=== PATIENT | female | born 1950 | race Caucasian/White ===

== ENCOUNTER → 2017-09-23 09:22 | Outpatient (CLI) | payer MEDICARE, BC, SELFPAY ==
--- NOTE | 2017-09-23 09:25 | US_ITS ---
STUDY: THYROID ULTRASOUND REASON FOR EXAM: Female, 67 years old. Nodule, partial thyroidectomy TECHNIQUE: Ultrasound evaluation of the thyroid was performed with real-time and static pittman-scale imaging. COMPARISON: No comparison studies are available. FINDINGS: RIGHT LOBE: The right lobe of the thyroid gland has been resected. LEFT LOBE: The left lobe of the thyroid gland measures 5 x 1.6 x 1.4 cm. There is a homogeneous echotexture. There is a well-defined nodule within the superior pole of the left lobe of the thyroid gland measuring 7 x 6 x 8 mm. There is a hypoechoic halo, and perinodular flow. ISTHMUS: The isthmus measures 3 mm. The regional lymph nodes are normal. US/Thyroid IMPRESSION: Solitary left lobe thyroid nodule. Status post resection of the right thyroid lobe. Electronically Signed: Bebeto Melchor DO at 8:30 EDT Tel , Service support ,
--- NOTE | 2017-09-23 09:26 | BI_ITS ---
MAMMOGRAPHY - BILATERAL SCREENING REASON FOR EXAM: Female, 67 years old. Routine annual screening examination. PERTINENT HISTORY: Non-contributory. TECHNIQUE: Digital bilateral breast melinda (3D mammographic acquisition) in the CC and MLO projections. 2-D mediolateral oblique (MLO) and craniocaudad (CC) views of both breasts were obtained. CAD: Full Field Digital Mammography with Computer Added Detection was performed. COMPARISON: Comparison is made with prior study dated July 03, 2010. FINDINGS: Breast Composition: There are scattered areas of fibroglandular density. There are no dominant masses or suspicious calcifications. Stable appearance of the benign appearing bilateral axillary lymph nodes. No other significant abnormalities are identified. There has been no significant change since the prior study. BI/SCREENING MAMM (CAD), BILAT IMPRESSION: Stable bilateral screening mammogram. Yearly follow-up mammogram recommended. (A) ASSESSMENT CATEGORY: BIRADS Category 2: Benign. A letter regarding these results will be sent to the patient by the facility within 30 days. Approximately 10% of breast cancers are not detected by mammography. A normal mammogram should not delay biopsy of a clinically suspicious abnormality. [id number] Electronically Signed: Burt Saucedo MD at 12:30 EDT Tel [phone], Service support ,
--- NOTE | 2017-09-23 09:27 | BD_ITS ---
STUDY: DUAL ENERGY X-RAY ABSORPTIOMETRY / DXA REASON FOR EXAM: Female, 67 years old. The patient is postmenopausal. Loss of height. TECHNIQUE: Bone Mineral Density (BMD) measurements of lumbar spine and bilateral hips were obtained. COMPARISON: Comparison is made with prior study dated July 03, 2010. FINDINGS: Lumbar Spine (L1-L4): g/cm2 (1.108) / T-score (-0.8) / Z-score (0.9) Findings are suggestive of normal bone density with a low fracture risk. Left Femur Total: g/cm2 (0.774) / T-score (-1.9) / Z-score (-0.5) Left Femoral Neck: g/cm2 (0.699) / T-score (-2.4) / Z-score (-0.8) Right Femur Total: g/cm2 (0.752) / T-score (-2.0) / Z-score (-0.7) Right Femoral Neck: g/cm2 (0.682) / T-score (-2.6) / Z-score (-1.0) The T-Scores on the most recent prior examination were: Lumbar Spine (L1-L4): There has been improvement of bone density since the previous examination. Left Femur Total: which represents a worsening of 2.9%. Right Femur Total: which represents a worsening of 0.5%. BD/Dexa Bone Density Study IMPRESSION: The patient is considered osteoporotic as outlined below according to World Jose J Organization (WHO) criteria with a high fracture risk. There has been worsening of bone density since the previous examination. Reference Information: The T-score is the number of standard deviations above or below the standard which is normal for young adults at their peak bone mineral density. The World Health Organization (WHO) interprets the T-scores as follows: Above -1 Normal bone density Between -1 and -2.5 Osteopenia Equal to / or below -2.5 Osteoporosis As a practical clinical guideline, osteopenia may be graded as follows: Mild -1 through -1.5 Moderate -1.6 through -2.0 Severe -2.1 through -2.4 The Z-score is the number of standard deviations above or below age-matched controls. A Z-score of less than -1.5 would be considered abnormal. References: 1. NIH Osteoporosis and Related Bone Diseases http://www.osteo.org 2. International Society for Clinical Densitometry http://www.iscd.org 3. National Osteoporosis Foundation http://www.nof.org Electronically Signed: Burt Saucedo MD at 15:29 EDT Tel [phone], Service support ,
== END ==
PROVIDERS: Family Provider Internal Medicine; PCP Internal Medicine; Visit Provider Internal Medicine
DX: Z12.31 Encounter for screening mammogram for malignant neoplasm of breast (principal); Z78.0 Asymptomatic menopausal state; M81.0 Age-related osteoporosis without current pathological fracture; E04.1 Nontoxic single thyroid nodule
CPT/HCPCS: 76536; 77063; 77067; 77080

== ENCOUNTER → 2018-01-07 14:27 | Outpatient (CLI) | payer MEDICARE, BC, SELFPAY ==
--- NOTE | 2018-01-07 14:30 | RAD_ITS ---
STUDY: X-RAY - LEFT FEMUR REASON FOR STUDY: Female, 67 years old. Posterior left upper leg pain to the back of the knee TECHNIQUE: Radiological exam, femur, minimum 2 views COMPARISON: None. FINDINGS: Normal visualized femur. Normal visualized soft tissue structure. Mild narrowing of the patellofemoral joint but the knee is otherwise unremarkable in its visualized extent. The left hip is grossly unremarkable. 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 RAD/Femur Min 2 Views IMPRESSION: 1. Normal x-ray examination of the femur. 2. Mild patellofemoral joint arthrosis. Electronically Signed: Nino Wright MD at 8:16 EDT , Service support ,
== END ==
PROVIDERS: Family Provider Internal Medicine; PCP Internal Medicine; Referring Provider Internal Medicine; Visit Provider Internal Medicine
DX: M79.605 Pain in left leg (principal)
CPT/HCPCS: 73552

== ENCOUNTER 2018-01-28 11:00 | Outpatient (RCR) | payer MEDICARE, BC, SELFPAY ==
--- NOTE | 2018-01-14 12:14 | HP.PTEVAL ---
Patient's Visit Information ZARA GASTON is a 67 year old F referred to Physical Therapy by Connie Stevens DO with a diagnosis of LEFT LEG PAIN ,HAMSTRING STRETCH. Date of Evaluation: 01/14/18 Physical Therapist: Kris Starr PT, - Visit Plan Frequency: 1-2x /Week Duration: 3 Weeks Plan: FLEXABLITY HAMSTRINGS,STRENGTHENIN,MODALITIES NEEDED - Subjective Subjective: This 67 y/o female presenst to physical therapy with left leg pain,hamstring injury. This patient stated fell on sidewalk was uneven tripped foward ,immediate pain hamstrings .DOI about 2weeks ago.Patient followed up with DR Stevens. Patient had xrays-.Recommended PT .Patient had difficuly siiting on commode or chair that hits knee or buttuck. Patient has difiiculty with stairs,bending,squatting,kneeling. Denies parathesia/tingling.Patient symptoms affects QOL and function/housework tasks.No bruising. VOCATION: retired. SOCAIL: - Pain Left Lower Extremity Pain Intensity (Out of 10): 5 Pain Intensity Range: 8 - Objective POSTURE:WFL. PALAPTION: tender origin/distal hamstring. NEURO: intact. GAIT: normal debbi. FLEXABLITY: hams min tight with pain left at end range no NW. MMT: quad/hams/hip/ankle 4/5. LUMBAR ROM: flexion min loss,extension min loss,side glides min loss no pain .,stretching pain hams - Special Tests L/S Slump test left side: Negative L/S Slump test right side: Negative L/S Left Straight Leg Raise: Negative L/S Right Straight Leg Raise: Negative - Goals Goal 1:: Patient to be Independant with HEP Goal Time Frame: 4-6 Weeks Goal 2:: Patient to improve hamstring flexablity WFL with pain Goal Time Frame: 4-6 Weeks Goal 3:: Patient improve strength left leg 5/5 to improve function with ADLS' Goal Time Frame: 4-6 Weeks Goal 4:: Patient be able to sqaut kneelinh ,lift with symptoms. Goal Time Frame: 4-6 Weeks - Rehabilitation Potential Physical Therapy Diagnosis: This 67 y/o female injuried hamstring tripped on uneven cement pulled hamstring caused pain with impairments with tight hamstring,with difficulty with ADL'S walking ,stairs and sqautting . Rehabilitation Potential: Excellent - Anticipated Interventions Patient/Client Instruction: Educate patient on: Condition, Plan of Care For the Purpose of:: To decrease pain, To increase ROM, To improve muscle performance and motor function, To increase tolerance to activity/condition/position, To improve health of tissue, To decrease soft tissue restriction, To increase flexibility/ROM Therapeutic Exercise to Include: Strength training, Flexibilty training, Passive ROM, Active ROM For the Purpose of:: To decrease pain, To increase ROM, To improve health of tissue, To decrease soft tissue restriction, To increase flexibility/ROM, To improve ability to perform tasks related to life management Manual Therapy Techniques to Include: Soft tissue mobilization For the Purpose of:: To decrease pain, To increase ROM TENS: Yes IF ES: Yes Cryotherapy (ice pack, ice massage): Yes Thermo therapy (hot pack): Yes Ultrasound (thermal/non thermal): Yes For the Purpose of:: To decrease pain, To increase ROM, To improve health of tissue, To decrease soft tissue restriction Thank you for the opportunity to evaluate your patient. For Medicare and Medicare HMO plans, please review the plan of care and approve it. It will need to be FAXED BACK to us at [phone] for Medicare purposes. Please let me know if there are questions or concerns regarding this plan of care. Physician Signature: Date:
--- NOTE | 2018-01-28 11:43 | HP.PTDCSUM ---
HP - PT D/C Summary It has been my pleasure to treat ZARA GASTON under orders from Connie Stevens DO, for the diagnosis of LEFT LEG PAIN ,HAMSTRING STRETCH for a total of 3 visit(s). Discharge Date: 01/28/18 Please see the following information for a summary of their discharge status. - Subjective Subjective: Doing well..Back to [place] activity. Seen DR - Pain Left Lower Extremity Pain Intensity (Out of 10): 0 - Overall Improvement % Improvement: 75 - Objective Objective/Function: POSTURE: WNL. GAIT: NORMAL ALFRED. PALPATION: UNREMARKABLE. MMT: 4/5 quads/hams. FLLEXABLIYY: HAMS MIN - Goals Goal 1:: Patient to be Independant with HEP Goal Progress: Goal Met Goal 2:: Patient to improve hamstring flexablity WFL with pain Goal Progress: Goal Met Goal 3:: Patient improve strength left leg 5/5 to improve function with ADLS' Goal Progress: Goal Met Goal 4:: Patient be able to sqaut kneelinh ,lift with symptoms. - Plan Plan: D/C TO [facility] - D/C Information Discharge Comments: [facility] If there are questions or concerns regarding this patient's physical therapy, please feel free to call me at [phone]. Thank you for the referral of this patient. Sincerely, Kris Starr, PT,
== END 2018-01-28 19:00 | disposition home or self-care (01) ==
LOC: PT 11:00
PROVIDERS: Family Provider Internal Medicine; PCP Internal Medicine; Referring Provider Internal Medicine; Visit Provider Internal Medicine
DX: S76.312D Strain of muscle, fascia and tendon of the posterior muscle group at thigh level, left thigh, subsequent encounter (principal); M79.605 Pain in left leg
CPT/HCPCS: 97014; 97110; 97162; G0283

== ENCOUNTER → 2018-09-24 10:34 | Outpatient (CLI) | payer MEDICARE, BC, SELFPAY ==
--- NOTE | 2018-09-24 10:41 | BI_ITS ---
MAMMOGRAPHY - BILATERAL SCREENING 3-D TOMOSYNTHESIS REASON FOR EXAM: Female, 68 years old. Bilateral Screening 3-D tomosynthesis PERTINENT HISTORY: No significant family history. TECHNIQUE: 2-D mammograms and 3-D Tomosynthesis of the breast (s) were performed. CAD was performed. COMPARISON: September 23, 2017 FINDINGS: The breast composition is almost entirely fat. Scattered benign calcifications are seen. No dense spiculated masses or suspicious microcalcifications are identified. No architectural distortion is identified. There is no skin thickening or retraction. Stable benign-appearing lymph nodes are present. There has been no significant change since the prior study. BI/SCREEN MAMM (CAD) W/CHUY BILAT IMPRESSION: No mammographic signs of malignancy. Routine yearly mammograms recommended. ASSESSMENT CATEGORY: BIRADS Category 2: Benign. A letter regarding these results will be sent to the patient by the facility within 30 days. FOLLOW UP RECOMMENDATION: Yearly follow up mammogram recommended. (A) Approximately 10% of breast cancers are not detected by mammography. A normal mammogram should not delay biopsy of a clinically suspicious abnormality. Electronically Signed: José Prabhakar MD at 16:07 EDT , Service support ,
--- NOTE | 2018-09-24 10:41 | US_ITS ---
STUDY: THYROID ULTRASOUND REASON FOR EXAM: Female, 68 years old. TECHNIQUE: Ultrasound evaluation of the thyroid was performed with real-time and static pittman-scale imaging. COMPARISON: None. FINDINGS: The right lobe of the thyroid is absent. The left lobe measures 5.1 x 1.5 x 1.8 cm it is homogeneous in texture. A small nodule measures 0.7 x 0 0.8, 0.7 seen within the left lobe. It has regular margin with perinodular vascularity. The heart of the isthmus measures 3 mm. US/Thyroid IMPRESSION: Right thyroidectomy, Small solid nodule left lobe of the thyroid with the measurements above. Electronically Signed: Mickie Stallworth, at 15:46 EDT Tel , Service support ,
== END ==
PROVIDERS: Family Provider Internal Medicine; PCP Internal Medicine; Referring Provider Internal Medicine; Visit Provider Internal Medicine
DX: Z12.31 Encounter for screening mammogram for malignant neoplasm of breast (principal); E04.1 Nontoxic single thyroid nodule
CPT/HCPCS: 76536; 77063; 77067

== ENCOUNTER → 2019-11-10 11:30 | Outpatient (CLI) | payer MEDICARE, OTHER, SELFPAY ==
--- NOTE | 2019-11-10 11:35 | BI_ITS ---
MAMMOGRAPHY - BILATERAL SCREENING REASON FOR EXAM: Female, 69 years old. Routine annual screening examination. PERTINENT HISTORY: Non-contributory. TECHNIQUE: Digital bilateral breast chuy (3D mammographic acquisition) in the CC and MLO projections. 2-D mediolateral oblique (MLO) and craniocaudad (CC) views of both breasts were obtained. CAD: Full Field Digital Mammography with Computer Added Detection was performed. COMPARISON: Comparison is made with prior study dated 09/24/2018 and 09/23/2017. FINDINGS: Breast Composition: There are scattered areas of fibroglandular density. There are no dominant masses or suspicious calcifications. Stable benign-appearing bilateral axillary lymph nodes. No other significant abnormalities are identified. There has been no significant change since the prior study. BI/SCREEN MAMM (CAD) W/CHUY BILAT IMPRESSION: Stable bilateral screening mammogram. Yearly follow-up mammogram recommended. (A) ASSESSMENT CATEGORY: BIRADS Category 2: Benign. A letter regarding these results will be sent to the patient by the facility within 30 days. Approximately 10% of breast cancers are not detected by mammography. A normal mammogram should not delay biopsy of a clinically suspicious abnormality. [id number] Electronically Signed: Burt Saucedo, at 13:27 EDT , Service support ,
--- NOTE | 2019-11-10 11:35 | US_ITS ---
STUDY: THYROID ULTRASOUND REASON FOR EXAM: Female, 69 years old. Nodule TECHNIQUE: Ultrasound evaluation of the thyroid was performed with real-time and static pittman-scale imaging. COMPARISON: Comparison is made with prior study dated 09/24/2018. FINDINGS: RIGHT LOBE: The right lobe is surgically absent. LEFT LOBE: The left lobe of the thyroid gland measures 4.7 cm x 1.6 cm x 1.4 cm. There is a homogeneous echotexture. There are 3 hypoechoic solid nodules in the left lobe. The largest measures 9 mm x 10 mm x 7 mm. This is in the mid pole of the left lobe. There is evidence of intranodular vascularity. ISTHMUS: The isthmus measures 2.0 mm. The regional lymph nodes are normal. US/Thyroid IMPRESSION: Status post resection of the right lobe of the thyroid. 3. Hypoechoic solid nodules in the left lobe the larger measures 9 mm x 10 mm x 7 mm. This is located in the midpole. Electronically Signed: Burt Saucedo, at 15:16 EDT , Service support ,
--- NOTE | 2019-11-10 11:37 | BD_ITS ---
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 COMPARISON: Comparison is made with prior study dated 09/23/2017. FINDINGS: Lumbar Spine (L1-L4): g/cm2 (1.015) / T-score (-1.3) / Z-score (0.4) Findings are suggestive of osteopenia with a low fracture risk. Left Femur Total: g/cm2 (0.760) / T-score (-2.0) / Z-score (-0.5) Left Femoral Neck: g/cm2 (0.706) / T-score (-2.4) / Z-score (-0.7) Right Femur Total: g/cm2 (0.735) / T-score (-2.2) / Z-score (-0.7) Right Femoral Neck: g/cm2 (0.696) / T-score (-2.5) / Z-score (-0.8) The T-Scores on the most recent prior examination were: Lumbar Spine (L1-L4): There has been worsening of bone density since the previous examination. Left Femur Total: which represents a worsening of 1.8%. Right Femur Total: which represents a worsening of 2.3%. BD/Dexa Bone Density Study IMPRESSION: The patient is considered osteoporotic as outlined below according to World Jose J Organization (WHO) criteria with a high fracture risk. There has been worsening of bone density since the previous examination. Reference Information: The T-score is the number of standard deviations above or below the standard which is normal for young adults at their peak bone mineral density. The World Health Organization (WHO) interprets the T-scores as follows: Above -1 Normal bone density Between -1 and -2.5 Osteopenia Equal to / or below -2.5 Osteoporosis As a practical clinical guideline, osteopenia may be graded as follows: Mild -1 through -1.5 Moderate -1.6 through -2.0 Severe -2.1 through -2.4 The Z-score is the number of standard deviations above or below age-matched controls. A Z-score of less than -1.5 would be considered abnormal. References: 1. NIH Osteoporosis and Related Bone Diseases http://www.osteo.org 2. International Society for Clinical Densitometry http://www.iscd.org 3. National Osteoporosis Foundation http://www.nof.org Electronically Signed: Burt Saucedo, at 15:14 EDT , Service support ,
== END ==
PROVIDERS: PCP Internal Medicine; Referring Provider Internal Medicine; Visit Provider Internal Medicine
DX: Z12.31 Encounter for screening mammogram for malignant neoplasm of breast (principal); Z78.0 Asymptomatic menopausal state; E04.1 Nontoxic single thyroid nodule
CPT/HCPCS: 76536; 77063; 77067; 77080

== ENCOUNTER → 2019-11-25 | Outpatient (CLI) | payer MEDICARE, OTHER, SELFPAY ==
[2019-11-25 14:14] VITALS: BMI 28.6
== END | disposition home or self-care (01) ==
LOC: LABSPEC 11-26 12:38
PROVIDERS: PCP Internal Medicine; Visit Provider Surgery
DX: E04.2 Nontoxic multinodular goiter (principal)

== ENCOUNTER → 2019-11-26 | Outpatient (CLI) | payer MEDICARE, OTHER, SELFPAY ==
[2019-11-25 14:14] VITALS: BMI 28.6
== END | disposition home or self-care (01) ==
LOC: LABSPEC 13:46
PROVIDERS: PCP Internal Medicine; Referring Provider Surgery; Visit Provider Surgery
DX: E04.2 Nontoxic multinodular goiter (principal)

== ENCOUNTER → 2020-01-26 14:29 | Outpatient (CLI) | payer MEDICARE, OTHER, SELFPAY ==
[2019-12-02 14:36] VITALS: BMI 28.6
[2020-01-26 14:52] VITALS: BP 117/74; PULSE 67; BMI 28.1
[2020-01-26] MEDS: DENOSUMAB 60 MG/ML SQ (14:56)
== END ==
PROVIDERS: PCP Internal Medicine; Referring Provider Internal Medicine; Visit Provider Internal Medicine
DX: M81.0 Age-related osteoporosis without current pathological fracture (principal)
CPT/HCPCS: 96372; J0897

== ENCOUNTER → 2020-12-14 13:37 | Outpatient (CLI) | payer MEDICARE, OTHER, SELFPAY ==
--- NOTE | 2020-12-14 13:44 | BI_ITS ---
MAMMOGRAPHY - BILATERAL SCREENING REASON FOR EXAM: Female, 70 years old. Routine annual screening examination. PERTINENT HISTORY: Non-contributory. TECHNIQUE: Digital bilateral breast chuy (3D mammographic acquisition) in the CC and MLO projections. 2-D mediolateral oblique (MLO) and craniocaudad (CC) views of both breasts were obtained. CAD: Full Field Digital Mammography with Computer Added Detection was performed. COMPARISON: Comparison is made with prior study 11/10/2019 and 09/24/2018. FINDINGS: Breast Composition: There are scattered areas of fibroglandular density. There are no dominant masses or suspicious calcifications. Stable benign-appearing bilateral axillary lymph nodes. No other significant abnormalities are identified. There has been no significant change since the prior study. BI/SCRN MAMM (CAD)W/CHUY BILAT IMPRESSION: Stable bilateral screening mammogram. Yearly follow-up mammogram recommended. (A) ASSESSMENT CATEGORY: BIRADS Category 2: Benign. A letter regarding these results will be sent to the patient by the facility within 30 days. Approximately 10% of breast cancers are not detected by mammography. A normal mammogram should not delay biopsy of a clinically suspicious abnormality. [id number] Electronically Signed: Burt Saucedo MD at 14:44 EDT , Service support ,
--- NOTE | 2020-12-14 13:44 | US_ITS ---
STUDY: THYROID ULTRASOUND REASON FOR EXAM: Female, 70 years old. NODULE TECHNIQUE: Ultrasound evaluation of the thyroid was performed with real-time and static pittman-scale imaging. COMPARISON: 11/10/2019 FINDINGS: RIGHT LOBE: Status post right lobectomy. LEFT LOBE: The left lobe of the thyroid gland measures 1.7 x 1.5 x 4.0 cm. There is a heterogeneous echotexture. Nodule 1: Shrinking 6 x 5 x 4 mm (from 9 x 7 x 10 mm) cystic hypoechoic wider than tall smoothly marginated nodule with no echogenic foci (TR 1) in the medial left lobe consistent with a colloid cyst. ISTHMUS: The isthmus measures 2 mm thick. . The regional lymph nodes are normal. US/Thyroid IMPRESSION: Thyroiditis with a shrinking colloid cyst in the medial remaining left lobe. Electronically Signed: Omar Good MD at 9:22 EDT Tel , Service support ,
== END ==
PROVIDERS: PCP Internal Medicine; Referring Provider Internal Medicine; Visit Provider Internal Medicine
DX: Z12.31 Encounter for screening mammogram for malignant neoplasm of breast (principal); E04.1 Nontoxic single thyroid nodule
CPT/HCPCS: 76536; 77063; 77067

== ENCOUNTER → 2022-10-17 | Outpatient (CLI) | payer MEDICARE, OTHER, SELFPAY ==
--- NOTE | 2022-10-17 15:04 | BI_ITS ---
MAMMOGRAPHY - BILATERAL SCREENING 3-D TOMOSYNTHESIS REASON FOR EXAM: Female, 72 years old. Routine screening PERTINENT HISTORY: No significant family history. TECHNIQUE: 2-D mammograms and 3-D Tomosynthesis of the breast (s) were performed. CAD was performed. COMPARISON: 11/10/2019 FINDINGS: The breast composition is composed of scattered fibroglandular density. Scattered benign calcifications are seen. No dense spiculated masses or suspicious microcalcifications are identified. No architectural distortion is identified. There is no skin thickening or retraction. There has been no significant change since the prior study. BI/SCRN MAMM (CAD)W/CHUY BILAT IMPRESSION: No mammographic signs of malignancy. Routine yearly mammograms recommended. ASSESSMENT CATEGORY: BIRADS Category 2: Benign. A letter regarding these results will be sent to the patient by the facility within 30 days. FOLLOW UP RECOMMENDATION: Yearly follow up mammogram recommended. (A) Approximately 10% of breast cancers are not detected by mammography. A normal mammogram should not delay biopsy of a clinically suspicious abnormality. Electronically Signed: Caleb Wakefield MD at 20:33 EDT ,
--- NOTE | 2022-10-17 15:04 | US_ITS ---
INDICATION: Thyroid nodule EXAMINATION: Ultrasound US Thyroid (eg thyroid, parathyroid, parotid) TECHNIQUE: Smith scale and color doppler imaging was performed of the thyroid gland. COMPARISON: December 14, 2020 FINDINGS: RIGHT THYROID LOBE: Status post surgical resection. [ LEFT THYROID LOBE: 4.7 x 1.4 x 1.8 cm. Heterogeneous echotexture with normal vascularity. [There is a complex hypoechoic upper pole 7 x 6 mm nodule. Additional smaller nodules as on the previous study but not as well-defined. ISTHMUS: 3.4 mm. No thyroid nodules are present. US/Thyroid IMPRESSION: Stable left thyroid nodules similar to previous study. Electronically Signed: Willis Waddell DO at 23:46 EDT Reading Location ID and State: [facility] / [place] Tel [phone], Service support ,
--- NOTE | 2022-10-17 15:13 | BD_ITS ---
STUDY: DUAL ENERGY X-RAY ABSORPTIOMETRY / DXA REASON FOR EXAM: Female, 72 years old. [id number] TECHNIQUE: Bone Mineral Density (BMD) measurements of lumbar spine and bilateral hips were obtained. COMPARISON: Comparison is made with prior study dated November 10, 2019. FINDINGS: Lumbar Spine (L1-L4): g/cm2 (0.879) / T-score (-1.6) / Z-score (0.8) Findings are suggestive of osteopenia with a moderate fracture risk. Left Femur Total: g/cm2 (0.725) / T-score (-1.8) / Z-score (-0.1) Left Femoral Neck: g/cm2 (0.557) / T-score (-2.6) / Z-score (-0.6) Right Femur Total: g/cm2 (0.673) / T-score (-2.2) / Z-score (-0.5) Right Femoral Neck: g/cm2 (0.628) / T-score (-2.0) / Z-score (0.0) The T-Scores on the most recent prior examination were: Lumbar Spine (L1-L4): There has been worsening of bone density since the previous examination. Left Femur Total: which represents an improvement of 3.4%. Right Femur Total: which represents a worsening of 0.7%. BD/Dexa Bone Density Study IMPRESSION: The patient is considered osteoporotic as outlined below according to World Jose J Organization (WHO) criteria with a high fracture risk. There has been worsening of bone density since the previous examination. Reference Information: The T-score is the number of standard deviations above or below the standard which is normal for young adults at their peak bone mineral density. The World Health Organization (WHO) interprets the T-scores as follows: Above -1 Normal bone density Between -1 and -2.5 Osteopenia Equal to / or below -2.5 Osteoporosis As a practical clinical guideline, osteopenia may be graded as follows: Mild -1 through -1.5 Moderate -1.6 through -2.0 Severe -2.1 through -2.4 The Z-score is the number of standard deviations above or below age-matched controls. A Z-score of less than -1.5 would be considered abnormal. References: 1. NIH Osteoporosis and Related Bone Diseases www osteo.org 2. International Society for Clinical Densitometry www iscd.org 3. National Osteoporosis Foundation www nof.org Electronically Signed: Burt Saucedo MD at 13:16 EDT ,
== END | disposition home or self-care (01) ==
LOC: OPBD 15:02
PROVIDERS: PCP Internal Medicine; Referring Provider Internal Medicine; Visit Provider Internal Medicine
DX: Z78.0 Asymptomatic menopausal state (principal); Z12.31 Encounter for screening mammogram for malignant neoplasm of breast
CPT/HCPCS: 76536; 77063; 77067; 77080

== ENCOUNTER → 2023-11-18 | Outpatient (CLI) | payer MEDICARE, OTHER, SELFPAY ==
--- NOTE | 2023-11-18 13:58 | BI_ITS ---
MAMMOGRAPHY - BILATERAL SCREENING REASON FOR EXAM: Female, 73 years old. Routine annual screening examination. PERTINENT HISTORY: Non-contributory. TECHNIQUE: Digital bilateral breast chuy (3D mammographic acquisition) in the CC and MLO projections. 2-D mediolateral oblique (MLO) and craniocaudad (CC) views of both breasts were obtained. CAD: Full Field Digital Mammography with Computer Added Detection was performed. COMPARISON: Comparison is made with prior study dated October 17, 2022 and December 14, 2020. FINDINGS: Breast Composition: There are scattered areas of fibroglandular density. There are no dominant masses or suspicious calcifications. Stable benign appearing fat-containing axillary lymph nodes. No other significant abnormalities are identified. There has been no significant change since the prior study. BI/SCRN MAMM (CAD)W/CHUY BILAT IMPRESSION: Stable bilateral screening mammogram. Yearly follow-up mammogram recommended. (A) ASSESSMENT CATEGORY: BIRADS Category 2: Benign. A letter regarding these results will be sent to the patient by the facility within 30 days. Approximately 10% of breast cancers are not detected by mammography. A normal mammogram should not delay biopsy of a clinically suspicious abnormality. [id number] Electronically Signed: Burt Saucedo MD at 15:12 EDT ,
== END | disposition home or self-care (01) ==
LOC: OPBI 13:58
PROVIDERS: PCP Internal Medicine; Referring Provider Internal Medicine; Visit Provider Internal Medicine
DX: Z12.31 Encounter for screening mammogram for malignant neoplasm of breast (principal)
CPT/HCPCS: 77063; 77067

== ENCOUNTER → 2023-12-25 | Outpatient (CLI) | payer MEDICARE, OTHER, SELFPAY ==
--- NOTE | 2023-12-25 12:41 | US_ITS ---
INDICATION: thyroid nodule EXAMINATION: Ultrasound US Thyroid (eg thyroid, parathyroid, parotid) TECHNIQUE: Smith scale and color doppler imaging was performed of the thyroid gland. COMPARISON: FINDINGS: RIGHT THYROID LOBE: Status post right thyroidectomy. [ LEFT THYROID LOBE: 3.9 x 1.5 x 1.5 cm. Homogeneous echotexture with normal vascularity. [There is a mid thyroid 7 x 8 x 5 mm hypoechoic nodule with mild echogenicity centrally, similar to previous study. There is a new superior 5 x 3 x 3 mm hypoechoic nodule possibly cystic in nature. An echogenic new mid thyroid nodule is noted measuring 5 x 5 x 3 mm. ISTHMUS: 1.7 mm. No thyroid nodules are present. US/Thyroid IMPRESSION: Relatively stable mid left thyroid nodule since the previous study. Additional nodules as noted since the previous study. Electronically Signed: Willis Waddell DO at 21:27 EDT ,
--- NOTE | 2023-12-25 12:41 | CT_ITS ---
INDICATION: enlarged thoracic aorta EXAMINATION: CT CHEST WITH CONTRAST - CT Chest W/ Contrast Injection TECHNIQUE: Helically acquired images were obtained of the chest following IV contrast. The protocol utilizes one or more of the following dose reduction techniques: automated exposure control, adjustment of mA and/or kV according to patient size,and/or use of iterative reconstruction technique. IV Contrast dosage and agent: RADIATION DOSAGE (If Supplied By Facility): CTDIvol = ( 16.17 ) mGy, DLP = ( 255.87 ) mGycm COMPARISON: FINDINGS: LUNGS, PLEURA AND LARGE AIRWAYS: Left lower lobe calcified granuloma. No pleural effusion or thickening. No pneumothorax. THYROID: No thyroid lesions. HEART AND PERICARDIUM: Heart size is normal. No pericardial effusion. VESSELS: The ascending aorta is 3.8 cm in diameter. No aortic dissection. No obvious central pulmonary embolism although this study was not performed with the pulmonary embolism protocol. MEDIASTINUM AND JAMES: No mediastinal or hilar adenopathy. Esophagus is unremarkable. No hiatal hernia. UPPER ABDOMEN: There are hepatic cysts. BONES: No suspicious lytic or blastic abnormality. CT/Chest WITH Contrast IMPRESSION: Borderline prominence of the ascending aorta. Electronically Signed: Willis Waddell DO at 17:33 EDT Reading Location ID and State: [facility] / [place] Tel [phone], Service support ,
--- NOTE | 2023-12-25 14:23 | ECHOD_ITS ---
Reason For Study: ABNORMAL EKG Procedure This was a 2D Doppler, Color Flow transthoracic echocardiogram. Exam performed in department. Left Ventricle Normal LV size. The estimated ejection fraction is 65 %. No evidence for diastolic dysfunction. No regional wall motion abnormalities noted. Right Ventricle Normal RV size. Normal systolic function. Atria The left and right atria are normal. No doppler evidence for ASD. Mitral Valve There is no mitral valve stenosis. No mitral valve insufficiency. Tricuspid Valve There is no tricuspid stenosis. Unable to estimate RV systolic pressure due to inadequate jet, pulmonary artery pressure probably normal. Aortic Valve Trisinus/trileaflet aortic valve. Aortic sclerosis, no stenosis. There is no aortic stenosis. Trivial aortic valve insufficiency. Pulmonic Valve There is no pulmonic valvular stenosis. No pulmonic valve insufficiency. Great Vessels Normal aortic root. Pericardium/Pleural No pericardial effusion. MMode/2D Measurements & Calculations LVIDd: 4.2 cm IVSd: 1.3 cm LVOT diam: 2.0 cm LVIDs: 2.3 cm LVPWd: 0.72 cm LVOT area: 3.1 cm2 RVDd: 3.3 cm FS: 44.0 % asc Aorta Diam: 3.8 cm LAV(MOD-bp): 32.3 ml LVAd ap4: 17.5 cm2 LAV(MOD-bp) Indexed: 17.5 ml/m2 LVLd ap4: 6.8 cm LAV(MOD-sp2): 40.7 ml EDV(MOD-sp4): 36.8 ml LAV(MOD-sp4): 25.2 ml EDV(sp4-el): 38.1 ml LVAs ap4: 9.0 cm2 LVLs ap4: 5.5 cm ESV(MOD-sp4): 12.6 ml ESV(sp4-el): 12.5 ml EF(MOD-sp4): 65.7 % EF(sp4-el): 67.3 % LVAd ap2: 15.6 cm2 SV(MOD-sp4): 24.2 ml SV(MOD-sp2): 21.0 ml LVLd ap2: 6.5 cm EDV(MOD-sp2): 31.1 ml EDV(sp2-el): 31.7 ml LVAs ap2: 8.1 cm2 LVLs ap2: 5.4 cm ESV(MOD-sp2): 10.1 ml ESV(sp2-el): 10.2 ml EF(MOD-sp2): 67.5 % SV(sp4-el): 25.6 ml Ao sinus diam: 3.[address] Junction: 3.1 cm LA dimension(2D): 3.2 cm LA A4 area: 13.0 cm2 RA A4 area: 9.5 cm2 TAPSE: 1.7 cm Time Measurements MV dec time: 0.32 sec Doppler Measurements & Calculations MV E max marlon: 40.9 cm/sec Lat Peak E' Marlon: 7.8 cm/sec Med Peak E' Marlon: 7.4 cm/sec MV A max marlon: 86.5 cm/sec E/E' lat: 5.2 E/E' med: 5.5 MV E/A: 0.47 MV dec slope: 128.8 cm/sec2 Ao V2 max: 105.6 cm/sec LV V1 max: 95.1 cm/sec Ao max P.5 mmHg LV V1 max P.6 mmHg Ao V2 mean: 83.8 cm/sec LV V1 mean P.9 mmHg Ao mean P.0 mmHg LV V1 mean: 65.2 cm/sec Ao V2 VTI: 23.7 cm LV V1 VTI: 20.3 cm AV (velocity ratio): 0.86 ALBA(I,D): 2.7 cm2 ALBA(V,D): 2.8 cm2 SV(LVOT): 63.5 ml PA V2 max: 74.1 cm/sec PA max PG (full): 0.59 mmHg ECHO/Echo Complete Interpretation Summary The estimated ejection fraction is 65 %. No evidence for diastolic dysfunction. Trivial aortic valve insufficiency. Ordering Physician: Connie Stevens Referring Physician: Connie Stevens Performed By: Juliana Sánchez RDCS
[2023-12-29 08:03] LABS: CREATININE FINGERSTICK < 1.0 mg/dL (0.55-1.02); EGFR FINGERSTICK > 60.0000 mL/min (>60)
== END | disposition home or self-care (01) ==
LOC: US 12:40
PROVIDERS: PCP Internal Medicine; Referring Provider Internal Medicine; Visit Provider Internal Medicine
DX: E04.1 Nontoxic single thyroid nodule (principal); I77.810 Thoracic aortic ectasia; R94.31 Abnormal electrocardiogram [ECG] [EKG]
CPT/HCPCS: 71260; 76536; 93306; Q9967

== ENCOUNTER → 2025-01-14 | Outpatient (CLI) | payer MEDICARE, OTHER, SELFPAY ==
--- NOTE | 2025-01-14 15:11 | US_ITS ---
PROCEDURE: THYROID 01/14/2025 REASON FOR EXAM: THYROID NODULE TECHNIQUE: Procedure Code: USTHY Modality: US Procedure: THYROID COMPARISON: None FINDINGS: Right thyroid lobe size: Surgically removed. Left thyroid lobe size: 5.0 x 1.6 x 4.1 cm Isthmus: 0.3 cm Background parenchymal echotexture is homogeneous. Nodules: 1. Lobe: Left, Location: Upper, Size: 0.4 x 0.4 x 0.3 cm, Stability: N/A Composition: Mixed cystic and solid (+1) Echogenicity: Hypoechoic (+2) Margin: Smooth (+0) Shape: Wider than tall (+0) Echogenic Foci: None (+0) TI-RADS: 3 2. Lobe: Left, Location: Mid, Size: 0.9 x 0.7 x 0.6 cm, Stability: N/A Composition: Mixed cystic and solid (+1) Echogenicity: Hypoechoic (+2) Margin: Smooth (+0) Shape: Wider than tall (+0) Echogenic Foci: None (+0) TI-RADS: 3 3. Lobe: Left, Location: Mid, Size: 0.7 x 0.4 x 0.5 cm, Stability: N/A Composition: Mixed cystic and solid (+1) Echogenicity: Hypoechoic (+2) Margin: Smooth (+0) Shape: Wider than tall (+0) Echogenic Foci: None (+0) TI-RADS: 3 US/Thyroid IMPRESSION: Multiple thyroid nodules as above. RECOMMENDATION: Repeat thyroid ultrasound in 12 months is recommended. Reading Location: [id number]
--- OUTSIDE RECORDS SUMMARY | 2025-01-14 15:17 | XMS RPT_ITS | CCD ---
Author Organization [facility] Care Team Providers Care Mail Agent Name Role Phone Fast, Trina A Unavailable Shailesh Palma Unavailable [facility] Unavailable Manchak, Carmita Unavailable Unavailable Flinmunira Nisha Unavailable Unavailable Unavailable Unavailable Fast, Trina A Unavailable Shailesh Palma Unavailable [facility] Unavailable Manchak, Carmita Unavailable Unavailable Destini Lopezfer Unavailable Unavailable Unavailable Unavailable Unavailable Unavailable Kat Moreno Unavailable Unavailable Unavailable Unavailable Manchak, Carmita Unavailable Unavailable Messenger, Barbara Unavailable Unavailable Messenger, Barbara Unavailable Unavailable Kat Moreno L Unavailable Unavailable Claudy Steele III Unavailable Fast DO, Trina A Unavailable Dr. Shailesh Palma Unavailable Ivette ROSALES MD , Claudy Cabral Unavailable [facility], [facility] Unavailable Manchak KEVIN, Carmita Unavailable Unavailable Kat Moreno RN Unavailable Unavailable Jessica Nisha Unavailable Unavailable Unavailable Unavailable DR TRINA AGUILA DO Primary Care Physician Unavailable Unavailable Ivette ROSALES MD , Claudy Cabral Unavailable [phone] Cori RN, Barbara Unavailable Unavailable Fast DO, Trina A Unavailable FAST DO, DR MENA Primary Care Physician Unknown, Referring Provider Unavailable Unav ailable Unavailable Unavailable Unknown, Pcp Unavailable Unavailable Ho Jack Unavailable Arabella Marcial Unavailable Unavailable Aniket, Arabella Leyva Attending Unavailable Aniket, Arabella Autumn Referring Unavailable UNKNOWN, PCP Primary Care Unavailable Rumpler, Arabella Leyva Attending Unavailable UNKNOWN, PCP Primary Care Unavailable UNKNOWN, PCP Referring Unavailable Iván Ruano Referring Unavailable Irma, Dr. Ho Diaz Attending Unavaila ble UNKNOWN, PCP Primary Care Unavailable Irma, Dr. Ho Diaz Admitting Unavaila ble Irma, Dr. Ho Diaz Attending Unavaila ble UNKNOWN, UNKNOWN Referring Unavailable UNKNOWN, PCP Primary Care Unavailable Irma, Dr. Ho Diaz Attending Unavaila ble UNKNOWN, PCP Primary Care Unavailable Fast DO, Trina López Attending Unavailable Fast DO, Trina López Referring Unavailable Fast DO, Trina López Consulting Unavailable Sangeeta Thomas Unavailable UNKNOWN, PCP Primary Care Unavailable Irma, Dr. Ho Diaz Attending Unavaila ble Irma, Dr. Ho Diaz Referring Unavaila ble Fast, Dr. Trina López Primary Care Unavailable Fast, Dr. Trina López Attending Unavailable Fast, Trina Referring Unavailable Fast, Trina Attending Unavailable Fast, Trina Primary Care Unavailable Allergies Allergy Classification Reported Allergen(s) Allergy Type Date of Onset Reaction(s) Facility (20 sources) Allergy to No Known Drug Allergies (Renamed from No Known Drug Allergies); Translations: [Allergy to No Known Drug Allergies (Renamed from No Known Drug Allergies)] allergy to substance [facility] Work Phone: NEGATED: Highlighted row has been ruled out! (1 source) drug allergy [facility] Work Phone: NEGATED: Highlighted row has been ruled out! (1 source) drug allergy [facility] Work Phone: NEGATED: Highlighted row has been ruled out! (1 source) drug allergy [facility] Work Phone: Medications Current Medications Medication Drug Class(es) Dates Sig (Normalized) Sig (Original) aspirin 81 mg delayed release oral tablet (20 sources) Nonsteroidal Anti-inflammatory Drug Start: 02-12-2018 aspirin 81 mg oral delayed release tablet Dose : 81 mg = 1 tab(s), Oral, qDay, 0 Refill(s) Start Date: 02/12/18 Status: Ordered Start: 08-27-2017 take 1 tablet by max th once daily Aspirin EC Low Dose 81 MG Oral Tablet Delayed Release 1 (one) Tablet Tablet qd for 0 days Quantity: 30 {Tablet} Refills: 0 Ordered: 17-Sep-2017 Carmita Andrews CMA Start : 27-Aug-2017 Active Start: 06-06-2008 End: 03-21-2017 take 1 tablet by mouth once daily ASPIRIN BUF([id number]), 81MG (Oral Tablet Delayed Release) 1 (one) Tablet DR qd for 0 days Refills: 0 Ordered: 06-Jun-2008 Nisha Lopez Start : 06-Jun-2008 End : 21-Mar-2017 Discontinued Comments: This order discontinued per [facility]. take 1 tablet by max th once daily aspirin 81 mg oral tablet ; 1 tab(s) oral once a day Quantity: 0 Refills: 0 Ordered: 29-Nov-2021 Kathryn Quezada Generic Substitution Allowed Aspirin EC Low D ose 81 MG Oral Tablet Delayed Release Quantity: 0 Refills: 0 Ordered: 20-Nov-2021 DO Active Comment on above: This order discontin ued per [facility]. clonazepam 0.5 mg oral disint tablet (NF) (1 source) Start: 02-12-2018 clonazepam 0.5 mg oral disint tablet (NF) Dose : 0.5 mg = 1 tab(s), Oral, TID, 0 Refill(s) Start Date: 02/12/18 Status: Ordered 0.4 ml enoxaparin sodium 100 mg/ml prefilled syringe (2 sources) Low Molecular Weight Heparin Start: 12-20-2021 End: 01-14-2022 Lovenox 40 mg/0.4 mL injectable solution ; 40 milligram(s) subcutaneously once a day -.Meds to Beds Quantity: 26 Refills: 0 Ordered: 20-Dec-2021 Estrella Jackson Start: 20-Dec-2021 End: 14-Jan-2022 Generic Substitution Allowed Comments: It is very important that you take or use this exactly as directed. Do not skip doses or discontinue unless directed by your doctor. Chris Javed ntity: 0 Refills: 0 Ordered: 08-Jan-2022 DO Active Comment on above: It is very important that you take or use this exactly as directed. Do not skip doses or discontinue unless directed by your doctor. ergocalciferol 0.05 mg oral capsule (1 source) Provitamin D2 Compound Start: 02-17-20 Vitamin D2 2000 intl units oral capsule Dose : 2,000 International_Unit = 1 cap(s), Oral, qDay, with food, # 60 cap(s), 0 Refill(s) Start Date: 02/16/18 Status: Ordered Multi Vitamin+ (2 sources) Start: 02-17-20 Multi Vitamin+ 0 Refill(s) Start Date: 02/16/18 Status: Ordered multivitamin with minerals Antioxidant Multiple Vitamins and Minerals oral tablet (1 source) take 1 tablet by mouth once daily multivitamin with minerals Antioxidant Multiple Vitamins and Minerals oral tablet ; 1 tab(s) oral once a day Quantity: 0 Refills: 0 Ordered: 29-Nov-2021 Kathryn Quezada Status: Other Generic Substitution Allowed oxyCODONE hydrochloride 5 mg oral tablet (2 sources) Opioid Agonist Start: 12-21-19 End: 12-27-19 take 1 tablet by mouth every six hours as needed oxyCODONE 5 mg oral tablet ; 1 tab(s) orally every 6 hours x 7 days, As Needed -Pain - Mod (4-6) - .Meds to Beds IDC 10 G89.18 Quantity: 28 Refills: 0 Ordered: 20-Dec-2021 Estrella Jackson Start: 20-Dec-2021 End: 26-Dec-2021 Generic Substitution Allowed Start: 12-20-2021 oxyCODONE HCl - 5 MG Oral Tablet Quantity: 28 Refills: 0 Ordered: 20-Dec-2021 DO Start : 20-Dec-2021 Active Vitamin D2 2000 intl units oral capsule (1 source) Start: 02-16-2018 Vitamin D2 200 0 intl units oral capsule Dose : 2,000 International_Unit = 1 cap(s), Oral, qDay, with food, # 60 cap(s), 0 Refill(s) Start Date: 02/16/18 Status: Ordered Completed/Discontinued Medications Medication Drug Class(es) Dates Sig (Normalized) Sig (Original) acetaminophen 500 mg oral tablet (3 sources) Start: 11-20-2021 Tylenol Extra Strength 500 MG Oral Tablet TAKE 1 TABLET Every 6 hours For two days prior to surgery. Take 2 tablets (1000mg) the morning of surgery. Quantity: 1 Refills: 0 Ordered: 20-Nov-2021 Ho Jack MD Start : 20-Nov-2021 Active Ascorbic Acid / Beta Carotene / cuprous oxide / Lutein / sodium selenate / Vitamin E / Zinc Oxide (20 sources) Vitamin C Start: 08-18-2018 take 1 capsule by mouth once daily Ocuvite Adult 50+ Oral Capsule 1 (one) Capsule qd for 30 days Quantity: 30 {Capsule} Refills: 3 Ordered: 22-Jan-2019 Barbara Persaud RN Start : 18-Aug-2018 Active Comments: for eyes Start: 08-18-2018 take 1 capsule by mo uth once daily Ocuvite Adult 50+ Oral Capsule 1 (one) Capsule qd for 30 days Quantity: 30 {Capsule} Refills: 3 Ordered: 22-Jan-2019 Barbara Persaud LPN Start : 18-Aug-2018 Active Comments: for eyes Start: 08-18-2018 take 1 capsule by mo uth once daily Ocuvite Adult 50+ Oral Capsule 1 (one) Capsule qd for 30 days Quantity: 30 {Capsule} Refills: 3 Ordered: 18-Aug-2018 Fast DO, Trina A Fast DO, Trina A Start : 18-Aug-2018 Active Comments: for eyes Start: 02-16-2018 Ocuvite Oral, qDay Start Date: 02/16/18 Status: Ordered Ocuvite Adult 50 + CAPS Quantity: 0 Refills: 0 Ordered: 20-Nov-2021 DO Active Comment on above: for eyes bisacodyl 5 mg delayed release oral tablet (3 sources) Stimulant Laxative Start: 11-21-19 Dulcolax 5 MG Oral Tablet Delayed Release Take 2 tablets at 3pm and 2 tablets at 9pm the day prior to your procedure Quantity: 4 Refills: 0 Ordered: 20-Nov-2021 Ho Jack MD Start : 20-Nov-2021 Active busPIRone hydrochloride 7.5 mg oral tablet (20 sources) Start: 03-28-20 17 End: 03-28-20 17 take 1 tablet by mouth three times daily BusPIRone HCl 7.5 MG Oral Tablet 1 (one) Tablet tid for 0 days Quantity: 90 {Tablet} Refills: 4 Ordered: 28-Mar-2017 Fast DO, Trina A Fast DO, Trina A Start : 28-Mar-2017 End : 28-Mar-2017 Discontinued calcium citrate 1190 mg / cholecalciferol 0.005 mg oral tablet (20 sources) Vitamin D End: 03-21-20 17 take 2 tablets by mouth once daily CITRACAL/VITAMIN D, [id number] (Oral Tablet) 2 tab qd (250-200 MG-UNIT) End : 21-Mar-2017 Discontinued calcium citrate 1190 mg / vitamin d 200 unt oral tablet (20 sources) End: 03-21-20 17 take 2 tablets by mouth once daily CITRACAL/VITAMIN D, [id number] (Oral Tablet) 2 tab qd (250-200 MG-UNIT) End : 21-Mar-2017 Discontinued chlorhexidine gluconate 1.2 mg/ml mouthwash (1 source) Start: 11-30-19 22 take 15 mL by mouth in the morning Chlorhexidine Gluconate 0.12 % Mouth/Throat Solution RINSE MOUTH WITH 15ML FOR 30 SECONDS AM AND PM AFTER TOOTHBRUSHING. EXPECTORATE AFTER RINSING, DO NOT SWALLOW Quantity: 1 Refills: 0 Ordered: 29-Nov-2021 Liz Murillo Start : 29-Nov-2021 Active cholecalciferol 0.05 mg oral capsule (20 sources) Vitamin D Start: 09-18-19 18 take 2 capsules by mouth once daily Vitamin D3 2000 UNIT Oral Capsule 2 (two) Capsule qd for 0 days Quantity: 30 {Capsule} Refills: 3 Ordered: 17-Sep-2017 DO, Trina A Fast DO, Trina A Start : 17-Sep-2017 Active take 2 capsules by mouth once da anu cholecalciferol 50 mcg oral capsule ; 2 cap(s) oral once a day Quantity: 0 Refills: 0 Ordered: 29-Nov-2021 Kathryn Quezada Generic Substitution Allowed citalopram 20 mg oral tablet (20 sources) Serotonin Reuptake Inhibitor Start: 03-29-2017 End: 03-29-2017 take 1 tablet by mouth once daily CeleXA 20 MG Oral Tablet 1 (one) Tablet qd for 30 days Quantity: 30 {Tablet} Refills: 4 Ordered: 29-Mar-2017 Fast DO, Trina A Fast DO, Trina A Start : 29-Mar-2017 End : 29-Mar-2017 Discontinued clonazePAM 0.5 mg oral tablet (20 sources) Benzodiazepine Start: 12-09-2022 take 1 tablet by mouth twice daily as needed clonazePAM 0.5 mg oral tablet 1 (one) Tablet bid prn for 0 days Quantity: 60 {Tablet} Refills: 1 Ordered: 09-Dec-2022 Fast DO, Trina A Fast DO, Trina A Start : 09-Dec-2022 Active Comments: sixtyDX: F41.9 verbally called to [facility], 12/09/22 [facility] Start: 08-21-2022 take 1 tablet by max th twice daily as needed clonazePAM 0.5 mg oral tablet 1 (one) Tablet bid prn for 0 days Quantity: 60 {Tablet} Refills: 1 Ordered: 21-Aug-2022 Fast DO, Trina A Fast DO, Trina A Start : 21-Aug-2022 Active Comments: sixtyDX: F41.9 [facility] Start: 04-05-2022 take 1 tablet by max th twice daily as needed clonazePAM 0.5 mg oral tablet 1 (one) Tablet bid prn for 0 days Quantity: 60 {Tablet} Refills: 1 Ordered: 05-Apr-2022 Fast DO, Trina A Fast DO, Trina A Start : 05-Apr-2022 Active Comments: sixtyDX: F41.9 verbally called to in [place], 04/05/22, [employer] Start: 10-12-2021 take 1 tablet by max th twice daily as needed clonazePAM 0.5 MG Oral Tablet 1 (one) Tablet bid prn for 0 days Quantity: 60 {Tablet} Refills: 1 Ordered: 12-Oct-2021 Fast DO, Trina A Fast DO, Trina A Start : 12-Oct-2021 Active Comments: sixtyDX: F41.9 07/20/21 called to [facility] reviewed Start: 07-20-2021 take 1 tablet by max th twice daily as needed clonazePAM 0.5 MG Oral Tablet 1 (one) Tablet bid prn for 0 days Quantity: 60 {Tablet} Refills: 1 Ordered: 20-Jul-2021 Fast DO, Trina A Fast DO, Trina A Start : 20-Jul-2021 Active Comments: sixtyDX: F41.9 07/20/21 called [address] [facility] reviewed Start: 06-11-2021 take 1 tablet by max th twice daily as needed clonazePAM 0.5 MG Oral Tablet 1 (one) Tablet bid prn for 0 days Quantity: 60 {Tablet} Refills: 1 Ordered: 11-Jun-2021 Fast DO, Trina A Fast DO, Trina A Start : 11-Jun-2021 Active Comments: sixtyDX: F41.9 06/11/21 called to [facility] reviewed Start: 02-12-2018 clonazepam 0.5 mg oral disint tablet (NF) Dose : 0.5 mg = 1 tab(s), Oral, TID, 0 Refill(s) Start Date: 02/12/18 Status: Ordered Start: 12-30-2017 take 1 tablet by max th twice daily as needed clonazePAM 0.5 MG Oral Tablet 1 (one) Tablet bid prn for 0 days Quantity: 60 {Tablet} Refills: 1 Ordered: 07-Mar-2021 Fast DO, Trina A Fast DO, Trina A Start : 07-Mar-2021 Active Comments: sixtyDX: F41.9 12-24-[address] called [address] [facility] reviewed Start: 10-07-2017 End: 01-21-2018 take 1 tablet by mouth once daily as needed KlonoPIN 0.5 MG Oral Tablet 1 (one) Tablet Tablet 1-2 tab qd prn for 0 days Quantity: 60 {Tablet} Refills: 0 Ordered: 21-Jan-2018 Fast DO, Trina A Fast DO, Trina A Start : 07-Oct-2017 End : 21-Jan-2018 Inactive clonazePAM 0.5 M G Oral Tablet Quantity: 0 Refills: 0 Ordered: 20-Nov-2021 DO Active Comment on above: sixty sixtyDX: F41.9 Stahl d to 03-27-18 in [place] sixtyDX: F41.9 verba lly called to [facility] sixtyDX: F41.9 verba lly called to [facility] [phone] - cman[facility] 02/22/19 sixtyDX: F41.9 called to [facility] [place] [facility] reviewed sixtyDX: F41.9 called to [facility] [place] [facility] reviewed sixtyDX: F41.9 called to [facility] [place] [facility] reviewed sixtyDX: F41.9 verba lly called to [facility] in [place], 04/05/22, cmanchak sixtyDX: F41.9 verba lly called to [facility] [place], 08/21/22 cmanchak sixtyDX: F41.9 verba lly called to [facility], 12/09/22 cmanchak 1 ml denosumab 60 mg/ml prefilled syringe (20 sources) RANK Ligand Inhibitor Start: 01-22-2021 End: 01-22-2021 Prolia 60 MG/ML Subcutaneous Solution Prefilled Syringe 1 (one) Milliliter 1 inj SQ q 6 months for 0 days Quantity: 1 {Milliliter} Refills: 1 Ordered: 22-Jan-2021 Fast DO, Trina A Fast DO, Trina A Start : 22-Jan-2021 End : 22-Jan-2021 Discontinued Start: 01-14-2020 Prolia 60 MG/M L Subcutaneous Solution Prefilled Syringe 1 (one) Milliliter 1 inj SQ q 6 months for 0 days Quantity: 1 {Box} Refills: 1 Ordered: 14-Jan-2020 Fast DO, Trina A Fast DO, Trina A Start : 14-Jan-2020 Active escitalopram 20 mg oral tablet (20 sources) Serotonin Reuptake Inhibitor Start: 08-16-2022 take 1 tablet by mouth once daily at bedtime Lexapro 20 mg oral tablet 1 (one) Tablet qhs for 30 days Quantity: 30 {Tablet} Refills: 3 Ordered: 16-Aug-2022 Fast DO, Trina A Fast DO, Trina A Start : 16-Aug-2022 Active Start: 03-15-2022 take 1 tablet by max th once daily at bedtime Lexapro 20 mg oral tablet 1 (one) Tablet qhs for 30 days Quantity: 30 {Tablet} Refills: 3 Ordered: 15-Mar-2022 Fast DO, Trina A Fast DO, Trina A Start : 15-Mar-2022 Active Start: 12-19-2017 take 1 tablet by max th once daily at bedtime Lexapro 20 MG Oral Tablet 1 (one) Tablet qhs for 30 days Quantity: 30 {Tablet} Refills: 3 Ordered: 01-Nov-2021 Fast DO, Trina A Fast DO, Trina A Start : 01-Nov-2021 Active Escitalopram Oxa late 20 MG Oral Tablet Quantity: 0 Refills: 0 Ordered: 20-Nov-2021 DO Active gabapentin 100 mg oral capsule (3 sources) Anti-epileptic Agent Start: 11-20-2021 take 1 tablet by mouth at bedtime Gabapentin 100 MG Oral Capsule Take one tablet at bedtime starting 3 days prior to surgery Quantity: 3 Refills: 0 Ordered: 20-Nov-2021 Ho Jack MD Start : 20-Nov-2021 Active ibandronic acid 150 mg oral tablet (20 sources) Bisphosphonate Start: 01-10-2020 End: 01-10-2020 take 1 tablet by mouth every month Ibandronate Sodium 150 MG Oral Tablet 1 (one) Tablet q month for 0 days Quantity: 3 {Tablet} Refills: 3 Ordered: 10-Jan-2020 Fast DO, Trina A Fast DO, Trina A Start : 10-Jan-2020 End : 10-Jan-2020 Discontinued Start: 12-01-2019 take 1 tablet by max th every month Ibandronate Sodium 150 MG Oral Tablet 1 (one) Tablet q month for 0 days Quantity: 3 {Tablet} Refills: 3 Ordered: 01-Dec-2019 Fast DO, Trina A Fast DO, Trina A Start : 01-Dec-2019 Active Start: 11-26-2018 take 1 tablet by max th every month Ibandronate Sodium 150 MG Oral Tablet 1 (one) Tablet q month for 0 days Quantity: 3 {Tablet} Refills: 3 Ordered: 26-Nov-2018 Fast DO, Trina A Fast DO, Trina A Start : 26-Nov-2018 Active Start: 01-21-2018 take 1 tablet by max th every month Ibandronate Sodium 150 MG Oral Tablet 1 (one) Tablet q month for 0 days Quantity: 1 {Tablet} Refills: 9 Ordered: 21-Jan-2018 Kat Moreno LPN L Start : 21-Jan-2018 Active lisinopril 10 mg oral tablet (20 sources) Angiotensin Converting Enzyme Inhibitor Start: 09-05-2022 take 1 tablet by mouth twice daily lisinopriL 10 mg oral tablet 1 (one) Tablet bid for 0 days Quantity: 180 {Tablet} Refills: 3 Ordered: 05-Sep-2022 Fast DO, Trina A Fast DO, Trina A Start : 05-Sep-2022 Active Start: 09-03-2022 take 1 tablet by max th twice daily lisinopriL 10 mg oral tablet 1 (one) Tablet bid for 0 days Quantity: 180 {Tablet} Refills: 3 Ordered: 03-Sep-2022 Fast DO, Trina A Fast DO, Trina A Start : 03-Sep-2022 Active Start: 06-24-2017 take 1 tablet by max th twice daily Lisinopril 10 MG Oral Tablet 1 (one) Tablet bid for 0 days Quantity: 180 {Tablet} Refills: 3 Ordered: 29-Aug-2021 Fast DO, Trina A Fast DO, Trina A Start : 29-Aug-2021 Active Lisinopril 10 MG Oral Tablet Quantity: 0 Refills: 0 Ordered: 20-Nov-2021 DO Active take 1 tablet by max th once daily lisinopril 10 mg oral tablet ; 1 tab(s) oral once a day Quantity: 0 Refills: 0 Ordered: 29-Nov-2021 Kathryn Quezada Generic Substitution Allowed LORazepam 0.5 mg oral tablet (20 sources) Benzodiazepine Start: 04-23-2017 End: 2017 take 1 tablet by mouth twice daily as needed LORazepam 0.5 MG Oral Tablet 1 (one) Tablet bid prn for 0 days Quantity: 60 {Tablet} Refills: 0 Ordered: 23-May-2017 Carmita Andrews CMA Start : 23-Apr-2017 End : 23-May-2017 Inactive Comments: sixty Comment on above: sixty metroNIDAZOLE 250 mg oral tablet (3 sources) Nitroimidazole Antimicrobial Start: 11-20-2021 take 1 tablet by mouth once daily metroNIDAZOLE 250 MG Oral Tablet Take 1 tablet at 6pm, 7pm and 11pm the day prior to surgery. Quantity: 3 Refills: 0 Ordered: 20-Nov-2021 Ho Jack MD Start : 20-Nov-2021 Active multivitamin (20 sources) take 1 tablet by mouth once daily multivitamin Multiple Vitamins oral tablet ; 1 tab(s) oral once a day Quantity: 0 Refills: 0 Ordered: 29-Nov-2021 Kathryn Quezada Generic Substitution Allowed MULTIVITAMIN (PO Tab) for 0 days Refills: 0 Ordered: 06-Mar-2009 Nisha Lopez Active neomycin sulfate 500 mg oral tablet (2 sources) Aminoglycoside Antibacterial Start: 11-20-2021 take 2 tablets by mouth once daily Neomycin Sulfate 500 MG Oral Tablet take 2 tablets at 6pm, 7pm and 11pm the day before surgery Quantity: 6 Refills: 0 Ordered: 20-Nov-2021 Ho Jack MD Start : 20-Nov-2021 Active nystatin 100 unt/mg topical powder (20 sources) Polyene Antifungal Start: 09-17-2017 End: 01-21-2018 Nystatin [id number] UNIT/GM External Powder 1 (one) Powder Powder qd for 0 days Quantity: 1 {Bottle} Refills: 0 Ordered: 21-Jan-2018 Carmita Andrews CMA Start : 17-Sep-2017 End : 21-Jan-2018 Inactive Start: 09-17-2017 End: 01-21-2018 Nystatin 900472 UNIT/GM Exte rnal Powder 1 (one) Powder Powder qd for 0 days Quantity: 1 {Bottle} Refills: 0 Ordered: 21-Jan-2018 Carmita Andrews CMA Start : 17-Sep-2017 End : 21-Jan-2018 Inactive Start: 09-17-2017 End: 01-21-2018 Nystatin [id number] UNIT/GM Exte rnal Powder 1 (one) Powder Powder qd for 0 days Quantity: 1 {Bottle} Refills: 0 Ordered: 21-Jan-2018 Carmita Andrews Start : 17-Sep-2017 End : 21-Jan-2018 Inactive polyethylene glycol 3350 97264 mg powder for oral solution (3 sources) Osmotic Laxative Start: 11-20-2021 Polyethylene Glycol 3350 17 GM/SCOOP Oral Powder MIX 238 GM Once As Directed Mix with 64 ounces of clear liquids Quantity: 1 Refills: 0 Ordered: 20-Nov-2021 Ho Jack MD Start : 20-Nov-2021 Active take 64 [oz_av] by mouth once po lyethylene glycol 3350 oral powder for reconstitution ; Mix 238 gm once as directed with 64 oz of clear liquids Quantity: 0 Refills: 0 Ordered: 17-Dec-2021 Raphael Nolen Status: Discontinued Generic Substitution Allowed 24 hr venlafaxine 75 mg extended release oral capsule (20 sources) Serotonin and Norepinephrine Reuptake Inhibitor Start: 04-12-2022 take 1 capsule by mouth once daily Effexor XR 75 mg oral Capsule, Extended Release 24 hr 1 (one) Capsule qd for 0 days Quantity: 90 {Capsule} Refills: 6 Ordered: 12-Apr-2022 Fast DO, Trina A Fast DO, Trina A Start : 12-Apr-2022 Active Start: 02-12-2018 venlafaxine 75 mg oral capsule, extended release Dose : 75 mg = 1 cap(s), Oral, qDay, 0 Refill(s) Start Date: 02/12/18 Status: Ordered Start: 10-20-2017 take 1 capsule by mo uth once daily Effexor XR 75 MG Oral Capsule Extended Release 24 Hour 1 (one) Capsule qd for 0 days Quantity: 90 {Capsule} Refills: 1 Ordered: 12-Oct-2021 Fast DO, Trina A Fast DO, Trina A Start : 12-Oct-2021 Active Venlafaxine HCl - 75 MG Oral Tablet Quantity: 0 Refills: 0 Ordered: 20-Nov-2021 DO Active take 1 tablet by max once daily venlafaxine 75 mg oral tablet ; 1 tab(s) oral once a day Quantity: 0 Refills: 0 Ordered: 29-Nov-2021 Kathryn Quezada Status: Other Generic Substitution Allowed Problems Active Problems Problem Classification Problem Date Documented Date Episodic/Chronic Anal and rectal conditions (1 source) Rectal polyp; Translations: [Rectal polyp] Onset: 12-21-2021 Episodic Anxiety disorders (20 sources) Anxiety; Translations: [Anxiety] Onset: 12-21-2021 01-21-2018 Chronic Comment on above: good control doing btter chronic stable-celestino nue present regimen well controlled Complications of surgical procedures or medical care (1 source) Postprocedural hypothyroidism; Translations: [Postprocedural hypothyroidism] Onset: 12-04-2021 Chronic Coronary atherosclerosis and other heart disease (5 sources) Atherosclerotic heart disease of [place] coronary artery without angina pectoris; Translations: [Coronary arteriosclerosis] Onset: 12-04-2021 01-14-2023 Chronic Comment on above: risk factor modifica tion Diabetes mellitus without complication (20 sources) Abnormal glucose tolerance test; Translations: [Hyperglycemia] Resolved: 09-27-2008 01-21-2018 Episodic Comment on above: looks good keep work ing on weight loss good control discuss ed diet and ex diet and ex chronic stable-celestino nue present regimen [place] discussed the importance of diet changes and lots of walking Disorders of lipid metabolism (20 sources) Hyperlipidemia; Translations: [Hyperlipidemia] Onset: 10-29-2022 01-21-2018 Chronic Comment on above: ldl still mildly constantine vated we discussed diet and ex in detail keep watching animal products needs more exercise!~ diet and ex discusse d in detail discuss diet and ex in detail some imporvment - sh e not want to take meds-she wants to try harder in [place] but goal under 69 so needs statin Diverticulosis and diverticulitis (1 source) Diverticulosis of large intestine without perforation or abscess without bleeding; Translations: [Dvrtclos of lg int w/o perforation or abscess w/o bleeding] Onset: 12-04-2021 Chronic Essential hypertension (4 sources) Hypertensive disorder; Translations: [Essential (primary) hypertension] Onset: 12-04-2021 02-12-2018 Chronic Headache, including migraine (20 sources) Headache; Translations: [Headache] 01-21-2018 Episodic Hypertension with complications and secondary hypertension (20 sources) Hypertensive heart disease; Translations: [Hypertensive heart disease without heart failure] 01-21-2018 Chronic Comment on above: chronic stable-celestino nue present regimen Immunizations and screening for infectious disease (20 sources) Need for prophylactic vaccination and inoculation against influenza; Translations: [Pneumococcal vaccination given] 10-20-2018 Episodic Malignant neoplasm without specification of site (14 sources) Squamous cell carcinoma Chronic Malignant neoplasm without specification of site (20 sources) Squamous cell carcinoma; Translations: [Squamous cell carcinoma] 01-21-2018 Episodic Comment on above: left face- Dr Magdalene elias 2017 Mood disorders (20 sources) Depressive disorder; Translations: [Dysthymia] 01-21-2018 Chronic Comment on above: better Mood disorders (20 sources) Mood disorders; Translations: [Depression, unspecified] Onset: 12-21-2021 Mycoses (20 sources) Candidiasis; Translations: [Candidiasis] 01-21-2018 Episodic Osteoporosis (20 sources) Osteoporosis; Translations: [Osteoporosis] Onset: 11-29-2021 01-21-2018 Chronic Comment on above: keep walking routine ly weight beearing exer cise- she not want additional meds will try to initiate prolia- check with insurance she not wanting to t bobby meds doingweight lifting weight bearing exercie calsium vit d k2 get bone density again she not want m eds- weight bearing exerxcise vit d Other aftercare (1 source) 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; Translations: [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] Onset: 11-29-2021 Episodic Other aftercare (1 source) Other correction (current) drug therapy; Translations: [Other correction (current) drug therapy] Onset: 11-29-2021 Episodic Other and unspecified benign neoplasm (8 sources) Polyp of colon; Translations: [Benign neoplasm of colon] Episodic Other and unspecified benign neoplasm (2 sources) Adenomatous polyp of colon ; Translations: [Benign neoplasm of colon] Episodic Other and unspecified benign neoplasm (3 sources) Benign neoplasm of sigmoid colon; Translations: [Benign neoplasm of sigmoid colon] Onset: 12-17-2021 Episodic Other and unspecified benign neoplasm (16 sources) Benign adenomatous neoplasm; Translations: [Tubulovillous adenoma] 10-02-2022 Episodic Comment on above: Dr Jack removed par tial sigmoidectomy and partial rectal removal dec 21- she will make appt for followup with Dr Verdugo she called niya lockwood they are going to scope her in the spring when she gets back from [place] Other bone disease and musculoskeletal deformities (20 sources) Osteopenia; Translations: [Osteopenia] 01-21-2018 Episodic Other circulatory disease (4 sources) Disorder of thoracic aorta; 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 thoracic aorta] 01-14-2023 Chronic Comment on above: will need followup 6 -12 months bp is controlled Other circulatory disease (1 source) Other specified disorders of arteries and arterioles; Translations: [Other specified disorders of arteries and arterioles] Onset: 01-11-2025 Chronic Other circulatory disease (20 sources) Elevated blood-pressure reading without diagnosis of hypertension; Translations: [Elevated blood pressure (not hypertension)] Resolved: 08-09-2008 02-14-2015 Episodic Other connective tissue disease (20 sources) Pain in left lower limb; Translations: [Leg pain, posterior, left] 01-21-2018 Episodic Comment on above: improving with pt Other lower respiratory disease (4 sources) Nodule of lung; Translations: [Lung nodule] 01-14-2023 Episodic Comment on above: rect at 6 month foll owup Other nervous system disorders (2 sources) Acute postoperative pain; Translations: [Other acute postoperative pain] 12-18-2021 Episodic Other non-epithelial cancer of skin (20 sources) Carcinoma in situ of skin; Translations: [History of malignant neoplasm of skin] Onset: 11-29-2021 01-21-2018 Episodic Comment on above: left face- [facility]dalene [facility] 2018 ON FACE Other nutritional; endocrine; and metabolic disorders (20 sources) Body mass index 30+ - obesity; Translations: [BMI 32.0-32.9,adult] Resolved: 10-02-2022 01-21-2018 Chronic Other nutritional; endocrine; and metabolic disorders (20 sources) Body mass index 25-29 - overweight; Translations: [BMI 29.0-29.9,adult] Resolved: 01-10-2020 01-22-2019 Chronic Other nutritional; endocrine; and metabolic disorders (1 source) Obesity, unspecified; Translations: [Obesity, unspecified] Onset: 11-29-2021 Chronic Other nutritional; endocrine; and metabolic disorders (1 source) Body mass index (BMI) 30.0-30.9, adult; Translations: [Body mass index [BMI] 30.0-30.9, adult] Onset: 11-29-2021 Chronic Other nutritional; endocrine; and metabolic disorders (20 sources) Body mass index 25-29 - overweight; Translations: [BMI 28.0-28.9,adult] Resolved: 01-22-2021 01-10-2020 Episodic Other nutritional; endocrine; and metabolic disorders (20 sources) Overweight in adulthood with body mass index of 25 or more but less than 30; Translations: [BMI 28.0-28.9,adult] Resolved: 01-22-2021 01-22-2021 Episodic Other upper respiratory infections (20 sources) Chronic sinusitis; Translations: [Sinusitis, chronic] 01-21-2018 Chronic Residual codes; unclassified (20 sources) Needs influenza immunization; Translations: [Need for prophylactic vaccination and inoculation against influenza (Renamed from Need for immunization against influenza)] 01-21-2018 Episodic Residual codes; unclassified (20 sources) H/O: surgery; Translations: [Tonsillectomy] 01-21-2018 Episodic Comment on above: 3 yrs. old Residual codes; unclassified (20 sources) Postmenopausal state; Translations: [Postmenopausal (Renamed from Postmenopausal status)] 01-21-2018 Episodic Residual codes; unclassified (20 sources) Other specified health status; Translations: [No known drug allergy] 03-21-2017 Episodic Residual codes; unclassified (20 sources) Increased body mass index; Translations: [BMI 29.0-29.9,adult] 01-21-2018 Episodic Residual codes; unclassified (20 sources) Non-smoker; Translations: [Non-smoker] 01-10-2020 Episodic Respiratory failure; insufficiency; arrest (adult) (20 sources) Respiratory failure; insufficiency; arrest (adult) Thyroid disorders (20 sources) Thyroid nodule; Translations: [Thyroid nodule] Onset: 01-11-2025 01-21-2018 Chronic Comment on above: biopsy 11/17 neg monitoring up to haresh e Unclassified (20 sources) Viral screening status; Translations: [Breast neoplasm screening status] Onset: 01-11-2025 01-21-2018 Episodic Comment on above: almost normal and fe els well and losing weight willmonitor get followup lab repeat normal Unclassified (20 sources) History of subtotal thyroidectomy; Translations: [Increased body mass index] 01-21-2018 Episodic Comment on above: 1975 3 yrs. old Unclassified (20 sources) Benign hypertensive cardiomyopathy, without heart failure Unclassified (20 sources) Leg pain, posterior, left Unclassified (20 sources) Dysthymic Unclassified (20 sources) Unclassified (20 sources) postmenopausal without estrogen 01-21-2018 Unclassified (20 sources) Non-smoker; Translations: [Non-smoker] 01-21-2018 Unclassified (20 sources) BMI 32.0-32.9,adult Unclassified (20 sources) screening 01-21-2018 Unclassified (20 sources) Abnormal TSH Unclassified (20 sources) BMI 29.0-29.9,adult Unclassified (20 sources) Encounter for screening mammogram for breast cancer (Renamed from Encounter for screening mammogram for malignant neoplasm of breast) Unclassified (20 sources) Postmenopausal (Renamed from Postmenopausal status) Unclassified (20 sources) Personal history of skin cancer Unclassified (20 sources) Encounter for hepatitis C virus screening test for high risk patient Unclassified (20 sources) [facility] EXAM 10-20-2018 Comment on above: screening up to date Unclassified (20 sources) Depression/Anxiety (300.4) Unclassified (2 sources) RECURRENT POLYP WITH TUBULOVILLOUS ADENOMA 11-20-2021 Comment on above: RECURRENT POLYP WITH TUBULOVILLOUS ADENOMA Unclassified (1 source) TUBULOVILOUS ADENOMA 12-20-2021 Comment on above: TUBULOVILOUS ADENOMA Past or Other Problems Problem Classification Problem Date Documented Date Episodic/Chronic Biliary tract disease (1 source) Other specified diseases of gallbladder; Translations: [Other specified diseases of gallbladder] Onset: 12-04-2021 Episodic Coronary atherosclerosis and other heart disease (20 sources) Coronary atherosclerosis and other heart disease Other and unspecified benign neoplasm (6 sources) Polyp of colon; Translations: [Polyp of colon] Onset: 11-29-2021 Episodic Other diseases of kidney and ureters (1 source) Cyst of kidney, acquired; Translations: [Cyst of kidney, acquired] Onset: 12-04-2021 Episodic Other lower respiratory disease (1 source) Other nonspecific abnormal finding of lung field; Translations: [Other nonspecific abnormal finding of lung field] Onset: 12-04-2021 Episodic Ovarian cyst (1 source) Unspecified ovarian cyst, left side; Translations: [Unspecified ovarian cyst, left side] Onset: 12-04-2021 Episodic Pulmonary heart disease (1 source) Other diseases of pulmonary vessels; Translations: [Other diseases of pulmonary vessels] Onset: 12-04-2021 Episodic Residual codes; unclassified (1 source) Acquired absence of other organs; Translations: [Acquired absence of other organs] Onset: 12-04-2021 Episodic Unclassified (7 sources) Screening status; Translations: [Encounter for screening for cervical cancer (Renamed from Encounter for screening for malignant neoplasm of cervix)] 01-21-2018 Unclassified (20 sources) Deliveries (Parity); Translations: [Deliveries (Parity)] 01-21-2018 Comment on above: 2 Unclassified (20 sources) [facility] 01-21-2018 Unclassified (20 sources) Pregnancies (); Translations: [Pregnancies ()] 01-21-2018 Comment on above: 2 Unclassified (20 sources) Abnormal Cardiac Test (794.30) Unclassified (20 sources) Elevated Blood Pressure(796.2) Unclassified (20 sources) Non-smoker; Translations: [Non-smoker] 01-21-2018 Unclassified (20 sources) Encounter for screening for cervical cancer (Renamed from Encounter for screening for malignant neoplasm of cervix); Translations: [Patient encounter status] 01-21-2018 Unclassified (20 sources) Patient encounter status; Translations: [Encounter for screening mammogram for breast cancer (Renamed from Encounter for screening mammogram for malignant neoplasm of breast)] 01-21-2018 Unclassified (20 sources) Breast cancer screening Unclassified (20 sources) BMI 28.0-28.9,adult Unclassified (20 sources) Deliveries (Parity); Translations: [Deliveries (Parity)] 01-10-2020 Comment on above: 2 Unclassified (20 sources) Pregnancies (); Translations: [Pregnancies ()] 01-10-2020 Comment on above: 2 Unclassified (10 sources) BMI 30.0-30.9,adult Results Test Name Value Interpretation Reference Range Facility CBC, PLATELETS & MANUAL DIFF ([id number])Ordered By: 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 on 01-07-2023 Basophils (Bld) [#/Vol] 0.0 10*3/uL Normal 0.0-0.2 [facility]; [facility] Work Phone: Comment on above: PATIENT WAS FASTINGP ERFORMED BY: [email or web address] [id number] Basophils/100 WBC (Bld) 1 % Normal [facility]; [facility] Work Phone: Comment on above: PATIENT WAS FASTINGP ERFORMED BY: [facility] [id number] Eosinophils (Bld) [#/Vol] 0.1 10*3/uL Normal 0.0-0.4 [facility]; [facility] Work Phone: Comment on above: PATIENT WAS FASTINGP ERFORMED BY: [facility] PlusDublin [place] [id number] Eosinophils/100 WBC (Bld) 2 % Normal [facility]; [facility] Work Phone: Comment on above: PATIENT WAS FASTINGP ERFORMED BY: KENYON Fair[address] [facility] [id number] Erythrocyte distribution width (RBC) [Ratio] 12.9 % Normal 11.7-15.4 [facility]; [facility] Work Phone: Comment on above: PATIENT WAS FASTINGP ERFORMED BY: [facility] [id number] [facility] [id number] Hematocrit (Bld) [Volume fraction] 43.2 % Normal 34.0-46.6 [facility]; [facility] Work Phone: Comment on above: PATIENT WAS FASTINGP ERFORMED BY: [facility] Aiflic[address] [facility] [id number] Hemoglobin (Bld) [Mass/Vol] 14.2 g/dL Normal 11.1-15.9 [facility]; [facility] Work Phone: Comment on above: PATIENT WAS FASTINGP ERFORMED BY: Vangie Bnzies[address] [facility] [id number] Immature granulocytes (Bld) [#/Vol] 0.0 10*3/uL Normal 0.0-0.1 [facility]; [facility] Work Phone: Comment on above: PATIENT WAS FASTINGP ERFORMED BY: [facility] Kmyxoc[address] [facility] [id number] Immature granulocytes/100 WBC (Bld) 0 % Normal [facility]; [facility] Work Phone: Comment on above: PATIENT WAS FASTINGP ERFORMED BY: [facility] Qdwoia[address] [facility] [id number] Lymphocytes (Bld) [#/Vol] 1.7 10*3/uL Normal 0.7-3.1 [facility]; [facility] Work Phone: Comment on above: PATIENT WAS FASTINGP ERFORMED BY: KENYON [facility] Kgomiu[address] [place] [id number] Lymphocytes/100 WBC (Bld) 26 % Normal [facility]; [facility] Work Phone: Comment on above: PATIENT WAS FASTINGP ERFORMED BY: KENYON [facility] Gjscfw3445 [address]blin [place] [id number] MCH (RBC) [Entitic mass] 30.0 pg Normal 26.6-33.0 [facility]; [facility] Work Phone: Comment on above: PATIENT WAS FASTINGP ERFORMED BY: [facility]coH[facility] CenterIbafep20[address] [facility] [place] [id number] MCHC (RBC) [Mass/Vol] 32.9 g/dL Normal 31.5-35.7 [facility] prehensive Internal [facility]; [facility] Work Phone: Comment on above: PATIENT WAS FASTINGP ERFORMED BY: KENYON [facility] [id number] [facility] [id number] MCV (RBC) [Entitic vol] 91 fL Normal 79-97 [facility]; [facility] Work Phone: Comment on above: PATIENT WAS FASTINGP ERFORMED BY: [facility] Mdrgan[address] [facility] [place] [id number] Monocytes (Bld) [#/Vol] 0.4 10*3/uL Normal 0.1-0.9 [facility]; [facility] Work Phone: Comment on above: PATIENT WAS FASTINGP ERFORMED BY: [facility] Abvmyb[address] [facility] [place] [id number] Monocytes/100 WBC (Bld) 5 % Normal [facility]; [facility] Work Phone: Comment on above: PATIENT WAS FASTINGP ERFORMED BY: [facility] Weveqc[address] [facility] [place] [id number] Neutrophils (Bld) [#/Vol] 4.5 10*3/uL Normal 1.4-7.0 [facility]; [facility] Work Phone: Comment on above: PATIENT WAS FASTINGP ERFORMED BY: KENYON [facility] Uakeil1688 [address] RoadDublin [place] [id number] Neutrophils/100 WBC (Bld) 66 % Normal [facility]; [facility] Work Phone: Comment on above: PATIENT WAS FASTINGP ERFORMED BY: CB [facility] Aclqwg7140 [address] RoadDublin [place] [id number] Platelets (Bld) [#/Vol] 238 10*3/uL Normal 150-450 [facility]; [facility] Work Phone: Comment on above: PATIENT WAS FASTINGP ERFORMED BY: CB [facility] Llufad2313 [address] RoadDublin [place] [id number] RBC (Bld) [#/Vol] 4.74 10*6/uL Normal 3.77-5.28 [facility]; [facility] Work Phone: Comment on above: PATIENT WAS FASTINGP ERFORMED BY: CB [facility] Xbtoio3812 [address] RoadDublin [place] [id number] WBC (Bld) [#/Vol] 6.7 10*3/uL Normal 3.4-10.8 [facility]; [facility] Work Phone: Comment on above: PATIENT WAS FASTINGP ERFORMED BY: KENYON [facility] Scieju9894 [address] RoadDublin [place] [id number] HGB A1C ([id number])Ordered By: S ystem Construction Analyst on 01-07-2023 HbA1c (Bld) [Mass fraction] 5.8 % Abnormal 4.8-5.6 [facility]; [facility] Work Phone: Comment on above: . Prediabetes: 5.7 - 6.4 Diabetes: >6.4 Glycemic control for adults with diabetes: <7.0 PATIENT WAS FASTINGP ERFORMED BY: CB [facility] Jlisft7726 [address] RoadDublin [place] [id number] LIPID PANEL ([id number])Ordered B y: 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 on 01-07-2023 Cholesterol [Mass/Vol] 199 mg/dL Normal 100-199 [facility]; [facility] Work Phone: Comment on above: PATIENT WAS FASTINGP ERFORMED BY: KENYON Labcobarrington Stluvq[address] [facility] [place] [id number] Cholesterol in HDL [Mass/Vol] 58 mg/dL Normal [facility]; [facility] Work Phone: Comment on above: PATIENT WAS FASTINGP ERFORMED BY: KENYON Labcobarrington Irpcyv[address] [facility] [place] [id number] Triglyceride [Mass/Vol] 128 mg/dL Normal 0-149 [facility]; [facility] Work Phone: Comment on above: PATIENT WAS FASTINGP ERFORMED BY: KENYON Labcobarrington Hoqjod9926 [address] RoadDuin [place] [id number] LIPID PANEL ([id number]) 23 mg/dL Normal 5-40 Compr ensive [facility]; [facility] Work Phone: Comment on above: PATIENT WAS FASTINGP ERFORMED BY: KENYON [facility] Wpdsjd[address] [facility] HospitalDuin [place] [id number] LIPID PANEL (12525) 118 mg/dL Abnormal 0-99 Compr ensive [facility]; [facility] Work Phone: Comment on above: PATIENT WAS FASTINGP ERFORMED BY: EKNYON Labcobarrington Wqizli[address] [facility] [id number] LIPID PANEL (66823) 2.0 {ratio} Normal 0.0-3.2 [facility]; [facility] Work Phone: Comment on above: LDL/HDL Ratio Men Wo men 1/2 Avg.Risk 1.0 1.5 Avg.Risk 3.6 3.2 2X Avg.Risk 6.2 5.0 3X Avg.Risk 8.0 6.1 PATIENT WAS FASTINGP ERFORMED BY: KENYON [facility] Zrdmqz[address] [facility] [place] [id number] MICROALBUMINOrdered By: Syst em Construction Analyst on 01-07-2023 Albumin DL <= 20 mg/L (U) [Mass/Vol] 3.5 ug/mL Normal [facility]; [facility] Work Phone: Comment on above: PATIENT WAS FASTINGP ERFORMED BY: KENYON Labcobarrington Dqgdeh8163 [address] RoadDublin [place] [id number] Albumin/Creatinine (U) [Mass ratio] 4 {mg/g_creat} Normal 0-29 [facility]; [facility] Work Phone: Comment on above: Normal: 0 - 29 Moder ately increased: 30 - 300 Severely increased: >300 PATIENT WAS FASTINGP ERFORMED BY: KENYON [facility] Xcceap5880 [address] RoadDublin [place] [id number] Creatinine (U) [Mass/Vol] 86.2 mg/dL Normal [facility]; [facility] Work Phone: Comment on above: PATIENT WAS FASTINGP ERFORMED BY: KENYON Labgermaine ElUfhhgy2193 [address] RoadDublin [place] [id number] Urinalysis, Complete W/ Micr oscopic Examination with reflex to urine culture, routine ([id number])Ordered By: 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 on 01-07-2023 Appearance (U) Clear Normal Comprehens nicole [facility]; [facility] Work Phone: Comment on above: PATIENT WAS FASTINGP ERFORMED BY: KENYON Lablyssabarrington ElPnoyse4700 [address] RoadDublin [place] [id number] Bilirubin Ql (U) Negative Normal Comprehe nsive Internal Medicine; [facility] Work Phone: Comment on above: PATIENT WAS FASTINGP ERFORMED BY: KENYON Labcobarrington Feylxn2865 [address] RoadDublin [place] [id number] Color (U) Yellow Normal [facility]; [facility] Work Phone: Comment on above: PATIENT WAS FASTINGP ERFORMED BY: KENYON [facility] Dnlexr0557 [address] RoadDublin [place] [id number] Glucose Ql (U) Negative Normal Comprehens nicole [facility]; [facility] Work Phone: Comment on above: PATIENT WAS FASTINGP ERFORMED BY: KENYON [facility] Bfqgeq9088 [address] RoadDublin [place] [id number] Ketones Ql (U) 1+ Abnormal Comprehens nicole [facility]; [facility] Work Phone: Comment on above: PATIENT WAS FASTINGP ERFORMED BY: KENYON [facility] Esaltq4282 [address] RoadDublin [place] [id number] pH (U) 7.5 [pH] Normal 5.0-7.5 [facility]; [facility] Work Phone: Comment on above: PATIENT WAS FASTINGP ERFORMED BY: CB [facility] Ytrcun7500 [address] RoadDublin [place] [id number] Protein Ql (U) Negative Normal Comprehens nicole [facility]; [facility] Work Phone: Comment on above: PATIENT WAS FASTINGP ERFORMED BY: KENYON [facility] Nhgpxq[address] [facility]in [place] [id number] Specific gravity (U) [Rel density] 1.014 1 Normal 1.005-1.03 0 [facility]; [facility] Work Phone: Comment on above: PATIENT WAS FASTINGP ERFORMED BY: KENYON [facility] Xqmgap[address]106 [address] [facility]in [place] [id number] Urinalysis, Complete W/ Microscopic Examination with reflex to urine culture, routine ([id number]) Negative Normal [facility]; [facility] Work Phone: Comment on above: PATIENT WAS FASTINGP ERFORMED BY: KENYON [facility] Mzuuka[address] [facility]bl[facility] [place] [id number] Urinalysis, Complete W/ Microscopic Examination with reflex to urine culture, routine ([id number]) 0.2 mg/dL Normal 0.2-1.0 [facility]; [facility] Work Phone: Comment on above: PATIENT WAS FASTINGP ERFORMED BY: KENYON [facility] Ekyxcg3020 [address] RoadDublin [place] [id number] Urinalysis, Complete W/ Microscopic Examination with reflex to urine culture, routine (20183) MICRON Normal [facility]; [facility] Work Phone: Comment on above: Microscopic follows if indicated. PATIENT WAS FASTINGP ERFORMED BY: CB [facility] Jacrsm4872 [address]Dublin [place] [id number] Urinalysis, Complete W/ Microscopic Examination with reflex to urine culture, routine (21231) See below: Normal [facility]; [facility] Work Phone: Comment on above: Microscopic was kevan cated and was performed. PATIENT WAS FASTINGP ERFORMED BY: Clipabout6370 [facility] [id number] Urinalysis, Complete W/ Microscopic Examination with reflex to urine culture, routine ([id number]) NOFLEX Normal [facility]; [facility] Work Phone: Comment on above: This specimen will n ot reflex to a Urine Culture. PATIENT WAS FASTINGP ERFORMED BY: Clipabout6370 [facility] [id number] CT CARDIAC SCORINGon 023 CT CARDIAC SCORING Patient Name: SUE GASTON STUDY: CT CARDIAC SCORING; 10/29/2022 4:12 pm INDICATION: Hyperlipidemia. COMPARISON: 12/04/[address] ACCESSION NUMBER(S): [id number] ORDERING CLINICIAN: TRINA AGUILA TECHNIQUE: Using prospective ECG gating, CT scan of the coronary arteries was performed without intravenous contrast. Coronary calcium scoring was performed according to the method of Agatston. FINDINGS: The score and distribution of calcium in the coronary arteries is as follows: LM 0, LAD 68.88, LCx 26.87, RCA 179.16, Total 274.91 The visualized mid/lower ascending thoracic aorta measures a borderline 4.0 cm in diameter. Aortic calcification is noted. The heart is normal in size. No pericardial effusion is present. No gross mediastinal or hilar lymphadenopathy or mass is identified. The visualized segments of the lungs are well inflated. A densely calcified up to 8 mm anterolateral left lower lobe granuloma, a 4 x 2.5 mm noncalcified nodule along the anterior aspect of the inferolateral left major fissure and an incompletely visualized at least 9 x 3.5 mm nodule deep in the left posterolateral costophrenic recess on images 47, 35 and 44 of series 3 respectively are stable since 12/20. Image 31 series 3 shows a 2 mm noncalcified anterolateral basal left lower lobe nodule that is difficult to appreciate on the prior CT, but the great majority of even newly developing micronodules of this size are benign. It might be followed in 6-12 months, especially if the patient has a smoking history or is otherwise at risk for a malignancy. A 4.1 cm segment 2 left hepatic lobe cyst was 5.0 cm in November 2021. Mild thoracic dextroscoliosis and L2-3 degenerative disc disease are noted. IMPRESSION: 1. Coronary artery calcium score of 274.91*. 2. 2 mm left lower lobe nodule not apparent on the November [address] *Coronary artery calcium scoring may be helpful in predicting the risk for future coronary heart disease events. According to the [employer] Clinical Expert Consensus Task Force, such testing provides important prognostic information in patients with more than one coronary heart disease risk factor. The coronary artery calcium score correlates with the annual risk of a non-fatal myocardial infarction or coronary heart disease . Coronary artery score Annual Risk 0-99 0.4% 100-399 1.3% >400 2.4% These three "breakpoints" correspond to lower, intermediate and high risk states for future coronary events. Such information should be used, along with appropriate clinical judgment, to make decisions regarding the intensity of risk factor management strategies to treat blood lipids and to modify other non-lipid coronary risk factors. Reference: Lynnwood P et al. Circulation. 2007; 115:402-426 MACRO: None Electronically signed by: KELSY CROCKER MD [facility] Anti TPO Antibody ([id number])Ord ered By: 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 on 10-10-2022 TPO Ab Qn [IU]/mL Normal 0-34 [facility]; [facility] Work Phone: Comment on above: PATIENT NOT FASTINGP ERFORMED BY: MRI Interventions70 [facility]ablesAt[facility] Health [id number] C-REACTIVE PROTEIN ([id number])Or dered By: 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 on 10-10-2022 CRP [Mass/Vol] 3 mg/L Normal 0-10 [facility]; [facility] Work Phone: Comment on above: PATIENT NOT FASTINGP ERFORMED BY: Clipabout6370 SeatKarmaFormerly [facility] [id number] ESR-F (SED RATE ERYTHROCYTE - FEMALE) ([id number])Ordered By: 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 on 10-10-2022 ESR (Bld) [Velocity] 9 mm/h Normal 0-40 [facility] Internal Medicine; [facility] Work Phone: Comment on above: PATIENT NOT FASTINGP ERFORMED BY: KENYON Fair[address] [facility] [place] [id number] FREE TRIIDOTHYRONINE (T3) ([id number])Ordered By: 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 on 10-10-2022 Free T3 [Mass/Vol] 2.6 pg/mL Normal 2.0-4.4 [facility] Medicine; [facility] Work Phone: Comment on above: PATIENT NOT FASTINGP ERFORMED BY: KENYON Labgermaine Fair[address] [facility] [id number] THYROXINE FREE ([id number])Ordere d By: 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 on 10-10-2022 Free T4 [Mass/Vol] 1.03 ng/dL Normal 0.82-1.77 [facility]; [facility] Work Phone: Comment on above: PATIENT NOT FASTINGP ERFORMED BY: KENYON Labco Humqsi[address] [id number] TSH ([id number])Ordered By: Radha m Construction Analyst on 10-10-2022 TSH Qn 4.470 {uIU/mL} Normal 0.450-4.50 0 [facility]; [facility] Work Phone: Comment on above: PATIENT NOT FASTINGP ERFORMED BY: KENYON Labco Rsuopv[address] [id number] CBC, PLATELETS & MANUAL DIFF ([id number])Ordered By: 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 on 09-25-2022 Basophils (Bld) [#/Vol] 0.0 10*3/uL Normal 0.0-0.2 [facility]; [facility] Work Phone: Comment on above: PATIENT WAS FASTINGP ERFORMED BY: KENYON Labcobarrington ElRytcnl[address] [facility] [id number] Basophils/100 WBC (Bld) 1 % Normal [facility]; [facility] Work Phone: Comment on above: PATIENT WAS FASTINGP ERFORMED BY: CB [facility] Pybvie6357 [address] RoadDublin [place] [id number] Eosinophils (Bld) [#/Vol] 0.1 10*3/uL Normal 0.0-0.4 [facility]; [facility] Work Phone: Comment on above: PATIENT WAS FASTINGP ERFORMED BY: [facility] Eautds5862 [address] RoadDublin [place] [id number] Eosinophils/100 WBC (Bld) 2 % Normal [facility]; [facility] Work Phone: Comment on above: PATIENT WAS FASTINGP ERFORMED BY: [facility] Vcipdx0500 [address] Roadblin [place] [id number] Erythrocyte distribution width (RBC) [Ratio] 12.8 % Normal 11.7-15.4 [facility]; [facility] Work Phone: Comment on above: PATIENT WAS FASTINGP ERFORMED BY: [facility] Kfrjpw0273 [address] RoadDublin [place] [id number] Hematocrit (Bld) [Volume fraction] 45.3 % Normal 34.0-46.6 [facility]; [facility] Work Phone: Comment on above: PATIENT WAS FASTINGP ERFORMED BY: [facility] Wlirch0261 [address] RoadDublin [place] [id number] Hemoglobin (Bld) [Mass/Vol] 14.9 g/dL Normal 11.1-15.9 [facility]; [facility] Work Phone: Comment on above: PATIENT WAS FASTINGP ERFORMED BY: CB [facility] Ffeqxy9161 [address] RoadDublin [place] [id number] Immature granulocytes (Bld) [#/Vol] 0.0 10*3/uL Normal 0.0-0.1 [facility]; [facility] Work Phone: Comment on above: PATIENT WAS FASTINGP ERFORMED BY: CB [facility] Uxbrbh8778 [address] RoadDublin [place] [id number] Immature granulocytes/100 WBC (Bld) 0 % Normal [facility]; [facility] Work Phone: Comment on above: PATIENT WAS FASTINGP ERFORMED BY: [facility] Otdnrv1834 [address] RoadDublin [place] [id number] Lymphocytes (Bld) [#/Vol] 1.9 10*3/uL Normal 0.7-3.1 [facility]; [facility] Work Phone: Comment on above: PATIENT WAS FASTINGP ERFORMED BY: CB [facility] Yvibol0495 [address] RoadDublin [place] [id number] Lymphocytes/100 WBC (Bld) 26 % Normal [facility]; [facility] Work Phone: Comment on above: PATIENT WAS FASTINGP ERFORMED BY: [facility] Ymkfls8816 [address] RoadDublin [place] [id number] MCH (RBC) [Entitic mass] 29.6 pg Normal 26.6-33.0 [facility]; [facility] Work Phone: Comment on above: PATIENT WAS FASTINGP ERFORMED BY: [facility] Xuhctk7794 [address] Roadblin [place] [id number] MCHC (RBC) [Mass/Vol] 32.9 g/dL Normal 31.5-35.7 [facility] Internal Medicine; [facility] Work Phone: Comment on above: PATIENT WAS FASTINGP ERFORMED BY: KENYON [facility] Fbkxdi[address] [facility] HospitalD[facility] [place] [id number] MCV (RBC) [Entitic vol] 90 fL Normal 79-97 [facility]; [facility] Work Phone: Comment on above: PATIENT WAS FASTINGP ERFORMED BY: [facility] Zmyzli8983 [address] RoadDublin [place] [id number] Monocytes (Bld) [#/Vol] 0.5 10*3/uL Normal 0.1-0.9 [facility]; [facility] Work Phone: Comment on above: PATIENT WAS FASTINGP ERFORMED BY: [facility] Bwtkqw5954 [address] RoadDublin [place] [id number] Monocytes/100 WBC (Bld) 6 % Normal [facility]; [facility] Work Phone: Comment on above: PATIENT WAS FASTINGP ERFORMED BY: KENYON [facility] Rznnnm9731 [address] RoadDublin [place] [id number] Neutrophils (Bld) [#/Vol] 4.9 10*3/uL Normal 1.4-7.0 [facility]; [facility] Work Phone: Comment on above: PATIENT WAS FASTINGP ERFORMED BY: CB [facility] Pvpkvk3957 [address] RoadDublin [place] [id number] Neutrophils/100 WBC (Bld) 65 % Normal [facility]; [facility] Work Phone: Comment on above: PATIENT WAS FASTINGP ERFORMED BY: KENYON [facility] Jbydds7303 [address] RoadDublin [place] [id number] Platelets (Bld) [#/Vol] 235 10*3/uL Normal 150-450 [facility]; [facility] Work Phone: Comment on above: PATIENT WAS FASTINGP ERFORMED BY: KENYON [facility] Ngoxoq6213 [address] RoadDublin [place] [id number] RBC (Bld) [#/Vol] 5.03 10*6/uL Normal 3.77-5.28 [facility]; [facility] Work Phone: Comment on above: PATIENT WAS FASTINGP ERFORMED BY: KENYON [facility] Dvtstp2888 [address] RoadDublin [place] [id number] WBC (Bld) [#/Vol] 7.4 10*3/uL Normal 3.4-10.8 [facility] Internal [facility]; [facility] Work Phone: Comment on above: PATIENT WAS FASTINGP ERFORMED BY: CB [facility] Qvavzy5451 [address] RoadDublin [place] [id number] METABOLIC PANEL, COMPREHENSI VE ([id number])Ordered By: 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 on 09-25-2022 Albumin [Mass/Vol] 4.3 g/dL Normal 3.7-4.7 [facility]; [facility] Work Phone: Comment on above: Effective October 07, 2022 Albumin reference interval will be changing to: Age Male Female 0 - 7 days 3.6 - 4.9 3.6 - 4.9 8 - 30 days 3.5 - 4.6 3.5 - 4.6 1 - 6 months 3.7 - 4.8 3.7 - 4.8 7 months - 2 years 4.0 - 5.0 4.0 - 5.0 3 - 5 years 4.1 - 5.0 4.1 - 5.0 6 - 12 years 4.2 - 5.0 4.2 - 5.0 13 - 30 years 4.3 - 5.2 4.0 - 5.0 31 - 50 years 4.1 - 5.1 3.9 - 4.9 51 - 60 years 3.8 - 4.9 3.8 - 4.9 61 - 70 years 3.9 - 4.9 3.9 - 4.9 71 - 80 years 3.8 - 4.8 3.8 - 4.8 81 - 89 years 3.7 - 4.7 3.7 - 4.7 90 - 199 years 3.6 - 4.6 3.6 - 4.6 PATIENT WAS FASTINGP ERFORMED BY: [employer] Penwav[address] [id number] Albumin/Globulin [Mass ratio] 2.2 {ratio} Normal 1.2-2.2 [facility]; [facility] Work Phone: Comment on above: PATIENT WAS FASTINGP ERFORMED BY: [employer] Financial SolutionsHunterdon Medical CenterRvrgwb[address] [id number] ALP [Catalytic activity/Vol] 85 U/L Normal 44-121 [facility]; [facility] Work Phone: Comment on above: PATIENT WAS FASTINGP ERFORMED BY: [employer] Celmmn[address] [id number] ALT [Catalytic activity/Vol] 8 U/L Normal 0-32 [facility]; [facility] Work Phone: Comment on above: PATIENT WAS FASTINGP ERFORMED BY: [employer] Financial SolutionsHunterdon Medical CenterHklcgg[address] [id number] AST [Catalytic activity/Vol] 13 U/L Normal 0-40 [facility]; [facility] Work Phone: Comment on above: PATIENT WAS FASTINGP ERFORMED BY: [facility] Xjkilc7661 [address] RoadDublin [place] [id number] Bilirubin [Mass/Vol] 0.3 mg/dL Normal 0.0-1.2 [facility] rehensive Internal Medicine; [facility] Work Phone: Comment on above: PATIENT WAS FASTINGP ERFORMED BY: [facility] Smgpuj2469 [address] RoadDublin [place] [id number] Calcium [Mass/Vol] 9.8 mg/dL Normal 8.7-10.3 [facility] Internal Medicine; [facility] Work Phone: Comment on above: PATIENT WAS FASTINGP ERFORMED BY: [facility] Byydnx3480 [address] RoadDuin [place] [id number] Chloride [Moles/Vol] 104 mmol/L Normal 96-106 [facility] rehensive Internal Medicine; [facility] Work Phone: Comment on above: PATIENT WAS FASTINGP ERFORMED BY: [facility] Cahegv1372 [address] RoadDublin [place] [id number] CO2 [Moles/Vol] 21 mmol/L Normal 20-29 [facility]; [facility] Work Phone: Comment on above: PATIENT WAS FASTINGP ERFORMED BY: [facility] Mofdjn4640 [address] RoadDuin [place] [id number] Creatinine [Mass/Vol] 0.82 mg/dL Normal 0.57-1.00 [facility]; [facility] Work Phone: Comment on above: PATIENT WAS FASTINGP ERFORMED BY: [facility] Sfatxf7298 [address]bl[address] [place] [id number] GFR/1.73 sq M.predicted among non-blacks MDRD (S/P/Bld) [Vol rate/Area] 75 mL/min/{1.73_m2} Normal Comprehensiv e Internal Medicine; [facility] Work Phone: Comment on above: PATIENT WAS FASTINGP ERFORMED BY: [facility] Ghgfql1031 [address] RoadDublin [place] [id number] Globulin (S) [Mass/Vol] 2.0 g/dL Normal 1.5-4.5 [facility]; [facility] Work Phone: Comment on above: PATIENT WAS FASTINGP ERFORMED BY: [facility] Javulb8113 [address]Dublin [place] [id number] Glucose [Mass/Vol] 92 mg/dL Normal 70-99 [facility]; [facility] Work Phone: Comment on above: PATIENT WAS FASTINGP ERFORMED BY: [facility] Vpzeld9465 [address] RoadDublin [place] [id number] Potassium [Moles/Vol] 4.4 mmol/L Normal 3.5-5.2 [facility]; [facility] Work Phone: Comment on above: PATIENT WAS FASTINGP ERFORMED BY: [facility] Xrtbyc5588 [address]Dublin [place] [id number] Protein [Mass/Vol] 6.3 g/dL Normal 6.0-8.5 [facility] Internal [facility]; [facility] Work Phone: Comment on above: PATIENT WAS FASTINGP ERFORMED BY: [facility] Xeqbci7973 [address] RoadDublin [place] [id number] Sodium [Moles/Vol] 138 mmol/L Normal 134-144 [facility] Internal [facility]; [facility] Work Phone: Comment on above: PATIENT WAS FASTINGP ERFORMED BY: [facility] Vpzlqf5267 [address] RoadDublin [place] [id number] Urea nitrogen [Mass/Vol] 13 mg/dL Normal 8-27 [facility]; [facility] Work Phone: Comment on above: PATIENT WAS FASTINGP ERFORMED BY: [facility] Orgjie4382 [address] RoadDublin [place] [id number] Urea nitrogen/Creatinine [Mass ratio] 16 mg/mg Normal 12-28 [facility]; [facility] Work Phone: Comment on above: PATIENT WAS FASTINGP ERFORMED BY: KENYON Labcobarrington Hofypn5381 [address] RoadDublin [place] [id number] MICROALBUMINOrdered By: Syst em Construction Analyst on 09-25-2022 Albumin DL <= 20 mg/L (U) [Mass/Vol] 4.1 ug/mL Normal [facility]; [facility] Work Phone: Comment on above: PATIENT WAS FASTINGP ERFORMED BY: KENYON Labcobarrington Jychnz7370 [address] RoadDublin [place] [id number] Albumin/Creatinine (U) [Mass ratio] 3 {mg/g_creat} Normal 0-29 [facility]; [facility] Work Phone: Comment on above: Normal: 0 - 29 Moder ately increased: 30 - 300 Severely increased: >300 PATIENT WAS FASTINGP ERFORMED BY: KENYON Labgermaine Ogdema4077 [address] RoadDublin [place] [id number] Creatinine (U) [Mass/Vol] 147.8 mg/dL Normal [facility]; [facility] Work Phone: Comment on above: PATIENT WAS FASTINGP ERFORMED BY: KENYON Labgermaine ElYiaazc6429 [address] RoadDublin [place] [id number] Urinalysis, Complete W/ Micr oscopic Examination with reflex to urine culture, routine ([id number])Ordered By: 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 on 09-25-2022 Appearance (U) Clear Normal Comprehens nicole Internal Medicine; [facility] Work Phone: Comment on above: PATIENT WAS FASTINGP ERFORMED BY: KENYON Labcobarrington Pgvcao9567 [address] RoadDublin [place] [id number] Bilirubin Ql (U) Negative Normal Comprehe nsive Internal Medicine; [facility] Work Phone: Comment on above: PATIENT WAS FASTINGP ERFORMED BY: KENYON Labcobarrington Lxrlzd8392 [address] RoadDublin [place] [id number] Color (U) Yellow Normal [facility]; [facility] Work Phone: Comment on above: PATIENT WAS FASTINGP ERFORMED BY: KENYON [facility] Jwwmpv4923 [address] RoadDublin [place] [id number] Glucose Ql (U) Negative Normal Comprehens nicole Internal Medicine; [facility] Work Phone: Comment on above: PATIENT WAS FASTINGP ERFORMED BY: KENYON Xavier Fair[address] [facility]in [place] [id number] Ketones Ql (U) Negative Normal Comprehens nicole Internal Medicine; [facility] Work Phone: Comment on above: PATIENT WAS FASTINGP ERFORMED BY: KENYON Vangie Bdcesx[address] [facility] [id number] pH (U) 8.5 [pH] Abnormal 5.0-7.5 [facility]; [facility] Work Phone: Comment on above: PATIENT WAS FASTINGP ERFORMED BY: KENYON Vangiebarrington Bzukgb[address] [facility] [id number] Protein Ql (U) Negative Normal Comprehens nicole Internal Medicine; [facility] Work Phone: Comment on above: PATIENT WAS FASTINGP ERFORMED BY: KENYON Vangie Njgiyj[address] [id number] Specific gravity (U) [Rel density] 1.019 1 Normal 1.005-1.03 0 [facility]; [facility] Work Phone: Comment on above: PATIENT WAS FASTINGP ERFORMED BY: KENYON Vangie Kpmljh[address] [id number] Urinalysis, Complete W/ Microscopic Examination with reflex to urine culture, routine ([id number]) Negative Normal [facility]; [facility] Work Phone: Comment on above: PATIENT WAS FASTINGP ERFORMED BY: [facility] Sqqhfc[address] [facility] [id number] Urinalysis, Complete W/ Microscopic Examination with reflex to urine culture, routine ([id number]) 0.2 mg/dL Normal 0.2-1.0 [facility]; [facility] Work Phone: Comment on above: PATIENT WAS FASTINGP ERFORMED BY: [facility] Ixgfmx[address] [facility] [id number] Urinalysis, Complete W/ Microscopic Examination with reflex to urine culture, routine (24914) MICRON Normal [facility]; [facility] Work Phone: Comment on above: Microscopic follows if indicated. PATIENT WAS FASTINGP ERFORMED BY: [employer]6370 Inventablesbl[address] [place] [id number] Urinalysis, Complete W/ Microscopic Examination with reflex to urine culture, routine (53710) See below: Normal [facility]; [facility] Work Phone: Comment on above: Microscopic was kevan cated and was performed. PATIENT WAS FASTINGP ERFORMED BY: Clipabout6370 [facility]Al[facility] [id number] Urinalysis, Complete W/ Microscopic Examination with reflex to urine culture, routine (97587) NOFLEX Normal [facility]; [facility] Work Phone: Comment on above: This specimen will n ot reflex to a Urine Culture. PATIENT WAS FASTINGP ERFORMED BY: [employer] Mtxlsd7008 InventablesAtrium Health [id number] Post Op (Colon and Rectal Avalos rgery)on 01-29-2022 Post Op (Colon and Rectal Surgery) Diagnoses/Problems Assessed Serrated adenoma of colon (211.3) (D12.6) Provider Impressions S/p LAR with SOFTWARE QUALITY AUTOMATION ENGINEER 12/17/21 for unresectable serrated adenoma Doing well post op Some LAR syndrome symptoms Plan: -Increase water to 64 oz daily. Add Metamucil or Citrucel daily. -Diet: OK to slowly advance diet. -Activity: Normal activities can be resumed -F/u with Dr. Ruano in 1 year for colonoscopy -Follow-up with Dr. Jack or ak PRN -Ok to travel to [place] -All questions and concerns were answered. Encouraged to call with any question or concerns. Chief Complaint A telephone visit (audio only) between the patient (at the originating site) and the provider (at the distant site) was utilized to provide this telehealth service. Verbal consent was requested and obtained from SUE GASTON on this date, 01/29/2022 09:00 AM , for a telehealth visit. POV History of Present Illness Sue Gaston is a 71 F with a recurrent upper rectal polyp that is not amenable to endoscopic resection. 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 Pathology: Traditional serrated adenoma of the colon, 2.3 cm in greatest dimension no evidence of invasive carcinoma. 0 LNs. Doing well. Eating and drinking well. Denies N/V, F/C. She is still having staggered BM's, multiple a day. Stools were pebble like. She added a stool softener which helped with the stool consistency. Review of Systems Constitutional: no fever, no chills and no recent weight loss. Cardiovascular: no chest pain, no palpitations and no lower extremity edema. Respiratory: no shortness of breath and no cough. Gastrointestinal: as noted in HPI. Genitourinary: no dysuria. Musculoskeletal: no arthralgias and no myalgias. Neurological: no headache and no dizziness. Endocrine: no heat or cold intolerance and no increased thirst. Hematologic/Lymphatic: no swollen glands, no tendency for easy bleeding and no tendency for easy bruising. Psychiatric: no anxiety and no depression. Active Problems Problems Colon polyp (211.3) (K63.5) Colon polyp (211.3) (K63.5) Serrated adenoma of colon (211.3) (D12.6) Surgical History Problems History of Excision melanoma History of Hemithyroidectomy History of Tonsillectomy with adenoidectomy Family History Mother Family history of malignant neoplasm of skin (V16.8) (Z80.8) Father Family history of Heart problem Brother Family history of malignant neoplasm of skin (V16.8) (Z80.8) Social History Problems Never a smoker No alcohol use Allergies Medication No Known Drug Allergies Recorded By: Marycarmen Harris; 11/20/2021 9:06:53 AM Current Meds Medication NameInstruction clonazePAM 0.5 MG Oral Tablet Escitalopram Oxalate 20 MG Oral Tablet Lisinopril 10 MG Oral Tablet Ocuvite Adult 50+ CAPS Venlafaxine HCl - 75 MG Oral Tablet Vitamin D3 50 MCG (1999 UT) Oral Capsule Vitals Telephone visit Physical Exam Telephone Signatures Electronically signed by : HILL Love; Jan 29 2022 9:26AM EST (Author) Normal Touchworks Post Op (Colon and Rectal Avalos rgery)on 01-08-2022 Post Op (Colon and Rectal Surgery) Diagnoses/Problems Assessed Serrated adenoma of colon (211.3) (D12.6) Provider Impressions S/p LAR with SOFTWARE QUALITY AUTOMATION ENGINEER 12/17/21 for unresectable serrated adenoma Doing well post op Plan: ?Continue soft diet for now. ? Activity as tolerated with the exception of lifting greater than 10 to 15 pounds. ? Follow-up with me in 2 to 3 weeks via phone or sooner if any problems Chief Complaint POV History of Present Illness Sue Gaston is a 71 F with a recurrent upper rectal polyp that is not amenable to endoscopic resection. 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 Pathology: Traditional serrated adenoma of the colon, 2.3 cm in greatest dimension no evidence of invasive carcinoma. 0 LNs. Doing well. Doing PT. She is moving her bowels small amounts several times daily. Denies any F/C, N/V, CP/Sob, Dysuria. Review of Systems Constitutional: no fever, no chills and no recent weight loss. Cardiovascular: no chest pain, no palpitations and no lower extremity edema. Respiratory: no shortness of breath and no cough. Gastrointestinal: as noted in HPI. Genitourinary: no dysuria. Musculoskeletal: no arthralgias and no myalgias. Neurological: no headache and no dizziness. Endocrine: no heat or cold intolerance and no increased thirst. Hematologic/Lymphatic: no swollen glands, no tendency for easy bleeding and no tendency for easy bruising. Psychiatric: no anxiety and no depression. Active Problems Problems Colon polyp (211.3) (K63.5) Colon polyp (211.3) (K63.5) Surgical History Problems History of Excision melanoma History of Hemithyroidectomy History of Tonsillectomy with adenoidectomy Family History Mother Family history of malignant neoplasm of skin (V16.8) (Z80.8) Father Family history of Heart problem Brother Family history of malignant neoplasm of skin (V16.8) (Z80.8) Social History Problems Never a smoker No alcohol use Allergies Medication No Known Drug Allergies Recorded By: Marycarmen Harris; 11/20/2021 9:06:53 AM Current Meds Medication NameInstruction clonazePAM 0.5 MG Oral Tablet Escitalopram Oxalate 20 MG Oral Tablet Lisinopril 10 MG Oral Tablet Lovenox SOLN Ocuvite Adult 50+ CAPS oxyCODONE HCl - 5 MG Oral Tablet Venlafaxine HCl - 75 MG Oral Tablet Vitamin D3 50 MCG (1999) Oral Capsule Vitals Vital Signs Recorded: 08Jan2022 11:17AM Nvgtkhaqmym51.1 F Heart Klfn634 Dxfgqgri964 Shqenwgnl73 Height5 ft 4 in Unlllc500 lb BMI Kkugebynek41.87 kg/m2 BSA Calculated1.84 Pain Scale0/10 Physical Exam Constitutional - General appearance: In no acute distress, well appearing and well nourished. Pulmonary - Respiratory effort: Normal respiration. Abdomen and Pelvis - Abdomen: Non-tender, no abdominal masses, Assessment of incision: Clean, dry, and intact kirti removed in the usual fashion. Results/Data Surgical Pathology Final No Documents Attached Name SUE GASTON Pathologist: ALFRED SILVERMAN MD Date of Procedure: 12/17/2021 Date Received: 12/17/2021 Date Reported 12/21/2021 Submitting Physician: HO JACK MD Location: [facility] Other External # FINAL DIAGNOSIS A. 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 -- NO EVIDENCE OF INVASIVE CARCINOMA. -- THIRTY ONE LYMPH NODES, NEGATIVE FOR TUMOR (0/31). -- MARGINS OF RESECTION ARE NEGATIVE FOR DYSPLASIA. COMMENT (A): The entire polyp was submitted for microscopic examination. B. ADDITIONAL MESOCOLON: -- FOUR BENIGN REACTIVE LYMPH NODES (0/4). Electronically Signed Out By ALFRED SILVERMAN MD/FABIOLA By the signature on this report, the individual or group listed as making the Final Interpretation/Diagnosis certifies that they have reviewed this case. Diagnostic interpretation performed at [facility] [address] [address] [facility] [id number] Clinical History: Physician Contact Number: [phone] Fixative (A): Fresh Fixative (B): Formalin Clinical Diagnosis History: RECTAL POLYPS Specimens Submitted As: A: LEFT COLON B: ADDITIONAL MESOCOLON Gross Description: A: Received in formalin, labeled with the patient's name and hospital number and "left colon", is a segment of colon, 30.4 cm in length. There is attached mesentery and fibrofatty tissue. The serosal surface is pink-wei, smooth, and glistening. The mesenteric margin is identified. The mesenteric margin is inked orange. The bowel wall measures up to 0.4 cm in greatest thickness. The mucosa surface reveals a sessile polypoid lesion measuring 2.3 x 1.5 x 0.2 cm involving part of the circumference of the bowel. The mass is soft. The lesion is located 26.1 cm from the proximal margin and 2.5 cm from the distal margin. Sections through the lesion does not reveal extension into the submucosa. The lesion appears confined to the mucosa. Addition (more content not included)... [facility] Clinical Event Note-Walking pulse oxon 12-20-2021 Clinical Event Note-Walking pulse ox Clinical Event: Clinical Event Note: TopicWalking pulse ox Details At rest on Room Air: 92% With exertion on Room Air: 91% With exertion on normal oxygen liter flow: 95% Electronic Signatures: Ari Rios (RN) (Signed 20-Dec-2021 15:13) Authored: Clinical Event Note Last Updated: 20-Dec-2021 15:13 by Ari Rios (RN) [facility] Order Reconciliationon 12-20 Order Reconciliation Page 1 Discharge Reconciliation Document Reconciliation Type: Discharge requested on behalf of Estrella Jackson (Advanced Practice Nurse) done by Estrella Jackson (PRESCRIPTION CLERK-SAP ARI[employer] CONSULTANT) Discharge - Partial Reconciliation: 20-Dec-2021 15:11 by: Estrella Jackson (PRESCRIPTION CLERK-SAP ARI[employer] CONSULTANT) Discharge - Reconciliation: 20-Dec-2021 17:15 by: Estrella Jackson (PRESCRIPTION CLERK-SAP ARI[employer] CONSULTANT) Home Medications EnteredHOME MEDICATIONS AT DISCHARGE DateReconciliation Comment/ Additional Information acetaminophen 500 mg oral tablet 1 tablet every 6 hours for two days prior to surgery. Take 2 tabs the morning of surgery 17-Dec-2021 14:49 acetaminophen 500 mg oral tablet 1 tablet every 6 hours for two days prior to surgery. Take 2 tabs the morning of surgery 17-Dec-2021 14:49 acetaminophen 500 mg oral tablet is continued as acetaminophen 500 mg oral tablet aspirin 81 mg oral tablet 1 tab(s) oral once a day 01-Sep-2022 15:20 aspirin 81 mg oral tablet 1 tab(s) oral once a day 29-Nov-2021 15:20 aspirin 81 mg oral tablet is continued as aspirin 81 mg oral tablet bisacodyl 5 mg oral delayed release tablet Take 2 tabs at 3 pm and 2 tabs at 9 pm the day prior to your procedure 17-Dec-2021 14:46 Discontinued; Discontinue from ORM bisacodyl 5 mg oral delayed release tablet is not required cholecalciferol 50 mcg oral capsule 2 cap(s) oral once a day 29-Nov-2021 15:20 cholecalciferol 50 mcg oral capsule 2 cap(s) oral once a day 29-Nov-2021 15:20 cholecalciferol 50 mcg oral capsule is continued as cholecalciferol 50 mcg oral capsule clonazePAM 0.5 mg oral tablet 1 tab(s) orally 2 times a day, As Needed 17-Dec-2021 14:40 clonazePAM 0.5 mg oral tablet 1 tab(s) orally 2 times a day, As Needed 17-Dec-2021 14:40 clonazePAM 0.5 mg oral tablet is continued as clonazePAM 0.5 mg oral tablet escitalopram 20 mg oral tablet 1 tab(s) orally once a day 17-Dec-2021 14:43 escitalopram 20 mg oral tablet 1 tab(s) orally once a day 17-Dec-2021 14:43 escitalopram 20 mg oral tablet is continued as escitalopram 20 mg oral tablet gabapentin 100 mg oral capsule Take one capsule at bedtime starting 3 days prior to surgery 17-Dec-2021 14:46 Discontinued; Discontinue from ORM gabapentin 100 mg oral capsule is not required lisinopril 10 mg oral tablet 1 tab(s) oral once a day 29-Nov-2021 15:20 lisinopril 10 mg oral tablet 1 tab(s) oral once a day 29-Nov-2021 15:20 lisinopril 10 mg oral tablet is continued as lisinopril 10 mg oral tablet metroNIDAZOLE 250 mg oral tablet Take 1 tablet at 6 pm, 7 pm, and 11 pm prior to surgery 17-Dec-2021 14:47 Discontinued; Discontinue from ORM metroNIDAZOLE 250 mg oral tablet is not required multivitamin Multiple Vitamins oral tablet 1 tab(s) oral once a day 29-Nov-2021 15:21 multivitamin Multiple Vitamins oral tablet 1 tab(s) oral once a day 29-Nov-2021 15:21 multivitamin Multiple Vitamins oral tablet is continued as multivitamin Multiple Vitamins oral tablet polyethylene glycol 3350 oral powder for reconstitution Mix 238 gm once as directed with 64 oz of clear liquids 17-Dec-2021 14:48 Discontinued; Discontinue from ORM polyethylene glycol 3350 oral powder for reconstitution is not required venlafaxine 75 mg oral capsule, extended release 1 cap(s) orally once a day 17-Dec-2021 14:49 venlafaxine 75 mg oral capsule, extended release 1 cap(s) orally once a day 17-Dec-2021 14:49 venlafaxine 75 mg oral capsule, extended release is continued as venlafaxine 75 mg oral capsule, extended release Current OrdersDateHOME MEDICATIONS AT DISCHARGE DateReconciliation Comment/ Additional Information Acetaminophen Tablet (TYLENOL)DOSE = 650 mg Oral Every 6 Hours 17-Dec-2021 14:34 Acetaminophen is not required Aspirin Chewable Tablet, ChewableDOSE = 81 mg Oral Daily 17-Dec-2021 14:38 Aspirin Chewable is not required clonazePAM (KLONOPIN) TabletDOSE = 0.5 mg Oral Every 24 HoursNotes from Pharmacy: Reproductive Risk- Single Nitrile Glove 17-Dec-2021 14:38 clonazePAM (KLONOPIN) is not required Enoxaparin SubCutaneous (LOVENOX)DOSE = 40 mg SubCutaneous Every 24 Hours 17-Dec-2021 14:34 Enoxaparin SubCutaneous is not required Escitalopram Tablet (LEXAPRO)DOSE = 20 mg Oral Daily 17-Dec-2021 14:38 Escitalopram is not required Gabapentin Capsule (NEURONTIN)DOSE = 300 mg Oral 3 Times a Day 17-Dec-2021 14:34 Gabapentin is not required HYDROmorphone Injectable (DILAUDID)DOSE = 0.2 mg IntraVenous Push Every 4 Hours, PRN Breakthrough pain 17-Dec-2021 14:34 HYDROmorphone Injectable is not required Ondansetron Injectable (ZOFRAN)DOSE = 4 mg IntraVenous Push Every 6 Hours, PRN Nausea 17-Dec-2021 14:34 Ondansetron Injectable is not required oxyCODONE Immediate Release Tablet (OXYIR, ROXICODONE)DOSE = 10 mg Oral Every 4 Hours, PRN Pain - Severe (7-10) 17-Dec-2021 14:34 oxyCODONE Immediate Release is not required oxyCODONE Immediate Release Tablet (OXYIR, ROXICODONE)DOSE = 5 mg Oral Every 4 Hours, PRN Pain - Mod (4-6) 17-Dec-2021 14:34 oxyCODONE Immedia (more content not included)... [facility] Rehab Note-attemptedon 12-20 Rehab Note-attempted Rehab: Info: Disciplinephysical physical therapy assistant Mode of Treatmentattempted Time IN15:55 Reason Treatment Not PerformedAttempted follow up however pt. reports she just walked with staff for a pulse 02 study. RN confirms. Electronic Signatures: Sheila Wiggins (MINE LABORER) (Signed 20-Dec-2021 15:57) Authored: Info, Short Term Goals Adry Ruiz (PT) (Signed 21-Dec-2021 08:09) Co-Signer: Info, Short Term Goals Last Updated: 21-Dec-2021 08:09 by Adry Ruiz (PT) [facility] Daily Progress Note-Anesthes ia - Painon 12-19-2021 Daily Progress Note-Anesthesia - Pain Consult Type: subsequent visit/care Service: Anesthesia - Pain Subjective Data: SUE GASTON is a 71 year old Female who is Hospital Day # 3 and POD #2 for Open low anterior resection. Anticipated Postop Pain Issues - Palliative: relieved with IV analgesics and regional local anesthetics Provocative: with movement Quality: burning and aching Radiation: none Severity: 310 Timing: constant 24 Hour analgesic consumption: scheduled acetaminophen 650 Q6, scheduled Gabapentin 300 mg TID, 1 dose of 5 oxycodone. Objective Data: Objective Information: T PRBPMAPSpO2 [id number]/6991% Date/Time12/19 1: 1:039 1: 1: 1:03 Range(36.3C - 36.8C ) (65 - 80 ) (18 - 18 ) (101 - 114 )/ (64 - 71 ) (91% - 92% ) As of 18-Dec-2021 19:51:00, patient is on 1 L/min of oxygen via nasal cannula. Pain reported at 12/18 19:51: 4 = Moderate ---- Intake and Output ----- Mn/Dy/Year TimeIntakeOutputNet Dec 17, 2021 10:00 [id number] Physical Exam by System: Constitutional: laying in bed, NAD Eyes: non icteric Head/Neck: atraumatic Respiratory/Thorax: breathing comfortably on RA Cardiovascular: warm and well perfused Gastrointestinal: non tender Extremities: no edema Neurological: AOx3 Psychological: Appropriate mood and behavior Skin: warm and dry Recent Lab Results: Results: CBC: 12/18/2021 12:09 \\ Hgb / \\ 11.4 L / WBC Plt 13.5 H 212 / Hct \\ / 37.1 \\ RBC: 3.73 L MCV: 99 Neutrophil %: 80.6 RFP: 12/18/2021 12:09 NA+ Cl- BUN / 137 103 12 / ------- Glucose -- 138 H K+ HCO3- Creat \\ 3.7 25 0.77 \\ Calcium : 9.1Anion Gap : 13 Albumin : 4.0 Phos : 2.0 L Assessment and Plan: Daily Risk Screen: Does patient have an indwelling urinary cathetern/a consulting service Does patient have a central linen/a consulting service Code Status: Code StatusFull Code Assessment: SUE GASTON is a 71 year old Female who presents for anterior prcotosigmoidectomy with Dr. Jack on 12/17/21. Acute Pain consulted for block for postoperative pain control. Pain overall well controlled while lying down, worse with ambulation. Given 5cc bolus of ropivicaine 0.5% each side. Plan/Recs: - Bilateral QL blocks with catheters placed pre-operatively on 12/17 - Ambit with Ropivacaine 0.2%/NaCl 0.9% 500mL, Rate 7 cc/hr bilaterally. pain is 3/10 today. catheters removed with no complications. - can use lidocaine patches as catheters are out. - Acute pain service will sign off. - Rest of pain management per primary [place] [phone] ph [phone] Attestation: Note Completion: I am a: Resident/Fellow Attending AttestationI saw and evaluated the patient. I personally obtained the reddy and critical portions of the history and physical exam or was physically present for reddy and critical portions performed by the resident/fellow. I reviewed the resident/fellows documentation and discussed the patient with the resident/fellow. I agree with the resident/fellows medical decision making as documented in the note. I personally evaluated the patient [id number] Electronic Signatures: Lama EDUARDO Dahl (Resident)) (Signed 19-Dec-2021 11:03) Authored: Service, Subjective Data, Objective Data, Assessment and Plan, Note Completion Jerrica Juarez) (Signed 20-Dec-2021 06:14) Authored: Note Completion Co-Signer: Service, Subjective Data, Objective Data, Assessment and Plan, Note Completion Last Updated: 20-Dec-2021 06:14 by Jerrica Juarez) [facility] Daily Progress Note-Colorect al Surgeryon 12-19-2021 Daily Progress Note-Colorectal Surgery Service: Colorectal Surgery Subjective Data: SUE GASTON is a 71 year old Female who is Hospital Day # 3 and POD #2 for Open low anterior resection. No overnight events. Patient without complaints and pain is controlled with tylenol. Tolerating clear liquid diet without nausea, vomiting, burping, distention. Patient ate some Jell-O and sipping water and tea and broth without complication. Patient would like to advance diet today. Patient was able to sleep well. Out of bed to chair yesterday. Endorses gas overnight but no bowel movement postoperatively. Objective Data: Objective Information: T PRBPMAPSpO2 [id number]/7293% Date/Time12/19 5: 5: 5: 5: 5:43 Range(36.2C - 36.8C ) (65 - 80 ) (18 - 18 ) (101 - 114 )/ (64 - 72 ) (91% - 93% ) As of 19-Dec-2021 07:37:00, patient is on 1 L/min of oxygen via nasal cannula. Pain reported at 9/21 7:37: 3 = Mild ---- Intake and Output ----- Mn/Dy/[facility]Int[facility]OutAt[facility] Dec 19, 2021 6:00 [id number] Dec 18, 2021 10:00 [id number] Dec 18, 2021 2:00 [id number] The Intake and Output Totals for the last 24 hours are: IntakeOutputNet [id number] Intake Output Enteral - Oral 640 mL Urine 2450 mL IV Fluids 214 mL Drain 65 mL Physical Exam Narrative: Physical Exam: General: NAD Pulmonary: Symmetric chest rise, nonlabored breathing on room air Cardio: RRR, vitals reviewed GI: Soft, nondistended, appropriately tender, incisions c/d/i, drain with serous output Medication: Medications: Continuous Medications ------- 1. Ropivacaine 0.2%/ Ambit Pump 500 mL: 1000 mg Peripheral Nerve Scheduled Medications ------- 1. Acetaminophen: 650 mg Oral Every 6 Hours 2. Aspirin Chewable: 81 mg Oral Daily 3. clonazePAM (KLONOPIN): 0.5 mg Oral Every 24 Hours 4. Enoxaparin SubCutaneous: 40 mg SubCutaneous Every 24 Hours 5. Escitalopram: 20 mg Oral Daily 6. Gabapentin: 300 mg Oral 3 Times a Day 7. Venlafaxine Extended Release: 75 mg Oral Daily PRN Medications ------- 1. HYDROmorphone Injectable: 0.2 mg IntraVenous Push Every 4 Hours 2. Ondansetron Injectable: 4 mg IntraVenous Push Every 6 Hours 3. oxyCODONE Immediate Release: 5 mg Oral Every 4 Hours 4. oxyCODONE Immediate Release: 10 mg Oral Every 4 Hours Recent Lab Results: Results: CBC: 12/18/2021 12:09 \\ Hgb / \\ 11.4 L / WBC Plt 13.5 H 212 / Hct \\ / 37.1 \\ RBC: 3.73 L MCV: 99 Neutrophil %: 80.6 RFP: 12/18/2021 12:09 NA+ Cl- BUN / 137 103 12 / ------- Glucose -- 138 H K+ HCO3- Creat \\ 3.7 25 0.77 \\ Calcium : 9.1Anion Gap : 13 Albumin : 4.0 Phos : 2.0 L Assessment and Plan: Daily Risk Screen: Does patient have an indwelling urinary cathetern/a consulting service Does patient have a central linen/a consulting service Code Status: Code StatusFull Code Assessment: Sue Gaston is a 71F who presents with recurrent sigmoid polyp status post open LAR on 12/18/[address] Jack. Flexible sigmoidoscopy on 10/08/[address] Ruano revealed sessile polyp at 12 cm with pathology showing fragments of TVA. Noncomplicated postoperative course. Plan: NEURO: tylenol, oxycodone, klonopin, escitalopram, gabapenin, venlafaxine RESP: encourage IS, pulmonary hygiene, wean O2 to RA CARD: monitor vitals, ASA 81 GI/FEN: - advance to soft diet - HLIV - f/u labs and replete lytes prn RENAL: voiding appropriately, HEME: no indication for transfusion at this time ID: - no indication for antibiotics at this time ENDO: no glycemic issues Ppx: SCDs, lovenox Dispo: RNF, PT eval encourage ambulation D/w attending Dr. Irma Uriostegui, PGY1 [facility] Colorectal Surgery Service Brandon Service, pager [phone] Attestation: Note Completion: I am a: Resident/Fellow Attending AttestationI saw and evaluated the patient. I personally obtained the reddy and critical portions of the history and physical exam or was physically present for reddy and critical portions performed by the resident/fellow. I reviewed the resident/fellows documentation and discussed the patient with the resident/fellow. I agree with the resident/fellows medical decision making as documented in the note. I personally evaluated the patient [id number] Electronic Signatures: Colby Uriostegui (Resident)) (Signed 19-Dec-2021 09:25) Authored: Service, Subjective Data, Objective Data, Assessment and Plan, Note Completion Ho Jack) (Signed 20-Dec-2021 12:45) Authored: Note Completion Co-Signer: Service, Subjective Data, Objective Data, Assessment and Plan, Note Completion Last Updated: 20-Dec-2021 12:45 by Ho Jack) [facility] Discharge [id number] Discharge Profile2 Discharge Orders: Anticipated Discharge Date: Anticipated Discharge [id number] Problem List: Admitting Dx: Rectal polyp: Catalog Name: Rectal polyp Additional Dx: Acute postoperative pain: Catalog Name: Other acute postprocedural pain Significant Events: Surgical Procedure: Clinical Events This Visit, 17-Dec-2021, Open low anterior resection Hospital Providers: Provider RoleProvider Name Ho Wilkerson DNAR: Code Status at Discharge: Full Code Activity: activity as tolerated. May shower. May not drive while taking narcotics. No pushing, pulling, or lifting objects greater than 10 pounds for 4 week(s). Weight-bearing Instructions: full weight bearing. Diet: Diet Consistency/Texturesoft, soft diet x 4 weeks, Avoid raw fruits and vegetables for couple weeks and slowly advance into diet as tolerated. Appetitie will return slowly, eat smaller more frequent meals at first, push away from table once full. Encourage FluidsDrink plenty of a variety of fluids to prevent dehydration. Signs of dehydration are: dry mouth, dark yellow urine in small amounts, and dizziness with change in position or increased feeling of weakness/tiredness. Additive/Supplement 1: Supplement. ensure surgery 1 serving by mouth three times a day until gone. Wound Care 1: Wound Siteabdomen Wound Typesurgical incision Change Dressing2 times a day as needed Cleanse Withsoap and water Instructionsno lotions, creams, or tub soaks Other InstructionsYou have kirti remaining in your incision. These will come out approximately 2 weeks from your surgery date. This incision may get wet, pat dry and cover as needed to protect your clothing, otherwise you may leave this incision open to air. Additional Orders: Additional Instructions Bowel function will be irregular at first. You may experience some loose stool alternating with constipation. This is normal. As your diet advances and you begin to eat more regularly, your stool pattern will also become more regular. Drink plenty of a variety of fluids to prevent dehydration. Signs of dehydration are: dry mouth, dark yellow urine in small amounts, and dizziness with change in position or increased feeling of weakness/tiredness. For diarrhea stools incorporate foods from the BRAT diet. This is a bland diet that consists of foods low in fiber: bananas, rice, applesauce and toast are kirti of the diet. You can also add tea, tapioca and yogurt if you would like. Be sure to drink plenty of fluids if you are having diarrhea, as you can become dehydrated quickly. Colace is a stool softener that you can take twice per day to prevent hard stool or constipation. You will be instructed to use a stool softener while on narcotics, as they may cause constipation. You should not take the Colace for loose watery stool. This is an over the counter medication. Enoxaparin (Lovenox) is a blood thinner used to prevent or treat blood clots. Enoxaparin (Lovenox) is administered only by injection under the skin using a small needle and syringe. Injections can be given once or twice a day. You are taking enoxaparin (Lovenox) for __prevention of blood clots___. You will continue to take enoxaparin (Lovenox) for __28 days post-op__. It is important that you give the injections at the same time each day. It is important that you continue your enoxaparin until told to stop. If you forget an injection, contact your doctor for advice as to when you should give your next injection. Let everyone involved in your care, such as a dentist or other provider, know that you are taking enoxaparin (Lovenox). Side Effects: - Skin bruises, itching, and bleeding around the injection site, can occur. - If bleeding does occur, it may take a little longer than usual to stop. Let your doctor know if you develop a rash of dark red spots under the skin. Signs of bleeding that you should call your doctor: - Gums that bleed after brushing your teeth lasting more than 15 minutes. - A nose bleed that lasts for more than 15 minutes. - Bleeding from a cut that does not stop in 15 minutes. - Urine that looks red, or urine that is dark like coffee. - Stool (BMs) that are covered with blood, or are black. - Vomit that is bright red or vomit that looks like coffee. How to administer the injection: 1. Wash your hands with soap and water. Dry your hands. 2. Sit down or lie flat in a comfortable position. 3. Select an area on the right or left side of your stomach (at least 2 inches away from your belly button), the back of your upper arm or side of your upper thigh. 4. Clean the area with an alcohol swabs. Allow the area to dry. 5. Carefully pull off the needle cap from the syringe and discard cap. Leave the air bubble in the syringe. 6. Hold the syringe like a pencil in the hand you write with. 7. With your other hand, gently pinch (more content not included)... [facility] Rehab Note-individual therap yon 12-19-2021 Rehab Note-individual therapy Rehab: Info: Disciplinephysical physical therapy assistant Mode of Treatmentphysical therapy; individual therapy Time IN10:02 Time OUT10:36 Total Treatment [id number] Patient in ... at end of sessionchair; alarm off; care provider present Communicated with ... at end of sessionbedside nurse Patient Effortgood Treatment Considerations/CommentsPt . was supine in bed upon arrival. Pt. is on 1L of and due to low saturation -pt. continued to need 1L via n.,c, Patient Response to TreatmentPt. reports wanting to take a nap but was willing to participate. Pt. able to participate in all activities. Pt. tolerated treatment well- no complaints. Pt. was willing to sit up in chair end of session. Instructed pt. that she will need to call for the RN/CTA to assist back to bed. Pre Treatment Patient Positionsupine Pre Treatment SpO2 (%)89 % Pre Treatment Oxygen Deliverysupplemental O2; 1L Pre Treatment Sfkbxsox37-40% During Treatment Patient Positionsitting During Treatment Oxygen Deliverysupplemental O2; 1L During Treatment Zpmxadcq41-83% Post Treatment Patient Positionsitting Post Treatment SpO2 (%)95 % Post Treatment Oxygen Deliverysupplemental O2 Post Treatment Commentsafter ambulation Mobility/Tone: Bed Mobility Assessment/Interventionsr olling left; sidelying to sit Roll Left [place] (Bed Mobility)verbal cues; nonverbal cues (demo/gesture); contact guard; 1 person assist [id number]-Dlw [place] (Bed Mobility)verbal cues; nonverbal cues (demo/gesture); minimum assist (75% patient effort); 1 person assist Assistive Device (Bed Mobility)bed rails Transfer Assessment/Interventionss it to stand transfer; stand to sit transfer Sit-Stand [place] (Transfers)verbal cues; nonverbal cues (demo/gesture); contact guard; 1 person assist; Pt. required cga to steady Stand-Sit [place] (Transfers)verbal cues; nonverbal cues (demo/gesture); contact guard; 1 person assist Gait/Stairs LocomotionPt. amb. 50' using a wh. walker on 1L of and cga. Cues for walker position- reminders to work on breathing as pt.'s sp02 low to begin. Impairments Impacting Function (Mobility)balance; endurance/activity tolerance; pain TherEx: Therapeutic ExerciseSupine bilat le ex AP'S, QS, SAQ'S, HS, AND ABD X 15 REPS. Outcomes Tools: Turning from your back to your side while in a flat bed without using bedrails a little Moving from lying on your back to sitting on the side of a flat bed without using bedrailsa little Moving to and from bed to chair (including a wheelchair)a little Standing up from a chair using your arms (e.g. wheelchair or bedside chair)a little To walk in hospital rooma little Climbing 3-5 steps with railinga lot AM-PAC (PT) Total Score17 Education: Learnerpatient Barriers to Learningno barrier Methoddemonstration; verbal Outcome Evaluation1=partially meets; needs review Topicrehab plan of care; fall prevention; proper use of adaptive equipment to increase safety and decrease fall risk Electronic Signatures: Sheila Wiggins (MINE LABORER) (Signed 19-Dec-2021 10:56) Authored: Info, Mobility/Tone, TherEx, Outcomes Tools, Education Adry Ruiz (PT) (Signed 19-Dec-2021 15:34) Co-Signer: Info, Mobility/Tone, TherEx, Outcomes Tools, Education Last Updated: 19-Dec-2021 15:34 by Adry Ruiz (PT) [facility] CBC AND DIFFERENTIALon 12-18 % AUTOMATED IMMATURE GRAN 0.2 % Normal 0.0 - 0.9 [facility] Comment on above: Result Comment: Laina ture Granulocyte Count (IG) includes promyelocytes, myelocytes and metamyelocytes but does not include bands. Percent differential counts (%) should be interpreted in the context of the absolute cell counts (cells/L). Performed By: #### C BCDF #### [facility] [address] [place] [address] Basophils (Bld) [#/Vol] 0.02 10*3/uL Normal 0.00 - 0.10 [facility] Comment on above: Performed By: #### C BCDF #### [facility] [address] [place] [address] Basophils/100 WBC (Bld) 0.1 % Normal 0.0 - 2.0 [facility] Comment on above: Performed By: #### C BCDF #### [facility] [address] [place] [address] Eosinophils (Bld) [#/Vol] 0.00 10*3/uL Normal 0.00 - 0.40 [facility] Comment on above: Performed By: #### C BCDF #### [facility] [address] [place] [address] Eosinophils/100 WBC (Bld) 0.0 % Normal 0.0 - 6.0 [facility] Comment on above: Performed By: #### C BCDF #### [facility] [address] [place] [address] Erythrocyte distribution width (RBC) [Ratio] 13.8 % Normal 11.5 - 14.5 [facility] Comment on above: Performed By: #### C BCDF #### [facility] [address] [place] [address] Hematocrit (Bld) [Volume fraction] 37.1 % Normal 36.0 - 46.0 [facility] Comment on above: Performed By: #### C BCDF #### [facility] [address] [place] [address] Hemoglobin (Bld) [Mass/Vol] 11.4 g/dL Low 12.0 - 16.0 [facility] Comment on above: Performed By: #### C BCDF #### [facility] [address] [place] [address] Lymphocytes (Bld) [#/Vol] 1.83 10*3/uL Normal 0.80 - 3.00 [facility] Comment on above: Performed By: #### C BCDF #### [facility] [address] [place] [address] Lymphocytes/100 WBC (Bld) 13.5 % Normal 13.0 - 44.0 [facility] Comment on above: Performed By: #### C BCDF #### [facility] [address] [place] [address] MCHC (RBC) [Mass/Vol] 30.7 g/dL Low 32.0 - 36.0 [facility] Comment on above: Performed By: #### C BCDF #### [facility] [address] [place] [address] MCV (RBC) [Entitic vol] 99 fL Normal 80 - 100 [facility] Comment on above: Performed By: #### C BCDF #### [facility] [address] [place] [address] Monocytes (Bld) [#/Vol] 0.75 10*3/uL Normal 0.05 - 0.80 [facility] Comment on above: Performed By: #### C BCDF #### [facility] [address] [place] [address] Monocytes/100 WBC (Bld) 5.6 % Normal 2.0 - 10.0 [facility] Comment on above: Performed By: #### C BCDF #### [facility] [address] [place] [address] Neutrophils (Bld) [#/Vol] 10.88 10*3/uL High 1.60 - 5.50 [facility] Comment on above: Performed By: #### C BCDF #### [facility] [address] [place] [address] Neutrophils/100 WBC (Bld) 80.6 % Normal 40.0 - 80.0 [facility] Comment on above: Performed By: #### C BCDF #### [facility] [address] [place] [address] NUCLEATED RBC 0.0 /100 WBC Normal 0.0-0.0 [facility] Comment on above: Performed By: #### C BCDF #### [facility] [address] [place] [address] Platelets (Bld) [#/Vol] 212 10*3/uL Normal 150 - 450 [facility] Comment on above: Performed By: #### C BCDF #### [facility] [address] [place] [address] RBC 3.73 x10E12/L Low 4.00 - 5.20 [facility] Comment on above: Performed By: #### C BCDF #### [facility] [address] [place] [address] WBC (Bld) [#/Vol] 13.5 10*3/uL High 4.4 - 11.3 [facility] Comment on above: Performed By: #### C BCDF #### [facility] [address] [place] [address] Complete Blood Count + Diffe rentialon 12-18-2021 Basophils/100 WBC (Bld) 0.1 % 0.0 - 2.0 EA-Rqvctfi-Pco well 2099 Work Phone: Erythrocyte distribution width (RBC) [Ratio] 13.8 % See Below ZK-Wcsqdzk-Gft well 2099 Work Phone: Comment on above: Reference Range: 11. 5 - 14.5 Hematocrit (Bld) [Volume fraction] 37.1 % See Below GL-Ycafsne-Wok well 2099 Work Phone: Comment on above: Reference Range: 36. 0 - 46.0 Hemoglobin (Bld) [Mass/Vol] 11.4 g/dL below low threshold See Below RK-Gaqajxm-Vqg well 2099 Work Phone: Comment on above: Reference Range: 12. 0 - 16.0 Lymphocytes/100 WBC (Bld) 13.5 % See Below GA-Npdkqop-Uur well 2099 Work Phone: Comment on above: Reference Range: 13. 0 - 44.0 MCHC (RBC) [Mass/Vol] 30.7 g/dL below low threshold See Below TW-Hvrtyqc-Zps well 2099 Work Phone: Comment on above: Reference Range: 32. 0 - 36.0 MCV (RBC) [Entitic vol] 99 fL 80 - 100 ME-Npcqakd-Bos well 2099 Work Phone: Monocytes/100 WBC (Bld) 5.6 % 2.0 - 10.0 PG-Egdqaap-Yqt [facility] 2099 Work Phone: Neutrophils/100 WBC (Bld) 80.6 % See Below NQ-Vocxwsj-Gxl [facility] 2099 Work Phone: Comment on above: Reference Range: 40. 0 - 80.0 Platelets (Bld) [#/Vol] 212 10*3/uL 150 - 450 KO-Bwjzgog-Iiw [facility] 2099 Work Phone: RBC (Bld) [#/Vol] 3.73 {x10E12/L} below low threshold See Below UL-Fyzexya-Zrg [facility] 2099 Work Phone: Comment on above: Reference Range: 4.0 0 - 5.20 WBC (Bld) [#/Vol] 13.5 10*3/uL above high threshold 4.4 - 11.3 HA-Ehrvdik-Phx well 2099 Work Phone: Complete Blood Count + Differential 0.02 {x10E9/L} See Below EL-Nfhvcfq-Jqt well 2099 Work Phone: Comment on above: Reference Range: 0.0 0 - 0.10 Complete Blood Count + Differential 0.00 {x10E9/L} See Below YS-Bpzdqgy-Ify well 2099 Work Phone: Comment on above: Reference Range: 0.0 0 - 0.40 Complete Blood Count + Differential 0.75 {x10E9/L} See Below MJ-Fxpsqkn-Obs well 2099 Work Phone: Comment on above: Reference Range: 0.0 5 - 0.80 Complete Blood Count + Differential 1.83 {x10E9/L} See Below QN-Ttbqtem-Xyh well 2099 Work Phone: Comment on above: Reference Range: 0.8 0 - 3.00 Complete Blood Count + Differential 10.88 {x10E9/L} above high threshold See Below VC-Qgyumzb-Fhh well 2099 Work Phone: Comment on above: Reference Range: 1.6 0 - 5.50 Complete Blood Count + Differential 0.0 % 0.0 - 6.0 VX-Ozsiwrs-Ofs well 2099 Work Phone: Complete Blood Count + Differential 0.2 % 0.0 - 0.9 CY-Ebrqytl-Vhw well 2099 Work Phone: Comment on above: Immature Granulocyte Count (IG) includes promyelocytes, myelocytes and metamyelocytes but does not include bands. Percent differential counts (%) should be interpreted in the context of the absolute cell counts (cells/L). Complete Blood Count + Differential 0.0 {/100_WBC} 0.0-0.0 NT-Uotcall-Glg well 2099 Work Phone: Daily Progress Note-Anesthes ia - Painon 12-18-2021 Daily Progress Note-Anesthesia - Pain Consult Type: subsequent visit/care Service: Anesthesia - Pain Subjective Data: SUE GASTON is a 71 year old Female who is Hospital Day # 2 and POD #1 for Open low anterior resection. Postop Pain HPI - Palliative: relieved with IV/PO analgesics and regional local anesthetics Provocative: movement Quality: burning and aching Radiation: none Severity: 7/10 walking, 2-3/10 lying Timing: constant Pain Control Medications: Tylenol, Dilaudid, oxycodone, ropivicaine MOLD LAMINATOR 24hr Opioid Requirement: 10mg oxycodone ~24hrs, 1mg dilaudid. Objective Data: Objective Information: T PRBPMAPSpO2 [id number]/6492% Date/Time12/18 6: 6: 6: 6: 6:00 Range(35.8C - 36.6C ) (65 - 80 ) (18 - 18 ) (101 - 113 )/ (64 - 72 ) (90% - 92% ) Pain reported at 12/17 23:09: sleeping ---- Intake and Output ----- Mn/Dy/Year TimeIntakeOutputNet Dec 18, 2021 6:00 [id number] Dec 17, 2021 10:00 [id number] The Intake and Output Totals for the last 24 hours are: IntakeOutputNet [id number] Physical Exam by System: Constitutional: laying in bed, NAD Eyes: non icteric Head/Neck: atraumatic Respiratory/Thorax: breathing comfortably on RA Cardiovascular: warm and well perfused Gastrointestinal: non tender Extremities: no edema Neurological: AOx3 Psychological: Appropriate mood and behavior Skin: warm and dry Medication: Medications: Continuous Medications ------- 1. Lactated Ringers Infusion: 1000 mL IntraVenous 2. Ropivacaine 0.2%/ Ambit Pump 500 mL: 1000 mg Peripheral Nerve Scheduled Medications ------- 1. Acetaminophen: 650 mg Oral Every 6 Hours 2. Aspirin Chewable: 81 mg Oral Daily 3. clonazePAM (KLONOPIN): 0.5 mg Oral Every 24 Hours 4. Enoxaparin SubCutaneous: 40 mg SubCutaneous Every 24 Hours 5. Escitalopram: 20 mg Oral Daily 6. Gabapentin: 300 mg Oral 3 Times a Day 7. Venlafaxine - PEDS: 75 mg Oral Daily PRN Medications ------- 1. HYDROmorphone Injectable: 0.2 mg IntraVenous Push Every 4 Hours 2. Ondansetron Injectable: 4 mg IntraVenous Push Every 6 Hours 3. oxyCODONE Immediate Release: 5 mg Oral Every 4 Hours 4. oxyCODONE Immediate Release: 10 mg Oral Every 4 Hours Recent Lab Results: Results: I have reviewed these laboratory results: Complete Blood Count + Differential 17-Dec-2021 14:43:00 ResultValue White Blood Cell Count 14.2 H Nucleated Erythrocyte Count 0.0 Red Blood Cell Count 4.60 HGB 13.4 HCT 42.3 MCV 92 MCHC 31.7 L PLT 245 RDW-CV 13.9 Neutrophil % 89.8 Immature Granulocytes % 0.4 Lymphocyte % 6.0 Monocyte % 3.4 Eosinophil % 0.1 Basophil % 0.3 Neutrophil Count 12.73 H Lymphocyte Count 0.85 Monocyte Count 0.48 Eosinophil Count 0.01 Basophil Count 0.04 Renal Function Panel 17-Dec-2021 14:43:00 ResultValue Glucose, Serum 132 H NA 138 K 4.1 CL 105 Bicarbonate, Serum 22 Anion Gap, Serum 15 BUN 16 CREAT 0.66 GFR Female >90 Calcium, Serum 9.1 Phosphorus, Serum 3.1 ALB 4.3 Magnesium, Serum 17-Dec-2021 14:43:00 ResultValue Magnesium, Serum 2.05 Assessment and Plan: Daily Risk Screen: Does patient have an indwelling urinary cathetern/a consulting service Does patient have a central linen/a consulting service Code Status: Code StatusFull Code Advance Care Planning: Advance Care Planning: Patient didn't wish to or was unable to provide advance care plan Assessment: SUE GASTON is a 71 year old Female who presents for anterior prcotosigmoidectomy with Dr. Jack on 12/17/21. Acute Pain consulted for block for postoperative pain control. Pain overall well controlled while lying down, worse with ambulation. Given 5cc bolus of ropivicaine 0.5% each side. Plan/Recs: - Bilateral QL blocks with catheters placed pre-operatively - Ambit ball with Ropivacaine 0.2%/NaCl 0.9% 500mL, Rate 7 cc/hr bilaterally - Ambit medication will not interfere with pain medication prescribed by primary team. - Please be aware of local anesthetic toxic dose and absorption variability before considering lidocaine patches - Acute pain service will follow while catheters in place - Rest of pain management per primary [place] [phone] ph [phone] Attestation: Note Completion: I am a: Resident/Fellow Attending AttestationI saw and evaluated the patient. I personally obtained the reddy and critical portions of the history and physical exam or was physically present for reddy and critical portions performed by the resident/fellow. I reviewed the resident/fellows documentation and discussed the patient with the resident/fellow. I agree with the resident/fellows medical decision making as documented in the note. I personally evaluated the patient [id number] Electronic Signatures: Paulie Govea (DO (Resident)) (Sig (more content not included)... [facility] Daily Progress Note-Colorect al Surgeryon 12-18-2021 Daily Progress Note-Colorectal Surgery Service: Colorectal Surgery Subjective Data: SUE GASTON is a 71 year old Female who is Hospital Day # 2 and POD #1 for Open low anterior resection. No overnight events. Patient without complaints and pain is controlled. Tolerating clear liquid diet without nausea, vomiting, burping, distention. Patient was able to sleep some. Objective Data: Objective Information: T PRBPMAPSpO2 Value36.14900079/6492% Date/Time12/18 6: 6: 6: 6: 6:00 Range(35.8C - 36.6C ) (65 - 80 ) (18 - 18 ) (101 - 113 )/ (64 - 72 ) (90% - 92% ) Pain reported at 12/17 23:09: sleeping ---- Intake and Output ----- Mn/Dy/Year TimeIntakeOutputNet Dec 18, 2021 6:00 [id number] Dec 17, 2021 10:00 [id number] The Intake and Output Totals for the last 24 hours are: IntakeOutputNet [id number] Intake Output IV Fluids 1700 mL Urine 1110 mL Blood 70 mL Drain 85 mL Physical Exam Narrative: Physical Exam: General: NAD Pulmonary: Symmetric chest rise, nonlabored breathing on room air Cardio: RRR, vitals reviewed GI: Soft, nondistended, appropriately tender, incisions with moderate strikethrough to island dressing, drain with serosanguineous output and some serosanguineous fluid output from around the drain collecting on gauze pads. Medication: Medications: Continuous Medications ------- 1. Lactated Ringers Infusion: 1000 mL IntraVenous 2. Ropivacaine 0.2%/ Ambit Pump 500 mL: 1000 mg Peripheral Nerve Scheduled Medications ------- 1. Acetaminophen: 650 mg Oral Every 6 Hours 2. Aspirin Chewable: 81 mg Oral Daily 3. clonazePAM (KLONOPIN): 0.5 mg Oral Every 24 Hours 4. Enoxaparin SubCutaneous: 40 mg SubCutaneous Every 24 Hours 5. Escitalopram: 20 mg Oral Daily 6. Gabapentin: 300 mg Oral 3 Times a Day 7. Venlafaxine - PEDS: 75 mg Oral Daily PRN Medications ------- 1. HYDROmorphone Injectable: 0.2 mg IntraVenous Push Every 4 Hours 2. Ondansetron Injectable: 4 mg IntraVenous Push Every 6 Hours 3. oxyCODONE Immediate Release: 5 mg Oral Every 4 Hours 4. oxyCODONE Immediate Release: 10 mg Oral Every 4 Hours Recent Lab Results: Results: CBC: 12/17/2021 14:43 \\ Hgb / \\ 13.4 / WBC Plt 14.2 H 245 / Hct \\ / 42.3 \\ RBC: 4.60 MCV: 92 Neutrophil %: 89.8 RFP: 12/17/2021 14:43 NA+ Cl- BUN / 138 105 16 / ------- Glucose -- 132 H K+ HCO3- Creat \\ 4.1 22 0.66 \\ Calcium : 9.1Anion Gap : 15 Albumin : 4.3 Phos : 3.1 Assessment and Plan: Daily Risk Screen: Does patient have an indwelling urinary catheteryes Plan for indwelling urinary catheter removal todayyes Does patient have a central linen/a consulting service Code Status: Code StatusFull Code Advance Care Planning: Advance Care Planning: I evaluated the patient and determined the patient's capacity to understand the risks, benefits and alternatives to treatment. I elicited the patient's goals for treatment and reviewed advance directives and medical orders for life sustaining treatment. The patient was given an opportunity to review a blank advance directive as appropriate. Assessment: Sue Gaston is a 71F who presents with recurrent sigmoid polyp status post open LAR on 12/18/[address] Jack. Flexible sigmoidoscopy on 10/08/[address] Ruano revealed sessile polyp at 12 cm with pathology showing fragments of TVA. Noncomplicated postoperative course. Plan: NEURO: tylenol, oxycodone, klonopin, escitalopram, gabapenin, venlafaxine RESP: encourage IS, pulmonary hygiene, wean O2 to RA CARD: monitor vitals, ASA 81 GI/FEN: - CLD, advance to soft in PM if tolerating - IVF, will d/c in PM if tolerating drinking PO - f/u labs and replete lytes prn RENAL: denson out today, monitor urine output, HEME: no indication for transfusion at this time ID: - no indication for antibiotics at this time ENDO: no glycemic issues Ppx: SCDs, lovenox Dispo: RNF D/w attending Dr. Irma Uriostegui, PGY1 [facility] Colorectal Surgery Service [place] Service, pager [phone] Attestation: Note Completion: I am a: Resident/Fellow Attending AttestationI reviewed the resident/fellows documentation and discussed the patient with the resident/fellow. I agree with the resident/fellows medical decision making as documented in the note. Electronic Signatures: Colby Uriostegui (Resident)) (Signed 18-Dec-2021 08:57) Authored: Service, Subjective Data, Objective Data, Assessment and Plan, Note Completion Ho Jack) (Signed 18-Dec-2021 15:07) Authored: Assessment and Plan, Note Completion Co-Signer: Service, Subjective Data, Objective Data, Assessment and Plan, Note Completion Last Updated: 18-Dec-2021 15:07 by Ho Jack) [facility] Discharge Planning [id number] 12-18-2021 Discharge Planning Note2 Discharge Planning: Anticipated Discharge [id number] Discharge Planning 12/18/21 1358 SW note Admission assessment completed at the bedside with the patient and . See assessment tab for details. Patient's will transport pt home when medically ready. FALLON Blancas doc halo 12/19/21 1501 Production Support Specialist: PT recommending home PT. Spoke to patient at bedside regarding HC. Pt prefers [facility]. Referral sent, awaiting acceptance. Marcelina Escamilla RNTCC ([facility]) 12/20/21 2865 Transitional Care Coordination Progress Note: Patient discussed during interdisciplinary rounds. Team members present: SAP ARIBA CONSULTANT and TCC Plan per Medical/Surgical team: Walking pulse ox today for poss need for home O2, continuing to wean O2 to RA. Status: IP Payor source: Medicare A/B Discharge disposition: Home with [facility] for PT. TCC to follow up if home O2 needed. Potential Barriers: None ADOD: 12/21 CAPRI HankinsC ([facility]) 12/21/21 1148 Production Support Specialist: Discharge today to home with [facility] for PT. FHCO sent to [facility] via Careport. SOC confirmed for 24-72 hours. Name and number for [facility] on discharge instructions. Walking pulse ox completed and patient doesn't need home O2. Marcelina FAROOQC ([facility]) Nursing Note Discharge 12/21/21 Reviewed with patient and spouse DC instructions, diet, activity, s/s to report to MD, FU appt with MD, prescriptions/new medications, PI Sheets verbalized understanding. Skills Taught: Demonstrated ability to self administrate lovenox injections and care for incision site Supplies Given: lovenox kit Meds to bed medications Pt will call MD with any questions or concerns. See EMR for complete DC instructions. (E) DC home with home care via private transportation. (P) DC Planning complete. Loretta Sosa LPN Assessment: Discharge Planning Assessment [id number] Primary Contact Name and Numberbalbirsadela beck [phone] Prior Level of FunctioningIndependent, still drives Lives Withspouse(1) Living Arrangementshouse; split level(1) Stated Reason for Admissionbowel resection (2) [place] ([place] PCPDr. [facility]ina [facility] [place] [facility] [place]/ Injury/ Need Assist with AmbulationNone DME Supplier Name/NumberNone Home Care Agency/Support ServicesNone Diabetic/Supplies NeededNone Hemodialysis ScheduleNone Other NeedsNone Resource/Environmental Concernsnone(2) Anticipated Transition [place]) Services Anticipated at Transitionnon(2) Readmission Within the Last 30 Daysno previous admission in last 30 days InsuranceMedicare A/B Special Considerationsvaccinated for covid Transportation Home Who/Howhusband/car Medication Adherence/Afford/Obtainye s O2 LPMNone Home O2 SupplierNone Discharge Transportation [facility] from [facility] Discharge Documentation: Discharge/Transfer Date/Fbuw08-Aob-6346 14:43 Discharged Accompanied Byspouse Discharge Modewheelchair Transportation Methodprivate car Code StatusCode Status order at time of discharge: Full Code [place] DNR Form Sent with Patient and/or Familyn/a Final [facility] Electronic Signatures: Marcelina Escamilla (CLIN COOR) (Signed 21-Dec-2021 11:51) Authored: Discharge Planning, Discharge Documentation Aislinn Bassett () (Signed 18-Dec-2021 14:00) Authored: Discharge Planning, Assessment Loretta Sosa (RN LABOR DELIVERY) (Signed 21-Dec-2021 14:50) Authored: Discharge Planning, Discharge Documentation Last Updated: 21-Dec-2021 14:50 by Loretta Sosa (RN LABOR DELIVERY) References: 1. Data Referenced From PT Evaluation v2-individual therapy" 18-Dec-2021 12:36 2. Data Referenced From Patient Profile - Adult v2" 18-Dec-2021 06:39 [facility] MAGNESIUMon 12-18-2021 Magnesium [Mass/Vol] 1.94 mg/dL Normal 1.60 - 2.40 [facility] Comment on above: Performed By: #### M G ####[id number] [place] [address] Magnesium, Serumon 2 Magnesium [Mass/Vol] 1.94 mg/dL See Below MG-S carrie-Devonte elle 2100 Work Phone: Comment on above: Reference Range: 1.6 0 - 2.40 PT Evaluation v2-individual therapyon 12-18-2021 PT Evaluation v2-individual therapy Rehab: Info: Mode of Treatmentphysical therapy; individual therapy Time IN12:16 Time OUT12:32 Total Treatment [id number] Patient in ... at end of sessionchair; alarm off; not on at start of visit Communicated with ... at end of sessionbedside nurse Patient Effortgood Symptoms Noted During/After Treatmentincreased pain Patient Profile Reviewedyes Onset of Illness/Injury or Date of [id number] Reason for ReferralPt presents s/p Open low anterior resection Patient/Family/Caregiver Comments/ObservationsPt was pleasant, cooperative, and willing to participate in therapy. abdominal precautions MALISSA, IV, qball General Observations of PatientSupine in bed. Pt mobilized to EOB with min A. Pt performed STS transfer with CGA. Pt ambulated to chair with CGA. Pt tolerates session fairly reporting increased pain. Pt was returned to bed with all needs in reach. Pertinent History of Current Functional Problemrecurrent sigmoid polyp status post open LAR on 12/18/2019 Hearing Precautions/LimitationsWF L Precautions/Limitationsfa ll precautions Ambulation Skills - Previous Level of Functionindependent community ambulator Transfer Skills - Previous Level of Functionindependent ADL Skills - Previous Level of Functionindependent Work/Leisure Activity - Previous Level of Functionindependent; (+) driving, retired Living Arrangementshouse; split level Lives Withspouse Home Accessibilitystairs to enter home; first floor set up available Number of Stairs to Enter Home5 Line and TubesIV; qball, MALISSA O2 Deliverynasal cannula Vision/Cognition: Affect/Mental Status (Cognitive)WFL Orientation Status (Cognition)oriented x 3 Able to Follow Commands (Receptive)follows one step commands; over 90% accuracy; verbal cues/prompting required; repetition of directions required; physical/tactile prompts required ROM: Upper Extremity: Range of Motionleft upper extremity ROM WFL; right upper extremity ROM WFL Lower Extremity: Range of Motionleft lower extremity ROM WFL; right lower extremity ROM WFL MMT: Lower Extremity: Manual Muscle Testing (MMT)B/L LE >or=3+/5 observed via function Mobility/Tone: Bed Mobility Assessment/Interventionss upine to sit Hjbkeg-jf-Bao [place] (Bed Mobility)verbal cues; nonverbal cues (demo/gesture); minimum assist (75% patient effort); 1 person assist; Required verbal cues for safety and sequencing throughout. Pt requires increased time to perform. Pt requires assistance with upper body. Assistive Device (Bed Mobility)HOB elevated; bed rails Transfer Assessment/Interventionss it to stand transfer; stand to sit transfer Sit-Stand [place] (Transfers)verbal cues; nonverbal cues (demo/gesture); contact guard; 1 person assist; Required verbal cues for safety and sequencing throughout. Pt requires increased time to perform. Pt required verbal cues for upright posture and to engage glut and quads to assist in full stand. Stand-Sit [place] (Transfers)verbal cues; nonverbal cues (demo/gesture); contact guard; 1 person assist; Required verbal cues for safety and sequencing throughout. Pt demonstrates decreased control with descent from stand. Gait/Stairs Locomotiongait/ambulation independence; distance ambulated; gait deviations; gait pattern utilized Gait Locomotion (Gait)verbal cues; nonverbal cues (demo/gesture); contact guard Distance in Feet (Gait Training)10 steps to chair Gait Pattern Utilized (Gait)step to pattern Gait Deviations Identified (Gait)decrease trunk rotation; increased time in double stance; decreased debbi; decreased step length; decreased stride length; decreased oya-zn-pxbtq clearance; Pt demonstrates mild trunk sway with mildly decreased control of COM over [place]. Impairments Impacting Function (Mobility)balance; endurance/activity tolerance; strength; postural/trunk control; pain Motor: Sitting, Static (Balance)SBA Sitting, Dynamic (Balance)SBA Ttx-sj-Gelll (Balance)CGA Standing, Static (Balance)CGA Standing, Dynamic (Balance)CGA Systems Impairment Contributing to Balance Disturbance (Balance) musculoskeletal Identified Impairments Contributing to Balance Disturbance (Balance)strength decreased; pain Sensory: Pre-Treatment Pain Rating6/10 Post-Treatment Pain Rating6/10 Comment, Pre/Post Treatment Painabdomen Sensory General Assessmentno sensation deficits identified Health: Observed Emotional Statecalm; cooperative; pleasant Verbalized Emotional Stateacceptance Plan of Care Reviewed Withpatient Impression: Criteria for Skilled Therapeutic Interventions Met (PT Eval)yes; treatment indicated PT DiagnosisImpaired mobility Physical Therapy PrognosisGood Patient/Family Goals Statement (PT Eval)To return to PLOF System Pathology/Pathophysiology Noted (PT Eval)musculoskeletal Impairments Found (PT Eval)aerobic capacity/endurance; gait, locomotion, and balance; ergonomics and body me (more content not included)... Normal [facility] RENAL FUNCTION PANELon 12-18 Albumin [Mass/Vol] 4.0 g/dL Normal 3.4 - 5.0 [facility] Comment on above: Performed By: #### R ENAL #### [facility] [address] [place] [address] Anion gap [Moles/Vol] 13 mmol/L Normal 10 - 20 [facility] Comment on above: Performed By: #### R ENAL #### [facility] [address] [place] [address] Calcium [Mass/Vol] 9.1 mg/dL Normal 8.6 - 10.6 [facility] Comment on above: Performed By: #### R ENAL #### [facility] [address] [place] [address] Chloride [Moles/Vol] 103 mmol/L Normal 98 - 107 [facility] Comment on above: Performed By: #### R ENAL #### [facility] [address] [place] [address] Creatinine [Mass/Vol] 0.77 mg/dL Normal 0.50 - 1.05 [facility] Comment on above: Performed By: #### R ENAL #### [facility] [address] [place] [address] GFR/1.73 sq M.predicted among non-blacks MDRD (S/P/Bld) [Vol rate/Area] 82 mL/min/{1.73_m2} Normal >90 [facility] Comment on above: Result Comment: CALC ULATIONS OF ESTIMATED GFR ARE PERFORMED USING THE 2020 CKD-EPI STUDY REFIT EQUATION WITHOUT THE RACE VARIABLE FOR THE IDMS-TRACEABLE CREATININE METHODS. https://jasn.asnjournals.org/content/early/ASN.818344 0315 Performed By: #### R ENAL #### [facility] [address] [place] [address] Glucose [Mass/Vol] 138 mg/dL High 74 - 99 [facility] Comment on above: Performed By: #### R ENAL #### [place] [address] [place] [address] HCO3 (Bld) [Moles/Vol] 25 mmol/L Normal 21 - 32 [facility] Comment on above: Performed By: #### R ENAL #### [facility] [address] [place] [address] Phosphate [Mass/Vol] 2.0 mg/dL Low 2.5 - 4.9 [facility] Comment on above: Result Comment: The performance characteristics of phosphorus testing in heparinized plasma have been validated by the individual laboratory site where testing is performed. Testing on heparinized plasma is not approved by the FDA; however, such approval is not necessary. Performed By: #### R ENAL #### [facility] [address] [place] [address] Potassium [Moles/Vol] 3.7 mmol/L Normal 3.5 - 5.3 [facility] Comment on above: Performed By: #### R ENAL #### [facility] [address] [place] [address] Sodium [Moles/Vol] 137 mmol/L Normal 136 - 145 [facility] Comment on above: Performed By: #### R ENAL #### [facility] [address] [place] [address] Urea nitrogen [Mass/Vol] 12 mg/dL Normal 6 - 23 [facility] Comment on above: Performed By: #### R ENAL #### [facility] [address] [place] [address] Renal Function Panelon 12-18 Albumin BCP dye [Mass/Vol] 4.0 g/dL 3.4 - 5.0 MY-Hjqzfwr-Ubr well 2099 Work Phone: Anion gap [Moles/Vol] 13 mmol/L 10 - 20 MG- Surgery-[place] well 2099 Work Phone: Calcium [Mass/Vol] 9.1 mg/dL 8.6 - 10.6 MG-Cristal yana-[facility] well 2099 Work Phone: Chloride [Moles/Vol] 103 mmol/L 98 - 107 MG-S urgery-[facility] well 2099 Work Phone: CO2 [Moles/Vol] 25 mmol/L 21 - 32 MG-Surger y-[facility] well 2099 Work Phone: Creatinine [Mass/Vol] 0.77 mg/dL See Below MG- Surgery-[place] 2099 Work Phone: Comment on above: Reference Range: 0.5 0 - 1.05 Glucose [Mass/Vol] 138 mg/dL above high threshold 74 - 99 TN-Aylzhzq-Oza [facility] 2099 Work Phone: Phosphate [Mass/Vol] 2.0 mg/dL below low threshold 2.5 - 4.9 ZI-Zkbedhq-Rcf well 2099 Work Phone: Comment on above: The performance gaby acteristics of phosphorus testing in heparinized plasma have been validated by the individual laboratory site where testing is performed. Testing on heparinized plasma is not approved by the FDA; however, such approval is not necessary. Potassium [Moles/Vol] 3.7 mmol/L 3.5 - 5.3 MG- Surgery-[facility] 2099 Work Phone: Sodium [Moles/Vol] 137 mmol/L 136 - 145 MG-Cristal yana-[facility] 2099 Work Phone: Urea nitrogen [Mass/Vol] 12 mg/dL 6 - 23 ZA-Phggxpi-Vcd well 2099 Work Phone: Renal Function Panel 82 {mL/min/1.73m2} >90 AU-Qvivrul-Hna well 2099 Work Phone: Comment on above: CALCULATIONS OF RAINA MATED GFR ARE PERFORMED USING THE 2020 CKD-EPI STUDY REFIT EQUATION WITHOUT THE RACE VARIABLE FOR THE IDMS-TRACEABLE CREATININE METHODS.https://jasn.asnjournals.org/content/early/ N.5087724557 ABO/RH GROUP TESTon 12-18-19 ABO TYPE A Normal [facility] Comment on above: Performed By: #### V ERAB #### [facility] [address] [place] [address] RH TYPE Positive Normal [facility] Comment on above: Performed By: #### V ERAB #### [facility] [address] [place] [address] CBC AND DIFFERENTIALon 09-19 -2022 % AUTOMATED IMMATURE GRAN 0.4 % Normal 0.0 - 0.9 [facility] Comment on above: Result Comment: Laina ture Granulocyte Count (IG) includes promyelocytes, myelocytes and metamyelocytes but does not include bands. Percent differential counts (%) should be interpreted in the context of the absolute cell counts (cells/L). Performed By: #### C BCDF #### [facility] [address] [place] [address] Basophils (Bld) [#/Vol] 0.04 10*3/uL Normal 0.00 - 0.10 [facility] Comment on above: Performed By: #### C BCDF #### [facility] [address] [place] [address] Basophils/100 WBC (Bld) 0.3 % Normal 0.0 - 2.0 [facility] Comment on above: Performed By: #### C BCDF #### [facility] [address] [place] [address] Eosinophils (Bld) [#/Vol] 0.01 10*3/uL Normal 0.00 - 0.40 [facility] Comment on above: Performed By: #### C BCDF #### [facility] [address] [place] [address] Eosinophils/100 WBC (Bld) 0.1 % Normal 0.0 - 6.0 [facility] Comment on above: Performed By: #### C BCDF #### [facility] [address] [place] [address] Erythrocyte distribution width (RBC) [Ratio] 13.9 % Normal 11.5 - 14.5 [facility] Comment on above: Performed By: #### C BCDF #### [facility] [address] [place] [address] Hematocrit (Bld) [Volume fraction] 42.3 % Normal 36.0 - 46.0 [facility] Comment on above: Performed By: #### C BCDF #### [facility] [address] [place] [address] Hemoglobin (Bld) [Mass/Vol] 13.4 g/dL Normal 12.0 - 16.0 [facility] Comment on above: Performed By: #### C BCDF #### [facility] [address] [place] [address] Lymphocytes (Bld) [#/Vol] 0.85 10*3/uL Normal 0.80 - 3.00 [facility] Comment on above: Performed By: #### C BCDF #### [facility] [address] [place] [address] Lymphocytes/100 WBC (Bld) 6.0 % Normal 13.0 - 44.0 [facility] Comment on above: Performed By: #### C BCDF #### [facility] [address] [place] [address] MCHC (RBC) [Mass/Vol] 31.7 g/dL Low 32.0 - 36.0 [facility] Comment on above: Performed By: #### C BCDF #### [facility] [address] [place] [address] MCV (RBC) [Entitic vol] 92 fL Normal 80 - 100 [facility] Comment on above: Performed By: #### C BCDF #### [facility] [address] [place] [address] Monocytes (Bld) [#/Vol] 0.48 10*3/uL Normal 0.05 - 0.80 [facility] Comment on above: Performed By: #### C BCDF #### [facility] [address] [place] [address] Monocytes/100 WBC (Bld) 3.4 % Normal 2.0 - 10.0 [facility] Comment on above: Performed By: #### C BCDF #### [facility] [address] [place] [address] Neutrophils (Bld) [#/Vol] 12.73 10*3/uL High 1.60 - 5.50 [facility] Comment on above: Performed By: #### C BCDF #### [facility] [address] [place] [address] Neutrophils/100 WBC (Bld) 89.8 % Normal 40.0 - 80.0 [facility] Comment on above: Performed By: #### C BCDF #### [facility] [address] [place] [address] NUCLEATED RBC 0.0 /100 WBC Normal 0.0-0.0 [facility] Comment on above: Performed By: #### C BCDF #### [facility] [address] [place] [address] Platelets (Bld) [#/Vol] 245 10*3/uL Normal 150 - 450 [facility] Comment on above: Performed By: #### C BCDF #### [facility] [address] [place] [address] RBC 4.60 x10E12/L Normal 4.00 - 5.20 [facility] Comment on above: Performed By: #### C BCDF #### [facility] [address] [place] [address] WBC (Bld) [#/Vol] 14.2 10*3/uL High 4.4 - 11.3 [facility] Comment on above: Performed By: #### C BCDF #### [facility] [address] [place] [address] Clinical Event Note-PACU Ane noemy 12-17-2021 Clinical Event Note-PACU Anesthesia Clinical Event: Clinical Event Note: TopicPACU Anesthesia Details Called by [employer] OPER[employer] to connect Bilateral QL CPNB. Patient is s/p Lower anterior resection POD#0. QL catheters identified and negative aspiration heme x2. 0.2% Ropivacaine 500mL bag with Ambit Pump connected. Pump turned on at 10mL/hr per APS order. APS to follow-up on POD#1. Dee Malcolm DO Electronic Signatures: Kelsy Malcolm () (Signed 17-Dec-2021 19:11) Authored: Clinical Event Note Last Updated: 17-Dec-2021 19:11 by Kelsy Malcolm () Normal [facility] Clinical Event Note-post op checkon 12-17-2021 Clinical Event Note-post op check Clinical Event: Clinical Event Note: Topicpost op check Details 71 y/o F POD# 0 s/p open low anterior resection recovering well post-operatively. O: Vitals signs within normal limits Gen: NAD, pain control appropriate Cardiac: Regular rate Pulm: breathing comfortably on 2L nc Abdomen: soft, dressing in place with some strikethrough. LLQ MALISSA holding suction with serosanguinous output and some oozing around incision. Extremities: warm and well perfused A/P: 71 y/o F POD # 0 s/p low anterior resection on the floor doing ok. Plan: Cont current pain regimen Wean O2 as tolerated Clear liquid diet LR @40mL/hr Maintain Denson until tomorrow Monitor drain oozing (drain sponge placed at bedside). Dionisio Singleton MD PGY1 General Surgery Electronic Signatures: Dionisio Singleton ( (Resident)) (Signed 17-Dec-2021 22:02) Authored: Clinical Event Note Last Updated: 17-Dec-2021 22:02 by Dionisio Singleton ( (Resident)) Normal [facility] Complete Blood Count + Diffe rentialon 12-17-2021 Basophils/100 WBC (Bld) 0.3 % 0.0 - 2.0 WV-Xkexvkx-Por [facility] 2099 Work Phone: Erythrocyte distribution width (RBC) [Ratio] 13.9 % See Below IC-Piapiqq-Rib [facility] 2099 Work Phone: Comment on above: Reference Range: 11. 5 - 14.5 Hematocrit (Bld) [Volume fraction] 42.3 % See Below WB-Ukqmnze-Zbz [facility] 2099 Work Phone: Comment on above: Reference Range: 36. 0 - 46.0 Hemoglobin (Bld) [Mass/Vol] 13.4 g/dL See Below LN-Ilibsiy-Rcx well 2099 Work Phone: Comment on above: Reference Range: 12. 0 - 16.0 Lymphocytes/100 WBC (Bld) 6.0 % See Below SV-Hnrlcdp-Fmk well 2099 Work Phone: Comment on above: Reference Range: 13. 0 - 44.0 MCHC (RBC) [Mass/Vol] 31.7 g/dL below low threshold See Below KZ-Xtwctfz-Rrc [facility] 2099 Work Phone: Comment on above: Reference Range: 32. 0 - 36.0 MCV (RBC) [Entitic vol] 92 fL 80 - 100 DT-Hinvhxp-Ptf [facility] 2099 Work Phone: Monocytes/100 WBC (Bld) 3.4 % 2.0 - 10.0 LY-Qrypasq-Nyx [facility] 2099 Work Phone: Neutrophils/100 WBC (Bld) 89.8 % See Below ZJ-Alalreh-Evm [facility] 2099 Work Phone: Comment on above: Reference Range: 40. 0 - 80.0 Platelets (Bld) [#/Vol] 245 10*3/uL 150 - 450 PM-Jmcqohl-Mmq [facility] 2099 Work Phone: RBC (Bld) [#/Vol] 4.60 {x10E12/L} See Below MG -Surgery-Devonte [facility] 2099 Work Phone: Comment on above: Reference Range: 4.0 0 - 5.20 WBC (Bld) [#/Vol] 14.2 10*3/uL above high threshold 4.4 - 11.3 DP-Hwqihhi-Eyy [facility] 2099 Work Phone: Complete Blood Count + Differential 0.04 {x10E9/L} See Below DG-Taohvia-Aji well 2099 Work Phone: Comment on above: Reference Range: 0.0 0 - 0.10 Complete Blood Count + Differential 0.01 {x10E9/L} See Below WQ-Plwjkyl-Kfq well 2099 Work Phone: Comment on above: Reference Range: 0.0 0 - 0.40 Complete Blood Count + Differential 0.48 {x10E9/L} See Below RL-Wmlgjjh-Rxl [facility] 2099 Work Phone: Comment on above: Reference Range: 0.0 5 - 0.80 Complete Blood Count + Differential 0.85 {x10E9/L} See Below UA-Qniwjgk-Lch [facility] 2099 Work Phone: Comment on above: Reference Range: 0.8 0 - 3.00 Complete Blood Count + Differential 12.73 {x10E9/L} above high threshold See Below YY-Ipdckjq-Mgj well 2099 Work Phone: Comment on above: Reference Range: 1.6 0 - 5.50 Complete Blood Count + Differential 0.1 % 0.0 - 6.0 LG-Fsnfcja-Syi well 2099 Work Phone: Complete Blood Count + Differential 0.4 % 0.0 - 0.9 OV-Ywgzwbd-Osj well 2099 Work Phone: Comment on above: Immature Granulocyte Count (IG) includes promyelocytes, myelocytes and metamyelocytes but does not include bands. Percent differential counts (%) should be interpreted in the context of the absolute cell counts (cells/L). Complete Blood Count + Differential 0.0 {/100_WBC} 0.0-0.0 JI-Nqgftvx-Ngc well 2099 Work Phone: Consult-Anesthesia - Pain, G ynecology/Obstetricson 12-17-2021 Consult-Anesthesia - Pain, Gynecology/Obstetrics Service: Service: Anesthesia - Pain Gynecology/Obstetrics Consult: Consult requested by (Attending Name): irma Reason: post op pain History of Present Illness: HPI: SUE GASTON is a 71 year old Female who presents for anterior prcotosigmoidectomy with Dr. Jack on 12/17/21. Acute Pain consulted for block for postoperative pain control. Anticipated Postop Pain Issues - Palliative: typically relieved with IV analgesics and regional local anesthetics Provocative: typically with movement Quality: typically burning and aching Radiation: typically none Severity: typically severe 8-10/10 Timing: typically constant PMH: HTN, anxiety, depression, osteoporosis, skin cancer PSH: mohs surgery, tonsillectomy, adenoidectomy FHx: no anesthesia complications SHx: never smoker, no etoh, no drugs Allergies: NKDA ROS: Constitutional: Reports no fevers, chills, or malaise Eyes: Positive Findings Wears corrective lenses Ears: Reports no use of hearing aids, hearing loss, vertigo, or tinnitus Nose: Reports no discharge, congestion, or epistaxis Mouth: Reports no piercings, gingival bleeding, teeth or jaw pain Throat: Reports no hoarseness, voice changes, dysphagia, or sore throat Neck: Reports no swelling, stiffness, or masses Cardiovascular: Reports no chest pain, palpitations, peripheral edema, paroxysmalnocturnal dyspnea, or cyanosis Pulmonary: Reports no coughing, wheezing, hemoptysis, or dyspnea with exertion Gastrointestinal: Reports no nausea, vomiting, diarrhea, or constipation Genitourinary: Reports no polyuria, dysuria, or oliguria Musculoskeletal: Reports no arthritis, arthralgias, or myalgias Skin: Reports no skin changes or rashes Neurologic: Reports no numbness, weakness, seizures, or paresthesias Allergies: No Known Allergies: Objective: Physical Exam by System: Constitutional: laying in bed, NAD Eyes: non icteric Head/Neck: atraumatic Respiratory/Thorax: breathing comfortably on RA Cardiovascular: warm and well perfused Gastrointestinal: non tender Extremities: no edema Neurological: AOx3 Psychological: Appropriate mood and behavior Skin: warm and dry Assessment: SUE GASTON is a 71 year old Female who presents for anterior prcotosigmoidectomy with Dr. Jack on 12/17/21. Acute Pain consulted for block for postoperative pain control. Plan/Recs: - Bilateral QL blocks with catheters placed pre-operatively - Ambit ball with Ropivacaine 0.2%/NaCl 0.9% 500mL, Rate 7 cc/hr bilaterally - Ambit medication will not interfere with pain medication prescribed by primary team. - Please be aware of local anesthetic toxic dose and absorption variability before considering lidocaine patches - Acute pain service will follow while catheters in place - Rest of pain management per primary [place] [phone] ph [phone] Attestation: Note Completion: I am a: Resident/Fellow Attending AttestationI saw and evaluated the patient. I personally obtained the reddy and critical portions of the history and physical exam or was physically present for reddy and critical portions performed by the resident/fellow. I reviewed the resident/fellows documentation and discussed the patient with the resident/fellow. I agree with the resident/fellows medical decision making as documented in the note. I personally evaluated the patient [id number] Electronic Signatures: Jerrica Juarez) (Signed 18-Dec-2021 06:18) Authored: Service, Note Completion Co-Signer: Service, History of Present Illness, Allergies, Objective, Assessment/Recommendation s, Note Completion Singh Gutierrez (Resident)) (Signed 17-Dec-2021 09:59) Authored: Service, History of Present Illness, Allergies, Objective, Assessment/Recommendation s, Note Completion Last Updated: 18-Dec-2021 06:18 by Jerrica Juarez) Normal [facility] MAGNESIUMon 12-17-2021 Magnesium [Mass/Vol] 2.05 mg/dL Normal 1.60 - 2.40 [facility] Comment on above: Performed By: #### M G ####[id number] [place] [address] Magnesium, Serumon 2 Magnesium [Mass/Vol] 2.05 mg/dL See Below MG-S carrie-[place] well 2100 Work Phone: Comment on above: Reference Range: 1.6 0 - 2.40 [facility] PREOPERATIVE DIAGNOSIS: Endoscopically unresectable upper rectal polyp. POSTOPERATIVE DIAGNOSIS: Endoscopically unresectable upper rectal polyp. OPERATION/PROCEDURE: Low anterior resection with colorectal anastomosis. SURGEON: Ho Jack MD. INDUSTRIAL GAS FITTER HELPER(S): 1. Dr. Allegra Butts. 2. Judy Marcial, nurse practitioner. ANESTHESIA: General endotracheal. INDICATIONS: The patient is a 71-year-old female with a recurrent upper rectal polyp that is not amenable to endoscopic resection. 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 The patient was brought to the operating room for anterior resection. TECHNIQUE: The patient was brought to the operating room and was placed on the operating table in a supine position. After the induction of general endotracheal anesthesia, the legs were elevated into the modified lithotomy position using Yellofins stirrups. The skin of the abdomen was prepped and draped in usual sterile fashion. Surgical time-out was performed. The peritoneal cavity was then entered through a midline incision. The abdomen was explored. There was no evidence of metastatic disease in the liver or elsewhere within the abdomen. There was a tattoo present just above the anterior peritoneal reflection. Lateral attachments of the sigmoid and descending colon were mobilized using electrocautery. Care was taken to identify and preserve the left ureter. The splenic flexure was completely taken down with cautery as well and then the omentum was from the transverse colon as mesocolon by dissecting in the avascular plane. With the left colon fully mobilized to the midline, the inferior mesenteric artery was identified at its origin from the aorta. It was divided at this point between Barbara clamps and was suture ligated with #1 chromic suture ligature. The inferior mesenteric vein was divided and ligated at this level as well. Dissection was then carried up to the mesentery of the distal descending colon. The marginal artery was encountered and it was divided between Barbara clamps and was ligated with #1 chromic tie after demonstrating good pulsatile arterial bleeding from its proximal cut end. The distal descending colon was then divided between clamps. The descending colon mesentery was then elevated off the retroperitoneum. The inferior mesenteric vein was identified, divided and ligated the second time just lateral to the fourth portion of the duodenum. This allowed easy reach of the left colon into the pelvis for the eventual creation of a tension-free colorectal anastomosis. Attention was then turned to the pelvic dissection. A plane posterior to the inferior mesenteric artery was dissected down over the sacral promontory and into the pelvis. A plane of dissection was between the fascia of the mesorectum and the presacral fascia. Lateral attachments of the rectum were taken down in the mesorectal plane, and then anteriorly, the peritoneal reflection was incised and dissection was carried downwards a short distance in the plane between the anterior wall of the rectum and the posterior wall of the vagina. Once we were below the level of the tattoo, bimanual examination confirmed that we were below the level of the polyp, and therefore, the rectum was divided at that point with the firing of the TA30 stapler. Specimen was then removed from the operative field. It was opened on the back table which confirmed the presence of a 2 to 3 cm sessile polyp in the rectum with an adequate distal resection margin. Intestinal continuity was then restored by creating an end-to-end colorectal anastomosis. This was done using a double staple technique with the 29 mm EEA stapler. At the conclusion of the anastomosis, both the donuts were inspected and were found to be intact. The anastomosis was air tested and there was no leak. A 10 mm Nelson-Hunt drain was placed in the presacral space and was brought through a stab incision in the left lower quadrant. The abdomen was then irrigated with saline solution and was aspirated dry. Inspection was made for hemostasis and this was found to be adequate. All sponge and instrument counts were confirmed as correct. The fascia of the midline incision was then closed with a running #1 looped PDS suture. The wound was irrigated and the skin was closed with kirti. Sterile dressings were applied. The patient tolerated the above procedure and was taken to the recovery room in stable condition. ESTIMATED BLOOD LOSS: 70 cc. SPECIMEN: Sigmoid colon and upper rectum. DRAIN: 10 mm Nelson-Hunt drain in the pelvis. COMPLICATIONS: None. Dr. Jack was the operating surgeon, who performed the entire procedure described above. Dr. Butts and Judy Marcial, nurse practitioner, were the surgical assistants. Ho aJck MD (more content not included)... [facility] Order Reconciliationon 12-17 Order Reconciliation Page 1 Admission Reconciliation Document Reconciliation Type: Admission requested on behalf of Allegra Butts (Resident) done by Allegra Butts ( (Resident)) Admission - Reconciliation: 17-Dec-2021 14:38 by: Allegra Butts ( (Resident)) Home MedicationsEnteredLast Dose TakenReconciled with current Order Reconciliation Comment/ Additional Information aspirin 81 mg oral tablet 1 tab(s) oral once a [id number] Aspirin Chewable Tablet, ChewableDOSE = 81 mg Oral Dailyaspirin 81 mg oral tablet continued as the inpatient order Aspirin Chewable cholecalciferol 50 mcg oral capsule 2 cap(s) oral once a [id number] Reviewed and Held clonazePAM 0.5 mg oral tablet 1 tab(s) oral once a [id number] clonazePAM (KLONOPIN) TabletDOSE = 0.5 mg Oral Every 24 HoursclonazePAM 0.5 mg oral tablet continued as the inpatient order clonazePAM (KLONOPIN) Lexapro 20 mg oral tablet 1 tab(s) oral once a [id number] Escitalopram Tablet (LEXAPRO)DOSE = 20 mg Oral DailyLexapro 20 mg oral tablet continued as the inpatient order Escitalopram lisinopril 10 mg oral tablet 1 tab(s) oral once a [id number] Reviewed and Held multivitamin Multiple Vitamins oral tablet 1 tab(s) oral once a [id number] Reviewed and Held multivitamin with minerals Antioxidant Multiple Vitamins and Minerals oral tablet 1 tab(s) oral once a [id number] Reviewed and Held venlafaxine 75 mg oral tablet 1 tab(s) oral once a [id number] Venlafaxine - PEDS Tablet (EFFEXOR)DOSE = 75 mg Oral DailyCa mg/DOSE x 1 = 75 mg/Dose (Daily Total is 75 mg)venlafaxine 75 mg oral tablet continued as the inpatient order Venlafaxine - PEDS Additional Current Orders Acetaminophen Tablet (TYLENOL)DOSE = 650 mg Oral Every 6 Hours Enoxaparin SubCutaneous (LOVENOX)DOSE = 40 mg SubCutaneous Every 24 Hours Gabapentin Capsule (NEURONTIN)DOSE = 300 mg Oral 3 Times a Day hydrALAZINE (APRESOLINE) Injectable DOSE = 5 mg IntraVenous Push Every 30 Minutes, PRN for SPB>180 and HR<60.Clinician Notes: Silvana-operative order ONLY HYDROmorphone Injectable (DILAUDID)DOSE = 0.2 mg IntraVenous Push Every 4 Hours, PRN Breakthrough pain HYDROmorphone Injectable (DILAUDID)DOSE = 0.2 mg IntraVenous Push Every 5 Minutes, PRN Pain - Mod (4-6) (PACU) if unable to take oralClinician Notes: Silvana-operative order ONLYMax total of 4 mg regardless of dose. HYDROmorphone Injectable (DILAUDID)DOSE = 0.4 mg IntraVenous Push Every 5 Minutes, PRN Pain - Severe (7-10) (PACU)Clinician Notes: Silvana-operative order ONLYMax total of 4 mg regardless of dose. Labetalol Injectable (TRANDATE)DOSE = 5 mg IntraVenous Push Once, PRN For SBP>180, DBP>100, HR>60Clinician Notes: Silvana-operative order ONLY Lactated Ringers Infusion IV Bag Volume = 1,000 mL Run at: 100 mL/hr IntraVenous Clinician Notes: Silvana-operative order ONLY Lactated Ringers Infusion IV Bag Volume = 1,000 mL Run at: 40 mL/hr IntraVenous Methocarbamol Injectable (ROBAXIN)DOSE = 500 mg IntraVenous Push OnceClinician Notes: Silvana-operative order ONLY Metoclopramide Injectable (REGLAN)DOSE = 10 mg IntraVenous Push Once, PRN persistent PONV if first line ineffectiveClinician Notes: Silvana-operative order ONLY Naloxone Injectable (NARCAN)DOSE = 0.2 mg IntraVenous Push Once, PRN If patient RR below 10, obtunded or unarousableClinician Notes: DO NOT ADMINISTER UNTIL PHYSiCIAN HAS BEEN NOTIFIED AND ASSESSED PATIENT Ondansetron Injectable (ZOFRAN)DOSE = 4 mg IntraVenous Push Every 6 Hours, PRN Nausea Ondansetron Injectable (ZOFRAN)DOSE = 4 mg IntraVenous Push Once, PRN PONV, first lineClinician Notes: Silvana-operative order ONLY oxyCODONE Immediate Release Tablet (OXYIR, ROXICODONE)DOSE = 10 mg Oral Every 4 Hours, PRN Pain - Severe (7-10) oxyCODONE Immediate Release Tablet (OXYIR, ROXICODONE)DOSE = 5 mg Oral Every 4 Hours, PRN Pain - Mod (4-6) RN to Release Orders Release Criteria: On arrival to floor, ,Aspirin ChewableclonazePAM (KLONOPIN)EscitalopramVen lafaxine - PEDS Ropivacaine 0.2%/ Ambit Pump 500 mL SolutionPeripheral Nerve FLOW RATE = 10 mL/hrClinician Notes: Dispense premix bag for use with Ambit pump only. [facility] Patient Profile - Preop v3on 12-17-2021 Patient Profile - Preop v3 Patient Profile - Preop: Initial Info: Patient DemographicsName: SUE GASTON Date: 1950 Address: [facility] [place] [address] Primary Phone [phone] How to be Addressedjane Spoken Language PreferredEnglish Stated Reason for Admission"removing section of intestine" Primary Contact Name and Numberhusband megha Medications Brought to Hospitalno General Health: Weight in kg80 kilogram(s) Weight in cux546.3 pound(s) Weight Methodactual (measured) Scale Typestanding Height in feet5 feet Height in inches3.98 inch(es) Height in cm162.5 centimeter(s) Height Methodstated BMI (kg/m2)30.295 square meter Patient or Family Member Reaction to Anesthesiapatient reaction Patient Reaction to Anesthesianausea and vomiting Blood Avoidance/Restrictionsnon e Previous Transfusion Reactionnot applicable Health Mgmt: Symptoms/Conditions Managed at Homebehavioral health; cancer; cardiovascular; gastrointestinal Barriers to Managing Healthnone Relationship/Environ: Lives Withspouse Living Arrangementshouse Resource/Environmental Concernsnone Anticipated Transition Toinpatient acute unit Services Anticipated at Transitionoutpatient care Tobacco Use: Tobacco Useno Pre-op Checklist: NPOymelanie ID Band On Patientpatient ID (name) Consent Signedpending H&P Completeyes Anesthesia Assessment Completedyes EKG Performednot ordered Chest X-Ray Performednot ordered Preop Antibioticsnot ordered COVID 19 Results in Last 7 daysnegative HCG Urine TestN/A Chlorhexadine Bath Givencompleted at home Nasal Antiseptic Appliednot applicable Soap and Water Bath the Night Before Surgeryyes Hair Washed with Shampooyes Bowel Prepyes TypeSUPREP Bowel Prep Completed as Instructedyes Stools Clearyes Surgical Site Infection Preventionyes Pain Scales and Managementyes Additional Information: Information Review: Allergies, Home Meds and Significant Events have been Reviewed and Verified with Patient/Familyyes Allergy, Intolerance, Adverse Event: Allergies: No Known Allergies: Active Electronic Signatures: Lissette Ball (RN) (Signed 17-Dec-2021 09:48) Authored: Initial Info, General Health, Health Mgmt, Relationship/Environ, Tobacco Use, Pre-op Checklist, Additional Information Last Updated: 17-Dec-2021 09:48 by Lissette Ball (RN) [facility] RENAL FUNCTION PANELon 12-17 Albumin [Mass/Vol] 4.3 g/dL Normal 3.4 - 5.0 [facility] Comment on above: Performed By: #### R ENAL #### [facility] [address] [place] [address] Anion gap [Moles/Vol] 15 mmol/L Normal 10 - 20 [facility] Comment on above: Performed By: #### R ENAL #### [facility] [address] [place] [address] Calcium [Mass/Vol] 9.1 mg/dL Normal 8.6 - 10.6 [facility] Comment on above: Performed By: #### R ENAL #### [facility] [address] [place] [address] Chloride [Moles/Vol] 105 mmol/L Normal 98 - 107 [facility] Comment on above: Performed By: #### R ENAL #### [facility] [address] [place] [address] Creatinine [Mass/Vol] 0.66 mg/dL Normal 0.50 - 1.05 [facility] Comment on above: Performed By: #### R ENAL #### [facility] [address] [place] [address] eGFR FEMALE >90 Normal >90 [facility] Comment on above: Result Comment: CALC ULATIONS OF ESTIMATED GFR ARE PERFORMED USING THE 2020 CKD-EPI STUDY REFIT EQUATION WITHOUT THE RACE VARIABLE FOR THE IDMS-TRACEABLE CREATININE METHODS. https://jasn.asnjournals.org/content/early//ASN.629446 5835 Performed By: #### R ENAL #### [facility] [address] [place] [address] Glucose [Mass/Vol] 132 mg/dL High 74 - 99 [facility] Comment on above: Performed By: #### R ENAL #### [facility] [address] [place] [address] HCO3 (Bld) [Moles/Vol] 22 mmol/L Normal 21 - 32 [facility] Comment on above: Performed By: #### R ENAL #### [facility] [address] [place] [address] Phosphate [Mass/Vol] 3.1 mg/dL Normal 2.5 - 4.9 [facility] Comment on above: Result Comment: The performance characteristics of phosphorus testing in heparinized plasma have been validated by the individual laboratory site where testing is performed. Testing on heparinized plasma is not approved by the FDA; however, such approval is not necessary. Performed By: #### R ENAL #### [facility] [address] [place] [address] Potassium [Moles/Vol] 4.1 mmol/L Normal 3.5 - 5.3 [facility] Comment on above: Performed By: #### R ENAL #### [facility] [address] [place] [address] Sodium [Moles/Vol] 138 mmol/L Normal 136 - 145 [facility] Comment on above: Performed By: #### R ENAL #### [facility] [address] [place] [address] Urea nitrogen [Mass/Vol] 16 mg/dL Normal 6 - 23 [facility] Comment on above: Performed By: #### R ENAL #### [facility] [address] [place] [address] Renal Function Panelon 12-17 Albumin BCP dye [Mass/Vol] 4.3 g/dL 3.4 - 5.0 [facility] 2099 Work Phone: Anion gap [Moles/Vol] 15 mmol/L 10 - 20 [facility]- [facility] 2099 Work Phone: Calcium [Mass/Vol] 9.1 mg/dL 8.6 - 10.6 [facility] 2099 Work Phone: Chloride [Moles/Vol] 105 mmol/L 98 - 107 [facility] 2099 Work Phone: CO2 [Moles/Vol] 22 mmol/L 21 - 32 [facility]-Surger y[facility] [facility] 2099 Work Phone: Creatinine [Mass/Vol] 0.66 mg/dL See Below MG- [facility] 2099 Work Phone: Comment on above: Reference Range: 0.5 0 - 1.05 Glucose [Mass/Vol] 132 mg/dL above high threshold 74 - 99 [facility] 2099 Work Phone: Phosphate [Mass/Vol] 3.1 mg/dL 2.5 - 4.9 [facility] 2099 Work Phone: Comment on above: The performance gaby acteristics of phosphorus testing in heparinized plasma have been validated by the individual laboratory site where testing is performed. Testing on heparinized plasma is not approved by the FDA; however, such approval is not necessary. Potassium [Moles/Vol] 4.1 mmol/L 3.5 - 5.3 [facility]- [facility] well 2099 Work Phone: Sodium [Moles/Vol] 138 mmol/L 136 - 145 MG-Cristal yana-[facility] well 2099 Work Phone: Urea nitrogen [Mass/Vol] 16 mg/dL 6 - 23 DL-Ssjowyl-[facility] well 2099 Work Phone: Renal Function Panel >90 >90 MG-S urgery-[facility] 2099 Work Phone: Comment on above: CALCULATIONS OF RAINA MATED GFR ARE PERFORMED USING THE 2020 CKD-EPI STUDY REFIT EQUATION WITHOUT THE RACE VARIABLE FOR THE IDMS-TRACEABLE CREATININE METHODS.https://jasn.asnjournals.org/content/early// N.5134334956 [facility] Surgical Pathology Depar tmenton 12-17-2021 [facility] Surgical Pathology Department Name SUE GASTON Pathologist: ALFRED SILVERMAN MD Date of Procedure: 12/17/2021 Date Received: 12/17/2021 Date Reported 12/21/2021 Submitting Physician: HO JACK MD [facility] Other External # FINAL DIAGNOSIS A. 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 -- NO EVIDENCE OF INVASIVE CARCINOMA. -- THIRTY ONE LYMPH NODES, NEGATIVE FOR TUMOR (0/31). -- MARGINS OF RESECTION ARE NEGATIVE FOR DYSPLASIA. COMMENT (A): The entire polyp was submitted for microscopic examination. B. ADDITIONAL MESOCOLON: -- FOUR BENIGN REACTIVE LYMPH NODES (0/4). Electronically Signed Out By ALFRED SILVERMAN MD/FABIOLA By the signature on this report, the individual or group listed as making the Final Interpretation/Diagnosis certifies that they have reviewed this case. Diagnostic interpretation performed at [facility] [address] [facility] [address] Clinical History: Physician Contact Number: [id number] Fixative (A): Fresh Fixative (B): Formalin Clinical Diagnosis History: RECTAL POLYPS Specimens Submitted As: A: LEFT COLON B: ADDITIONAL MESOCOLON Gross Description: A: Received in formalin, labeled with the patient's name and hospital number and "left colon", is a segment of colon, 30.4 cm in length. There is attached mesentery and fibrofatty tissue. The serosal surface is pink-wei, smooth, and glistening. The mesenteric margin is identified. The mesenteric margin is inked orange. The bowel wall measures up to 0.4 cm in greatest thickness. The mucosa surface reveals a sessile polypoid lesion measuring 2.3 x 1.5 x 0.2 cm involving part of the circumference of the bowel. The mass is soft. The lesion is located 26.1 cm from the proximal margin and 2.5 cm from the distal margin. Sections through the lesion does not reveal extension into the submucosa. The lesion appears confined to the mucosa. Additional mucosal polyps are not present. Diverticula are present ranging from 0.2 to 0.5 cm. The remainder of the mucosal surface is grossly unremarkable. Sectioning of the mesentery and fibrofatty tissue reveals multiple possible lymph nodes ranging in size from 0.1 cm to 0.6 cm. The cut surface of the largest nodes appears grossly unremarkable. Proximal dilatation is not present. Normal tissue is submitted HTPF. Photographs have been taken. Material Spreader sections are submitted in 25 cassettes. IAD B: Received in formalin, labeled with the patient's name and hospital number and "additional mesocolon", is a fragment of yellow lobulated adipose tissue measuring 6.5 x 3.5 x 1.5 cm. Multiple possible nodes are identified ranging from 0.2 to 0.6 cm in greatest mention. The lymph nodes are entirely submitted in 2 cassettes. IAD Summary of Cassettes: Specimen Label Site A 1 proximal line of resection, en-face 2-3 distal line of resection, en-face 4 mesenteric margin en face 5-11 entire polyp 12 diverticula 13 1 lymph node bisected 14 1 lymph node bisected 15 1 lymph node bisected 16 1 lymph node bisected 17 1 lymph node bisected 18 1 lymph node bisected 19 1 lymph node bisected 20 1 lymph node bisected 21-25 5 possible lymph nodes in each cassette B 1-2 all possible lymph nodes iad/12/19/2021 [facility] Department of Pathology [id number] [place] [address] [facility] Comment on above: Performed By: #### C OVSC #### [facility] [id number] [place] [address] CORONAVIRUS 2019, SCREEN ASY MPTOMATICon 12-15-2021 SARS-CoV-2 (COVID-19) RNA MEAGAN+probe Ql (Unsp spec) Not detected Normal Not Detected [facility] Comment on above: Result Comment: . This assay is designed to detect the N, ORF1ab and/or S genes of SARS-CoV-2 via nucleic acid amplification. A Negative (NOT DETECTED) result does not preclude 2019-nCoV infection since the adequacy of sample collection and/or low viral burden may result in presence of viral nucleic acids below the clinical sensitivity of this test method. Negative (NOT DETECTED) result should not be used as the sole basis for treatment or other patient management decisions. Rather negative results should be combined with clinical observations, patient history, and epidemiological information to make patient management decisions. Fact sheet for providers: https://www.fda.gov/media/849853/download Fact sheet for patients: https://www.fda.gov/media/573620/download This test has received FDA Emergency Use Authorization (EUA) and has been verified by [facility] ([facility]). This test is only authorized for the duration of time that circumstances exist to justify the authorization of the emergency use of in vitro diagnostic tests for the detection of SARS-CoV-2 virus and/or diagnosis of COVID-19 infection under section 564(b)(1) of the Act, 21 U.S.C. 360bbb-3(b)(1), unless the authorization is terminated or revoked sooner. [facility] is certified under CLIA-88 as qualified to perform high complexity testing. Testing is performed in the [facility] laboratories located at [id number] [place] [address]. Performed By: #### C OVSC #### [facility] [id number] [place] [address] Covid 19 Resultson SARS-CoV-2 (COVID-19) RNA MEAGAN+probe Ql (Unsp spec) NEGATIVE COVID-19 Test Coronaviruses are common world-wide and are the cause of many common colds. SARS-COV2 is a new coronavirus that began circulating worldwide in 2019 so we are calling it COVID-19. It has been estimated that four out of five patients with COVID-19 will recover at home without the need for medical attention. Symptoms of COVID-19 may include cough, fever, shortness of breath, loss of taste or smell and other flu-like symptoms including chills, sore muscles, sore throat, and headache. Severe illness is more common in older people and people with other health problems such as high blood pressure, obesity, and immune system problems. If the test is positive, you have COVID-19. You will be contacted by the ordering physicians office and instructed to remain on home isolation, in accordance with CDC guidelines. You may also be contacted by the [facility] to see if any of your close contacts may have been exposed to the virus and need to quarantine. If the test is negative, you likely do not have COVID-19 at this time, but you still may have a different illness that can spread to other people (like Influenza, or the Flu) and could still be at risk for getting COVID-19. We recommend that you stay away from other people to limit the spread of illness until your symptoms are improving and you are fever-free for 24 hours without the use of fever lowering medications such as acetaminophen or ibuprofen. No test is 100% accurate so if you are still concerned you may have COVID-19, talk to your doctor about the need to continue to stay away from others. Medicines Unless your provider told you not to use the following: Acetaminophen (Tylenol and others) is generally safe. Anti-inflammatory medications, such as Ibuprofen (Advil or Motrin) or Naproxen (Aleve) can also be used. Wpcx-zxd-jsxanlg cough and cold medicines can be used according to the instructions on the package. Some fkhf-bda-jwdickj medicines also contain acetaminophen. Make sure you are not taking more than your recommended dose. For those not hospitalized, there is no specific treatment available for this illness. Antibiotics do not treat Coronaviruses. Follow-Up Follow up with your doctor by scheduling a virtual visit or consider follow-up at one of our urgent care fever clinics. If you are having difficulty breathing, or are very weak and having difficulty standing, this is a medical emergency. Call 911 or have someone take you to the nearest emergency room immediately. If possible, wear a facemask. Additional guidance from the CDC for patients who tested POSITIVE for COVID-19 How to isolate: Isolate yourself in a specific room at home and limit your contact with others. Use a separate bathroom from other members of the household, when possible. Leave home only to get essential medical care. Do not go to work, school or public areas. Avoid using public transportation, ride-sharing, or taxis. Restrict contact with pets and other animals. If you must care for your pet or be around animals while you are sick, wash your hands before and after your interaction and wear a facemask. Make sure that shared spaces in the home have good airflow, such as by an air conditioner or an opened window, weather permitting. Personal Hygiene Procedures: Wear a face mask when in the same room as other people or pets. If a face mask interferes with your breathing, others should wear a mask when sharing space with you. Frequent hand-washing: wash your hands with soap and water for at least 20 seconds. If soap and water are not available, use alcohol-based hand dean of women. Avoid touching your eyes, nose, and mouth with unwashed hands. Household Hygiene Procedures: Avoid sharing personal household items such as dishes, glassware, cups, eating utensils, towels or bedding with other people or pets in your home. After use, these items should be washed with soap and hot water. Disinfect all high-touch surfaces every day with antibacterial cleaning solutions such as Lysol wipes, bleach, cleansers, etc. High-touch surfaces include tabletops, doorknobs, bathroom fixtures, toilets, phones, keyboards, tablets and bedside tables. Immediately clean any surfaces that may have blood, poop or body fluids on them, using antibacterial cleaning solutions such as Lysol wipes, bleach, cleansers, etc. If clothing or bedding come into contact with blood, poop or body fluids, they should be washed immediately. Follow the directions on the laundry detergent and clothing labels but hot water is recommended when possible. Stopping home isolation precautions: If possible, consult your doctor before stopping home isolation precautions. According to the CDC, you can discontinue home isolation precautions when you have met both of these criteria: Your fever and respiratory symptoms have been gone for 24 keila (more content not included)... Normal [facility] CORONAVIRUS 2019, SCREEN ASY MPTOMATICon 12-14-2021 Lab Specimen Source Nasal, Nasopharyngeal Normal [facility] Comment on above: Performed By: #### C OVSC #### [facility] [address] [place] [address] BASIC METABOLIC PANELon 09-0 Anion gap [Moles/Vol] 15 mmol/L Normal 10 - 20 [facility] Comment on above: Performed By: #### C OVSC #### [facility] [address] [place] [address] Calcium [Mass/Vol] 10.2 mg/dL Normal 8.6 - 10.6 [facility] Comment on above: Performed By: #### C OVSC #### [facility] [address] [place] [address] Chloride [Moles/Vol] 103 mmol/L Normal 98 - 107 [facility] Comment on above: Performed By: #### C OVSC #### [facility] [address] [place] [address] Creatinine [Mass/Vol] 0.82 mg/dL Normal 0.50 - 1.05 [facility] Comment on above: Performed By: #### C OVSC #### [facility] [address] [place] [address] GFR/1.73 sq M.predicted among non-blacks MDRD (S/P/Bld) [Vol rate/Area] 76 mL/min/{1.73_m2} Normal >90 [facility] Comment on above: Result Comment: CALC ULATIONS OF ESTIMATED GFR ARE PERFORMED USING THE 2020 CKD-EPI STUDY REFIT EQUATION WITHOUT THE RACE VARIABLE FOR THE IDMS-TRACEABLE CREATININE METHODS. https://jasn.asnjournals.org/content/early//ASN.087058 5406 Performed By: #### C OVSC #### [facility] [address] [place] [address] Glucose [Mass/Vol] 89 mg/dL Normal 74 - 99 [facility] Comment on above: Performed By: #### C OVSC #### [facility] [address] [place] [address] HCO3 (Bld) [Moles/Vol] 26 mmol/L Normal 21 - 32 [facility] Comment on above: Performed By: #### C OVSC #### [facility] [address] [place] [address] Potassium [Moles/Vol] 4.6 mmol/L Normal 3.5 - 5.3 [facility] Comment on above: Performed By: #### C OVSC #### [facility] [address] [place] [address] Sodium [Moles/Vol] 139 mmol/L Normal 136 - 145 [facility] Comment on above: Performed By: #### C OVSC #### [facility] [address] [place] [address] Urea nitrogen [Mass/Vol] 13 mg/dL Normal 6 - 23 [facility] Comment on above: Performed By: #### C OVSC #### [facility] [address] [place] [address] CBCon 11-29-2021 Erythrocyte distribution width (RBC) [Ratio] 13.2 % Normal 11.5 - 14.5 [facility] Comment on above: Performed By: #### C OVSC #### [facility] [address] [place] [address] Hematocrit (Bld) [Volume fraction] 43.7 % Normal 36.0 - 46.0 [facility] Comment on above: Performed By: #### C OVSC #### [facility] [address] [place] [address] Hemoglobin (Bld) [Mass/Vol] 14.0 g/dL Normal 12.0 - 16.0 [facility] Comment on above: Performed By: #### C OVSC #### [facility] [address] [place] [address] MCHC (RBC) [Mass/Vol] 32.0 g/dL Normal 32.0 - 36.0 [facility] Comment on above: Performed By: #### C OVSC #### [facility] [address] [place] [address] MCV (RBC) [Entitic vol] 95 fL Normal 80 - 100 [facility] Comment on above: Performed By: #### C OVSC #### [facility] [address] [place] [address] NUCLEATED RBC 0.0 /100 WBC Normal 0.0-0.0 [facility] Comment on above: Performed By: #### C OVSC #### [facility] [address] [place] [address] Platelets (Bld) [#/Vol] 252 10*3/uL Normal 150 - 450 [facility] Comment on above: Performed By: #### C OVSC #### [facility] [address] [place] [address] RBC 4.59 x10E12/L Normal 4.00 - 5.20 [facility] Comment on above: Performed By: #### C OVSC #### [facility] [address] [place] [address] WBC (Bld) [#/Vol] 7.6 10*3/uL Normal 4.4 - 11.3 [facility] Comment on above: Performed By: #### C OVSC #### [facility] [address] [place] [address] Laboratory - Blood bankon ABO group Nom (Bld) A [facility] Work Phone: Blood group antibody screen Ql Negative [facility] Work Phone: Rh immune globulin screen (Bld) [Interp] Positive [facility] Work Phone: Laboratory - Chemistry and C hemistry - challengeon 11-29-2021 Anion gap [Moles/Vol] 15 mmol/L 10 - 20 [facility] Work Phone: Calcium [Mass/Vol] 10.2 mg/dL 8.6 - 10.6 [facility] Work Phone: Chloride [Moles/Vol] 103 mmol/L 98 - 107 [facility] Work Phone: CO2 [Moles/Vol] 26 mmol/L 21 - 32 [facility] Work Phone: Creatinine [Mass/Vol] 0.82 mg/dL See Below [facility] Work Phone: Comment on above: Reference Range: 0.5 0 - 1.05 Glucose [Mass/Vol] 89 mg/dL 74 - 99 [facility] Work Phone: Potassium [Moles/Vol] 4.6 mmol/L 3.5 - 5.3 [facility] Work Phone: Sodium [Moles/Vol] 139 mmol/L 136 - 145 [facility] Work Phone: Urea nitrogen [Mass/Vol] 13 mg/dL 6 - 23 [facility] Work Phone: Laboratory - Hematology and Cell countson 11-29-2021 Erythrocyte distribution width (RBC) [Ratio] 13.2 % See Below [facility] Work Phone: Comment on above: Reference Range: 11. 5 - 14.5 Hematocrit (Bld) [Volume fraction] 43.7 % See Below [facility] Work Phone: Comment on above: Reference Range: 36. 0 - 46.0 Hemoglobin (Bld) [Mass/Vol] 14.0 g/dL See Below [facility] Work Phone: Comment on above: Reference Range: 12. 0 - 16.0 MCHC (RBC) [Mass/Vol] 32.0 g/dL See Below [facility] Work Phone: Comment on above: Reference Range: 32. 0 - 36.0 MCV (RBC) [Entitic vol] 95 fL 80 - 100 [facility] Work Phone: Platelets (Bld) [#/Vol] 252 10*3/uL 150 - 450 [facility] Work Phone: RBC (Bld) [#/Vol] 4.59 {x10E12/L} See Below [facility] Work Phone: Comment on above: Reference Range: 4.0 0 - 5.20 WBC (Bld) [#/Vol] 7.6 10*3/uL 4.4 - 11.3 [facility] Work Phone: No Panel Informationon 11-29 76 {mL/min/1.73m2} >90 [facility] Work Phone: Comment on above: CALCULATIONS OF RAINA MATED GFR ARE PERFORMED USING THE 2020 CKD-EPI STUDY REFIT EQUATION WITHOUT THE RACE VARIABLE FOR THE IDMS-TRACEABLE CREATININE METHODS.https://jasn.asnjournals.org/content/early/ N.2964195397 0.0 {/100_WBC} 0.0-0.0 [facility] Work Phone: STAPH/MRSA SCREENon 11-30-19 22 STAPH/MRSA SCREEN PATIENT: SUE GASTON LOCATION: JANNETTE LOZADA#: [id number] : 48 AGE: SEX: F ORDERED BY: HO JACK SOURCE: ANTERIOR NARES COLLECTED: 11/29/21 15:19 ANTIBIOTICS AT CAROLE.: RECEIVED : 11/29/21 19:25 SITE: Nasal R E S U L T S STAPH/MRSA SCREEN FINAL 12/01/21 09:05 NO Staphylococcus aureus ISOLATED. Normal [facility] Comment on above: Performed By: #### S TAPH #### [facility] [address] [place] [address] TYPE + SCREENon 11-29-2021 ABO TYPE A Normal [facility] Comment on above: Performed By: #### T +S #### [facility] [address] [place] [address] RH TYPE Positive Normal [facility] Comment on above: Performed By: #### T +S #### [facility] [address] [place] [address] Initial Visit (Colon and Rec christen Surgery)on 11-20-2021 Initial Visit (Colon and Rectal Surgery) Diagnoses/Problems Assessed Colon polyp (211.3) (K63.5) Orders SocHx: Never a smoker Tobacco Use Screening; Status:Complete; Done: 20Nov2021 Patient Discussion/Summary Recurrent sessile adenoma in distal sigmoid colon after several attempts at endoscopic resection/ablation Discussed anterior proctosigmoidectomy. Will obtain CT C/A/P for staging in event of occult colon cancer. Patient agrees with plan. Will schedule. History of Present Illness Sue Gaston is a 71F who presents to clinic today for further evaluation and discussion of recurrent sigmoid polyp. Flexible sigmoidoscopy on 10/08/[address] Iván Ruano revealed sessile polyp at 12cm which was biopsied and ablated, pathology demonstrates fragments of TVA. Polyp was previously resected and area tattooed in November 2020. Patient has not had a CT. Surgical History Problems History of Excision melanoma History of Hemithyroidectomy History of Tonsillectomy with adenoidectomy Family History Mother Family history of malignant neoplasm of skin (V16.8) (Z80.8) Father Family history of Heart problem Brother Family history of malignant neoplasm of skin (V16.8) (Z80.8) Social History Problems Never a smoker No alcohol use Allergies Medication No Known Drug Allergies Recorded By: Marycarmen Harris; 11/20/2021 9:06:53 AM Vitals Vital Signs Recorded: 20Nov2021 09:10AM Scgogqpooon15.8 F Heart Rate96 Wtplmrok857 Vrmrvogan45 Height5 ft 4 in Knnsmr305 lb 4 oz BMI Fwhmmlqcjp46.77 kg/m2 BSA Calculated1.87 Tobacco Useb) No Falls Screening (Age 18+)a) No falls within the last year Physical Exam Constitutional - General appearance: In no acute distress, well appearing and well nourished. Eyes Sclerae: Anicteric Neck - Exam: Appearance of the neck was normal. No neck masses observed. Thyroid Examination: Not enlarged and there were no palpable nodules. Pulmonary - Respiratory effort: Normal respiration. Auscultation of lungs: Clear to auscultation. Cardiovascular - Auscultation of heart: Normal rate and rhythm, no murmurs. Carotid arteries exam: Pulse normal with no bruits. Examination of Abdominal Aorta: abdominal aorta was normal. Examination of Pedal Pulses: pedal pulses were normal. Examination of extremities for edema and/or varicosities: No peripheral edema. Abdomen and Pelvis - Abdomen: Non-tender, no abdominal masses. Liver and spleen: No hepatosplenomegaly. Examination for hernias: Hernial orifices intact. Lymphatic - No lymphadenopathy . Neurologic - Cranial Nerve Exam: Non-focal. Grossly intact. Reflexes: Normal. Psychiatric - Orientation to person, place, and time: Normal. Mood and affect: Normal. Procedure Flexible sigmoidoscopy: Flat polyp in distal sigmoid colon. Occupies approx 33% of circumference. Signatures Electronically signed by : Ho Jack MD; Nov 20 2021 11:17AM EST (Author) Normal Believe.in Tobacco Screening.on 022 Fall risk assessment a) No falls within the last year [facility]-Ryejeqp-Qec well 2099 Work Phone: Tobacco use status [facility] b) No GI-Xluwzqn-Cyg well 2099 Work Phone: Final Surgical Pathology Rep [facility] 10-10-2021 Final Surgical Pathology Report . Pathology Reports Accession: Collected Date/Time: Received Date/Time: Pathologist: [id number] 10/08/2021 09:49 EDT 10/09/2021 11:20 EDT MD KACI SALINAS Final Surgical Pathology Report DIAGNOSIS: COLON, 11CM, BIOPSY - FRAGMENTS OF TUBULOVILLOUS ADENOMA. COMMENT: [facility] - [id number] CLINICAL INFORMATION: Procedure: FLEXIBLE SIGMOIDOSCOPY WITH POLYPECTOMY AND ARGON PLASMA COAGULATION Preoperative diagnosis: HISTORY COLON POLYP Postoperative diagnosis: HISTORY COLON POLYP SPECIMEN: A POLYP @ 11 CM GROSS DESCRIPTION: A. Received in formalin, labeled with the patients name, Case #[id number], and polyp at 11 cm "multiple wei tissue fragments ranging from less than 0.1 to 0.3 cm with an aggregate measurement of 1 x 0.3 x 0.1 cm. TS -1 Dictated by TRISH DENNISON MICROSCOPIC DESCRIPTION: Slides reviewed. Electronically Signed by Pathology Report verified by [facility] Electronically signed by KACI SALINAS MD Sign out Date: 10/10/2021 16:54 Performing Lab: [address] ([place]) Final Surgical Pathology Rep [facility] 03-21-2021 Final Surgical Pathology Report . Pathology Reports Accession: Collected Date/Time: Received Date/Time: Pathologist: [id number] 03/19/2021 10:27 EST 03/20/2021 08:53 EST DO DAVID FUCHS Final Surgical Pathology Report DIAGNOSIS: TUBULAR ADENOMA, SIGMOID COLON @ 11 CM. COMMENT: [facility] - [id number] CLINICAL INFORMATION: Procedure: FLEXIBLE SIGMOIDOSCOPY WITH ARGON PLASMA COAGULATION Preoperative diagnosis: HISTORY ADENOMA, POLYPS Postoperative diagnosis: SAME SPECIMEN: A SIGMOID COLON POLYP @ 11 CM GROSS DESCRIPTION: A. Received in formalin, labeled with the patients name, Case #[id number], and sigmoid colon polyp at 11 cm "4 wei soft tissue fragments ranging from 0.2 to 0.3 cm. TS -1 Dictated by TRISH DENNISON MICROSCOPIC DESCRIPTION: Slides reviewed. Electronically Signed by Pathology Report verified by [facility] Electronically signed by DAVID FUCHS DO Sign out Date: 03/21/2021 12:54 Performing Lab: [address] ([place]) CBC, PLATELETS & MANUAL DIFF ([id number])Ordered By: 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 on 12-29-2020 Basophils (Bld) [#/Vol] 0.0 10*3/uL Normal 0.0-0.2 [facility]; [facility] Work Phone: Comment on above: PATIENT WAS FASTINGP ERFORMED BY: [facility] Arahnn4775 [facility] [id number] Information: NURSE DRAW Basophils/100 WBC (Bld) 0 % Normal [facility]; [facility] Work Phone: Comment on above: PATIENT WAS FASTINGP ERFORMED BY: [place]Kevin [place] [id number] [facility] [id number] Information: NURSE DRAW Eosinophils (Bld) [#/Vol] 0.1 10*3/uL Normal 0.0-0.4 [facility]; [facility] Work Phone: Comment on above: PATIENT WAS FASTINGP ERFORMED BY: [address] [id number] Information: NURSE DRAW Eosinophils/100 WBC (Bld) 2 % Normal [facility]; [facility] Work Phone: Comment on above: PATIENT WAS FASTINGP ERFORMED BY: [address] [id number] Information: NURSE DRAW Erythrocyte distribution width (RBC) [Ratio] 13.0 % Normal 11.7-15.4 [facility]; [facility] Work Phone: Comment on above: PATIENT WAS FASTINGP ERFORMED BY: [address] [id number] Information: NURSE DRAW Hematocrit (Bld) [Volume fraction] 43.5 % Normal 34.0-46.6 [facility]; [facility] Work Phone: Comment on above: PATIENT WAS FASTINGP ERFORMED BY: [address] [id number] Information: NURSE DRAW Hemoglobin (Bld) [Mass/Vol] 14.1 g/dL Normal 11.1-15.9 [facility]; [facility] Work Phone: Comment on above: PATIENT WAS FASTINGP ERFORMED BY: [address] [id number] Information: NURSE DRAW Immature granulocytes (Bld) [#/Vol] 0.0 10*3/uL Normal 0.0-0.1 [facility]; [facility] Work Phone: Comment on above: PATIENT WAS FASTINGP ERFORMED BY: [place] [id number] [facility] [id number] Information: NURSE DRAW Immature granulocytes/100 WBC (Bld) 0 % Normal [facility]; [facility] Work Phone: Comment on above: PATIENT WAS FASTINGP ERFORMED BY: [facility] I[address]qvd[address] [id number] Information: NURSE DRAW Lymphocytes (Bld) [#/Vol] 2.0 10*3/uL Normal 0.7-3.1 [facility]; [facility] Work Phone: Comment on above: PATIENT WAS FASTINGP ERFORMED BY: [address] [id number] Information: NURSE DRAW Lymphocytes/100 WBC (Bld) 27 % Normal [facility]; [facility] Work Phone: Comment on above: PATIENT WAS FASTINGP ERFORMED BY: [address] [id number] Information: NURSE DRAW MCH (RBC) [Entitic mass] 29.6 pg Normal 26.6-33.0 [facility]; [facility] Work Phone: Comment on above: PATIENT WAS FASTINGP ERFORMED BY: [address] [id number] Information: NURSE DRAW MCHC (RBC) [Mass/Vol] 32.4 g/dL Normal 31.5-35.7 [facility] prehensive Internal Medicine; [facility] Work Phone: Comment on above: PATIENT WAS FASTINGP ERFORMED BY: [address] [id number] Information: NURSE DRAW MCV (RBC) [Entitic vol] 91 fL Normal 79-97 [facility]; [facility] Work Phone: Comment on above: PATIENT WAS FASTINGP ERFORMED BY: [address] [id number] Information: NURSE DRAW Monocytes (Bld) [#/Vol] 0.6 10*3/uL Normal 0.1-0.9 [facility]; [facility] Work Phone: Comment on above: PATIENT WAS FASTINGP ERFORMED BY: KENYON Xavier Brown[address] [facility] [id number] Information: NURSE DRAW Monocytes/100 WBC (Bld) 8 % Normal [facility]; [facility] Work Phone: Comment on above: PATIENT WAS FASTINGP ERFORMED BY: KENYON Vangie Dizfgw[address] [id number] Information: NURSE DRAW Neutrophils (Bld) [#/Vol] 4.6 10*3/uL Normal 1.4-7.0 [facility]; [facility] Work Phone: Comment on above: PATIENT WAS FASTINGP ERFORMED BY: KENYON [facility]Saint [facility] Uvavkn18[address] [id number] Information: NURSE DRAW Neutrophils/100 WBC (Bld) 63 % Normal [facility]; [facility] Work Phone: Comment on above: PATIENT WAS FASTINGP ERFORMED BY: KENYON NaomyNebarrington Mirwiz[address] [id number] Information: NURSE DRAW Platelets (Bld) [#/Vol] 246 10*3/uL Normal 150-450 [facility]; [facility] Work Phone: Comment on above: PATIENT WAS FASTINGP ERFORMED BY: KENYON [facility] Wttgza28[address] [id number] Information: NURSE DRAW RBC (Bld) [#/Vol] 4.76 10*6/uL Normal 3.77-5.28 [facility]; [facility] Work Phone: Comment on above: PATIENT WAS FASTINGP ERFORMED BY: KENYON Vangie Pmlvfe54[address] [facility] [id number] Information: NURSE DRAW WBC (Bld) [#/Vol] 7.4 10*3/uL Normal 3.4-10.8 [facility]; [facility] Work Phone: Comment on above: PATIENT WAS FASTINGP ERFORMED BY: KENYON [facility] Mdgxns8086 [address] RoadDublin [place] [id number] Information: NURSE DRAW METABOLIC PANEL, JOHANNE MCALLISTER ([id number])Ordered By: 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 on 12-29-2020 Albumin [Mass/Vol] 4.4 g/dL Normal 3.7-4.7 [facility]; [facility] Work Phone: Comment on above: PATIENT WAS FASTINGP ERFORMED BY: KENYON [facility] Pcohaf4174 [address]avir[address] RoadDublin [place] [id number] Albumin/Globulin [Mass ratio] 2.4 {ratio} Abnormal 1.2-2.2 [facility]; [facility] Work Phone: Comment on above: PATIENT WAS FASTINGP ERFORMED BY: KENYON [facility] Nqnury6655 [address] RoadDublin [place] [id number] ALP [Catalytic activity/Vol] 56 U/L Normal 44-121 [facility]; [facility] Work Phone: Comment on above: Please note refere nce interval change PATIENT WAS FASTINGP ERFORMED BY: KENYON [facility] Erdfvp6515 [address] RoadDublin [place] [id number] ALT [Catalytic activity/Vol] 12 U/L Normal 0-32 [facility]; [facility] Work Phone: Comment on above: PATIENT WAS FASTINGP ERFORMED BY: KENYON [facility] Akstme4685 [address] RoadDublin [place] [id number] AST [Catalytic activity/Vol] 16 U/L Normal 0-40 [facility]; [facility] Work Phone: Comment on above: PATIENT WAS FASTINGP ERFORMED BY: KENYON [facility] Xoqpnz5999 [address] RoadDublin [place] [id number] Bilirubin [Mass/Vol] 0.2 mg/dL Normal 0.0-1.2 [facility] Internal [facility]; [facility] Work Phone: Comment on above: PATIENT WAS FASTINGP ERFORMED BY: CB [facility] Plpwhm[address] [facility] [id number] Calcium [Mass/Vol] 9.4 mg/dL Normal 8.7-10.3 [facility]; [facility] Work Phone: Comment on above: PATIENT WAS FASTINGP ERFORMED BY: [facility] Zpcgeh[address] [facility] [id number] Chloride [Moles/Vol] 106 mmol/L Normal 96-106 Comp rehensive Internal Medicine; [facility] Work Phone: Comment on above: PATIENT WAS FASTINGP ERFORMED BY: [facility] Kkcgrb0907 [address] RoadFormerly [facility] [id number] CO2 [Moles/Vol] 20 mmol/L Normal 20-29 [facility] Internal [facility]; [facility] Work Phone: Comment on above: PATIENT WAS FASTINGP ERFORMED BY: [facility] Nwwtyd9[address] [facility] [id number] Creatinine [Mass/Vol] 0.82 mg/dL Normal 0.57-1.00 [facility] prehensive Internal Medicine; [facility] Work Phone: Comment on above: PATIENT WAS FASTINGP ERFORMED BY: [facility] [facility] [address] [id number] GFR/1.73 sq M.predicted among blacks CKD-EPI (S/P/Bld) [Vol rate/Area] 83 mL/min/1.73 Normal [facility]; [facility] Work Phone: Comment on above: [facility] currently reports eGFR in compliance with the current recommendations of the National Kidney Foundation. [facility] will update reporting as new guidelines are published from the NKF-ASN Task force. PATIENT WAS FASTINGP ERFORMED BY: [facility] [facility] [id number] GFR/1.73 sq M.predicted among non-blacks CKD-EPI (S/P/Bld) [Vol rate/Area] 72 mL/min/1.73 Normal [facility]; [facility] Work Phone: Comment on above: PATIENT WAS FASTINGP ERFORMED BY: [facility] Wbnwro9215 [address] RoadDublin [place] [id number] Globulin (S) [Mass/Vol] 1.8 g/dL Normal 1.5-4.5 [facility]; [facility] Work Phone: Comment on above: PATIENT WAS FASTINGP ERFORMED BY: [facility] Gracpb3553 [address] RoadDublin [place] [id number] Glucose [Mass/Vol] 98 mg/dL Normal 65-99 [facility]; [facility] Work Phone: Comment on above: PATIENT WAS FASTINGP ERFORMED BY: [facility] Feyjlo2481 [address] RoadDublin [place] [id number] Potassium [Moles/Vol] 4.3 mmol/L Normal 3.5-5.2 [facility]; [facility] Work Phone: Comment on above: PATIENT WAS FASTINGP ERFORMED BY: [facility] Bsveqt0400 [address]Dublin [place] [id number] Protein [Mass/Vol] 6.2 g/dL Normal 6.0-8.5 [facility]; [facility] Work Phone: Comment on above: PATIENT WAS FASTINGP ERFORMED BY: [facility] Eqgtba7880 [address] RoadDublin [place] [id number] Sodium [Moles/Vol] 139 mmol/L Normal 134-144 [facility]; [facility] Work Phone: Comment on above: PATIENT WAS FASTINGP ERFORMED BY: [facility] Hpwzjf8115 Gaviria RoadDublin [place] [id number] Urea nitrogen [Mass/Vol] 14 mg/dL Normal 8-27 [facility]; [facility] Work Phone: Comment on above: PATIENT WAS FASTINGP ERFORMED BY: [facility] Ywlryl2875 [address]aviria RoadDublin [place] [id number] Urea nitrogen/Creatinine [Mass ratio] 17 mg/mg Normal 12-28 [facility]; [facility] Work Phone: Comment on above: PATIENT WAS FASTINGP ERFORMED BY: KENYON [employer]ck[employer]oard Fnyaxe[address] [facility] [id number] Final Surgical Pathology Rep juventino 12-12-2020 Final Surgical Pathology Report . 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 COMMENT: Malu# [id number] CLINICAL INFORMATION: Procedure: FLEXIBLE SIGMOIDOSCOPY WITH ELEVIEW INJECTION, POLYPECTOMY WITH TATTOO AND ARGON PLASMA COAGULATION Preoperative diagnosis: HISTORY OF ADENOMA Postoperative diagnosis: SAME SPECIMEN: A POLYP - 10-12 CM GROSS DESCRIPTION: A. Received in formalin, labeled with the patients name, Case #[id number], and polyp 10-12 cm multiple wei-pink polyps ranging from less than 0.1 to 0.7 cm in greatest dimension with an aggregate measurement of 1.5 x 0.7 x 0.3 cm. TS -1 Dictated by TRISH DENNISON MICROSCOPIC DESCRIPTION: Slides reviewed. Electronically Signed by Pathology Report verified by [facility] Electronically signed by DAVID FUCHS DO Sign out Date: 12/12/2020 13:06 Performing Lab: [facility], [address] [place] [address] ([place]) Comment on above: Performed By: #### S PFR #### [place] [id number] FREE TRIDOTHYRONINE (T3) (84 481)Ordered By: 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 on 01-10-2020 Free T3 [Mass/Vol] 2.5 pg/mL Normal 2.0-4.4 [facility] Work Phone: Comment on above: PATIENT NOT FASTINGP ERFORMED BY: KENYON [facility] CenterLyssaHunterdon Medical CenterZiappt3585 [facility] [id number] THYROXINE FREE ([id number])Ordere d By: 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 on 01-10-2020 Free T4 [Mass/Vol] 1.02 ng/dL Normal 0.82-1.77 [facility] Work Phone: Comment on above: PATIENT NOT FASTINGP ERFORMED BY: CB [facility] Enjntw9218 [address] [facility]bl[facility] [place] [id number] TSH (THYROID STIMULATING HOR YUMI) ([id number])Ordered By: 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 on 01-10-2020 TSH Qn 3.900 {uIU/mL} Normal 0.450-4.50 0 [facility] Work Phone: Comment on above: PATIENT NOT FASTINGP ERFORMED BY: CB [facility] Xcvwdh7799 [address] [facility]in [place] [id number] CBC & PLATELETS (AUTO) ([id number])Ordered By: 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 on 12-15-2019 Erythrocyte distribution width (RBC) [Ratio] 12.3 % Normal 11.7-15.4 [facility] Internal Medicine Work Phone: Comment on above: PATIENT WAS FASTINGP ERFORMED BY: KENYON [facility] Emmrpq7796 [address] [facility] [id number] Hematocrit (Bld) [Volume fraction] 44.5 % Normal 34.0-46.6 [facility] Medicine Work Phone: Comment on above: PATIENT WAS FASTINGP ERFORMED BY: [facility] Immhew4604 [address] [facility] [id number] Hemoglobin (Bld) [Mass/Vol] 14.3 g/dL Normal 11.1-15.9 [facility] Internal Medicine Work Phone: Comment on above: PATIENT WAS FASTINGP ERFORMED BY: [facility] Jhynpq1436 [address] [facility] [id number] MCH (RBC) [Entitic mass] 30.2 pg Normal 26.6-33.0 [facility] Medicine Work Phone: Comment on above: PATIENT WAS FASTINGP ERFORMED BY: [facility] Yzlxxb1107 [address] [facility] [id number] MCHC (RBC) [Mass/Vol] 32.1 g/dL Normal 31.5-35.7 [facility] Internal Medicine Work Phone: Comment on above: PATIENT WAS FASTINGP ERFORMED BY: CB [facility] Jpzzzo8330 [address] RoadDublin [place] [id number] MCV (RBC) [Entitic vol] 94 fL Normal 79-97 [facility] Work Phone: Comment on above: PATIENT WAS FASTINGP ERFORMED BY: KENYON Vangie Bwghyw5217 [address] RoadDublin [place] [id number] Platelets (Bld) [#/Vol] 247 {x10E3/uL} Normal 150-450 [facility] Work Phone: Comment on above: PATIENT WAS FASTINGP ERFORMED BY: KENYON [facility] Eteald3865 [address] RoadDublin [place] [id number] Platelets (Bld) [#/Vol] 247 10*3/uL Normal 150-450 [facility]; [facility] Work Phone: Comment on above: PATIENT WAS FASTINGP ERFORMED BY: KENYON NaomySaint [facility] Idjalw9518 [address] RoadDublin [place] [id number] RBC (Bld) [#/Vol] 4.74 {x10E6/uL} Normal 3.77-5.28 [facility] Internal Medicine Work Phone: Comment on above: PATIENT WAS FASTINGP ERFORMED BY: KENYON NaomySaint [facility] Pkukwb0301 [address] RoadDublin [place] [id number] RBC (Bld) [#/Vol] 4.74 10*6/uL Normal 3.77-5.28 [facility]; [facility] Work Phone: Comment on above: PATIENT WAS FASTINGP ERFORMED BY: [facility] Cvobed2070 [address] RoadDublin [place] [id number] WBC (Bld) [#/Vol] 8.0 {x10E3/uL} Normal 3.4-10.8 [facility] Internal Medicine Work Phone: Comment on above: PATIENT WAS FASTINGP ERFORMED BY: [facility] Tmikqa7239 [address] RoadDublin [place] [id number] WBC (Bld) [#/Vol] 8.0 10*3/uL Normal 3.4-10.8 [facility]; [facility] Work Phone: Comment on above: PATIENT WAS FASTINGP ERFORMED BY: CB [facility] Tzqror7367 [address] RoadDublin [place] [id number] METABOLIC PANEL, COMPREHENSI VE ([id number])Ordered By: 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 on 12-15-2019 Albumin [Mass/Vol] 4.6 g/dL Normal 3.8-4.8 [facility] Work Phone: Comment on above: PATIENT WAS FASTINGP ERFORMED BY: CB [facility] Xbdsvl1884 [address]aviria RoadDublin [place] [id number]; fu 10-12 DF Albumin/Globulin [Mass ratio] 2.3 {ratio} Abnormal 1.2-2.2 [facility] Work Phone: Comment on above: PATIENT WAS FASTINGP ERFORMED BY: CB [facility] Vyrtcy6771 [address] RoadDublin [place] [id number]; fu 10-12 DF ALP [Catalytic activity/Vol] 52 [iU]/L Normal 39-117 [facility] Work Phone: Comment on above: PATIENT WAS FASTINGP ERFORMED BY: CB [facility] Yjryka3677 [address] RoadDublin [place] [id number]; fu 10-12 DF ALP [Catalytic activity/Vol] 52 U/L Normal 39-117 [facility]; [facility] Work Phone: Comment on above: PATIENT WAS FASTINGP ERFORMED BY: CB [facility] Xdbknk3504 [address] RoadDublin [place] [id number]; fu 10-12 DF ALT [Catalytic activity/Vol] 10 [iU]/L Normal 0-32 [facility] Work Phone: Comment on above: PATIENT WAS FASTINGP ERFORMED BY: CB [facility] Hbdpjr4017 [address] RoadDublin [place] [id number]; fu 10-12 DF ALT [Catalytic activity/Vol] 10 U/L Normal 0-32 [facility]; [facility] Work Phone: Comment on above: PATIENT WAS FASTINGP ERFORMED BY: CB [facility] Cxbfzw6026 [address] RoadDublin [place] [id number]; fu 10-12 DF AST [Catalytic activity/Vol] 16 [iU]/L Normal 0-40 [facility] Work Phone: Comment on above: PATIENT WAS FASTINGP ERFORMED BY: CB [facility] Upoxpv4442 [address] RoadDublin [place] [id number]; fu 10-12 DF AST [Catalytic activity/Vol] 16 U/L Normal 0-40 [facility]; [facility] Work Phone: Comment on above: PATIENT WAS FASTINGP ERFORMED BY: CB [facility] Lrooft1702 [address] RoadDublin [place] [id number]; fu 10-12 DF Bilirubin [Mass/Vol] 0.2 mg/dL Normal 0.0-1.2 [facility] Work Phone: Comment on above: PATIENT WAS FASTINGP ERFORMED BY: [facility] Ytsuzc9421 [address] RoadDublin [place] [id number]; fu 10-12 DF Calcium [Mass/Vol] 9.1 mg/dL Normal 8.7-10.3 [facility] Work Phone: Comment on above: PATIENT WAS FASTINGP ERFORMED BY: CB [facility] Gztjcb8014 [address] RoadDublin [place] [id number]; fu 10-12 DF Chloride [Moles/Vol] 104 mmol/L Normal 96-106 [facility] Work Phone: Comment on above: PATIENT WAS FASTINGP ERFORMED BY: CB [facility] Xycxlo6874 [address] RoadDublin [place] [id number]; fu 10-12 DF CO2 [Moles/Vol] 25 mmol/L Normal 20-29 [facility] Internal Medicine Work Phone: Comment on above: PATIENT WAS FASTINGP ERFORMED BY: CB [facility] Zjzmva1385 [address] RoadDublin [place] [id number]; fu 10-12 DF Creatinine [Mass/Vol] 0.79 mg/dL Normal 0.57-1.00 [facility] Work Phone: Comment on above: PATIENT WAS FASTINGP ERFORMED BY: CB [facility] Jmwuwj0832 [address] RoadDublin [place] [id number]; fu 10-12 DF GFR/1.73 sq M predicted among blacks CKD-EPI (S/P/Bld) [Vol rate/Area] 88 mL/min/1.73 Normal [facility] Work Phone: Comment on above: PATIENT WAS FASTINGP ERFORMED BY: CB [facility] Ninyqr4907 [address] RoadDublin [place] [id number]; fu 10-12 DF GFR/1.73 sq M predicted among non-blacks CKD-EPI (S/P/Bld) [Vol rate/Area] 76 mL/min/1.73 Normal [facility] Work Phone: Comment on above: PATIENT WAS FASTINGP ERFORMED BY: KENYON [facility] Zbparu0025 [address] RoadDublin [place] [id number]; fu 10-12 DF Globulin (S) [Mass/Vol] 2.0 g/dL Normal 1.5-4.5 [facility] Work Phone: Comment on above: PATIENT WAS FASTINGP ERFORMED BY: KENYON [facility] Kfjytz8458 [address] RoadDublin [place] [id number]; fu 10-12 DF Glucose [Mass/Vol] 94 mg/dL Normal 65-99 [facility] Work Phone: Comment on above: PATIENT WAS FASTINGP ERFORMED BY: CB [facility] Vijwkh0389 [address] RoadDublin [place] [id number]; fu 10-12 DF Potassium [Moles/Vol] 4.2 mmol/L Normal 3.5-5.2 [facility] Internal Medicine Work Phone: Comment on above: PATIENT WAS FASTINGP ERFORMED BY: CB [facility] Bdrouk9121 [address] RoadDublin [place] [id number]; fu 10-12 DF Protein [Mass/Vol] 6.6 g/dL Normal 6.0-8.5 [facility] Work Phone: Comment on above: PATIENT WAS FASTINGP ERFORMED BY: KENYON [facility] Chhzpn9384 [address] RoadDublin [place] [id number]; fu 10-12 DF Sodium [Moles/Vol] 141 mmol/L Normal 134-144 [facility] Work Phone: Comment on above: PATIENT WAS FASTINGP ERFORMED BY: CB [facility] Ixdnxq8173 [address] RoadDublin [place] [id number]; fu 10-12 DF Urea nitrogen [Mass/Vol] 21 mg/dL Normal 8- [facility] Work Phone: Comment on above: PATIENT WAS FASTINGP ERFORMED BY: CB [facility] Hsnevb2962 [address] RoadDublin [place] [id number]; fu 10-12 DF Urea nitrogen/Creatinine [Mass ratio] 27 mg/mg Normal 12- [facility] Work Phone: Comment on above: PATIENT WAS FASTINGP ERFORMED BY: KENYON LabGermaine ElAkvqkd3238 G[address] RoadDublin [place] [id number]; fu 10- DF HGB A1C ([id number])Ordered By: S ystem Construction Analyst on 01-14-2019 HbA1c (Bld) [Mass fraction] 5.7 % Abnormal 4.8-5.6 [facility] Work Phone: Comment on above: . Prediabetes: 5.7 - 6.4 Diabetes: >6.4 Glycemic control for adults with diabetes: <7.0 PATIENT WAS FASTINGP ERFORMED BY: KENYON LabLyssabarrington Ceczzp8054 [address] RoadDublin [place] [id number] LIPID PANEL ([id number])Ordered B y: 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 on 01-14-2019 Cholesterol [Mass/Vol] 200 mg/dL Abnormal 100-199 [facility] Work Phone: Comment on above: PATIENT WAS FASTINGP ERFORMED BY: KENYON LabCobarrington Feyeoz9830 [address] RoadDublin [place] [id number] Cholesterol in HDL [Mass/Vol] 59 mg/dL Normal [facility] Work Phone: Comment on above: PATIENT WAS FASTINGP ERFORMED BY: KENYON [facility] Pxwemf2839 [address] RoadDublin [place] [id number] Cholesterol in LDL [Mass/Vol] 121 mg/dL Abnormal 0-99 [facility] Work Phone: Comment on above: PATIENT WAS FASTINGP ERFORMED BY: KENYON NaomyGermaine ElIhkxqv88[address] [facility] [id number] Cholesterol in LDL/Cholesterol in HDL [Mass ratio] 2.1 {ratio} Normal 0.0-3.2 [facility] Work Phone: Comment on above: LDL/HDL Ratio Men Wo men 1/2 Avg.Risk 1.0 1.5 Avg.Risk 3.6 3.2 2X Avg.Risk 6.2 5.0 3X Avg.Risk 8.0 6.1 PATIENT WAS FASTINGP ERFORMED BY: KENYON Ellin6[address] [id number] Cholesterol in VLDL [Mass/Vol] 20 mg/dL Normal 5-40 [facility] Work Phone: Comment on above: PATIENT WAS FASTINGP ERFORMED BY: KENYON Simms Fbmzww5290 [address] [id number] Triglyceride [Mass/Vol] 102 mg/dL Normal 0-149 [facility] Work Phone: Comment on above: PATIENT WAS FASTINGP ERFORMED BY: KENYON Ellin6[address] [id number] METABOLIC PANEL, COMPREHENSI VE ([id number])Ordered By: 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 on 01-14-2019 Albumin [Mass/Vol] 4.3 g/dL Normal 3.6-4.8 [facility] Work Phone: Comment on above: PATIENT WAS FASTINGP ERFORMED BY: KENYON LabCore[facility] [id number] Albumin/Globulin [Mass ratio] 2.2 {ratio} Normal 1.2-2.2 [facility] Work Phone: Comment on above: PATIENT WAS FASTINGP ERFORMED BY: KENYON LabLyssaHunterdon Medical CenterIthdlk3895 [address] [id number] ALP [Catalytic activity/Vol] 53 [iU]/L Normal 39-117 [facility] Work Phone: Comment on above: PATIENT WAS FASTINGP ERFORMED BY: KENYON Fair6370 [address] RoadDublin [place] [id number] ALP [Catalytic activity/Vol] 53 U/L Normal 39-117 [facility] Work Phone: Comment on above: PATIENT WAS FASTINGP ERFORMED BY: KENYON Fair6370 [address] RoadDublin [place] [id number] ALT [Catalytic activity/Vol] 10 [iU]/L Normal 0-32 [facility] Work Phone: Comment on above: PATIENT WAS FASTINGP ERFORMED BY: KENYON Fair6370 [address] RoadDublin [place] [id number] ALT [Catalytic activity/Vol] 10 U/L Normal 0-32 [facility] Work Phone: Comment on above: PATIENT WAS FASTINGP ERFORMED BY: KENYON Fair6370 [address] RoadDublin [place] [id number] AST [Catalytic activity/Vol] 15 [iU]/L Normal 0-40 [facility] Work Phone: Comment on above: PATIENT WAS FASTINGP ERFORMED BY: KENYON Fair6370 [address] RoadDublin [place] [id number] AST [Catalytic activity/Vol] 15 U/L Normal 0-40 [facility] Work Phone: Comment on above: PATIENT WAS FASTINGP ERFORMED BY: KENYON Ellin6370 [address] RoadDublin [place] [id number] Bilirubin [Mass/Vol] mg/dL Normal 0.0-1.2 [facility] Work Phone: Comment on above: PATIENT WAS FASTINGP ERFORMED BY: KENYON Ellin6370 [address] RoadDublin [place] [id number] Bilirubin [Mass/Vol] mg/dL Normal 0.0-1.2 [facility] Work Phone: Comment on above: PATIENT WAS FASTINGP ERFORMED BY: CB [facility] Gpjhiv8160 [address] RoadDublin [place] [id number] Calcium [Mass/Vol] 9.5 mg/dL Normal 8.7-10.3 [facility] Work Phone: Comment on above: PATIENT WAS FASTINGP ERFORMED BY: CB [facility] Joilaj2018 [address] RoadDublin [place] [id number] Chloride [Moles/Vol] 105 mmol/L Normal 96-106 [facility] Work Phone: Comment on above: PATIENT WAS FASTINGP ERFORMED BY: CB [facility] Azycit1452 [address] RoadDublin [place] [id number] CO2 [Moles/Vol] 21 mmol/L Normal 20-29 [facility] Internal Medicine Work Phone: Comment on above: PATIENT WAS FASTINGP ERFORMED BY: CB [facility] Birqet4141 [address] RoadDublin [place] [id number] Creatinine [Mass/Vol] 0.78 mg/dL Normal 0.57-1.00 [facility] Internal Medicine Work Phone: Comment on above: PATIENT WAS FASTINGP ERFORMED BY: CB [facility] Loxdzd7633 [address] RoadDublin [place] [id number] GFR/1.73 sq M predicted among blacks CKD-EPI (S/P/Bld) [Vol rate/Area] 90 mL/min/1.73 Normal [facility] Work Phone: Comment on above: PATIENT WAS FASTINGP ERFORMED BY: CB [facility] Tpmrez5005 [address] RoadDublin [place] [id number] GFR/1.73 sq M predicted among non-blacks CKD-EPI (S/P/Bld) [Vol rate/Area] 78 mL/min/1.73 Normal [facility] Work Phone: Comment on above: PATIENT WAS FASTINGP ERFORMED BY: CB [facility] Vnzlwq9871 [address] RoadDublin [place] [id number] Globulin (S) [Mass/Vol] 2.0 g/dL Normal 1.5-4.5 [facility] Work Phone: Comment on above: PATIENT WAS FASTINGP ERFORMED BY: KENYON [facility] Flcipm6359 [address] RoadDublin [place] [id number] Glucose [Mass/Vol] 86 mg/dL Normal 65-99 [facility] Internal [facility] Work Phone: Comment on above: PATIENT WAS FASTINGP ERFORMED BY: KENYON [facility] Lucgvw1332 [address]ia RoadNorthern Regional Hospitalin [place] [id number] Potassium [Moles/Vol] 4.2 mmol/L Normal 3.5-5.2 [facility] Internal Medicine Work Phone: Comment on above: PATIENT WAS FASTINGP ERFORMED BY: KENYON LabCobarrington ElXnxfcn2806 Gaviria RoadNorthern Regional Hospitalin [place] [id number] Protein [Mass/Vol] 6.3 g/dL Normal 6.0-8.5 [facility] Work Phone: Comment on above: PATIENT WAS FASTINGP ERFORMED BY: KENYON [facility] Gowucx9667 [address] [facility] [place] [id number] Sodium [Moles/Vol] 142 mmol/L Normal 134-144 [facility] Work Phone: Comment on above: PATIENT WAS FASTINGP ERFORMED BY: KENYON [facility] Mgbpnd5189 [address] [facility]in [place] [id number] Urea nitrogen [Mass/Vol] 19 mg/dL Normal 8-27 [facility] Internal Medicine Work Phone: Comment on above: PATIENT WAS FASTINGP ERFORMED BY: KENYON [facility] Zueodq6283 [address] [facility]in [place] [id number] Urea nitrogen/Creatinine [Mass ratio] 24 mg/mg Normal 12-28 [facility] Internal [facility] Work Phone: Comment on above: PATIENT WAS FASTINGP ERFORMED BY: KENYON [facility] Thyura1376 [address] RoadDublin [place] [id number] CBC W/AUTO DIFF WBC ([id number])O rdered By: 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 on 09-21-2018 Basophils (Bld) [#/Vol] 0.0 {x10E3/uL} Normal 0.0-0.2 [facility] Internal [facility] Work Phone: Comment on above: PATIENT NOT FASTINGP ERFORMED BY: LabCoClaire [place] 5930170 [facility] [id number] Information: NURSE DRAW Basophils (Bld) [#/Vol] 0.0 10*3/uL Normal 0.0-0.2 [facility] Work Phone: Comment on above: PATIENT NOT FASTINGP ERFORMED BY: LabCo[address] [id number] Information: NURSE DRAW Basophils/100 WBC (Bld) 0 % Normal [facility] Work Phone: Comment on above: PATIENT NOT FASTINGP ERFORMED BY: [address] [id number] Information: NURSE DRAW Eosinophils (Bld) [#/Vol] 0.1 {x10E3/uL} Normal 0.0-0.4 [facility] Work Phone: Comment on above: PATIENT NOT FASTINGP ERFORMED BY: [address] [id number] Information: NURSE DRAW Eosinophils (Bld) [#/Vol] 0.1 10*3/uL Normal 0.0-0.4 [facility] Work Phone: Comment on above: PATIENT NOT FASTINGP ERFORMED BY: [address] [id number] Information: NURSE DRAW Eosinophils/100 WBC (Bld) 2 % Normal [facility] Work Phone: Comment on above: PATIENT NOT FASTINGP ERFORMED BY: LabCoClaire [place] 5930170 [facility] [id number] Information: NURSE DRAW Erythrocyte distribution width (RBC) [Ratio] 13.4 % Normal 12.3-15.4 [facility] Work Phone: Comment on above: PATIENT NOT FASTINGP ERFORMED BY: LabCoClaire [place] 5930170 [facility] [id number] Information: NURSE DRAW Hematocrit (Bld) [Volume fraction] 43.5 % Normal 34.0-46.6 [facility] Work Phone: Comment on above: PATIENT NOT FASTINGP ERFORMED BY: KENYON El[address] [id number] Information: NURSE DRAW Hemoglobin (Bld) [Mass/Vol] 14.3 g/dL Normal 11.1-15.9 [facility] Work Phone: Comment on above: PATIENT NOT FASTINGP ERFORMED BY: [address] [id number] Information: NURSE DRAW Immature granulocytes (Bld) [#/Vol] 0.0 {x10E3/uL} Normal 0.0-0.1 [facility] Work Phone: Comment on above: PATIENT NOT FASTINGP ERFORMED BY: [address] [id number] Information: NURSE DRAW Immature granulocytes (Bld) [#/Vol] 0.0 10*3/uL Normal 0.0-0.1 [facility] Work Phone: Comment on above: PATIENT NOT FASTINGP ERFORMED BY: KENYON Morelos[address] [id number] Information: NURSE DRAW Immature granulocytes/100 WBC (Bld) 0 % Normal [facility] Work Phone: Comment on above: PATIENT NOT FASTINGP ERFORMED BY: Naomy[address] [id number] Information: NURSE DRAW Lymphocytes (Bld) [#/Vol] 1.9 {x10E3/uL} Normal 0.7-3.1 [facility] Work Phone: Comment on above: PATIENT NOT FASTINGP ERFORMED BY: [address] [id number] Information: NURSE DRAW Lymphocytes (Bld) [#/Vol] 1.9 10*3/uL Normal 0.7-3.1 [facility] Work Phone: Comment on above: PATIENT NOT FASTINGP ERFORMED BY: KENYON Ellin6[address] [id number] Information: NURSE DRAW Lymphocytes/100 WBC (Bld) 31 % Normal [facility] Work Phone: Comment on above: PATIENT NOT FASTINGP ERFORMED BY: KENYON Vangie Dyskee08[address] [id number] Information: NURSE DRAW MCH (RBC) [Entitic mass] 30.2 pg Normal 26.6-33.0 [facility] Internal Medicine Work Phone: Comment on above: PATIENT NOT FASTINGP ERFORMED BY: KENYON Vangie Ygklyv4798 [address] [id number] Information: NURSE DRAW MCHC (RBC) [Mass/Vol] 32.9 g/dL Normal 31.5-35.7 [facility] Internal Medicine Work Phone: Comment on above: PATIENT NOT FASTINGP ERFORMED BY: KENYON Vangie Dktfho5[address] [id number] Information: NURSE DRAW MCV (RBC) [Entitic vol] 92 fL Normal 79-97 [facility] Work Phone: Comment on above: PATIENT NOT FASTINGP ERFORMED BY: KENYON VangieClaire [place] 5930170 [facility] [id number] Information: NURSE DRAW Monocytes (Bld) [#/Vol] 0.3 {x10E3/uL} Normal 0.1-0.9 [facility] Work Phone: Comment on above: PATIENT NOT FASTINGP ERFORMED BY: KENYON LabCoClaire [place] 5930170 [facility] [id number] Information: NURSE DRAW Monocytes (Bld) [#/Vol] 0.3 10*3/uL Normal 0.1-0.9 [facility] Work Phone: Comment on above: PATIENT NOT FASTINGP ERFORMED BY: KENYON LabKevin [place] 1034970 [facility] [id number] Information: NURSE DRAW Monocytes/100 WBC (Bld) 5 % Normal [facility] Work Phone: Comment on above: PATIENT NOT FASTINGP ERFORMED BY: KENYON Xavier Xyfinn2407bruno WardSSM Health [facility] [id number] Information: NURSE DRAW Neutrophils (Bld) [#/Vol] 3.8 {x10E3/uL} Normal 1.4-7.0 [facility] Work Phone: Comment on above: PATIENT NOT FASTINGP ERFORMED BY: KENYON NaomyGermaine ElCbqnwf5414 [facility] [id number] Information: NURSE DRAW Neutrophils (Bld) [#/Vol] 3.8 10*3/uL Normal 1.4-7.0 [facility] Work Phone: Comment on above: PATIENT NOT FASTINGP ERFORMED BY: KENYON Ellin[address] [id number] Information: NURSE DRAW Neutrophils/100 WBC (Bld) 62 % Normal [facility] Work Phone: Comment on above: PATIENT NOT FASTINGP ERFORMED BY: KENYON Ellin6[address] [id number] Information: NURSE DRAW Platelets (Bld) [#/Vol] 224 {x10E3/uL} Normal 150-450 [facility] Work Phone: Comment on above: PATIENT NOT FASTINGP ERFORMED BY: KENYON NaomyGermaine ElUizmii99[address] [facility] [id number] Information: NURSE DRAW Platelets (Bld) [#/Vol] 224 10*3/uL Normal 150-450 [facility] Work Phone: Comment on above: PATIENT NOT FASTINGP ERFORMED BY: KENYON NaomyGermaine ElJwubyv0706 [facility] [id number] Information: NURSE DRAW RBC (Bld) [#/Vol] 4.73 {x10E6/uL} Normal 3.77-5.28 [facility] Internal Medicine Work Phone: Comment on above: PATIENT NOT FASTINGP ERFORMED BY: KENYON LabCobarrington FairJnnwhu3119 [address] [facility] [id number] Information: NURSE DRAW RBC (Bld) [#/Vol] 4.73 10*6/uL Normal 3.77-5.28 [facility] Internal Medicine Work Phone: Comment on above: PATIENT NOT FASTINGP ERFORMED BY: CB [facility] Mlcxqz9549 [address] [facility] [id number] Information: NURSE DRAW WBC (Bld) [#/Vol] 6.1 {x10E3/uL} Normal 3.4-10.8 [facility] Internal Medicine Work Phone: Comment on above: PATIENT NOT FASTINGP ERFORMED BY: KENYON Fair6370 [facility] [id number] Information: NURSE DRAW WBC (Bld) [#/Vol] 6.1 10*3/uL Normal 3.4-10.8 [facility] Internal Medicine Work Phone: Comment on above: PATIENT NOT FASTINGP ERFORMED BY: KENYON LabCo Jnkceu8959 [facility] [id number] Information: NURSE DRAW MICROALBUMINOrdered By: Syst em Construction Analyst on 09-21-2018 Albumin DL <= 20 mg/L (U) [Mass/Vol] 6.3 ug/mL Normal [facility] Internal Medicine Work Phone: Comment on above: PATIENT NOT FASTINGP ERFORMED BY: CB [facility] Woptzw5353 [facility] [id number] Albumin/Creatinine (U) [Mass ratio] 3.8 {mg/g_creat} Normal 0.0-30.0 [facility] Internal Medicine Work Phone: Comment on above: Normal: 0.0 - 30.0 A lbuminuria: 31.0 - 300.0 Clinical albuminuria: >300.0 PATIENT NOT FASTINGP ERFORMED BY: KENYON [facility] Jwadrx6580 [facility] [id number] Creatinine (U) [Mass/Vol] 167.3 mg/dL Normal [facility] Work Phone: Comment on above: PATIENT NOT FASTINGP ERFORMED BY: KENYON NaomyGermaine ElNfcuik8939 [address] RoadDublin [place] [id number] URINALYSIS, W/ MICRO ([id number]) Ordered By: 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 on 09-21-2018 Appearance (U) Clear Normal Comprehens nicole Internal Medicine Work Phone: Comment on above: PATIENT NOT FASTINGP ERFORMED BY: KENYON NaomyGermaine ElLcxurm7070 [address] RoadDublin [place] [id number] Bilirubin Ql (U) Negative Normal Comprehe nsive Internal Medicine Work Phone: Comment on above: PATIENT NOT FASTINGP ERFORMED BY: KENYON Ellin6370 [address] RoadDublin [place] [id number] Bilirubin Ql (U) Negative Normal Comprehe nsive Internal Medicine Work Phone: Comment on above: PATIENT NOT FASTINGP ERFORMED BY: KENYON Ellin6370 [address] RoadDublin [place] [id number] Color (U) Yellow Normal [facility] Work Phone: Comment on above: PATIENT NOT FASTINGP ERFORMED BY: KENYON Ellin6370 [address] RoadDublin [place] [id number] Glucose Ql (U) Negative Normal Comprehens nicole Internal Medicine Work Phone: Comment on above: PATIENT NOT FASTINGP ERFORMED BY: KENYON Ellin6370 [address]ublin [place] [id number] Glucose Ql (U) Negative Normal Comprehens nicole Internal Medicine Work Phone: Comment on above: PATIENT NOT FASTINGP ERFORMED BY: KENYON LabCobarrington ElHncegc3279 [address] RoadDublin [place] [id number] Hemoglobin Ql (U) Negative Normal Compreh ensive Internal Medicine Work Phone: Comment on above: PATIENT NOT FASTINGP ERFORMED BY: KENYON LabGermaine ElSjwsfo9245 [address] RoadDublin [place] [id number] Hemoglobin Ql (U) Negative Normal Compreh ensive Internal Medicine Work Phone: Comment on above: PATIENT NOT FASTINGP ERFORMED BY: KENYON [facility] Lymvin4936 [address] RoadDublin [place] [id number] Ketones Ql (U) 1+ Abnormal Comprehens nicole Internal Medicine Work Phone: Comment on above: PATIENT NOT FASTINGP ERFORMED BY: KENYON [facility] Vvlzzg5554 [address] RoadDublin [place] [id number] Leukocyte esterase Test strip Ql (U) Negative Normal [facility] Work Phone: Comment on above: PATIENT NOT FASTINGP ERFORMED BY: CB [facility] Wdkmbu9413 [address] RoadDublin [place] [id number] Leukocyte esterase Test strip Ql (U) Negative Normal [facility] Work Phone: Comment on above: PATIENT NOT FASTINGP ERFORMED BY: KENYON [facility] Fbqhey3297 [address] RoadDublin [place] [id number] Microscopic observation LM Nom (Urine sed) MICRON Normal [facility] Work Phone: Comment on above: Microscopic follows if indicated. PATIENT NOT FASTINGP ERFORMED BY: KENYON [facility] Rgtqyn7508 [address] RoadDublin [place] [id number] Microscopic observation LM Nom (Urine sed) See below: Normal [facility] Work Phone: Comment on above: Microscopic was kevan cated and was performed. PATIENT NOT FASTINGP ERFORMED BY: KENYON [facility] Cbsiqz4400 [address] RoadDublin [place] [id number] Nitrite Ql (U) Negative Normal Comprehens nicole Internal Medicine Work Phone: Comment on above: PATIENT NOT FASTINGP ERFORMED BY: CB [facility] Vvwdbb5991 [address] RoadDublin [place] [id number] Nitrite Ql (U) Negative Normal Comprehens nicole Internal Medicine Work Phone: Comment on above: PATIENT NOT FASTINGP ERFORMED BY: KENYON [facility] Kbzbix7586 [address] RoadDublin [place] [id number] pH (U) 6.5 [pH] Normal 5.0-7.5 [facility] Work Phone: Comment on above: PATIENT NOT FASTINGP ERFORMED BY: CB [facility] Gorkty8175 [address] RoadDublin [place] [id number] Protein Ql (U) Negative Normal Comprehens nicole Internal Medicine Work Phone: Comment on above: PATIENT NOT FASTINGP ERFORMED BY: CB [facility] Nycodb8575 [address] RoadDublin [place] [id number] Protein Ql (U) Negative Normal Comprehens nicole Internal Medicine Work Phone: Comment on above: PATIENT NOT FASTINGP ERFORMED BY: CB [facility] Qyaktu2717 [address] RoadDublin [place] [id number] Specific gravity (U) [Rel density] 1.022 1 Normal 1.005-1.03 0 [facility] Work Phone: Comment on above: PATIENT NOT FASTINGP ERFORMED BY: CB [facility] Prrsrc4883 [address] RoadDublin [place] [id number] Urobilinogen (U) [Mass/Vol] 0.2 mg/dL Normal 0.2-1.0 [facility] Work Phone: Comment on above: PATIENT NOT FASTINGP ERFORMED BY: CB [facility] Wbmqwv3196 [address] RoadDublin [place] [id number] Urobilinogen Test strip (U) [Mass/Vol] 0.2 mg/dL Normal 0.2-1.0 Comprehensi Internal Medicine Work Phone: Comment on above: PATIENT NOT FASTINGP ERFORMED BY: CB [facility] Rprxmi0578 [address] RoadDublin [place] [id number] Blood Glucose , Office ([phone])Ordered By: Kat Moreno on 08-18-2018 Glucose Glucometer molar conc (BldC) 74 1 Normal [facility] Work Phone: HgA1C , Office ([id number])Ordere d By: Kat Moreno on 08-18-2018 Hemoglobin A1c/Hemoglobin.total mass fraction (Bld) 5.3 % Normal 4.6 - 7.1 Comprehensiv e Internal Medicine Work Phone: HgA1C , Office ([phone])Ordere d By: Trina Aguila on 01-21-2018 Hemoglobin A1c/Hemoglobin.total mass fraction (Bld) 5.3 % Normal 4.6 - 7.1 Comprehensiv e Internal Medicine Work Phone: CBC WITH MANUAL DIFF ([id number]) Ordered By: 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 on 01-14-2018 Basophils #/vol (Bld) 0.0 {x10E3/uL} Normal 0.0-0.2 [facility] Work Phone: Comment on above: PATIENT WAS FASTINGP ERFORMED BY: CB [facility] Sqrlhr9551 [address] RoadDublin [place] [id number] Basophils (Bld) [#/Vol] 0.0 10*3/uL Normal 0.0-0.2 [facility] Work Phone: Comment on above: PATIENT WAS FASTINGP ERFORMED BY: CB [facility] Rzuaai0137 [address] RoadDublin [place] [id number] Basophils Auto #/vol (Bld) 0.0 {x10E3/uL} Normal 0.0-0.2 [facility] Work Phone: Basophils/100 WBC (Bld) 0 % Normal [facility] Work Phone: Comment on above: PATIENT WAS FASTINGP ERFORMED BY: CB [facility] Bilotc4345 [address] RoadDublin [place] [id number] Basophils/100 WBC Auto (Bld) 0 % Normal [facility] Work Phone: Eosinophils #/vol (Bld) 0.1 {x10E3/uL} Normal 0.0-0.4 [facility] Work Phone: Comment on above: PATIENT WAS FASTINGP ERFORMED BY: CB [facility] Vzbnpu7084 [address] RoadDublin [place] [id number] Eosinophils (Bld) [#/Vol] 0.1 10*3/uL Normal 0.0-0.4 [facility] Work Phone: Comment on above: PATIENT WAS FASTINGP ERFORMED BY: CB [facility] Norjxo9105 [address] RoadDublin [place] [id number] Eosinophils Auto #/vol (Bld) 0.1 {x10E3/uL} Normal 0.0-0.4 [facility] Work Phone: Eosinophils/100 WBC (Bld) 1 % Normal [facility] Work Phone: Comment on above: PATIENT WAS FASTINGP ERFORMED BY: [place] [id number] [facility] [id number] Eosinophils/100 WBC Auto (Bld) 1 % Normal [facility] Work Phone: Erythrocyte distribution width Auto Ratio (RBC) 13.8 % Normal 12.3-15.4 [facility] Work Phone: Erythrocyte distribution width Ratio (RBC) 13.8 % Normal 12.3-15.4 [facility] Work Phone: Comment on above: PATIENT WAS FASTINGP ERFORMED BY: [place] [id number] [facility] [id number] Hematocrit Auto Volume Fraction (Bld) 43.8 % Normal 34.0-46.6 [facility] Work Phone: Hematocrit Volume Fraction (Bld) 43.8 % Normal 34.0-46.6 [facility] Work Phone: Comment on above: PATIENT WAS FASTINGP ERFORMED BY: KENYON [place] [id number] [facility] [id number] Hemoglobin mass conc (Bld) 14.7 g/dL Normal 11.1-15.9 [facility] Work Phone: Comment on above: PATIENT WAS FASTINGP ERFORMED BY: [place] [id number] [facility] [id number] Immature granulocytes #/vol (Bld) 0.0 {x10E3/uL} Normal 0.0-0.1 [facility] Work Phone: Comment on above: PATIENT WAS FASTINGP ERFORMED BY: [place] 7192070 [facility] [id number] Immature granulocytes (Bld) [#/Vol] 0.0 10*3/uL Normal 0.0-0.1 [facility] Work Phone: Comment on above: PATIENT WAS FASTINGP ERFORMED BY: KENYON Ellin6370 [facility] [id number] Immature granulocytes/100 WBC (Bld) 0 % Normal [facility] Work Phone: Comment on above: PATIENT WAS FASTINGP ERFORMED BY: KENYON MoralezSaint [facility] Jywrlz3536 [facility] [address] [id number] Lymphocytes #/vol (Bld) 2.6 {x10E3/uL} Normal 0.7-3.1 [facility] Work Phone: Comment on above: PATIENT WAS FASTINGP ERFORMED BY: KENYON Ellin6370 [facility] [id number] Lymphocytes (Bld) [#/Vol] 2.6 10*3/uL Normal 0.7-3.1 [facility] Work Phone: Comment on above: PATIENT WAS FASTINGP ERFORMED BY: KENYON Ellin6370 [facility] [id number] Lymphocytes Auto #/vol (Bld) 2.6 {x10E3/uL} Normal 0.7-3.1 [facility] Work Phone: Lymphocytes/100 WBC (Bld) 29 % Normal [facility] Work Phone: Comment on above: PATIENT WAS FASTINGP ERFORMED BY: KENYON [facility] Qbnxqr0193 [address] [id number] Lymphocytes/100 WBC Auto (Bld) 29 % Normal [facility] Work Phone: MCH Auto Entitic mass (RBC) 30.9 pg Normal 26.6-33.0 [facility] Work Phone: MCH Entitic mass (RBC) 30.9 pg Normal 26.6-33.0 [facility] Work Phone: Comment on above: PATIENT WAS FASTINGP ERFORMED BY: KENYON [address] [id number] MCHC Auto mass conc (RBC) 33.6 g/dL Normal 31.5-35.7 [facility] Work Phone: MCHC mass conc (RBC) 33.6 g/dL Normal 31.5-35.7 [facility] Internal Medicine Work Phone: Comment on above: PATIENT WAS FASTINGP ERFORMED BY: [place] [id number] [facility] [id number] MCV Auto Entitic volume (RBC) 92 fL Normal 79-97 [facility] Work Phone: MCV Entitic volume (RBC) 92 fL Normal 79-97 [facility] Work Phone: Comment on above: PATIENT WAS FASTINGP ERFORMED BY: [address] [id number] Monocytes #/vol (Bld) 0.5 {x10E3/uL} Normal 0.1-0.9 [facility] Work Phone: Comment on above: PATIENT WAS FASTINGP ERFORMED BY: [address] [id number] Monocytes (Bld) [#/Vol] 0.5 10*3/uL Normal 0.1-0.9 [facility] Work Phone: Comment on above: PATIENT WAS FASTINGP ERFORMED BY: [address] [id number] Monocytes Auto #/vol (Bld) 0.5 {x10E3/uL} Normal 0.1-0.9 [facility] Work Phone: Monocytes/100 WBC (Bld) 6 % Normal [facility] Work Phone: Comment on above: PATIENT WAS FASTINGP ERFORMED BY: [address] [id number] Monocytes/100 WBC Auto (Bld) 6 % Normal [facility] Work Phone: Neutrophils #/vol (Bld) 5.6 {x10E3/uL} Normal 1.4-7.0 [facility] Work Phone: Comment on above: PATIENT WAS FASTINGP ERFORMED BY: KENYON Fair6370 [address] [facility] [place] [id number] Neutrophils (Bld) [#/Vol] 5.6 10*3/uL Normal 1.4-7.0 [facility] Work Phone: Comment on above: PATIENT WAS FASTINGP ERFORMED BY: KENYON [facility] Nniner2373 [address] [facility]in [place] [id number] Neutrophils Auto #/vol (Bld) 5.6 {x10E3/uL} Normal 1.4-7.0 [facility] Work Phone: Neutrophils/100 WBC (Bld) 64 % Normal [facility] Work Phone: Comment on above: PATIENT WAS FASTINGP ERFORMED BY: KENYON Xavier Ellin6370 [address] [facility] [id number] Neutrophils/100 WBC Auto (Bld) 64 % Normal [facility] Work Phone: Platelets #/vol (Bld) 275 {x10E3/uL} Normal 150-379 [facility] Work Phone: Comment on above: PATIENT WAS FASTINGP ERFORMED BY: KENYON Xavier Ellin6[address] [facility] [id number] Platelets (Bld) [#/Vol] 275 10*3/uL Normal 150-379 [facility] Work Phone: Comment on above: PATIENT WAS FASTINGP ERFORMED BY: [facility] Sysifh9530 [address] [facility] [id number] Platelets Auto #/vol (Bld) 275 {x10E3/uL} Normal 150-379 [facility] Work Phone: RBC #/vol (Bld) 4.75 {x10E6/uL} Normal 3.77-5.28 [facility] Internal [facility] Work Phone: Comment on above: PATIENT WAS FASTINGP ERFORMED BY: [facility] Wwisor6507 [address] [facility] [id number] RBC (Bld) [#/Vol] 4.75 10*6/uL Normal 3.77-5.28 [facility] Internal Medicine Work Phone: Comment on above: PATIENT WAS FASTINGP ERFORMED BY: KENYON [facility] Qvgjjp9231 [address] Roadblin [place] [id number] RBC Auto #/vol (Bld) 4.75 {x10E6/uL} Normal 3.77-5.28 [facility] Work Phone: WBC #/vol (Bld) 8.7 {x10E3/uL} Normal 3.4-10.8 [facility] Internal Medicine Work Phone: Comment on above: PATIENT WAS FASTINGP ERFORMED BY: KENYON [facility] Lctolr4013 [facility] [place] [id number] WBC (Bld) [#/Vol] 8.7 10*3/uL Normal 3.4-10.8 [facility] Internal Medicine Work Phone: Comment on above: PATIENT WAS FASTINGP ERFORMED BY: KENYON LabSaint [facility] Ybcufd5342 [facility]in [place] [id number] WBC Auto #/vol (Bld) 8.7 {x10E3/uL} Normal 3.4-10.8 [facility] Work Phone: Lipid Panel ([id number])Ordered B y: 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 on 01-14-2018 Cholesterol in HDL mass conc 57 mg/dL Normal [facility] Work Phone: Comment on above: PATIENT WAS FASTINGP ERFORMED BY: KENYON [facility] Ubzlsr5628 [facility] Hospitalbl[facility] [place] [id number] Cholesterol in LDL mass conc 114 mg/dL Abnormal 0-99 [facility] Work Phone: Comment on above: PATIENT WAS FASTINGP ERFORMED BY: [facility] Fqwgvx1137 [address] [facility] [place] [id number] Cholesterol in LDL/Cholesterol in HDL mass ratio 2.0 {ratio} Normal 0.0-3.2 [facility] Work Phone: Comment on above: LDL/HDL Ratio Men Wo men 1/2 Avg.Risk 1.0 1.5 Avg.Risk 3.6 3.2 2X Avg.Risk 6.2 5.0 3X Avg.Risk 8.0 6.1 PATIENT WAS FASTINGP ERFORMED BY: KENYON [facility] Ljvhuq2510 [address] RoadDublin [place] [id number] Cholesterol in VLDL mass conc 27 mg/dL Normal 5-40 [facility] Work Phone: Comment on above: PATIENT WAS FASTINGP ERFORMED BY: [facility] Jgovkk2855 [address] [facility] [place] [id number] Cholesterol mass conc 198 mg/dL Normal 100-199 Com prehensive Internal Medicine Work Phone: Comment on above: PATIENT WAS FASTINGP ERFORMED BY: [facility] Ytnius1173 [address] [facility]in [place] [id number] Triglyceride mass conc 137 mg/dL Normal 0-149 [facility] Work Phone: Comment on above: PATIENT WAS FASTINGP ERFORMED BY: [facility] Wwolev3015 [address] [facility] [id number] Metabolic Panel, Comprehensi ve ([id number])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: 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 on 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 Albumin mass conc 4.5 g/dL Normal 3.6-4.8 Compreh ensive Internal Medicine Work Phone: Comment on above: PATIENT WAS FASTINGP ERFORMED BY: [facility] Axraoq2281 [address] [facility] [place] [id number] Albumin/Globulin mass ratio 2.0 {ratio} Normal 1.2-2.2 [facility] Work Phone: Comment on above: PATIENT WAS FASTINGP ERFORMED BY: [facility] Mwhnoa5933 [address] [facility] [place] [id number] ALP [Catalytic activity/Vol] 69 U/L Normal 39-117 [facility] Work Phone: Comment on above: PATIENT WAS FASTINGP ERFORMED BY: [facility] Vpukie3171 [address] RoadDublin [place] [id number] ALP enzyme act/vol 69 [iU]/L Normal 39-117 [facility] Internal Medicine Work Phone: Comment on above: PATIENT WAS FASTINGP ERFORMED BY: KENYON Ellin6370 [address] [place] [id number] ALT [Catalytic activity/Vol] 11 U/L Normal 0-32 [facility] Internal Medicine Work Phone: Comment on above: PATIENT WAS FASTINGP ERFORMED BY: KENYON Ellin6370 [address] [place] [id number] ALT enzyme act/vol 11 [iU]/L Normal 0-32 [facility] Internal Medicine Work Phone: Comment on above: PATIENT WAS FASTINGP ERFORMED BY: KENYON Ellin6370 [address] [place] [id number] AST [Catalytic activity/Vol] 17 U/L Normal 0-40 [facility] Internal Medicine Work Phone: Comment on above: PATIENT WAS FASTINGP ERFORMED BY: KENYON Fair6370 [address] [facility] [place] [id number] AST enzyme act/vol 17 [iU]/L Normal 0-40 [facility] Internal Medicine Work Phone: Comment on above: PATIENT WAS FASTINGP ERFORMED BY: KENYON Ellin6370 [address] [facility] [place] [id number] Bilirubin mass conc 0.4 mg/dL Normal 0.0-1.2 [facility] Internal Medicine Work Phone: Comment on above: PATIENT WAS FASTINGP ERFORMED BY: KENYON Ellin6370 [address] [facility] [place] [id number] Calcium mass conc 9.9 mg/dL Normal 8.7-10.3 [facility] [[email or web address] Internal Medicine Work Phone: Comment on above: PATIENT WAS FASTINGP ERFORMED BY: KENYON Ellin6370 [address] [facility] [place] [id number] Chloride molar conc 102 mmol/L Normal 96-106 [facility] Internal Medicine Work Phone: Comment on above: PATIENT WAS FASTINGP ERFORMED BY: KENYON Ellin[address] [facility] [id number] CO2 molar conc 23 mmol/L Normal 20-29 Comprehens nicole Internal Medicine Work Phone: Comment on above: PATIENT WAS FASTINGP ERFORMED BY: KENYON Xavier Fair[address]370 [facility] [id number] Creatinine mass conc 0.87 mg/dL Normal 0.57-1.00 Comp rehensive Internal Medicine Work Phone: Comment on above: PATIENT WAS FASTINGP ERFORMED BY: KENYON [facility] Twkhoy2324 [facility] [id number] GFR/1.73 sq M predicted among blacks CKD-EPI vol rate/area (S/P/Bld) 79 mL/min/1.73 Normal Comprehensiv e Internal Medicine Work Phone: Comment on above: PATIENT WAS FASTINGP ERFORMED BY: KENYON LabSaint [facility] Mafhhr2316 [facility] [address] [id number] GFR/1.73 sq M predicted among non-blacks CKD-EPI vol rate/area (S/P/Bld) 69 mL/min/1.73 Normal [facility] Work Phone: Comment on above: PATIENT WAS FASTINGP ERFORMED BY: KENYON Vangiebarrington Njfgmm5114 [facility] [id number] Globulin Calculated mass conc (S) 2.2 g/dL Normal 1.5-4.5 [facility] Work Phone: Globulin mass conc (S) 2.2 g/dL Normal 1.5-4.5 [facility] Work Phone: Comment on above: PATIENT WAS FASTINGP ERFORMED BY: KENYON [facility] Zscbam6620 [facility] [id number] Glucose mass conc 101 mg/dL Abnormal 65-99 Compreh ensive Internal Medicine Work Phone: Comment on above: PATIENT WAS FASTINGP ERFORMED BY: KENYON [facility] Agluah2871 [facility] [id number] Potassium molar conc 4.5 mmol/L Normal 3.5-5.2 Comp rehensive Internal Medicine Work Phone: Comment on above: PATIENT WAS FASTINGP ERFORMED BY: KENYON Fair6370 [facility] [id number] Protein mass conc 6.7 g/dL Normal 6.0-8.5 Compreh ensive Internal Medicine Work Phone: Comment on above: PATIENT WAS FASTINGP ERFORMED BY: KENYON Xavier Fair6370 [facility] [id number] Sodium molar conc 142 mmol/L Normal 134-144 Compreh ensive Internal Medicine Work Phone: Comment on above: PATIENT WAS FASTINGP ERFORMED BY: KENYON Xavier Fair6370 [facility] [id number] Urea nitrogen mass conc 13 mg/dL Normal 8- [facility] Work Phone: Comment on above: PATIENT WAS FASTINGP ERFORMED BY: KENYON Vangie Ddtaax2477 [facility] [id number] Urea nitrogen/Creatinine mass ratio 15 mg/mg Normal 12- [facility] Work Phone: Comment on above: PATIENT WAS FASTINGP ERFORMED BY: KENYON Vangie Mirpcx7598 [facility] [id number] TSH ([id number])Ordered By: Wysiwyge m Construction Analyst on 01-14-2018 Thyrotropin Qn 4.950 {uIU/mL} Abnormal 0.450-4.50 0 [facility] Work Phone: Comment on above: PATIENT WAS FASTINGP ERFORMED BY: KENYON NaomySaint [facility] Kpooke7908 [facility] [id number] T3, FREE (TRIDOTHYRONINE) ([id number])Ordered By: 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 on 11-24-2017 T3 free mass conc 2.4 pg/mL Normal 2.0-4.4 Compreh ensive Internal Medicine Work Phone: Comment on above: PATIENT NOT FASTINGP ERFORMED BY: KENYON LabSaint [facility] Fiubsh9897 [address] [facility] [id number] T4, FREE (THYROXINE) ([id number]) Ordered By: 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 on 11-24-2017 T4 free mass conc 1.21 ng/dL Normal 0.82-1.77 Compreh ensive Internal Medicine Work Phone: Comment on above: PATIENT NOT FASTINGP ERFORMED BY: GeckoboardHunterdon Medical CenterAcywwe6459 [facility] [place] [id number] TSH ([id number])Ordered By: Syste m Construction Analyst on 11-24-2017 Thyrotropin Qn 5.760 {uIU/mL} Abnormal 0.450-4.50 0 [facility] Work Phone: Comment on above: PATIENT NOT FASTINGP ERFORMED BY: [employer] Ytmqrp3509 [facility] [id number] Thyroid Peroxidase (TPO) AbO rdered By: 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 on 11-24-2017 Thyroperoxidase Ab Qn 6 {IU/mL} Normal 0-34 Com prehensive Internal Medicine Work Phone: Comment on above: PATIENT NOT FASTINGP ERFORMED BY: LabStraight Up English Szdwxd5143 [facility] [id number] Pap IG, rfx HPV all pthOrder ed By: 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 on 09-17-2017 Microscopic observation Other stain Nom (Unsp spec) . Normal Comprehens nicole Internal Medicine Work Phone: Comment on above: Source.............C ervix;EndocervixNo. of containers..01 ThinPrep VialPATIENT NOT FASTINGPERFORMED BY: [address] [id number] Information: [id number] Pathology report final diagnosis Narrative [facility] Normal [facility] Work Phone: Comment on above: NEGATIVE FOR INTRAEP ITHELIAL LESION AND MALIGNANCY.Satisfactory for evaluation. Endocervical and/or squamous metaplasticcells (endocervical component) are present.Z12.4Skourtney Gomez, Buyer Liaison (ASCP) Source.............C ervix;EndocervixNo. of containers..01 ThinPrep VialPATIENT NOT FASTINGPERFORMED BY: Primekss[address] [id number] Information: [id number] Pap IG, rfx HPV all pth PAPSMR Normal [facility] Work Phone: Comment on above: The Pap smear is a s creening test designed to aid in the detection ofpremalignant and malignant conditions of the uterine cervix. It is not adiagnostic procedure and should not be used as the sole means of detectingcervical cancer. Both false-positive and false-negative reports do occur. .This liquid based ThinPrep(R) pap test was screened with theuse of an image guided system.The HPV DNA reflex criteria were not met with this specimen resulttherefore, no HPV testing was performed. . Source.............C ervix;EndocervixNo. of containers..01 ThinPrep VialPATIENT NOT FASTINGPERFORMED BY: [employer] [id number] Information: [id number] CBC W/AUTO DIFF WBC ([id number])O rdered By: 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 on 09-02-2017 Basophils #/vol (Bld) 0.0 {x10E3/uL} Normal 0.0-0.2 [facility] Work Phone: Comment on above: PATIENT WAS FASTINGP ERFORMED BY: [employer]6370 SeatKarmaFormerly [facility] [id number] Basophils (Bld) [#/Vol] 0.0 10*3/uL Normal 0.0-0.2 [facility] Work Phone: Comment on above: PATIENT WAS FASTINGP ERFORMED BY: Grafighters70 InventablesAtrium Health [id number] Basophils Auto #/vol (Bld) 0.0 {x10E3/uL} Normal 0.0-0.2 [facility] Work Phone: Basophils/100 WBC (Bld) 0 % Normal [facility] Work Phone: Comment on above: PATIENT WAS FASTINGP ERFORMED BY: [facility]Core[facility] [id number] Basophils/100 WBC Auto (Bld) 0 % Normal [facility] Work Phone: Eosinophils #/vol (Bld) 0.0 {x10E3/uL} Normal 0.0-0.4 [facility] Work Phone: Comment on above: PATIENT WAS FASTINGP ERFORMED BY: LabCore[facility] Hospital[address] [id number] Eosinophils (Bld) [#/Vol] 0.0 10*3/uL Normal 0.0-0.4 [facility] Work Phone: Comment on above: PATIENT WAS FASTINGP ERFORMED BY: [facility] [id number] Eosinophils Auto #/vol (Bld) 0.0 {x10E3/uL} Normal 0.0-0.4 [facility] Work Phone: Eosinophils/100 WBC (Bld) 1 % Normal [facility] Work Phone: Comment on above: PATIENT WAS FASTINGP ERFORMED BY: LabKevin Ville [id number] [id number] Eosinophils/100 WBC Auto (Bld) 1 % Normal [facility] Work Phone: Erythrocyte distribution width Auto Ratio (RBC) 13.8 % Normal 12.3-15.4 [facility] Work Phone: Erythrocyte distribution width Ratio (RBC) 13.8 % Normal 12.3-15.4 [facility] Work Phone: Comment on above: PATIENT WAS FASTINGP ERFORMED BY: LabKevin [place] [id number] [id number] Hematocrit Auto Volume Fraction (Bld) 42.8 % Normal 34.0-46.6 Comprehens [facility] Internal Medicine Work Phone: Hematocrit Volume Fraction (Bld) 42.8 % Normal 34.0-46.6 [facility] Work Phone: Comment on above: PATIENT WAS FASTINGP ERFORMED BY: LabCore[facility] [facility] [id number] Hemoglobin mass conc (Bld) 14.0 g/dL Normal 11.1-15.9 [facility] Work Phone: Comment on above: PATIENT WAS FASTINGP ERFORMED BY: LabCore[facility] [facility] [id number] Immature granulocytes #/vol (Bld) 0.0 {x10E3/uL} Normal 0.0-0.1 [facility] Work Phone: Comment on above: PATIENT WAS FASTINGP ERFORMED BY: [facility] [facility] [id number] Immature granulocytes (Bld) [#/Vol] 0.0 10*3/uL Normal 0.0-0.1 [facility] Work Phone: Comment on above: PATIENT WAS FASTINGP ERFORMED BY: [facility] [facility] [id number] Immature granulocytes/100 WBC (Bld) 0 % Normal [facility] Work Phone: Comment on above: PATIENT WAS FASTINGP ERFORMED BY: [facility] [id number] Lymphocytes #/vol (Bld) 1.6 {x10E3/uL} Normal 0.7-3.1 [facility] Work Phone: Comment on above: PATIENT WAS FASTINGP ERFORMED BY: LabCore[facility] [facility] [id number] Lymphocytes (Bld) [#/Vol] 1.6 10*3/uL Normal 0.7-3.1 [facility] Work Phone: Comment on above: PATIENT WAS FASTINGP ERFORMED BY: LabCore[facility] [facility]in [place] [id number] Lymphocytes Auto #/vol (Bld) 1.6 {x10E3/uL} Normal 0.7-3.1 [facility] Work Phone: Lymphocytes/100 WBC (Bld) 25 % Normal [facility] Work Phone: Comment on above: PATIENT WAS FASTINGP ERFORMED BY: KENYON [place] [id number] [id number] Lymphocytes/100 WBC Auto (Bld) 25 % Normal [facility] Work Phone: MCH Auto Entitic mass (RBC) 30.1 pg Normal 26.6-33.0 [facility] Work Phone: MCH Entitic mass (RBC) 30.1 pg Normal 26.6-33.0 [facility] Work Phone: Comment on above: PATIENT WAS FASTINGP ERFORMED BY: KENYON [facility] Hdypm[address] [id number] MCHC Auto mass conc (RBC) 32.7 g/dL Normal 31.5-35.7 [facility] Work Phone: MCHC mass conc (RBC) 32.7 g/dL Normal 31.5-35.7 Comp [facility] Internal Medicine Work Phone: Comment on above: PATIENT WAS FASTINGP ERFORMED BY: KENYON [place] [id number] [id number] MCV Auto Entitic volume (RBC) 92 fL Normal 79-97 [facility] Work Phone: MCV Entitic volume (RBC) 92 fL Normal 79-97 [facility] Work Phone: Comment on above: PATIENT WAS FASTINGP ERFORMED BY: KENYON [place] [id number] [id number] Monocytes #/vol (Bld) 0.4 {x10E3/uL} Normal 0.1-0.9 [facility] Work Phone: Comment on above: PATIENT WAS FASTINGP ERFORMED BY: [place] [id number] [id number] Monocytes (Bld) [#/Vol] 0.4 10*3/uL Normal 0.1-0.9 [facility] Work Phone: Comment on above: PATIENT WAS FASTINGP ERFORMED BY: [place] [id number] [id number] Monocytes Auto #/vol (Bld) 0.4 {x10E3/uL} Normal 0.1-0.9 [facility] Work Phone: Monocytes/100 WBC (Bld) 6 % Normal [facility] Work Phone: Comment on above: PATIENT WAS FASTINGP ERFORMED BY: KENYON [place] [id number] [id number] Monocytes/100 WBC Auto (Bld) 6 % Normal [facility] Work Phone: Neutrophils #/vol (Bld) 4.5 {x10E3/uL} Normal 1.4-7.0 [facility] Work Phone: Comment on above: PATIENT WAS FASTINGP ERFORMED BY: [place] [id number] [id number] Neutrophils (Bld) [#/Vol] 4.5 10*3/uL Normal 1.4-7.0 [facility] Work Phone: Comment on above: PATIENT WAS FASTINGP ERFORMED BY: [place] [id number] [id number] Neutrophils Auto #/vol (Bld) 4.5 {x10E3/uL} Normal 1.4-7.0 [facility] Work Phone: Neutrophils/100 WBC (Bld) 68 % Normal [facility] Work Phone: Comment on above: PATIENT WAS FASTINGP ERFORMED BY: [place] [address] [id number] Neutrophils/100 WBC Auto (Bld) 68 % Normal [facility] Work Phone: Platelets #/vol (Bld) 249 {x10E3/uL} Normal 150-379 [facility] Work Phone: Comment on above: PATIENT WAS FASTINGP ERFORMED BY: KENYON [facility] Rdtjxk5671 [address] RoadDublin [place] [id number] Platelets (Bld) [#/Vol] 249 10*3/uL Normal 150-379 [facility] Work Phone: Comment on above: PATIENT WAS FASTINGP ERFORMED BY: KENYON [facility] Fwgltt4914 [address] RoadDublin [place] [id number] Platelets Auto #/vol (Bld) 249 {x10E3/uL} Normal 150-379 [facility] Work Phone: RBC #/vol (Bld) 4.65 {x10E6/uL} Normal 3.77-5.28 [facility] Internal Medicine Work Phone: Comment on above: PATIENT WAS FASTINGP ERFORMED BY: KENYON [facility] Uqikry8825 [address] RoadDublin [place] [id number] RBC (Bld) [#/Vol] 4.65 10*6/uL Normal 3.77-5.28 [facility] Internal Medicine Work Phone: Comment on above: PATIENT WAS FASTINGP ERFORMED BY: [facility] Drdbss0288 [address] RoadDublin [place] [id number] RBC Auto #/vol (Bld) 4.65 {x10E6/uL} Normal 3.77-5.28 [facility] Internal Medicine Work Phone: WBC #/vol (Bld) 6.6 {x10E3/uL} Normal 3.4-10.8 [facility] Internal Medicine Work Phone: Comment on above: PATIENT WAS FASTINGP ERFORMED BY: KENYON [facility] Jimpkc0564 [address] RoadDublin [place] [id number] WBC (Bld) [#/Vol] 6.6 10*3/uL Normal 3.4-10.8 [facility] Work Phone: Comment on above: PATIENT WAS FASTINGP ERFORMED BY: [facility] Rfravb4348 [address] RoadDublin [place] [id number] WBC Auto #/vol (Bld) 6.6 {x10E3/uL} Normal 3.4-10.8 [facility] Work Phone: HEPATITIS C ANTIBODY ([id number]) Ordered By: 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 on 09-02-2017 HCV Ab Signal/Cutoff IA [Rel units/Vol] {ratio} Normal 0.0-0.9 [facility] Work Phone: Comment on above: Negative: < 0.8 Inde terminate: 0.8 - 0.9 Positive: > 0.9 . The CDC recommends that a positive HCV antibody result be followed up with a HCV Nucleic Acid Amplification test (144058). PATIENT WAS FASTINGP ERFORMED BY: [employer]6370 InventablesAtrium Health [id number] HCV Ab Signal/Cutoff IA RelACnc {ratio} Normal 0.0-0.9 [facility] Work Phone: Comment on above: Negative: < 0.8 Inde terminate: 0.8 - 0.9 Positive: > 0.9 . The CDC recommends that a positive HCV antibody result be followed up with a HCV Nucleic Acid Amplification test (360437). PATIENT WAS FASTINGP ERFORMED BY: [facility] Vnwftw0792 InventablesAtrium Health [id number] METABOLIC PANEL, COMPREHENSI VE (94118)Ordered By: 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 on 09-02-2017 Albumin mass conc 4.5 g/dL Normal 3.6-4.8 Compreh [facility]ss[facility] Internal Medicine Work Phone: Comment on above: PATIENT WAS FASTINGP ERFORMED BY: Epicsell LabStraight Up Englishrp Cawkyg[address] AmbrxFormerly [facility] [id number]; can review at 6/20 Albumin/Globulin mass ratio 2.3 {ratio} Abnormal 1.2-2.2 [facility] Work Phone: Comment on above: PATIENT WAS FASTINGP ERFORMED BY: Unified Colorrp Mxjxcy4025 GaviriaSSM Health [facility] [id number]; can review at 6/20 ALP [Catalytic activity/Vol] 64 U/L Normal 39-117 [facility] Work Phone: Comment on above: PATIENT WAS FASTINGP ERFORMED BY: CB [facility] Thxhgg6085 [address] RoadDublin [place] [id number]; can review at 6/20 ALP enzyme act/vol 64 [iU]/L Normal 39-117 [facility] Internal Medicine Work Phone: Comment on above: PATIENT WAS FASTINGP ERFORMED BY: KENYON [facility] Lkmgya0315 [address] RoadDublin [place] [id number]; can review at 6/20 ALT [Catalytic activity/Vol] 11 U/L Normal 0-32 [facility] Internal Medicine Work Phone: Comment on above: PATIENT WAS FASTINGP ERFORMED BY: KENYON [facility] Hwdlhn1277 [address] RoadDublin [place] [id number]; can review at 6/20 ALT enzyme act/vol 11 [iU]/L Normal 0-32 [facility] Internal Medicine Work Phone: Comment on above: PATIENT WAS FASTINGP ERFORMED BY: KENYON [facility] Nbkcnt5927 [address] RoadDublin [place] [id number]; can review at 6/20 AST [Catalytic activity/Vol] 15 U/L Normal 0-40 [facility] Internal Medicine Work Phone: Comment on above: PATIENT WAS FASTINGP ERFORMED BY: KENYON [facility] Aqagjg6806 [address] RoadDublin [place] [id number]; can review at 6/20 AST enzyme act/vol 15 [iU]/L Normal 0-40 [facility] Internal Medicine Work Phone: Comment on above: PATIENT WAS FASTINGP ERFORMED BY: KENYON [facility] Ugzwno7634 [address] RoadDublin [place] [id number]; can review at 6/20 Bilirubin [Mass/Vol] mg/dL Normal 0.0-1.2 [facility] Internal Medicine Work Phone: Comment on above: PATIENT WAS FASTINGP ERFORMED BY: KENYON [facility] Weorwp1560 [address] RoadDublin [place] [id number]; can review at 6/20 Bilirubin mass conc mg/dL Normal 0.0-1.2 [facility] Internal Medicine Work Phone: Comment on above: PATIENT WAS FASTINGP ERFORMED BY: KENYON [facility] Ybctfb0448 [address] RoadDublin [place] [id number]; can review at 6/20 Calcium mass conc 9.4 mg/dL Normal 8.7-10.3 Compreh ensive Internal Medicine Work Phone: Comment on above: PATIENT WAS FASTINGP ERFORMED BY: CB [facility] Oojvwu9147 [address] RoadDublin [place] [id number]; can review at 6/20 Chloride molar conc 102 mmol/L Normal 96-106 Compr ehensive Internal Medicine Work Phone: Comment on above: PATIENT WAS FASTINGP ERFORMED BY: KENYON [facility] Ifuufk5595 [address] RoadDublin [place] [id number]; can review at 6/20 CO2 molar conc 22 mmol/L Normal 18-29 Comprehens nicole Internal Medicine Work Phone: Comment on above: Effective September 08, 2017 Carbon Dioxide, Total reference interval will be changing to: Age Male Female 0 days - 30 days 16 - 29 16 - 29 31 days - 1 year 15 - 25 15 - 25 2 years - 5 years 17 - 26 17 - 26 6 years - 12 years 19 - 27 19 - 27 >12 years 20 - 29 20 - 29 PATIENT WAS FASTINGP ERFORMED BY: KENYON [facility] Ekvbte8280 [address] RoadDublin [place] [id number]; can review at 6/20 Creatinine mass conc 0.76 mg/dL Normal 0.57-1.00 Comp rehensive Internal Medicine Work Phone: Comment on above: PATIENT WAS FASTINGP ERFORMED BY: CB [facility] Uypeml1944 [address] RoadDublin [place] [id number]; can review at 6/20 GFR/1.73 sq M predicted among blacks CKD-EPI vol rate/area (S/P/Bld) 93 mL/min/1.73 Normal Comprehensiv e Internal Medicine Work Phone: Comment on above: PATIENT WAS FASTINGP ERFORMED BY: KENYON [facility] Crltfn7434 [address] RoadDublin [place] [id number]; can review at 6/20 GFR/1.73 sq M predicted among non-blacks CKD-EPI vol rate/area (S/P/Bld) 81 mL/min/1.73 Normal [facility] Work Phone: Comment on above: PATIENT WAS FASTINGP ERFORMED BY: KENYON [facility] Xztpmy5291 [address] RoadDublin [place] [id number]; can review at 6/20 Globulin Calculated mass conc (S) 2.0 g/dL Normal 1.5-4.5 [facility] Work Phone: Globulin mass conc (S) 2.0 g/dL Normal 1.5-4.5 [facility] Work Phone: Comment on above: PATIENT WAS FASTINGP ERFORMED BY: KENYON [facility] Dcsoga5110 [address] RoadNorthern Regional Hospitalin [place] [id number]; can review at 6/20 Glucose mass conc 92 mg/dL Normal 65-99 Compreh ensive Internal Medicine Work Phone: Comment on above: PATIENT WAS FASTINGP ERFORMED BY: KENYON [facility] Xniliy[address] [facility]in [place] [id number]; can review at 6/20 Potassium molar conc 4.6 mmol/L Normal 3.5-5.2 Comp rehensive Internal Medicine Work Phone: Comment on above: PATIENT WAS FASTINGP ERFORMED BY: KENYON [facility] Nahwdg[address] [facility]in [place] [id number]; can review at 6/20 Protein mass conc 6.5 g/dL Normal 6.0-8.5 Compreh ensive Internal Medicine Work Phone: Comment on above: PATIENT WAS FASTINGP ERFORMED BY: CB [facility] Npcpke2816 [address] RoadNorthern Regional Hospitalin [place] [id number]; can review at 6/20 Sodium molar conc 143 mmol/L Normal 134-144 Compreh ensive Internal Medicine Work Phone: Comment on above: PATIENT WAS FASTINGP ERFORMED BY: CB [facility] Klyhdm5574 [address] RoadNorthern Regional Hospitalin [place] [id number]; can review at 6/20 Urea nitrogen mass conc 18 mg/dL Normal 8-27 [facility] Work Phone: Comment on above: PATIENT WAS FASTINGP ERFORMED BY: KENYON LabCobarrington ElVddmxl8166 [address] RoadDublin [place] [id number]; can review at 09/17 Urea nitrogen/Creatinine mass ratio 24 mg/mg Normal 12- [facility] Work Phone: Comment on above: PATIENT WAS FASTINGP ERFORMED BY: KENYON [facility] Cdglfv6563 [address] RoadDublin [place] [id number]; can review at 09/17 MICROALBUMINOrdered By: Syst em Construction Analyst on 09-02-2017 Albumin DL <= 20 mg/L mass conc (U) 3.9 ug/mL Normal [facility] Work Phone: Comment on above: PATIENT WAS FASTINGP ERFORMED BY: KENYON LabGermaine ElLakydj3601 [address] RoadDublin [place] [id number] Albumin/Creatinine mass ratio (U) 3.0 {mg/g_creat} Normal 0.0-30.0 [facility] Work Phone: Comment on above: PATIENT WAS FASTINGP ERFORMED BY: KENYON LabCobarrington Xdumwz5509 [address] RoadDublin [place] [id number] Creatinine mass conc (U) 130.4 mg/dL Normal [facility] Work Phone: Comment on above: PATIENT WAS FASTINGP ERFORMED BY: KENYON Ellin6370 [address] RoadDublin [place] [id number] Microscopic ExaminationOrder ed By: 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 on 09-02-2017 Bacteria LM.HPF #/area (Urine sed) Few Normal [facility] Work Phone: Comment on above: PATIENT WAS FASTINGP ERFORMED BY: KENYON [facility] Byxkkm4521 [address] RoadDublin [place] [id number] Casts LM Nom (Urine sed) Hyaline casts Normal [facility] Work Phone: Comment on above: PATIENT WAS FASTINGP ERFORMED BY: KENYON [facility] Tdvuoz4943 [address] RoadDublin [place] [id number] Casts LM Ql (Urine sed) Present Abnormal [facility] Work Phone: Comment on above: PATIENT WAS FASTINGP ERFORMED BY: KENYON [facility] Ctqoes6590 [address] RoadDublin [place] [id number] Epithelial cells LM.HPF #/area (Urine sed) 0-10 Normal 0 - 10 [facility] Work Phone: Comment on above: PATIENT WAS FASTINGP ERFORMED BY: CB [facility] Dvhidu7597 [address] RoadDublin [place] [id number] Mucus LM Ql (Urine sed) Present Normal [facility] Work Phone: Mucus Ql (Urine sed) Present Normal Comp rehensive Internal Medicine Work Phone: Comment on above: PATIENT WAS FASTINGP ERFORMED BY: KENYON [facility] Xffars5297 [address] RoadDublin [place] [id number] RBC LM.HPF #/area (Urine sed) 0-2 Normal 0 - 2 [facility] Work Phone: Comment on above: PATIENT WAS FASTINGP ERFORMED BY: [facility] Tbutjz7979 [address] RoadDublin [place] [id number] WBC LM.HPF #/area (Urine sed) 0-5 Normal 0 - 5 [facility] Work Phone: Comment on above: PATIENT WAS FASTINGP ERFORMED BY: [facility] Qtapml5084 [address] RoadDublin [place] [id number] URINALYSIS, W/ MICRO ([id number]) Ordered By: 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 on 09-02-2017 Appearance Nom (U) Clear Normal Compre hensive Internal Medicine Work Phone: Comment on above: PATIENT WAS FASTINGP ERFORMED BY: CB [facility] Hoekbo2350 [address] RoadDublin [place] [id number] Bilirubin Ql (U) Negative Normal Comprehe nsive Internal Medicine Work Phone: Comment on above: PATIENT WAS FASTINGP ERFORMED BY: CB [facility] Neqnvu7243 [address] RoadDublin [place] [id number] Bilirubin Ql (U) Negative Normal Comprehe nsive Internal Medicine Work Phone: Comment on above: PATIENT WAS FASTINGP ERFORMED BY: KENYON Fair6370 [address] RoadDublin [place] [id number] Color Nom (U) Yellow Normal Comprehensi ve Internal Medicine Work Phone: Comment on above: PATIENT WAS FASTINGP ERFORMED BY: KENYON Fair6370 [address] RoadDublin [place] [id number] Glucose Ql (U) Negative Normal Comprehens nicole Internal Medicine Work Phone: Comment on above: PATIENT WAS FASTINGP ERFORMED BY: KENYON Ellin6[address]Dublin [place] [id number] Glucose Ql (U) Negative Normal Comprehens nicole Internal Medicine Work Phone: Comment on above: PATIENT WAS FASTINGP ERFORMED BY: KENYON Fair6370 [address]Dublin [place] [id number] Hemoglobin Ql (U) Negative Normal Compreh ensive Internal Medicine Work Phone: Comment on above: PATIENT WAS FASTINGP ERFORMED BY: KENYON Ellin6[address]Dublin [place] [id number] Hemoglobin Ql (U) Negative Normal Compreh ensive Internal Medicine Work Phone: Comment on above: PATIENT WAS FASTINGP ERFORMED BY: KENYON Fair6370 [address]Dublin [place] [id number] Hemoglobin Test strip Ql (U) Negative Normal [facility] Work Phone: Ketones Ql (U) Negative Normal Comprehens nicole Internal Medicine Work Phone: Comment on above: PATIENT WAS FASTINGP ERFORMED BY: KENYON Ellin6[address]Dublin [place] [id number] Ketones Ql (U) Negative Normal Comprehens nicole Internal Medicine Work Phone: Comment on above: PATIENT WAS FASTINGP ERFORMED BY: KENYON Ellin6[address]Dublin [place] [id number] Leukocyte esterase Test strip Ql (U) Negative Normal [facility] Work Phone: Comment on above: PATIENT WAS FASTINGP ERFORMED BY: KENYON Simms Wkhyox9950 [address] RoadDublin [place] [id number] Leukocyte esterase Test strip Ql (U) Negative Normal [facility] Work Phone: Comment on above: PATIENT WAS FASTINGP ERFORMED BY: KENYON NaomyLsysa Ldjrrd8392 [address] RoadDublin [place] [id number] Microscopic observation LM Nom (Urine sed) MICRON Normal [facility] Work Phone: Comment on above: Microscopic follows if indicated. PATIENT WAS FASTINGP ERFORMED BY: KENYON LabSaint [facility] Frxksm2890 [address] RoadDublin [place] [id number] Microscopic observation LM Nom (Urine sed) See below: Normal [facility] Work Phone: Comment on above: Microscopic was kevan cated and was performed. PATIENT WAS FASTINGP ERFORMED BY: KENYON Ellin6[address]Dublin [place] [id number] Nitrite Ql (U) Negative Normal Comprehens nicole Internal Medicine Work Phone: Comment on above: PATIENT WAS FASTINGP ERFORMED BY: KENYON Ellin6[address]Dublin [place] [id number] Nitrite Ql (U) Negative Normal Comprehens nicole Internal Medicine Work Phone: Comment on above: PATIENT WAS FASTINGP ERFORMED BY: KENYON Ellin6[address]Dublin [place] [id number] Nitrite Test strip Ql (U) Negative Normal [facility] Work Phone: pH (U) 6.0 [pH] Normal 5.0-7.5 [facility] Work Phone: Comment on above: PATIENT WAS FASTINGP ERFORMED BY: KENYON LabSaint [facility] Oqgmvl3304 [address] RoadDublin [place] [id number] pH Test strip (U) 6.0 [pH] Normal 5.0-7.5 Compreh ensive Internal Medicine Work Phone: Protein Ql (U) Negative Normal Comprehens nicole Internal Medicine Work Phone: Comment on above: PATIENT WAS FASTINGP ERFORMED BY: KENYON MoralezSaint Luke'S East Hospital Heddru[address] [facility] Hospitalblin [place] [id number] Protein Ql (U) Negative Normal Comprehens nicole Internal Medicine Work Phone: Comment on above: PATIENT WAS FASTINGP ERFORMED BY: LabCo Ontaiq4010 [address]blin [place] [id number] Protein Test strip Ql (U) Negative Normal [facility] Work Phone: Specific gravity Relative Density (U) 1.023 1 Normal 1.005-1.03 0 [facility] Work Phone: Comment on above: PATIENT WAS FASTINGP ERFORMED BY: LabCo Ztkond9591 [address] Roadblin [place] [id number] Urobilinogen (U) [Mass/Vol] 0.2 mg/dL Normal 0.2-1.0 [facility] Work Phone: Comment on above: PATIENT WAS FASTINGP ERFORMED BY: LabSaint [facility] Eklqjk[address] [facility] [id number] Urobilinogen Test strip mass conc (U) 0.2 mg/dL Normal 0.2-1.0 Comprehensiv e Internal Medicine Work Phone: Comment on above: PATIENT WAS FASTINGP ERFORMED BY: LabStraight Up English Fefoxr0144 [facility]in [place] [id number] HgA1C , Office ([id number])Ordere d By: Carmita Andrews on 08-27-2017 Hemoglobin A1c/Hemoglobin.total mass fraction (Bld) 5.4 % Normal 4.6 - 7.1 Comprehensiv e Internal Medicine Work Phone: CBC W/AUTO DIFF WBC (90094)O rdered By: 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 on 03-21-2017 Basophils #/vol (Bld) 0.0 {x10E3/uL} Normal 0.0-0.2 [facility] Work Phone: Comment on above: PATIENT NOT FASTINGP ERFORMED BY: [facility] Qqhjlq0817 [address] RoadDublin [place] [id number] Basophils (Bld) [#/Vol] 0.0 10*3/uL Normal 0.0-0.2 [facility] Work Phone: Comment on above: PATIENT NOT FASTINGP ERFORMED BY: LabKevin V[place] [id number] [facility] [id number] Basophils Auto #/vol (Bld) 0.0 {x10E3/uL} Normal 0.0-0.2 [facility] Work Phone: Basophils/100 WBC (Bld) 0 % Normal [facility] Work Phone: Comment on above: PATIENT NOT FASTINGP ERFORMED BY: [place] [id number] [facility] [id number] Basophils/100 WBC Auto (Bld) 0 % Normal [facility] Work Phone: Eosinophils #/vol (Bld) 0.1 {x10E3/uL} Normal 0.0-0.4 [facility] Work Phone: Comment on above: PATIENT NOT FASTINGP ERFORMED BY: [place] [id number] [facility] [id number] Eosinophils (Bld) [#/Vol] 0.1 10*3/uL Normal 0.0-0.4 [facility] Work Phone: Comment on above: PATIENT NOT FASTINGP ERFORMED BY: [place] [id number] [facility] [id number] Eosinophils Auto #/vol (Bld) 0.1 {x10E3/uL} Normal 0.0-0.4 [facility] Work Phone: Eosinophils/100 WBC (Bld) 1 % Normal [facility] Work Phone: Comment on above: PATIENT NOT FASTINGP ERFORMED BY: LabKevin Ville [id number] [facility] [id number] Eosinophils/100 WBC Auto (Bld) 1 % Normal [facility] Work Phone: Erythrocyte distribution width Auto Ratio (RBC) 14.6 % Normal 12.3-15.4 [facility] Work Phone: Erythrocyte distribution width Ratio (RBC) 14.6 % Normal 12.3-15.4 [facility] Work Phone: Comment on above: PATIENT NOT FASTINGP ERFORMED BY: KENYON Fair6370 [address] [facility] [id number] Hematocrit Auto Volume Fraction (Bld) 44.4 % Normal 34.0-46.6 [facility] Work Phone: Hematocrit Volume Fraction (Bld) 44.4 % Normal 34.0-46.6 [facility] Work Phone: Comment on above: PATIENT NOT FASTINGP ERFORMED BY: KENYON [facility] Vuvfms8576 [address] [facility] [id number] Hemoglobin mass conc (Bld) 14.8 g/dL Normal 11.1-15.9 [facility] Work Phone: Comment on above: PATIENT NOT FASTINGP ERFORMED BY: KENYON Xavier Ellin6370 [address] [facility] [id number] Immature granulocytes #/vol (Bld) 0.0 {x10E3/uL} Normal 0.0-0.1 [facility] Work Phone: Comment on above: PATIENT NOT FASTINGP ERFORMED BY: KENYON [facility] Qoukae0119 [address] [facility] [id number] Immature granulocytes (Bld) [#/Vol] 0.0 10*3/uL Normal 0.0-0.1 [facility] Work Phone: Comment on above: PATIENT NOT FASTINGP ERFORMED BY: KENYON [facility]Co Ixeypw3550 [address] [facility] [id number] Immature granulocytes/100 WBC (Bld) 0 % Normal [facility] Work Phone: Comment on above: PATIENT NOT FASTINGP ERFORMED BY: KENYON [facility] Yykmjn2175 [address] [facility] [id number] Lymphocytes #/vol (Bld) 1.5 {x10E3/uL} Normal 0.7-3.1 [facility] Work Phone: Comment on above: PATIENT NOT FASTINGP ERFORMED BY: KENYON LabCobarrington Jfdups8247 [facility] [id number] Lymphocytes (Bld) [#/Vol] 1.5 10*3/uL Normal 0.7-3.1 [facility] Work Phone: Comment on above: PATIENT NOT FASTINGP ERFORMED BY: LabLyssa Sjdozg2233 [facility] [id number] Lymphocytes Auto #/vol (Bld) 1.5 {x10E3/uL} Normal 0.7-3.1 [facility] Work Phone: Lymphocytes/100 WBC (Bld) 14 % Normal [facility] Work Phone: Comment on above: PATIENT NOT FASTINGP ERFORMED BY: KENYON Vangie Xcsprr2726 [facility] [id number] Lymphocytes/100 WBC Auto (Bld) 14 % Normal [facility] Work Phone: MCH Auto Entitic mass (RBC) 30.4 pg Normal 26.6-33.0 [facility] Work Phone: MCH Entitic mass (RBC) 30.4 pg Normal 26.6-33.0 [facility] Work Phone: Comment on above: PATIENT NOT FASTINGP ERFORMED BY: KENYON Vangie Aifbzf5066 [facility] [id number] MCHC Auto mass conc (RBC) 33.3 g/dL Normal 31.5-35.7 [facility] Work Phone: MCHC mass conc (RBC) 33.3 g/dL Normal 31.5-35.7 Comp [facility] Internal Medicine Work Phone: Comment on above: PATIENT NOT FASTINGP ERFORMED BY: KENYON LabLyssa Xvflqb7935 [facility] [id number] MCV Auto Entitic volume (RBC) 91 fL Normal 79-97 [facility] Work Phone: MCV Entitic volume (RBC) 91 fL Normal 79-97 [facility] Work Phone: Comment on above: PATIENT NOT FASTINGP ERFORMED BY: KENYON LabCoHunterdon Medical CenterGssgpt9720 [address] [facility] [id number] Monocytes #/vol (Bld) 0.6 {x10E3/uL} Normal 0.1-0.9 [facility] Work Phone: Comment on above: PATIENT NOT FASTINGP ERFORMED BY: LabCorewell Health Pennock Hospital6370 [address] [facility] [id number] Monocytes (Bld) [#/Vol] 0.6 10*3/uL Normal 0.1-0.9 [facility] Work Phone: Comment on above: PATIENT NOT FASTINGP ERFORMED BY: NaomyKevin Ville [id number] [facility] [id number] Monocytes Auto #/vol (Bld) 0.6 {x10E3/uL} Normal 0.1-0.9 [facility] Work Phone: Monocytes/100 WBC (Bld) 5 % Normal [facility] Work Phone: Comment on above: PATIENT NOT FASTINGP ERFORMED BY: [place] [id number] [facility] [id number] Monocytes/100 WBC Auto (Bld) 5 % Normal [facility] Work Phone: Neutrophils #/vol (Bld) 8.9 {x10E3/uL} Abnormal 1.4-7.0 [facility] Work Phone: Comment on above: PATIENT NOT FASTINGP ERFORMED BY: LabKevin V[place] [id number] [facility] [id number] Neutrophils (Bld) [#/Vol] 8.9 10*3/uL Abnormal 1.4-7.0 [facility] Work Phone: Comment on above: PATIENT NOT FASTINGP ERFORMED BY: LabCoHunterdon Medical CenterIgvipx2732 [address] [facility] [id number] Neutrophils Auto #/vol (Bld) 8.9 {x10E3/uL} Abnormal 1.4-7.0 [facility] Work Phone: Neutrophils/100 WBC (Bld) 80 % Normal [facility] Work Phone: Comment on above: PATIENT NOT FASTINGP ERFORMED BY: CB [facility] Iheaxv1212 [address] RoadDublin [place] [id number] Neutrophils/100 WBC Auto (Bld) 80 % Normal [facility] Work Phone: Platelets #/vol (Bld) 256 {x10E3/uL} Normal 150-379 [facility] Work Phone: Comment on above: PATIENT NOT FASTINGP ERFORMED BY: CB [facility] Susajn4621 [address] RoadDublin [place] [id number] Platelets (Bld) [#/Vol] 256 10*3/uL Normal 150-379 [facility] Work Phone: Comment on above: PATIENT NOT FASTINGP ERFORMED BY: CB [facility] Nuzcco6724 [address] RoadDublin [place] [id number] Platelets Auto #/vol (Bld) 256 {x10E3/uL} Normal 150-379 [facility] Work Phone: RBC #/vol (Bld) 4.87 {x10E6/uL} Normal 3.77-5.28 Comp rehensive Internal Medicine Work Phone: Comment on above: PATIENT NOT FASTINGP ERFORMED BY: CB [facility] Tmegty9075 [address] [facility]in [place] [id number] RBC (Bld) [#/Vol] 4.87 10*6/uL Normal 3.77-5.28 Compr ehensive Internal Medicine Work Phone: Comment on above: PATIENT NOT FASTINGP ERFORMED BY: CB [facility] Dkfipe0959 [address] RoadDublin [place] [id number] RBC Auto #/vol (Bld) 4.87 {x10E6/uL} Normal 3.77-5.28 [facility] Work Phone: WBC #/vol (Bld) 11.0 {x10E3/uL} Abnormal 3.4-10.8 Comp rehensive Internal Medicine Work Phone: Comment on above: PATIENT NOT FASTINGP ERFORMED BY: KENYON Fair6370 [address]blin [place] [id number] WBC (Bld) [#/Vol] 11.0 10*3/uL Abnormal 3.4-10.8 Compr [facility] Internal Medicine Work Phone: Comment on above: PATIENT NOT FASTINGP ERFORMED BY: KENYON Fair6370 [address] [facility] [place] [id number] WBC Auto #/vol (Bld) 11.0 {x10E3/uL} Abnormal 3.4-10.8 [facility] Work Phone: METABOLIC PANEL, JINI ESVIN ([id number])Ordered By: 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 on 03-21-2017 Albumin mass conc 4.5 g/dL Normal 3.6-4.8 Compreh [facility] Internal Medicine Work Phone: Comment on above: PATIENT NOT FASTINGP ERFORMED BY: KENYON Fair6370 [address] [facility] [id number] Albumin/Globulin mass ratio 2.0 {ratio} Normal 1.2-2.2 [facility] Work Phone: Comment on above: PATIENT NOT FASTINGP ERFORMED BY: KENYON Fair6370 [address] [facility] [id number] ALP [Catalytic activity/Vol] 69 U/L Normal 39-117 [facility] Work Phone: Comment on above: PATIENT NOT FASTINGP ERFORMED BY: KENYON LabGermaine ElJzcnyv6549 [address] [facility] [id number] ALP enzyme act/vol 69 [iU]/L Normal 39-117 Compre [facility] Internal Medicine Work Phone: Comment on above: PATIENT NOT FASTINGP ERFORMED BY: KENYON LabGermaine ElQhhptm8408 [address] [facility] [place] [id number] ALT [Catalytic activity/Vol] 11 U/L Normal 0-32 [facility] Work Phone: Comment on above: PATIENT NOT FASTINGP ERFORMED BY: KENYON LabGermaine ElStxaul6034 [address] [facility] [id number] ALT enzyme act/vol 11 [iU]/L Normal 0-32 Compre [facility] Internal Medicine Work Phone: Comment on above: PATIENT NOT FASTINGP ERFORMED BY: CB [facility] Fzdvbf9078 [address] RoadDublin [place] [id number] AST [Catalytic activity/Vol] 12 U/L Normal 0-40 [facility] Work Phone: Comment on above: PATIENT NOT FASTINGP ERFORMED BY: CB [facility] Pwchaw1598 [address] RoadDublin [place] [id number] AST enzyme act/vol 12 [iU]/L Normal 0-40 Compre [facility] Internal Medicine Work Phone: Comment on above: PATIENT NOT FASTINGP ERFORMED BY: CB [facility] Voqfxb8285 [address] RoadDublin [place] [id number] Bilirubin [Mass/Vol] mg/dL Normal 0.0-1.2 Comp [facility] Internal Medicine Work Phone: Comment on above: PATIENT NOT FASTINGP ERFORMED BY: CB [facility] Krxhqs6506 [address] RoadDublin [place] [id number] Bilirubin mass conc mg/dL Normal 0.0-1.2 Compr ensive Internal Medicine Work Phone: Comment on above: PATIENT NOT FASTINGP ERFORMED BY: KENYON [facility] Xedgct7118 [address] RoadDublin [place] [id number] Calcium mass conc 9.9 mg/dL Normal 8.7-10.3 Compreh ensive Internal Medicine Work Phone: Comment on above: PATIENT NOT FASTINGP ERFORMED BY: CB [facility] Zxztbs9946 [address] RoadDublin [place] [id number] Chloride molar conc 103 mmol/L Normal 96-106 Compr ehensive Internal Medicine Work Phone: Comment on above: PATIENT NOT FASTINGP ERFORMED BY: CB [facility] Ypeiot6244 [address] RoadDublin [place] [id number] CO2 molar conc 19 mmol/L Normal 18-29 Comprehens nicole Internal Medicine Work Phone: Comment on above: PATIENT NOT FASTINGP ERFORMED BY: KENYON [facility] Ihrelm9589 [address]Dublin [place] [id number] Creatinine mass conc 0.76 mg/dL Normal 0.57-1.00 Comp rehensive Internal Medicine Work Phone: Comment on above: PATIENT NOT FASTINGP ERFORMED BY: KENYON [facility] Afdoqq2133 [address] RoadDublin [place] [id number] GFR/1.73 sq M predicted among blacks CKD-EPI vol rate/area (S/P/Bld) 94 mL/min/1.73 Normal Comprehensiv e Internal Medicine Work Phone: Comment on above: PATIENT NOT FASTINGP ERFORMED BY: KENYON LabCo Zpfbls3992 [address] [facility]Northern [facility] Hospitalin [place] [id number] GFR/1.73 sq M predicted among non-blacks CKD-EPI vol rate/area (S/P/Bld) 81 mL/min/1.73 Normal [facility] Work Phone: Comment on above: PATIENT NOT FASTINGP ERFORMED BY: KENYON [facility] Vhltyq2374 [address] RoadNorthern Regional Hospitalin [place] [id number] Globulin Calculated mass conc (S) 2.3 g/dL Normal 1.5-4.5 [facility] Work Phone: Globulin mass conc (S) 2.3 g/dL Normal 1.5-4.5 [facility] Work Phone: Comment on above: PATIENT NOT FASTINGP ERFORMED BY: KENYNO [facility] Mlpjjq7253 [address] [facility] [place] [id number] Glucose mass conc 97 mg/dL Normal 65-99 Compreh ensive Internal Medicine Work Phone: Comment on above: PATIENT NOT FASTINGP ERFORMED BY: KENYON [facility] Xsjjsr3747 [address] [facility] [place] [id number] Potassium molar conc 4.0 mmol/L Normal 3.5-5.2 Comp rehensive Internal Medicine Work Phone: Comment on above: PATIENT NOT FASTINGP ERFORMED BY: KENYON [facility] Dwbtmz2243 [address] [facility]in [place] [id number] Protein mass conc 6.8 g/dL Normal 6.0-8.5 Compreh ensive Internal Medicine Work Phone: Comment on above: PATIENT NOT FASTINGP ERFORMED BY: KENYON [facility] Navgru4546 [facility] [id number] Sodium molar conc 141 mmol/L Normal 134-144 Compreh ensive Internal Medicine Work Phone: Comment on above: PATIENT NOT FASTINGP ERFORMED BY: LabCoClaire Ville [id number] [facility] [id number] Urea nitrogen mass conc 13 mg/dL Normal 8- [facility] Work Phone: Comment on above: PATIENT NOT FASTINGP ERFORMED BY: [place] [id number] [facility] [id number] Urea nitrogen/Creatinine mass ratio 17 mg/mg Normal 12- [facility] Work Phone: Comment on above: PATIENT NOT FASTINGP ERFORMED BY: KENYON LabKevin Ville [id number] [facility] [id number] Microscopic ExaminationOrder ed By: 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 on 03-21-2017 Bacteria LM.HPF #/area (Urine sed) Few Normal [facility] Work Phone: Comment on above: PATIENT NOT FASTINGP ERFORMED BY: LabCoHunterdon Medical CenterWphrhr3060 [facility] [id number] Crystals LM Nom (Urine sed) Amorphous Sediment Normal [facility] Work Phone: Comment on above: PATIENT NOT FASTINGP ERFORMED BY: LabCoHunterdon Medical CenterJthvqa2014 [facility] [id number] Epithelial cells LM.HPF #/area (Urine sed) 0-10 Normal 0 - 10 [facility] Work Phone: Comment on above: PATIENT NOT FASTINGP ERFORMED BY: KENYON LabCoClaire Ville [id number] [facility] [id number] Mucus LM Ql (Urine sed) Present Normal [facility] Work Phone: Mucus Ql (Urine sed) Present Normal Comp rehensive Internal Medicine Work Phone: Comment on above: PATIENT NOT FASTINGP ERFORMED BY: CB [facility] Qgkysd4935 [address]Dublin [place] [id number] RBC LM.HPF #/area (Urine sed) 0-2 Normal 0 - 2 [facility] Work Phone: Comment on above: PATIENT NOT FASTINGP ERFORMED BY: CB [facility] Gopbmm9075 [address]Dublin [place] [id number] Unidentified crystals LM Ql (Urine sed) Present Abnormal [facility] Work Phone: Comment on above: PATIENT NOT FASTINGP ERFORMED BY: CB [facility] Rsljum2346 [address]Dublin [place] [id number] WBC LM.HPF #/area (Urine sed) 0-5 Normal 0 - 5 [facility] Work Phone: Comment on above: PATIENT NOT FASTINGP ERFORMED BY: CB [facility] Vplrhv3205 [address]Dublin [place] [id number] T3, FREE (TRIDOTHYRONINE) ([id number])Ordered By: 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 on 03-21-2017 T3 free mass conc 2.6 pg/mL Normal 2.0-4.4 Compreh ensive Internal Medicine Work Phone: Comment on above: PATIENT NOT FASTINGP ERFORMED BY: CB [facility] Zqflsp3936 [address]Dublin [place] [id number] T4, FREE (THYROXINE) ([id number]) Ordered By: 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 on 03-21-2017 T4 free mass conc 1.33 ng/dL Normal 0.82-1.77 Compreh ensive Internal Medicine Work Phone: Comment on above: PATIENT NOT FASTINGP ERFORMED BY: CB [facility] Vcupqk9016 [address]Dublin [place] [id number] TSH ([id number])Ordered By: Syste m Construction Analyst on 03-21-2017 Thyrotropin Qn 4.450 {uIU/mL} Normal 0.450-4.50 0 [facility] Work Phone: Comment on above: PATIENT NOT FASTINGP ERFORMED BY: CB [facility] Impmtd2538 [address]Dublin [place] [id number] URINALYSIS, W/ MICRO ([id number]) Ordered By: 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 on 03-21-2017 Appearance Nom (U) Cloudy Abnormal Compre hensive Internal Medicine Work Phone: Comment on above: PATIENT NOT FASTINGP ERFORMED BY: KENYON LabCobarrington ElZcmxrt3998 [address]Dublin [place] [id number] Bilirubin Ql (U) Negative Normal Comprehe nsive Internal Medicine Work Phone: Comment on above: PATIENT NOT FASTINGP ERFORMED BY: KENYON [facility] Qhjqzs9120 [address]Dublin [place] [id number] Bilirubin Ql (U) Negative Normal Comprehe nsive Internal Medicine Work Phone: Comment on above: PATIENT NOT FASTINGP ERFORMED BY: KENYON LabGermaine ElGsygst6799 [address]Dublin [place] [id number] Color Nom (U) Yellow Normal Comprehensi ve Internal Medicine Work Phone: Comment on above: PATIENT NOT FASTINGP ERFORMED BY: KENYON LabCo Kjlsdb1494 [address]Dublin [place] [id number] Glucose Ql (U) Negative Normal Comprehens nicole Internal Medicine Work Phone: Comment on above: PATIENT NOT FASTINGP ERFORMED BY: KENYON MoralezLyssabarrington ElUdevsg1546 [address]Dublin [place] [id number] Glucose Ql (U) Negative Normal Comprehens nicole Internal Medicine Work Phone: Comment on above: PATIENT NOT FASTINGP ERFORMED BY: KENYON [facility] Loffwp7002 [address]Dublin [place] [id number] Hemoglobin Ql (U) Negative Normal Compreh ensive Internal Medicine Work Phone: Comment on above: PATIENT NOT FASTINGP ERFORMED BY: KENYON [facility] Cjymzp3828 [address] [place] [id number] Hemoglobin Ql (U) Negative Normal Compreh ensive Internal Medicine Work Phone: Comment on above: PATIENT NOT FASTINGP ERFORMED BY: KENYON [facility] Mvsgqz1066 [address] [place] [id number] Hemoglobin Test strip Ql (U) Negative Normal [facility] Work Phone: Ketones Ql (U) Negative Normal Comprehens nicole Internal Medicine Work Phone: Comment on above: PATIENT NOT FASTINGP ERFORMED BY: KENYON [facility] Pulpua5015 [address] [place] [id number] Ketones Ql (U) Negative Normal Comprehens nicole Internal Medicine Work Phone: Comment on above: PATIENT NOT FASTINGP ERFORMED BY: KENYON [facility] Lvshgq5567 [address] [place] [id number] Leukocyte esterase Test strip Ql (U) Negative Normal [facility] Work Phone: Comment on above: PATIENT NOT FASTINGP ERFORMED BY: KENYON LabCobarrington ElBvlkna6368 [address] [place] [id number] Leukocyte esterase Test strip Ql (U) Negative Normal [facility] Work Phone: Comment on above: PATIENT NOT FASTINGP ERFORMED BY: KENYON [facility] Qsqjoh9205 [address] [place] [id number] Microscopic observation LM Nom (Urine sed) See below: Normal [facility] Work Phone: Comment on above: Microscopic was kevan cated and was performed. PATIENT NOT FASTINGP ERFORMED BY: KENYON LabGermaine ElWjjtey7816 [address]Dublin [place] [id number] Microscopic observation LM Nom (Urine sed) MICRON Normal [facility] Work Phone: Comment on above: Microscopic follows if indicated. PATIENT NOT FASTINGP ERFORMED BY: KENYON [facility] Fpymkc3366 [address]Dublin [place] [id number] Nitrite Ql (U) Negative Normal Comprehens nicole Internal Medicine Work Phone: Comment on above: PATIENT NOT FASTINGP ERFORMED BY: KENYON [facility] Pfzxaj3142 [address] [place] [id number] Nitrite Ql (U) Negative Normal Comprehens nicole Internal Medicine Work Phone: Comment on above: PATIENT NOT FASTINGP ERFORMED BY: KENYON [facility] Fnauap4267 [address] [place] [id number] Nitrite Test strip Ql (U) Negative Normal [facility] Work Phone: pH (U) 7.0 [pH] Normal 5.0-7.5 [facility] Work Phone: Comment on above: PATIENT NOT FASTINGP ERFORMED BY: KENYON LabLyssarp Vxglde8572 [address]Dublin [place] [id number] pH Test strip (U) 7.0 [pH] Normal 5.0-7.5 Compreh ensive Internal Medicine Work Phone: Protein Ql (U) Negative Normal Comprehens nicole Internal Medicine Work Phone: Comment on above: PATIENT NOT FASTINGP ERFORMED BY: KENYON Vangiebarrington ElZgdpxg4321 [address] [place] [id number] Protein Ql (U) Negative Normal Comprehens nicole Internal Medicine Work Phone: Comment on above: PATIENT NOT FASTINGP ERFORMED BY: KENYON Xavier Sftagn7349 [address] [place] [id number] Protein Test strip Ql (U) Negative Normal [facility] Work Phone: Specific gravity Relative Density (U) 1.018 1 Normal 1.005-1.03 0 [facility] Work Phone: Comment on above: PATIENT NOT FASTINGP ERFORMED BY: KENYON LabCo Asksuq2289 [address] [place] [id number] Urobilinogen (U) [Mass/Vol] 0.2 mg/dL Normal 0.2-1.0 [facility] Work Phone: Comment on above: PATIENT NOT FASTINGP ERFORMED BY: KENYON [facility] Zbprtg6925 [address]Dublin [place] [id number] Urobilinogen Test strip mass conc (U) 0.2 mg/dL Normal 0.2-1.0 Comprehensiv e Internal Medicine Work Phone: Comment on above: PATIENT NOT FASTINGP ERFORMED BY: KENYON [facility] Rbdcff6969 [address]Dublin [place] [id number] Vitamin D Hydroxy (53497)Ord ered By: 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 on 03-21-2017 25-Hydroxyvitamin D2+25-Hydroxyvitamin D3 mass conc 19.9 ng/mL Abnormal 30.0-100.0 [facility] Work Phone: Comment on above: Vitamin D deficiency has been defined by the [place] of[place]icine and an Endocrine Society practice guideline as alevel of serum 25-OH vitamin D less than 20 ng/mL (1,2).The Endocrine Society went on to further define vitamin Dinsufficiency as a level between 21 and 29 ng/mL (2).1. IOM ([place] of Medicine). 2010. Dietary reference intakes for calcium and D. [place]: The National Academies Press.2. Amita MF, Mati HARTMAN, Ashlie BROOKS, et al. Evaluation, treatment, and prevention of vitamin D deficiency: an Endocrine Society clinical practice guideline. JCEM. 2010; 96(7):1911-30. PATIENT NOT FASTINGP ERFORMED BY: [facility] Ttuytg2987 [address] [facility] [id number] Blood Glucose , Office ([phone])Ordered By: Nisha Lopez on 08-13-2010 Glucose Glucometer molar conc (BldC) 103 1 Normal [facility] Work Phone: HgA1C , Office ([id number])Ordere d By: Trina Aguila on 08-13-2010 Hemoglobin A1c/Hemoglobin.total mass fraction (Bld) 5.8 % Normal 4.6 - 7.1 Comprehensiv e Internal Medicine Work Phone: BILAT SCRN DIGITAL & CADOrde red By: 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 on 07-03-2010 BILAT SCRN DIGITAL & CAD See Note Normal [facility] Work Phone: Comment on above: MAMMOGRAPHY - BILATE RAL SCREENING INDICATION:Female, 60 years old. Routine annual screening examination. PERTINENT HISTORY:Non-contributory. TECHNIQUE:Digital examination. Mediolateral oblique (MLO) and craniocaudad (CC)views of both breasts were obtained. CAD was performed on this study. COMPARISON:Comparison is made with prior study dated May 04, 2001. FINDINGS:The breast composition is heterogeneously dense. There are no masses or suspicious microcalcifications. No other significant abnormalities are identified. There has been nosignificant change since the prior study. IMPRESSION:Normal bilateral screening mammogram. Yearly follow-up recommended. ASSESSMENT CATEGORY:BIRADS Category 2: Benign finding(s). A letter regarding these resultswill be sent to the patient by the facility within 30 days. Approximately 10% of breast cancers are not detected by mammography. Anormal mammogram should not delay biopsy of a clinically suspiciousabnormality. Dictated on 07/03/10 1452 by Autumn Saucedo MDranscribed on 07/04/10930 by ITS IMPORTSign by Burt Saucedo MD on 07/04/10931 Sign by: Burt Saucedo MD CLINICAL:Female, 60 years old. The patient is postmenopausal. EXAMINATION:DUAL ENERGY X-RAY ABSORPTIOMETRY / DEXA. TECHNIQUE:Bone Mineral Density (BMD) measurements of lumbar spine and bilateralhipswere obtained using a Koduco scanner.. COMPARISON:None. FINDINGS: Lumbar Spine (L1-L4): g/cm2 (1.061) / T-score (-1.0) / Z-score (-0.1)Left Femur Total: g/cm2 (0.797) / T-score (-1.7) / Z-score (-1.0)Right Femur Total: g/cm2 (0.756) / T-score (-2.0) / Z-score (-1.3) IMPRESSION:The patient is considered osteopenic, as outlined above, according toWorldHealth Organization (WHO) criteria. Fracture risk is moderate. Reference Information:The T-score is the number of standard deviations above or below thestandard which is normal for young adults at their peak bone mineraldensity. The World Health Organization (WHO) interprets the T-scores asfollows: Above -1 Normal bone densityBetween -1 and -2.5 OsteopeniaEqual to / or below -2.5 Osteoporosis As a practical clinical guideline, osteopenia may be graded as follows:Mild -1 through -1.5Moderate -1.6 through -2.0Severe -2.1 through -2.4 The Z-score is the number of standard deviations above or below age-matchedcontrols. A Z-score of less than -1.5 would be considered abnormal. References:1. NIH Osteoporosis and Related Bone Diseases http://www.osteo.org2. International Society for Clinical Densitometry http://www.iscd.org3. National Osteoporosis Foundation http://www.nof.org Dictated on 07/03/10 1533 by Autumn Saucedo MDranscribed on 07/04/10927 by ITS IMPORTSign by Burt Saucedo MD on 07/04/10928 Sign by: Burt Saucedo MD LIPID PANEL ([id number])Ordered B y: 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 on 05-24-2010 Cholesterol in HDL mass conc 71 mg/dL Normal [facility] Work Phone: Comment on above: According to ATP-III Guidelines, HDL-C >59 mg/dL is considered anegative risk factor for CHD. PATIENT WAS FASTINGP ERFORMED BY: Epicsell LabCurtis Berryman & Son Cremation6370 [facility] [id number] Cholesterol in LDL mass conc 119 mg/dL Abnormal 0-99 [facility] Work Phone: Comment on above: PATIENT WAS FASTINGP ERFORMED BY: Epicsell LabStraight Up Englishrp Dnfasw0332 [facility] [id number] Cholesterol in LDL/Cholesterol in HDL mass ratio 1.7 {ratio_units} Normal 0.0-3.2 [facility] Work Phone: Comment on above: PATIENT WAS FASTINGP ERFORMED BY: Epicsell [facility] Hhzruh2398 [facility] [id number] Cholesterol in VLDL mass conc 16 mg/dL Normal 5-40 [facility] Work Phone: Comment on above: PATIENT WAS FASTINGP ERFORMED BY: Epicsell LabStraight Up Englishrp Yrjcvu8329 [facility] [id number] Cholesterol mass conc 206 mg/dL Abnormal 100-199 Com prehensive Internal Medicine Work Phone: Comment on above: PATIENT WAS FASTINGP ERFORMED BY: KENYON LabCobarrington Jxxckv1142 [address] [facility] [place] [id number] Triglyceride mass conc 82 mg/dL Normal 0-149 [facility] Work Phone: Comment on above: PATIENT WAS FASTINGP ERFORMED BY: KENYON LabCobarrington ElCulljm0660 [address] [facility] [id number] METABOLIC PANEL, COMPREHENSI VE (68910)Ordered By: 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 on 05-24-2010 Albumin mass conc 4.4 g/dL Normal 3.6-4.8 Compreh ensive Internal Medicine Work Phone: Comment on above: PATIENT WAS FASTINGP ERFORMED BY: KENYON Vangiebarrington Gnbtxt4947 [facility] [id number] Information: 385321,[id number] Albumin/Globulin mass ratio 2.0 {ratio} Normal 1.1-2.5 [facility] Work Phone: Comment on above: PATIENT WAS FASTINGP ERFORMED BY: KENYON LabCo Cruoog2441 [address] [facility] [id number] Information: 269309,[id number] ALP [Catalytic activity/Vol] 66 U/L Normal 25-165 [facility] Work Phone: Comment on above: PATIENT WAS FASTINGP ERFORMED BY: KENYON LabCo Mplpov5436 [facility] [id number] Information: [id number],[id number] ALP enzyme act/vol 66 [iU]/L Normal 25-165 Compre [facility] Internal Medicine Work Phone: Comment on above: PATIENT WAS FASTINGP ERFORMED BY: KENYON [facility] Owglwj8311 [address] [facility] Hospitalin [place] [id number] Information: [id number] ALT [Catalytic activity/Vol] 16 U/L Normal 0-40 [facility] Work Phone: Comment on above: PATIENT WAS FASTINGP ERFORMED BY: KENYON LabCo Kdieyk9022 [address] [facility] [id number] Information: [id number],[id number] ALT enzyme act/vol 16 [iU]/L Normal 0-40 [facility] Internal Medicine Work Phone: Comment on above: PATIENT WAS FASTINGP ERFORMED BY: KENYON [facility] Dsjrmj5085 Gaviria RoadDublin [place] [id number] Information: [id number],[id number] AST [Catalytic activity/Vol] 20 U/L Normal 0-40 [facility] Work Phone: Comment on above: PATIENT WAS FASTINGP ERFORMED BY: LabCoHunterdon Medical CenterNzmvia2051 Gaviria Roadblin [place] [id number] Information: [id number] AST enzyme act/vol 20 [iU]/L Normal 0-40 [facility] Internal Medicine Work Phone: Comment on above: PATIENT WAS FASTINGP ERFORMED BY: LabCorewell [facility] Hospital6370 [address] [facility] [id number] Information: 624968,[id number] Bilirubin mass conc 0.3 mg/dL Normal 0.0-1.2 [facility] Internal Medicine Work Phone: Comment on above: PATIENT WAS FASTINGP ERFORMED BY: LabCoHunterdon Medical CenterVueofk2047 [facility] [id number] Information: 109547,N91061 Calcium mass conc 9.3 mg/dL Normal 8.6-10.2 Compreh [facility] center[facility] Internal [facility] Work Phone: Comment on above: PATIENT WAS FASTINGP ERFORMED BY: LabCo Qarceo0463 [address] [facility] Hospital[facility] [place] [id number] Information: 984623,C05804 Chloride molar conc 104 mmol/L Normal 97-108 Compr ensive Internal Medicine Work Phone: Comment on above: PATIENT WAS FASTINGP ERFORMED BY: LabCo Qpigrd1411 [address] Roadblin [place] [id number] Information: 220270,A97068 CO2 molar conc 24 mmol/L Normal 20-32 Comprehens nicole Internal Medicine Work Phone: Comment on above: PATIENT WAS FASTINGP ERFORMED BY: LabCo Ldskbu4534 [facility] [id number] Information: 640121,U72271 Creatinine mass conc 0.84 mg/dL Normal 0.57-1.00 Comp rehensive Internal Medicine Work Phone: Comment on above: PATIENT WAS FASTINGP ERFORMED BY: [facility] Juiqap1431 [facility] [id number] Information: 427986,L26390 GFR/1.73 sq M predicted among blacks MDRD vol rate/area (S/P/Bld) mL/min/{1.73_m2} Normal Comprehensi Internal Medicine Work Phone: Comment on above: Note: Persistent red uction for 3 months or more in an eGFR<60 mL/min/1.73 m2 defines CKD. Patients with eGFR values>/=60 mL/min/1.73 m2 may also have CKD if evidence of persistentproteinuria is present. Additional information may be found atwww.kdoqi.org. PATIENT WAS FASTINGP ERFORMED BY: [facility]Saint [facility] Kamsch3028 [facility] [id number] Information: 324938,V60856 GFR/1.73 sq M.predicted MDRD (S/P/Bld) [Vol rate/Area] mL/min/{1.73_m2} Normal [facility] Work Phone: Comment on above: PATIENT WAS FASTINGP ERFORMED BY: [facility] Lbxslh9807 [facility] [id number] Information: 234773,L38990 GFR/1.73 sq M.predicted MDRD vol rate/area mL/min/{1.73_m2} Normal [facility] Work Phone: Comment on above: PATIENT WAS FASTINGP ERFORMED BY: LabCo Bmeygl4413 [facility] [id number] Information: 846036,Q14171 Globulin Calculated mass conc (S) 2.2 g/dL Normal 1.5-4.5 [facility] Work Phone: Globulin mass conc (S) 2.2 g/dL Normal 1.5-4.5 [facility] Work Phone: Comment on above: PATIENT WAS FASTINGP ERFORMED BY: LabCo Oiyjey8769 [facility] [id number] Information: 466058,D80550 Glucose mass conc 88 mg/dL Normal 65-99 Compreh ensive Internal Medicine Work Phone: Comment on above: PATIENT WAS FASTINGP ERFORMED BY: LabCoShiprock-Northern Navajo Medical CenterbNymqbv1626 [facility] [id number] Information: 887822,T38727 Potassium molar conc 4.0 mmol/L Normal 3.5-5.2 Comp rehensive Internal Medicine Work Phone: Comment on above: PATIENT WAS FASTINGP ERFORMED BY: LabCo Hczleo6122 [facility] [id number] Information: [id number],A34093 Protein mass conc 6.6 g/dL Normal 6.0-8.5 Compreh ensive Internal Medicine Work Phone: Comment on above: PATIENT WAS FASTINGP ERFORMED BY: LabCo Pqfxsd9207 [facility] [id number] Information: 589524,T92637 Sodium molar conc 140 mmol/L Normal 135-145 Compreh ensive Internal Medicine Work Phone: Comment on above: PATIENT WAS FASTINGP ERFORMED BY: LabCo Qvypzz4391 [facility] [id number] Information: 707830,H26486 Urea nitrogen mass conc 19 mg/dL Normal 8-27 [facility] Work Phone: Comment on above: PATIENT WAS FASTINGP ERFORMED BY: LabCo Xfdfit0134 [facility] [id number] Information: 782210,I87887 Urea nitrogen/Creatinine mass ratio 23 mg/mg Normal - [facility] Work Phone: Comment on above: PATIENT WAS FASTINGP ERFORMED BY: KENYON LabStraight Up English Lhwphj2331 [facility] [id number] Information: [id number],Y27590 MICROALBUMINOrdered By: Wysiwyg em Construction Analyst on 05-24-2010 Albumin DL <= 20 mg/L mass conc (U) 2.0 ug/mL Normal 0.0-17.0 [facility] Work Phone: Comment on above: PATIENT WAS FASTINGP ERFORMED BY: KENYON LabStraight Up English Fekoko8701 [facility] [id number] Albumin/Creatinine mass ratio (U) 1.8 {mg/g_creat} Normal 0.0-30.0 [facility] Work Phone: Comment on above: PATIENT WAS FASTINGP ERFORMED BY: KENYON LabStraight Up English Nmitln7513 [facility] [id number] Creatinine mass conc (U) 111.7 mg/dL Normal 15.0-278.0 [facility] Work Phone: Comment on above: PATIENT WAS FASTINGP ERFORMED BY: KENYON LabStraight Up English Krvjxm9452 [facility] [id number] TSH (11515)Ordered By: Wysiwygglo Construction Analyst on 05-24-2010 Thyrotropin Qn 4.260 {uIU/mL} Normal 0.450-4.50 0 [facility] Work Phone: Comment on above: PATIENT WAS FASTINGP ERFORMED BY: KENYON LabStraight Up English Adlamw6100 [facility] [id number] Blood Glucose , Office ([phone])Ordered By: Nisha Lopez on 02-20-2010 Glucose Glucometer molar conc (BldC) 106 1 Normal [facility] Work Phone: HgA1C , Office (51290)Ordere d By: Trina Aguila on 02-20-2010 Hemoglobin A1c/Hemoglobin.total mass fraction (Bld) 5.9 % Normal 4.6 - 7.1 Comprehensiv e Internal Medicine Work Phone: Blood Glucose , Office ([phone] 2)Ordered By: Nisha Lopez on 09-19-2009 Glucose Glucometer molar conc (BldC) 93 1 Normal [facility] Work Phone: HgA1C , Office (10121)Ordere d By: Estelle Rojas on 09-19-2009 Hemoglobin A1c/Hemoglobin.total mass fraction (Bld) 6.0 % Normal 4.6 - 7.1 Comprehensiv e Internal Medicine Work Phone: CBC WITH MANUAL DIFF (00260) Ordered By: 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 on 09-13-2009 Basophils #/vol (Bld) 0.0 {x10E3/uL} Normal 0.0-0.2 [facility] Work Phone: Comment on above: PATIENT WAS FASTINGP ERFORMED BY: KENYON LabStraight Up Englishrp Tdsprk0528 [address] [facility]Former[facility] [id number] Information: ADD [id number] AND DRAW FEE 99 6660 Basophils (Bld) [#/Vol] 0.0 10*3/uL Normal 0.0-0.2 [facility] Work Phone: Comment on above: PATIENT WAS FASTINGP ERFORMED BY: [facility] Rrsomh2098 [facility] [id number] Information: ADD [id number] AND DRAW FEE 99 6660 Basophils Auto #/vol (Bld) 0.0 {x10E3/uL} Normal 0.0-0.2 [facility] Work Phone: Basophils/100 WBC (Bld) 0 % Normal 0-3 [facility] Work Phone: Comment on above: PATIENT WAS FASTINGP ERFORMED BY: [facility] Uvacdf3027 [facility] [id number] Information: ADD [id number] AND DRAW FEE 99 6660 Basophils/100 WBC Auto (Bld) 0 % Normal 0-3 [facility] Work Phone: Eosinophils #/vol (Bld) 0.1 {x10E3/uL} Normal 0.0-0.4 [facility] Work Phone: Comment on above: PATIENT WAS FASTINGP ERFORMED BY: KENYON Fair6370 [facility] [id number] Information: ADD T48002 AND DRAW FEE 99 6660 Eosinophils (Bld) [#/Vol] 0.1 10*3/uL Normal 0.0-0.4 [facility] Work Phone: Comment on above: PATIENT WAS FASTINGP ERFORMED BY: KENYON Ellin6370 [facility] [id number] Information: ADD L00550 AND DRAW FEE 99 6660 Eosinophils Auto #/vol (Bld) 0.1 {x10E3/uL} Normal 0.0-0.4 [facility] Work Phone: Eosinophils/100 WBC (Bld) 1 % Normal 0-7 [facility] Work Phone: Comment on above: PATIENT WAS FASTINGP ERFORMED BY: KENYON Ellin6370 [facility] [id number] Information: ADD N44855 AND DRAW FEE 99 6660 Eosinophils/100 WBC Auto (Bld) 1 % Normal 0-7 [facility] Work Phone: Erythrocyte distribution width Auto Ratio (RBC) 13.3 % Normal 11.7-15.0 [facility] Work Phone: Erythrocyte distribution width Ratio (RBC) 13.3 % Normal 11.7-15.0 [facility] Work Phone: Comment on above: PATIENT WAS FASTINGP ERFORMED BY: KENYON Simms Dwvggv0431 [facility] [id number] Information: ADD T71144 AND DRAW FEE 99 6660 Hematocrit Auto Volume Fraction (Bld) 42.6 % Normal 34.0-44.0 [facility] Work Phone: Hematocrit Volume Fraction (Bld) 42.6 % Normal 34.0-44.0 [facility] Work Phone: Comment on above: PATIENT WAS FASTINGP ERFORMED BY: [place] 7192070 [facility] [id number] Information: ADD Q51851 AND DRAW FEE 99 6660 Hemoglobin mass conc (Bld) 14.6 g/dL Normal 11.5-15.0 [facility] Work Phone: Comment on above: PATIENT WAS FASTINGP ERFORMED BY: [address] [id number] Information: ADD [id number] AND DRAW FEE 99 6660 Immature granulocytes #/vol (Bld) 0.0 {x10E3/uL} Normal 0.0-0.1 [facility] Work Phone: Comment on above: PATIENT WAS FASTINGP ERFORMED BY: [place] 7192070 [facility] [id number] Information: ADD [id number] AND DRAW FEE 99 6660 Immature granulocytes (Bld) [#/Vol] 0.0 10*3/uL Normal 0.0-0.1 [facility] Work Phone: Comment on above: PATIENT WAS FASTINGP ERFORMED BY: [address] [id number] Information: ADD Q44373 AND DRAW FEE 99 6660 Immature granulocytes/100 WBC (Bld) 0 % Normal 0-1 [facility] Work Phone: Comment on above: PATIENT WAS FASTINGP ERFORMED BY: [address] [id number] Information: ADD [id number] AND DRAW FEE 99 6660 Lymphocytes #/vol (Bld) 2.5 {x10E3/uL} Normal 0.7-4.5 [facility] Work Phone: Comment on above: PATIENT WAS FASTINGP ERFORMED BY: [place] 7192070 [facility] [id number] Information: ADD O68151 AND DRAW FEE 99 6660 Lymphocytes (Bld) [#/Vol] 2.5 10*3/uL Normal 0.7-4.5 [facility] Work Phone: Comment on above: PATIENT WAS FASTINGP ERFORMED BY: KENYON GeckoboardHunterdon Medical CenterJjhgqc5802 [facility] [id number] Information: ADD E52540 AND DRAW FEE 99 6660 Lymphocytes Auto #/vol (Bld) 2.5 {x10E3/uL} Normal 0.7-4.5 [facility] Work Phone: Lymphocytes/100 WBC (Bld) 36 % Normal 14-46 [facility] Work Phone: Comment on above: PATIENT WAS FASTINGP ERFORMED BY: KENYON GeckoboardClaire Ville 5930170 [facility] [id number] Information: ADD N14851 AND DRAW FEE 99 6660 Lymphocytes/100 WBC Auto (Bld) 36 % Normal 14-46 [facility] Work Phone: MCH Auto Entitic mass (RBC) 30.5 pg Normal 27.0-34.0 [facility] Work Phone: MCH Entitic mass (RBC) 30.5 pg Normal 27.0-34.0 [facility] Work Phone: Comment on above: PATIENT WAS FASTINGP ERFORMED BY: KENYON [address] [id number] Information: ADD [id number] AND DRAW FEE 99 6660 MCHC Auto mass conc (RBC) 34.3 g/dL Normal 32.0-36.0 [facility] Work Phone: MCHC mass conc (RBC) 34.3 g/dL Normal 32.0-36.0 Comp [facility] Internal Medicine Work Phone: Comment on above: PATIENT WAS FASTINGP ERFORMED BY: [place] 7192070 [facility] [id number] Information: ADD U92615 AND DRAW FEE 99 6660 MCV Auto Entitic volume (RBC) 89 fL Normal 80-98 [facility] Work Phone: MCV Entitic volume (RBC) 89 fL Normal 80-98 [facility] Work Phone: Comment on above: PATIENT WAS FASTINGP ERFORMED BY: [place] 7192070 [facility] [id number] Information: ADD Y97675 AND DRAW FEE 99 6660 Monocytes #/vol (Bld) 0.5 {x10E3/uL} Normal 0.1-1.0 [facility] Work Phone: Comment on above: PATIENT WAS FASTINGP ERFORMED BY: [place] 7192070 [facility] [id number] Information: ADD G97810 AND DRAW FEE 99 6660 Monocytes (Bld) [#/Vol] 0.5 10*3/uL Normal 0.1-1.0 [facility] Work Phone: Comment on above: PATIENT WAS FASTINGP ERFORMED BY: KENYON [address] [id number] Information: ADD A20690 AND DRAW FEE 99 6660 Monocytes Auto #/vol (Bld) 0.5 {x10E3/uL} Normal 0.1-1.0 [facility] Work Phone: Monocytes/100 WBC (Bld) 7 % Normal 07-11 [facility] Work Phone: Comment on above: PATIENT WAS FASTINGP ERFORMED BY: [place] 7192070 [facility] [id number] Information: ADD X53155 AND DRAW FEE 99 6660 Monocytes/100 WBC Auto (Bld) 7 % Normal - [facility] Work Phone: Neutrophils #/vol (Bld) 3.9 {x10E3/uL} Normal 1.8-7.8 [facility] Work Phone: Comment on above: PATIENT WAS FASTINGP ERFORMED BY: [place] 7192070 [facility] [id number] Information: ADD N24528 AND DRAW FEE 99 6660 Neutrophils (Bld) [#/Vol] 3.9 10*3/uL Normal 1.8-7.8 [facility] Work Phone: Comment on above: PATIENT WAS FASTINGP ERFORMED BY: KENYON [facility] CenterGermaine ElBpifhg5982 [facility] [id number] Information: ADD V35892 AND DRAW FEE 99 6660 Neutrophils Auto #/vol (Bld) 3.9 {x10E3/uL} Normal 1.8-7.8 [facility] Work Phone: Neutrophils/100 WBC (Bld) 56 % Normal 40-74 [facility] Work Phone: Comment on above: PATIENT WAS FASTINGP ERFORMED BY: KENYON [facility] CenterGermaine ElWnguhn6097 [facility] [id number] Information: ADD D12846 AND DRAW FEE 99 6660 Neutrophils/100 WBC Auto (Bld) 56 % Normal 40-74 [facility] Work Phone: Platelets #/vol (Bld) 204 {x10E3/uL} Normal 140-415 [facility] Work Phone: Comment on above: PATIENT WAS FASTINGP ERFORMED BY: KENYON Ellin6370 [facility] [id number] Information: ADD K51566 AND DRAW FEE 99 6660 Platelets (Bld) [#/Vol] 204 10*3/uL Normal 140-415 [facility] Work Phone: Comment on above: PATIENT WAS FASTINGP ERFORMED BY: KENYON Ellin6370 [facility] [id number] Information: ADD I02150 AND DRAW FEE 99 6660 Platelets Auto #/vol (Bld) 204 {x10E3/uL} Normal 140-415 [facility] Work Phone: RBC #/vol (Bld) 4.78 {x10E6/uL} Normal 3.80-5.10 Comp [facility] Internal Medicine Work Phone: Comment on above: PATIENT WAS FASTINGP ERFORMED BY: KENYON [place] 2570770 [facility] [id number] Information: ADD M97728 AND DRAW FEE 99 6660 RBC (Bld) [#/Vol] 4.78 10*6/uL Normal 3.80-5.10 [facility] Work Phone: Comment on above: PATIENT WAS FASTINGP ERFORMED BY: KENYON NaomyGermaine ElZzpika1106 [facility] [id number] Information: ADD R56090 AND DRAW FEE 99 6660 RBC Auto #/vol (Bld) 4.78 {x10E6/uL} Normal 3.80-5.10 [facility] Internal Medicine Work Phone: WBC #/vol (Bld) 7.0 {x10E3/uL} Normal 4.0-10.5 [facility] Work Phone: Comment on above: PATIENT WAS FASTINGP ERFORMED BY: KENYON [address] [id number] Information: ADD N68224 AND DRAW FEE 99 6660 WBC (Bld) [#/Vol] 7.0 10*3/uL Normal 4.0-10.5 [facility] Internal Medicine Work Phone: Comment on above: PATIENT WAS FASTINGP ERFORMED BY: KENYON Ellin6370 [facility] [id number] Information: ADD O79178 AND DRAW FEE 99 6660 WBC Auto #/vol (Bld) 7.0 {x10E3/uL} Normal 4.0-10.5 [facility] Internal Medicine Work Phone: HEPATIC FUNCTION PANEL (1117 6)Ordered By: 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 on 09-13-2009 Bilirubin.direct mass conc 0.13 mg/dL Normal 0.00-0.40 [facility] Internal Medicine Work Phone: Comment on above: PATIENT WAS FASTINGP ERFORMED BY: KENYON [place] 2570770 [facility] [id number] LIPID PANEL (50944)Ordered B y: 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 on 09-13-2009 Cholesterol in HDL mass conc 65 mg/dL Normal [facility] Internal Medicine Work Phone: Comment on above: According to ATP-III Guidelines, HDL-C >59 mg/dL is considered anegative risk factor for CHD. PATIENT WAS FASTINGP ERFORMED BY: KENYON Xavier Fair6370 [facility] [id number] Cholesterol in LDL mass conc 114 mg/dL Abnormal 0-99 [facility] Work Phone: Comment on above: PATIENT WAS FASTINGP ERFORMED BY: KENYON Xavier Fair6370 [facility] [id number] Cholesterol in LDL/Cholesterol in HDL mass ratio 1.8 {ratio_units} Normal 0.0-3.2 [facility] Work Phone: Comment on above: PATIENT WAS FASTINGP ERFORMED BY: KENYON Vangiebarrington Jualdf1713 [facility] [id number] Cholesterol in VLDL mass conc 16 mg/dL Normal 5-40 [facility] Work Phone: Comment on above: PATIENT WAS FASTINGP ERFORMED BY: KENYON NaomyGermaine Pggtpg3643 [facility] [id number] Cholesterol mass conc 195 mg/dL Normal 100-199 [facility] prehensive Internal Medicine Work Phone: Comment on above: PATIENT WAS FASTINGP ERFORMED BY: KENYON Vangiebarrington Qoybur3011 [facility] [id number] Triglyceride mass conc 78 mg/dL Normal 0-149 [facility] Work Phone: Comment on above: PATIENT WAS FASTINGP ERFORMED BY: KENYON NaomyGermaine Ldywok7742 [facility] [id number] METABOLIC PANEL, COMPREHENSI VE (02618)Ordered By: 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 on 09-13-2009 Albumin mass conc 4.5 g/dL Normal 3.6-4.8 Compreh ensive Internal Medicine Work Phone: Comment on above: PATIENT WAS FASTINGP ERFORMED BY: KENYON Vangiebarrington Swtqde3903 [facility] [id number] Albumin/Globulin mass ratio 2.4 {ratio} Normal 1.1-2.5 [facility] Work Phone: Comment on above: PATIENT WAS FASTINGP ERFORMED BY: KENYON [facility] Egiyra2457 [address]aviria RoadDublin [place] [id number] ALP [Catalytic activity/Vol] 64 U/L Normal 25-165 [facility] Internal Medicine Work Phone: Comment on above: PATIENT WAS FASTINGP ERFORMED BY: KENYON [facility] Cevkeb6903 [address]aviria RoadDublin [place] [id number] ALP enzyme act/vol 64 [iU]/L Normal 25-165 [facility] Internal Medicine Work Phone: Comment on above: PATIENT WAS FASTINGP ERFORMED BY: K[facility] Fzuukx0178 [address]Dublin [place] [id number] ALT [Catalytic activity/Vol] 15 U/L Normal 0-40 [facility] Internal Medicine Work Phone: Comment on above: PATIENT WAS FASTINGP ERFORMED BY: KENYON [facility] Tvaazo6205 [address] RoadDublin [place] [id number] ALT enzyme act/vol 15 [iU]/L Normal 0-40 [facility] Internal Medicine Work Phone: Comment on above: PATIENT WAS FASTINGP ERFORMED BY: KENYON [facility] Fdufnk6938 [address] RoadDublin [place] [id number] AST [Catalytic activity/Vol] 16 U/L Normal 0-40 [facility] Internal Medicine Work Phone: Comment on above: PATIENT WAS FASTINGP ERFORMED BY: KENYON [facility] Dlqcuo5825 [address] RoadDublin [place] [id number] AST enzyme act/vol 16 [iU]/L Normal 0-40 [facility] Internal Medicine Work Phone: Comment on above: PATIENT WAS FASTINGP ERFORMED BY: KENYON [facility] Axoswy9498 [address] RoadDublin [place] [id number] Bilirubin mass conc 0.4 mg/dL Normal 0.0-1.2 [facility] Internal Medicine Work Phone: Comment on above: PATIENT WAS FASTINGP ERFORMED BY: KENYON [facility] Xhpsrr4094 [address] RoadDublin [place] [id number] Calcium mass conc 9.7 mg/dL Normal 8.6-10.2 Compreh ensive Internal Medicine Work Phone: Comment on above: PATIENT WAS FASTINGP ERFORMED BY: KENYON Xavier Fair[address] [id number] Chloride molar conc 103 mmol/L Normal 97-108 Compr ehensive Internal Medicine Work Phone: Comment on above: PATIENT WAS FASTINGP ERFORMED BY: KENYON LabLyssabarrington Bmvukw[address] [id number] CO2 molar conc 24 mmol/L Normal 20-32 Comprehens nicole Internal Medicine Work Phone: Comment on above: PATIENT WAS FASTINGP ERFORMED BY: KENYON Vangiebarrington Khurac[address] [id number] Creatinine mass conc 0.76 mg/dL Normal 0.57-1.00 Comp rehensive Internal Medicine Work Phone: Comment on above: PATIENT WAS FASTINGP ERFORMED BY: KENYON Vangiebarrington Amzmsc[address] [id number] GFR/1.73 sq M predicted among blacks MDRD vol rate/area (S/P/Bld) mL/min/{1.73_m2} Normal Comprehensi ve Internal Medicine Work Phone: Comment on above: Note: Persistent red uction for 3 months or more in an eGFR<60 mL/min/1.73 m2 defines CKD. Patients with eGFR values>/=60 mL/min/1.73 m2 may also have CKD if evidence of persistentproteinuria is present. Additional information may be found [email or web address]. PATIENT WAS FASTINGP ERFORMED BY: KENYON [facility] Zkpxan[address] [id number] GFR/1.73 sq M.predicted MDRD (S/P/Bld) [Vol rate/Area] mL/min/{1.73_m2} Normal [facility] Work Phone: Comment on above: PATIENT WAS FASTINGP ERFORMED BY: KENYON [facility] Jvxvfm[address] [id number] GFR/1.73 sq M.predicted MDRD vol rate/area mL/min/{1.73_m2} Normal [facility] Work Phone: Comment on above: PATIENT WAS FASTINGP ERFORMED BY: KENYON Xavier Fair[address] [id number] Globulin Calculated mass conc (S) 1.9 g/dL Normal 1.5-4.5 [facility] Work Phone: Globulin mass conc (S) 1.9 g/dL Normal 1.5-4.5 [facility] Work Phone: Comment on above: PATIENT WAS FASTINGP ERFORMED BY: KENYON NaomyGermaine ElUfyvxu[address] [id number] Glucose mass conc 88 mg/dL Normal 65-99 Compreh ensive Internal Medicine Work Phone: Comment on above: PATIENT WAS FASTINGP ERFORMED BY: KENYON Ellin[address] [id number] Potassium molar conc 4.4 mmol/L Normal 3.5-5.2 Comp rehensive Internal Medicine Work Phone: Comment on above: PATIENT WAS FASTINGP ERFORMED BY: KENYON NaomyGermaine ElEbgemz9[address] [id number] Protein mass conc 6.4 g/dL Normal 6.0-8.5 Compreh ensive Internal Medicine Work Phone: Comment on above: PATIENT WAS FASTINGP ERFORMED BY: KENYON NaomyGermaine ElDxyyam[address] [id number] Sodium molar conc 140 mmol/L Normal 135-145 Compreh ensive Internal Medicine Work Phone: Comment on above: PATIENT WAS FASTINGP ERFORMED BY: KENYON Vangie Ugjamf[address] [id number] Urea nitrogen mass conc 17 mg/dL Normal 5-26 [facility] Work Phone: Comment on above: PATIENT WAS FASTINGP ERFORMED BY: KENYNO NaomyLyssaHunterdon Medical CenterOqyqbz4[address] [id number] Urea nitrogen/Creatinine mass ratio 22 mg/mg Normal 8-27 [facility] Work Phone: Comment on above: PATIENT WAS FASTINGP ERFORMED BY: KENYON LabGermaine ElCqolea9[address] [id number] Blood Glucose , Office ([phone])Ordered By: Nisha Lopez on 03-06-2009 Glucose Glucometer molar conc (BldC) 113 1 Normal [facility] Work Phone: HgA1C , Office ([phone])Ordere d By: Nisha Lopez on 03-06-2009 Hemoglobin A1c/Hemoglobin.total mass fraction (Bld) 5.6 % Normal 4.6 - 7.1 Comprehensiv e Internal Medicine Work Phone: LIPID PANEL ([phone])Ordered B y: Trina Fast on 02-21-2009 Cholesterol in HDL mass conc 65 mg/dL Normal [facility] Work Phone: Comment on above: According to ATP-III Guidelines, HDL-C >59 mg/dL is considered anegative risk factor for CHD. PATIENT WAS FASTINGP ERFORMED BY: KENYON Geckoboardbarrington Tdkjsp37[address] [id number] Cholesterol in LDL mass conc 140 mg/dL Abnormal 0-99 [facility] Work Phone: Comment on above: PATIENT WAS FASTINGP ERFORMED BY: KENYON LabGermaine Voxxot[address] [id number] Cholesterol in LDL/Cholesterol in HDL mass ratio 2.2 {ratio_units} Normal 0.0-3.2 [facility] Work Phone: Comment on above: PATIENT WAS FASTINGP ERFORMED BY: KENYON [facility] Dbdwoj[address] [id number] Cholesterol in VLDL mass conc 17 mg/dL Normal 5-40 [facility] Work Phone: Comment on above: PATIENT WAS FASTINGP ERFORMED BY: KENYON [facility] Vrixxr[address] [id number] Cholesterol mass conc 222 mg/dL Abnormal 100-199 [facility] prehensive Internal Medicine Work Phone: Comment on above: PATIENT WAS FASTINGP ERFORMED BY: KENYON [facility] Rcgnay[address] [id number] Triglyceride mass conc 86 mg/dL Normal 0-149 [facility] Work Phone: Comment on above: PATIENT WAS FASTINGP ERFORMED BY: KENYON [facility] [id number] METABOLIC PANEL, COMPREHENSI VE ([phone])Ordered By: Trina Aguila on 02-21-2009 Albumin mass conc 4.5 g/dL Normal 3.5-5.5 Compreh ensive Internal Medicine Work Phone: Comment on above: PATIENT WAS FASTINGC linical Information: [id number] PERFORMED BY: [facility]ON [facility] Jpryip[address] [id number] Albumin/Globulin mass ratio 2.0 {ratio} Normal 1.1-2.5 [facility] Work Phone: Comment on above: PATIENT WAS FASTINGC linical Information: [id number] PERFORMED BY: KENYON LabCore[facility] [id number] ALP [Catalytic activity/Vol] 65 U/L Normal 25-150 [facility] Work Phone: Comment on above: PATIENT WAS FASTINGC linical Information: [id number] PERFORMED BY: KENYON LabCore[facility] [id number] ALP enzyme act/vol 65 [iU]/L Normal 25-150 [facility] Work Phone: Comment on above: PATIENT WAS FASTINGC linical Information: [id number] PERFORMED BY: KENYON LabCore[facility] [id number] ALT [Catalytic activity/Vol] 17 U/L Normal 0-40 [facility] Work Phone: Comment on above: PATIENT WAS FASTINGC linical Information: [id number] PERFORMED BY: KENYON [facility] Uwzhfp3273 [address] RoadDublin [place] [id number] ALT enzyme act/vol 17 [iU]/L Normal 0-40 [facility] Internal Medicine Work Phone: Comment on above: PATIENT WAS FASTINGC linical Information: [id number] PERFORMED BY: [facility] Vfhsry1264 [address] RoadDublin [place] [id number] AST [Catalytic activity/Vol] 17 U/L Normal 0-40 [facility] Internal Medicine Work Phone: Comment on above: PATIENT WAS FASTINGC linical Information: [id number] PERFORMED BY: [facility] Mggxsr4332 [address] RoadDublin [place] [id number] AST enzyme act/vol 17 [iU]/L Normal 0-40 [facility] Internal Medicine Work Phone: Comment on above: PATIENT WAS FASTINGC linical Information: [id number] PERFORMED BY: [facility] Mieebx0903 [address]blin [place] [id number] Bilirubin mass conc 0.3 mg/dL Normal 0.1-1.2 [facility] Internal Medicine Work Phone: Comment on above: PATIENT WAS FASTINGC linical Information: 232406,[id number] PERFORMED BY: [facility] Cjdanm6525 [address] RoadDublin [place] [id number] Calcium mass conc 9.8 mg/dL Normal 8.5-10.6 Compreh [facility] Internal Medicine Work Phone: Comment on above: PATIENT WAS FASTINGC linical Information: [id number] PERFORMED BY: [facility] Bahmrp8650 [address] RoadDublin [place] [id number] Chloride molar conc 104 mmol/L Normal 97-108 Compr [facility] Internal Medicine Work Phone: Comment on above: PATIENT WAS FASTINGC linical Information: [id number] PERFORMED BY: [facility] Ujozoc9628 [address] RoadDublin [place] [id number] CO2 molar conc 22 mmol/L Normal 20-32 Comprehens nicole Internal Medicine Work Phone: Comment on above: PATIENT WAS FASTINGC linical Information: [id number] PERFORMED BY: KENYON Geckoboard Rzpeet[address] [id number] Creatinine mass conc 0.81 mg/dL Normal 0.57-1.00 Comp rehensive Internal Medicine Work Phone: Comment on above: PATIENT WAS FASTINGC linical Information: [id number] PERFORMED BY: Geckoboard Rgnlvz[address] [id number] GFR/1.73 sq M predicted among blacks MDRD vol rate/area (S/P/Bld) mL/min/{1.73_m2} Normal Comprehensi ve Internal Medicine Work Phone: Comment on above: Note: Persistent red uction for 3 months or more in an eGFR<60 mL/min/1.73 m2 defines CKD. Patients with eGFR values>/=60 mL/min/1.73 m2 may also have CKD if evidence of persistentproteinuria is present. Additional information may be found [email or web address]. PATIENT WAS FASTINGC linical Information: [id number] PERFORMED BY: Spotigo[address] [id number] GFR/1.73 sq M.predicted MDRD (S/P/Bld) [Vol rate/Area] mL/min/{1.73_m2} Normal [facility] Work Phone: Comment on above: PATIENT WAS FASTINGC linical Information: [id number],[id number] PERFORMED BY: Geckoboard Bdpkzw[address] [id number] GFR/1.73 sq M.predicted MDRD vol rate/area mL/min/{1.73_m2} Normal [facility] Work Phone: Comment on above: PATIENT WAS FASTINGC linical Information: [id number] PERFORMED BY: Geckoboard Zblcrm[address] [id number] Globulin Calculated mass conc (S) 2.3 g/dL Normal 1.5-4.5 [facility] Work Phone: Globulin mass conc (S) 2.3 g/dL Normal 1.5-4.5 [facility] Work Phone: Comment on above: PATIENT WAS FASTINGC linical Information: [id number] PERFORMED BY: [facility] Tggdxk[address] [facility] [id number] Glucose mass conc 88 mg/dL Normal 65-99 Compreh ensive Internal Medicine Work Phone: Comment on above: PATIENT WAS FASTINGC linical Information: [id number] PERFORMED BY: [facility] Rfxtxw0772 [address] [facility] [id number] Potassium molar conc 4.2 mmol/L Normal 3.5-5.2 Comp rehensive Internal Medicine Work Phone: Comment on above: PATIENT WAS FASTINGC linical Information: 684729,[id number] PERFORMED BY: [facility] Ablarv2764 [address] [facility] [id number] Protein mass conc 6.8 g/dL Normal 6.0-8.5 Compreh ensive Internal Medicine Work Phone: Comment on above: PATIENT WAS FASTINGC linical Information: [id number],[id number] PERFORMED BY: [facility] Mqoakd4714 [address] [facility] [id number] Sodium molar conc 140 mmol/L Normal 135-145 Compreh ensive Internal Medicine Work Phone: Comment on above: PATIENT WAS FASTINGC linical Information: [id number] PERFORMED BY: [facility] Jzugov[address] [id number] Urea nitrogen mass conc 20 mg/dL Normal 5-26 [facility] Work Phone: Comment on above: PATIENT WAS FASTINGC linical Information: [id number] PERFORMED BY: [facility] Qvicyk[address] [id number] Urea nitrogen/Creatinine mass ratio 25 mg/mg Normal 8-27 [facility] Work Phone: Comment on above: PATIENT WAS FASTINGC linical Information: [id number] PERFORMED BY: KENYON Geckoboard Edthup[address] [id number] MICROALBUMINOrdered By: Josette a Fast on 02-21-2009 Albumin DL <= 20 mg/L mass conc (U) 2.6 ug/mL Normal 0.0-17.0 [facility] Work Phone: Comment on above: PATIENT WAS FASTINGP ERFORMED BY: [facility] Dhixdo[address] [id number] Albumin/Creatinine mass ratio (U) 1.8 {mg/g_creat} Normal 0.0-30.0 [facility] Work Phone: Comment on above: PATIENT WAS FASTINGP ERFORMED BY: KENYON LabStraight Up EnglishHunterdon Medical CenterUopocw[address] [id number] Creatinine mass conc (U) 146.3 mg/dL Normal 15.0-278.0 [facility] Work Phone: Comment on above: PATIENT WAS FASTINGP ERFORMED BY: LabStraight Up EnglishHunterdon Medical CenterKprxgl4527 [address] [id number] Blood Glucose , Office ([phone])Ordered By: Trina Aguila on 09-27-2008 Glucose Glucometer molar conc (BldC) 138 1 Normal [facility] Work Phone: HgA1C , Office ([phone])Ordere d By: Trina Fast on 09-27-2008 Hemoglobin A1c/Hemoglobin.total mass fraction (Bld) 5.8 % Normal 4.6 - 7.1 Comprehensiv e Internal Medicine Work Phone: COMP METABOLICOrdered By: Sy stem Construction Analyst on 09-14-2008 Albumin mass conc 4.0 g/dL Normal 3.4-5.0 Compreh ensive Internal Medicine Work Phone: Albumin/Globulin mass ratio 1.3 {RATIO} Normal 0.9-2.4 [facility] Work Phone: ALP enzyme act/vol 78 U/L Normal 50-136 Compre hensive Internal Medicine Work Phone: ALT enzyme act/vol 20 U/L Abnormal 30-65 Compre [facility] Internal Medicine Work Phone: Anion gap 3 molar conc 11 mmol/L Normal 5-15 [facility] Internal Medicine Work Phone: Anion gap molar conc 11 mmol/L Normal 5-15 Comp [facility] Work Phone: AST enzyme act/vol 10 U/L Abnormal 15-37 Compre [facility] Internal Medicine Work Phone: Bilirubin mass conc 0.30 mg/dL Normal 0.00-1.00 Compr ensive Internal Medicine Work Phone: Calcium mass conc 9.0 mg/dL Normal 8.5-10.1 Compreh [facility] Work Phone: Chloride molar conc 107 mmol/L Normal 98-107 Compr [facility] Internal Medicine Work Phone: CO2 molar conc 23.0 mmol/L Normal 21.0-32.0 Comprehen [facility] Internal Medicine Work Phone: Creatinine mass conc 0.9 mg/dL Normal 0.6-1.0 [facility] Work Phone: GFR/1.73 sq M predicted among blacks MDRD vol rate/area (S/P/Bld) 82 mL/min/{1.73_m2} Normal Comprehe ive Internal Medicine Work Phone: GFR/1.73 sq M.predicted MDRD (S/P/Bld) [Vol rate/Area] 68 mL/min/{1.73_m2} Normal Comprehensiv e Internal Medicine Work Phone: GFR/1.73 sq M.predicted MDRD vol rate/area 68 mL/min/{1.73_m2} Normal Comprehensiv e Internal Medicine Work Phone: Globulin Calculated mass conc (S) 3.1 g/dL Normal 2.7-4.2 [facility] Work Phone: Globulin mass conc (S) 3.1 g/dL Normal 2.7-4.2 [facility] Work Phone: Glucose mass conc 99 mg/dL Normal 70-110 Compreh ensive Internal Medicine Work Phone: Potassium molar conc 3.5 mmol/L Normal 3.5-5.1 Comp rehensive Internal Medicine Work Phone: Protein mass conc 7.1 g/dL Normal 6.4-8.2 Compreh ensive Internal Medicine Work Phone: Sodium molar conc 141 mmol/L Normal 136-145 Compreh ensive Internal Medicine Work Phone: Urea nitrogen mass conc 19 mg/dL Abnormal 7-18 [facility] Work Phone: Urea nitrogen/Creatinine mass ratio 21.1 {RATIO} Abnormal 10-20 [facility] Work Phone: GLU GTT-1 HOUROrdered By: Tony Yatango Construction Analyst on 09-14-2008 GLU GTT-1 HOUR 144 mg/dL Normal 120-170 [facility] nicole Internal Medicine Work Phone: Comment on above: 2HR GTT GLU 1 HR GLU GTT-1 HOUR from 17:[id number]. GLU GTT-2 HOUROrdered By: Tony stem Construction Analyst on 09-14-2008 GLU GTT-2 HOUR 152 mg/dL Abnormal 70-120 [facility] Internal [facility] Work Phone: Comment on above: 2HR GTT GLU 2 HR GLU GTT-2 HOUR from 17:[id number]. GLU GTT-30 min.Ordered By: S carroltem Construction Analyst on 09-14-2008 GLU GTT-30 min. 173 mg/dL Abnormal 110-170 [facility] Internal Medicine Work Phone: Comment on above: 2HR GTT GLU 1/2 HR G REYES GTT-30 min. from 616:[id number]. GLU GTT-FASTINGOrdered By: S Saborstudiotem Construction Analyst on 09-14-2008 GLU GTT-FASTING 99 mg/dL Normal 70-110 [facility] Internal Medicine Work Phone: Comment on above: GLUCOSE TOLERANCE TE ST Reference Interval Non- Adults Fasting 70 - 110 30 minutes 110 - 170 1 hour 120 - 170 2 hour 70 - 120 3 hour 70 - 110 4 hour 70 - 110 5 hour 70 - 110 2HR GTT FASTING GLU GTT-FASTING from 17:[id number]. CBC WITH MANUAL DIFF (63080) Ordered By: Trina Aguila on 06-14-2008 Basophils #/vol (Bld) 0.0 {x10E3/uL} Normal 0.0-0.2 [facility] Work Phone: Comment on above: PATIENT WAS FASTINGC linical Information: ADD DRAW FEE [id number] ADD J 62585 PERFORMED BY: Geckoboard Lrkexi[address] [place] [address] [id number] Basophils (Bld) [#/Vol] 0.0 10*3/uL Normal 0.0-0.2 [facility] Work Phone: Comment on above: PATIENT WAS FASTINGC linical Information: ADD DRAW FEE 345052 ADD J 94023 PERFORMED BY: Geckoboard [employer] [address] [id number] Basophils Auto #/vol (Bld) 0.0 {x10E3/uL} Normal 0.0-0.2 [facility] Work Phone: Basophils/100 WBC (Bld) 0 % Normal 0-3 [facility] Work Phone: Comment on above: PATIENT WAS FASTINGC linical Information: ADD DRAW FEE 472043 ADD J 72014 PERFORMED BY: Geckoboard Xfluxs0056 [address] [id number] Basophils/100 WBC Auto (Bld) 0 % Normal 0-3 [facility] Work Phone: Eosinophils #/vol (Bld) 0.1 {x10E3/uL} Normal 0.0-0.4 [facility] Work Phone: Comment on above: PATIENT WAS FASTINGC linical Information: ADD DRAW FEE 135903 ADD J 55323 PERFORMED BY: Geckoboard Daaqbv0979 [address] [id number] Eosinophils (Bld) [#/Vol] 0.1 10*3/uL Normal 0.0-0.4 [facility] Work Phone: Comment on above: PATIENT WAS FASTINGC linical Information: ADD DRAW FEE 271830 ADD J 44746 PERFORMED BY: KENYON Geckoboard Hkmhwc3391 [address] AmbrxFormerly [facility] [id number] Eosinophils Auto #/vol (Bld) 0.1 {x10E3/uL} Normal 0.0-0.4 [facility] Work Phone: Eosinophils/100 WBC (Bld) 1 % Normal 0-7 [facility] Work Phone: Comment on above: PATIENT WAS FASTINGC linical Information: ADD DRAW FEE 591010 ADD J 02352 PERFORMED BY: KENYON Geckoboard Cbohyi2777 [address] AmbrxFormerly [facility] [id number] Eosinophils/100 WBC Auto (Bld) 1 % Normal 0-7 [facility] Work Phone: Erythrocyte distribution width Auto Ratio (RBC) 13.9 % Normal 11.7-15.0 [facility] Work Phone: Erythrocyte distribution width Ratio (RBC) 13.9 % Normal 11.7-15.0 [facility] Work Phone: Comment on above: PATIENT WAS FASTINGC linical Information: ADD DRAW FEE [id number] ADD J 25424 PERFORMED BY: KENYON Geckoboard Tpepej5[address] [id number] Hematocrit Auto Volume Fraction (Bld) 43.8 % Normal 34.0-44.0 [facility] Internal [facility] Work Phone: Hematocrit Volume Fraction (Bld) 43.8 % Normal 34.0-44.0 [facility] Work Phone: Comment on above: PATIENT WAS FASTINGC linical Information: ADD DRAW FEE 026251 ADD J 39935 PERFORMED BY: KENYON Geckoboard Xjbrkh3820 [address] AmbrxFormerly [facility] [id number] Hemoglobin mass conc (Bld) 14.7 g/dL Normal 11.5-15.0 [facility] Work Phone: Comment on above: PATIENT WAS FASTINGC linical Information: ADD DRAW FEE 077381 ADD J 17327 PERFORMED BY: KENYON Geckoboard Hpsocp2971 [facility] AmbrxFormerly [facility] [id number] Lymphocytes #/vol (Bld) 3.1 {x10E3/uL} Normal 0.7-4.5 [facility] Work Phone: Comment on above: PATIENT WAS FASTINGC linical Information: ADD DRAW FEE 194474 ADD J 24556 PERFORMED BY: Geckoboard Gojtxk0501 [address] [id number] Lymphocytes (Bld) [#/Vol] 3.1 10*3/uL Normal 0.7-4.5 [facility] Work Phone: Comment on above: PATIENT WAS FASTINGC linical Information: ADD DRAW FEE 482033 ADD J 12990 PERFORMED BY: KENYON Geckoboard Fekntg58[address] [place] [address] [id number] Lymphocytes Auto #/vol (Bld) 3.1 {x10E3/uL} Normal 0.7-4.5 [facility] Work Phone: Lymphocytes/100 WBC (Bld) 30 % Normal 14- [facility] Work Phone: Comment on above: PATIENT WAS FASTINGC linical Information: ADD DRAW FEE 447411 ADD J 42811 PERFORMED BY: Geckoboard Jqsmea7[address] [place] [address] [id number] Lymphocytes/100 WBC Auto (Bld) 30 % Normal 14-46 [facility] Work Phone: MCH Auto Entitic mass (RBC) 30.2 pg Normal 27.0-34.0 [facility] Work Phone: MCH Entitic mass (RBC) 30.2 pg Normal 27.0-34.0 [facility] Work Phone: Comment on above: PATIENT WAS FASTINGC linical Information: ADD DRAW FEE 515149 ADD J 24711 PERFORMED BY: Geckoboard Xetozx7[address] [place] [address] [id number] MCHC Auto mass conc (RBC) 33.5 g/dL Normal 32.0-36.0 [facility] Work Phone: MCHC mass conc (RBC) 33.5 g/dL Normal 32.0-36.0 Comp [facility] Internal Medicine Work Phone: Comment on above: PATIENT WAS FASTINGC linical Information: ADD DRAW FEE 093089 ADD J 41896 PERFORMED BY: KENYON Ellin6[address] [id number] MCV Auto Entitic volume (RBC) 90 fL Normal 80-98 [facility] Work Phone: MCV Entitic volume (RBC) 90 fL Normal 80-98 [facility] Work Phone: Comment on above: PATIENT WAS FASTINGC linical Information: ADD DRAW FEE 615145 ADD J 59079 PERFORMED BY: KENYON [facility] Kddqcc8672 [address] [id number] Monocytes #/vol (Bld) 0.5 {x10E3/uL} Normal 0.1-1.0 [facility] Work Phone: Comment on above: PATIENT WAS FASTINGC linical Information: ADD DRAW FEE 024046 ADD J 64395 PERFORMED BY: KENYON [facility]Saint [facility] Mgiexe877[address] [id number] Monocytes (Bld) [#/Vol] 0.5 10*3/uL Normal 0.1-1.0 [facility] Work Phone: Comment on above: PATIENT WAS FASTINGC linical Information: ADD DRAW FEE 306585 ADD J 43794 PERFORMED BY: KENYON MoralezSaint [facility] Hospital Ktycsa8687 [address] [id number] Monocytes Auto #/vol (Bld) 0.5 {x10E3/uL} Normal 0.1-1.0 [facility] Work Phone: Monocytes/100 WBC (Bld) 5 % Normal 4-13 [facility] Work Phone: Comment on above: PATIENT WAS FASTINGC linical Information: ADD DRAW FEE 504208 ADD J 06038 PERFORMED BY: KENYON [place] 25707[address] [id number] Monocytes/100 WBC Auto (Bld) 5 % Normal 4-13 [facility] Work Phone: Neutrophils #/vol (Bld) 6.6 {x10E3/uL} Normal 1.8-7.8 [facility] Work Phone: Comment on above: PATIENT WAS FASTINGC linical Information: ADD DRAW FEE 070007 ADD J 48754 PERFORMED BY: KENYON Geckoboardbarrington ElUuxleb3825 [address] [id number] Neutrophils (Bld) [#/Vol] 6.6 10*3/uL Normal 1.8-7.8 [facility] Work Phone: Comment on above: PATIENT WAS FASTINGC linical Information: ADD DRAW FEE [id number] ADD J [id number] PERFORMED BY: KENYON [employer] [id number] [facility] [id number] Neutrophils Auto #/vol (Bld) 6.6 {x10E3/uL} Normal 1.8-7.8 [facility] Work Phone: Neutrophils/100 WBC (Bld) 64 % Normal 40-74 [facility] Work Phone: Comment on above: PATIENT WAS FASTINGC linical Information: ADD DRAW FEE [id number] ADD J [id number] PERFORMED BY: KENYON [employer] Ofmkwr24[address] [facility] [id number] Neutrophils/100 WBC Auto (Bld) 64 % Normal 40-74 [facility] Work Phone: Platelets #/vol (Bld) 266 {x10E3/uL} Normal 140-415 [facility] Work Phone: Comment on above: PATIENT WAS FASTINGC linical Information: ADD DRAW FEE [id number] ADD J [id number] PERFORMED BY: KENYON [employer] [id number] [facility] [id number] Platelets (Bld) [#/Vol] 266 10*3/uL Normal 140-415 [facility] Work Phone: Comment on above: PATIENT WAS FASTINGC linical Information: ADD DRAW FEE [id number] ADD J [id number] PERFORMED BY: KENYON [employer] Clcyey0145 [facility] [id number] Platelets Auto #/vol (Bld) 266 {x10E3/uL} Normal 140-415 [facility] Work Phone: RBC #/vol (Bld) 4.86 {x10E6/uL} Normal 3.80-5.10 Comp rehensive [facility] Medicine Work Phone: Comment on above: PATIENT WAS FASTINGC linical Information: ADD DRAW FEE [id number] ADD J [id number] PERFORMED BY: [facility] [facility] [id number] RBC (Bld) [#/Vol] 4.86 10*6/uL Normal 3.80-5.10 Compr ensive [facility] Work Phone: Comment on above: PATIENT WAS FASTINGC linical Information: ADD DRAW FEE [id number] ADD J [id number] PERFORMED BY: [address] [id number] RBC Auto #/vol (Bld) 4.86 {x10E6/uL} Normal 3.80-5.10 [facility] Work Phone: WBC #/vol (Bld) 10.3 {x10E3/uL} Normal 4.0-10.5 Comp rehensive [facility] Work Phone: Comment on above: PATIENT WAS FASTINGC linical Information: ADD DRAW FEE [id number] ADD J [id number] PERFORMED BY: [facility] [facility] [id number] WBC (Bld) [#/Vol] 10.3 10*3/uL Normal 4.0-10.5 [facility] Work Phone: Comment on above: PATIENT WAS FASTINGC linical Information: ADD DRAW FEE [id number] ADD J [id number] PERFORMED BY: [facility] [facility] [id number] WBC Auto #/vol (Bld) 10.3 {x10E3/uL} Normal 4.0-10.5 [facility] Work Phone: LIPID PANEL ([id number])Ordered B y: Trina Fast on 06-14-2008 Cholesterol in HDL mass conc 64 mg/dL Normal [facility] Work Phone: Comment on above: According to ATP-III Guidelines, HDL-C >59 mg/dL is considered anegative risk factor for CHD. PATIENT WAS FASTINGP ERFORMED BY: KENYON [facility] Txzwlb6763 [address] [facility] [place] [id number] Cholesterol in LDL mass conc 107 mg/dL Abnormal 0-99 [facility] Work Phone: Comment on above: PATIENT WAS FASTINGP ERFORMED BY: CB [facility] Xffhyz4331 [address] RoadNorthern Regional Hospitalin [place] [id number] Cholesterol in LDL/Cholesterol in HDL mass ratio SPRCS Normal [facility] Work Phone: Comment on above: If initial LDL-kelsey sterol result is >100 mg/dL, assess forrisk factors. PATIENT WAS FASTINGP ERFORMED BY: KENYON [facility] Imewbx[address]10 [address] [facility] [id number] Cholesterol in LDL/Cholesterol in HDL mass ratio 1.7 {ratio_units} Normal 0.0-3.2 [facility] Work Phone: Comment on above: PATIENT WAS FASTINGP ERFORMED BY: KENYON [facility] Mdaliz2997 [address] [facility] [id number] Cholesterol in VLDL mass conc 21 mg/dL Normal 5-40 [facility] Work Phone: Comment on above: PATIENT WAS FASTINGP ERFORMED BY: KENYON [facility] Qvspzc2612 [address] [facility] [id number] Cholesterol mass conc 192 mg/dL Normal 100-199 [facility] prehensive Internal Medicine Work Phone: Comment on above: PATIENT WAS FASTINGP ERFORMED BY: CB [facility] Fwbkfi1334 [address] [facility] [id number] Triglyceride mass conc 105 mg/dL Normal 0-149 [facility] Work Phone: Comment on above: PATIENT WAS FASTINGP ERFORMED BY: CB [facility] Hipusl5[address] [facility] [id number] METABOLIC PANEL, COMPREHENSI VE ([id number])Ordered By: Trina Aguila on 06-14-2008 Albumin mass conc 4.6 g/dL Normal 3.5-5.5 Compreh ensive [facility] Work Phone: Comment on above: PATIENT WAS FASTINGP ERFORMED BY: KENYON [facility] Rumpun2671 Gaviria RoadDublin [place] [id number] Albumin/Globulin mass ratio 1.8 {ratio} Normal 1.1-2.5 [facility] Work Phone: Comment on above: PATIENT WAS FASTINGP ERFORMED BY: KENYON [facility] Bjicgb9638 Gaviria RoadDublin [place] [id number] ALP [Catalytic activity/Vol] 79 U/L Normal 25-150 [facility] Work Phone: Comment on above: PATIENT WAS FASTINGP ERFORMED BY: KENYON [facility] Aaikhy5129 [address] RoadDublin [place] [id number] ALP enzyme act/vol 79 [iU]/L Normal 25-150 [facility] Work Phone: Comment on above: PATIENT WAS FASTINGP ERFORMED BY: KENYON [facility] Pozvhq7953 [address] RoadNorthern Regional Hospitalin [place] [id number] ALT [Catalytic activity/Vol] 24 U/L Normal 0-40 [facility] Work Phone: Comment on above: PATIENT WAS FASTINGP ERFORMED BY: KENYON [facility] Dowieh5313 [address] RoadDublin [place] [id number] ALT enzyme act/vol 24 [iU]/L Normal 0-40 [facility] Work Phone: Comment on above: PATIENT WAS FASTINGP ERFORMED BY: [facility] Yavnpu2730 [address] RoadDublin [place] [id number] AST [Catalytic activity/Vol] 14 U/L Normal 0-40 [facility] Work Phone: Comment on above: PATIENT WAS FASTINGP ERFORMED BY: KENYON [facility] Vtxwml1995 [address] RoadDublin [place] [id number] AST enzyme act/vol 14 [iU]/L Normal 0-40 [facility] Work Phone: Comment on above: PATIENT WAS FASTINGP ERFORMED BY: [facility] Xalhed6624 [address] RoadDublin [place] [id number] Bilirubin mass conc 0.3 mg/dL Normal 0.1-1.2 Compr ehensive [facility] Medicine Work Phone: Comment on above: PATIENT WAS FASTINGP ERFORMED BY: KENYON MoralezCobarrington FairVmuybp6090 [facility] [id number] Calcium mass conc 10.1 mg/dL Normal 8.5-10.6 Compreh ensive [facility] Work Phone: Comment on above: PATIENT WAS FASTINGP ERFORMED BY: KENYON [facility] Tgdixk5723 [facility] [id number] Chloride molar conc 103 mmol/L Normal 97-108 Compr ensive [facility] Work Phone: Comment on above: PATIENT WAS FASTINGP ERFORMED BY: KENYON MoralezCobarrington ElLclkqe0381 [facility] [id number] CO2 molar conc 25 mmol/L Normal 20-32 Comprehens nicole Internal Medicine Work Phone: Comment on above: PATIENT WAS FASTINGP ERFORMED BY: [facility] Fclkck5789 [facility] [id number] Creatinine mass conc 0.85 mg/dL Normal 0.57-1.00 Comp [facility]caraw[facility] hospitalensive [facility] Work Phone: Comment on above: PATIENT WAS FASTINGP ERFORMED BY: [facility] Kfctgn2507 [facility] [id number] GFR/1.73 sq M predicted among blacks MDRD vol rate/area (S/P/Bld) mL/min/{1.73_m2} Normal Comprehensi ve Internal Medicine Work Phone: Comment on above: Note: Persistent red uction for 3 months or more in an eGFR<60 mL/min/1.73 m2 defines CKD. Patients with eGFR values>/=60 mL/min/1.73 m2 may also have CKD if evidence of persistentproteinuria is present. Additional information may be found [email or web address]. PATIENT WAS FASTINGP ERFORMED BY: [facility] [id number] [facility] [id number] GFR/1.73 sq M.predicted MDRD (S/P/Bld) [Vol rate/Area] mL/min/{1.73_m2} Normal [facility] Work Phone: Comment on above: PATIENT WAS FASTINGP ERFORMED BY: KENYON [facility] [facility] [id number] GFR/1.73 sq M.predicted MDRD vol rate/area mL/min/{1.73_m2} Normal [facility] Work Phone: Comment on above: PATIENT WAS FASTINGP ERFORMED BY: KENYON [place] [id number] [facility] [id number] Globulin Calculated mass conc (S) 2.5 g/dL Normal 1.5-4.5 [facility] Work Phone: Globulin mass conc (S) 2.5 g/dL Normal 1.5-4.5 [facility] Work Phone: Comment on above: PATIENT WAS FASTINGP ERFORMED BY: KENYON [place] [id number] [facility] [id number] Glucose mass conc 103 mg/dL Abnormal 65-99 Compreh ensive [facility] Medicine Work Phone: Comment on above: PATIENT WAS FASTINGP ERFORMED BY: KENYON [place] [id number] [facility] [id number] Potassium molar conc 3.7 mmol/L Normal 3.5-5.2 Comp rehensive [facility] Medicine Work Phone: Comment on above: PATIENT WAS FASTINGP ERFORMED BY: KENYON [place] [id number] [facility] [id number] Protein mass conc 7.1 g/dL Normal 6.0-8.5 Compreh ensive [facility] Work Phone: Comment on above: PATIENT WAS FASTINGP ERFORMED BY: KENYON [place] [id number] [facility] [id number] Sodium molar conc 141 mmol/L Normal 135-145 Compreh ensive [facility] Work Phone: Comment on above: PATIENT WAS FASTINGP ERFORMED BY: [place] [id number] [facility] [id number] Urea nitrogen mass conc 18 mg/dL Normal 5-26 [facility] Work Phone: Comment on above: PATIENT WAS FASTINGP ERFORMED BY: [facility] [id number] [facility] [id number] Urea nitrogen/Creatinine mass ratio 21 mg/mg Normal 8-27 [facility] Work Phone: Comment on above: PATIENT WAS FASTINGP ERFORMED BY: [facility] Ekgaga3528 [facility] [id number] T3, FREE (TRIDOTHYRONINE) (2 1310)Ordered By: Trina Fast on 06-14-2008 T3 free mass conc 3.1 pg/mL Normal 2.3-4.2 Compreh ensive [facility] Work Phone: Comment on above: PATIENT WAS FASTINGP ERFORMED BY: [facility] Okvlhp0365 [facility] [id number] T4, FREE (THYROXINE) ([id number]) Ordered By: Trina Fast on 06-14-2008 T4 free mass conc 1.47 ng/dL Normal 0.61-1.76 Compreh ensive [facility] Work Phone: Comment on above: PATIENT WAS FASTINGP ERFORMED BY: [facility] Elwlal5947 [facility] [id number] TSH ([id number])Ordered By: Trina Fast on 06-14-2008 Thyrotropin Qn 3.384 {uIU/mL} Normal 0.450-4.50 0 [facility] Work Phone: Comment on above: PATIENT WAS FASTINGP ERFORMED BY: [facility] [facility] [id number] Vital Signs Date Time Vital Sign Value Performing Clinician Facility 01-14-2023 13:06-040 Body height 161.93 cm Carmita Andrews CMA [facility]; [facility] Work Phone: 01-14-2023 13:06-0400 Body mass index (BMI) [Ratio] 30.14 kg/m2 Carmita Andrews [facility]; [facility] Work Phone: 01-14-2023 13:06-0400 Body surface area Derived from formula 1.84 m2 Carmita Andrews [facility]; [facility] Work Phone: 01-14-2023 13:06-0400 Body temperature 97.4 [degF] Carmita Andrews [facility]; [facility] Work Phone: Comment on above: Method: Thermal Scan 01-14-2023 13:06-0400 Body weight 79.04 kg Carmita Andrews [facility]; [facility] Work Phone: 01-14-2023 13:06-0400 Diastolic blood pressure 64 mm[Hg] Carmita Andrews [facility]; [facility] Work Phone: Comment on above: Patient Position: Sitting; Cuff Location : Left Arm; Cuff Size: Standard 01-14-2023 13:06-0400 Heart rate 69 /min Carmita Andrews [facility]; [facility] Work Phone: Comment on above: Pattern: Regular 01-14-2023 13:06-0400 Respiratory rate 16 /min Carmita Andrews [facility]; [facility] Work Phone: Comment on above: Pattern: Unlabored 01-14-2023 13:06-0400 SaO2% (BldA) [Mass fraction] 97 % Carmita Andrews [facility]; [facility] Work Phone: Comment on above: Room air 01-14-2023 13:06-0400 Systolic blood pressure 114 mm[Hg] Carmita Andrews [facility]; [facility] Work Phone: Comment on above: Patient Position: Sitting; Cuff Location : Left Arm; Cuff Size: Standard 10-02-2022 13:04-0400 Body height 161.93 cm Carmita Andrews [facility]; [facility] Work Phone: 10-02-2022 13:04-0400 Body mass index (BMI) [Ratio] 30.66 kg/m2 Carmita Andrews [facility]; [facility] Work Phone: 10-02-2022 13:04-0400 Body surface area Derived from formula 1.85 m2 Carmita Andrews [facility]; [facility] Work Phone: 10-02-2022 13:04-0400 Body temperature 98.6 [degF] Carmita Andrews [facility]; [facility] Work Phone: Comment on above: Method: Thermal Scan 10-02-2022 13:04-0400 Body weight 80.4 kg Carmita Andrews [facility]; [facility] Work Phone: 10-02-2022 13:04-0400 Diastolic blood pressure 70 mm[Hg] Carmita Adnrews [facility]; [facility] Work Phone: Comment on above: Patient Position: Sitting; Cuff Location : Left Arm; Cuff Size: Standard 10-02-2022 13:04-0400 Heart rate 78 /min Carmita Andrews [facility]; [facility] Work Phone: Comment on above: Pattern: Regular 10-02-2022 13:04-0400 Respiratory rate 16 /min Carmita Andrews [facility]; [facility] Work Phone: Comment on above: Pattern: Unlabored 10-02-2022 13:04-0400 SaO2% (BldA) [Mass fraction] 96 % Carmita Andrews [facility]; [facility] Work Phone: Comment on above: Room air 10-02-2022 13:04-0400 Systolic blood pressure 124 mm[Hg] Carmita Andrews [facility]; [facility] Work Phone: Comment on above: Patient Position: Sitting; Cuff Location : Left Arm; Cuff Size: Standard 01-08-2022 11:17-0400 Body height 162.56 cm Referring Provider Unknown XC-Okaegyt-Nfhocsi 2100 Work Phone: 01-08-2022 11:17-0400 Body mass index (BMI) [Ratio] 29.87 kg/m2 Referring Provider Unknown NZ-Pmautwi-Ntilzxp 2100 Work Phone: 01-08-2022 11:17-0400 Body surface area Derived from formula 1.84 m2 Referring Provider Unknown JD-Utcekiy-Nwjtjtk 2100 Work Phone: 01-08-2022 11:17-0400 Body temperature 97.1 [degF] Referring Provider Unknown TT-Rundefk-Ejnigsp 2100 Work Phone: 01-08-2022 11:17-0400 Body weight 78.93 kg Referring Provider Unknown TD-Wqjexub-Ydmruss 2100 Work Phone: 01-08-2022 11:17-0400 Diastolic blood pressure 80 mm[Hg] Referring Provider Unknown OY-Gvktfnp-Lkfnigu 2100 Work Phone: 01-08-2022 11:17-0400 Heart rate 100 /min Referring Provider Unknown QL-Fdsuzja-Lwpxdnr 2100 Work Phone: 01-08-2022 11:17-0400 Systolic blood pressure 122 mm[Hg] Referring Provider Unknown TC-Jcrxkrw-Urxjndb 2100 Work Phone: 01-08-2022 11:17-0400 0 1 Referring Provider Unknown DW-Usqbirx-Jwotcyp 2100 Work Phone: Comment on above: [employer] 12-21-2021 13:27-0400 Body temperature 97.16 [degF] Pcp Unknown [facility] 12-21-2021 13:27-0400 Respiratory rate 16 /min Pcp Unknown [facility] 12-21-2021 11:44-0400 Diastolic blood pressure 75 mm[Hg] Pcp Unknown [facility] 12-21-2021 11:44-0400 Heart rate 73 /min Pcp Unknown [facility] 12-21-2021 11:44-0400 SaO2% (BldA) [Mass fraction] 93 % Pcp Unknown [facility] 12-21-2021 11:44-0400 Systolic blood pressure 145 mm[Hg] Pcp Unknown [facility] 11-20-2021 09:10-0400 Body height 162.56 cm Referring Provider Unknown XQ-Kcakjsi-Vecikis 2100 Work Phone: 11-20-2021 09:10-0400 Body mass index (BMI) [Ratio] 30.77 kg/m2 Referring Provider Unknown XK-Caiodrq-Amyhbcz 2100 Work Phone: 11-20-2021 09:10-0400 Body surface area Derived from formula 1.87 m2 Referring Provider Unknown BU-Ejcfgug-Hphocxq 2100 Work Phone: 11-20-2021 09:10-0400 Body temperature 96.8 [degF] Referring Provider Unknown XD-Ytqvdmt-Ufsgtml 2100 Work Phone: 11-20-2021 09:10-0400 Body weight 81.31 kg Referring Provider Unknown TS-Qkspngv-Qrqfnyi 2100 Work Phone: 11-20-2021 09:10-0400 Diastolic blood pressure 88 mm[Hg] Referring Provider Unknown OA-Yqpvzom-Esbrmau 2100 Work Phone: 11-20-2021 09:10-0400 Heart rate 96 /min Referring Provider Unknown TE-Tsnhcza-Dcrdgqt 2100 Work Phone: 11-20-2021 09:10-0400 Systolic blood pressure 127 mm[Hg] Referring Provider Unknown TB-Chfdjjr-Xlrdbqh 2100 Work Phone: 10-08-2021 10:21-0400 Diastolic Blood Pressure NBP [address] IVÁN RUANO MD [facility] 10-08-2021 10:21-0400 Heart rate 76 /min DR IVÁN RUANO MD [facility] 10-08-2021 10:21-0400 Respiratory rate 15 /min DR IVÁN RUANO MD [facility] 10-08-2021 10:21-0400 Systolic Blood Pressure NBP [address] IVÁN RUANO MD [facility] 10-08-2021 10:14-0400 Diastolic Blood Pressure NBP [address] IVÁN RUANO MD [facility] 10-08-2021 10:14-0400 Heart rate 75 /min DR IVÁN RUANO MD [facility] 10-08-2021 10:14-0400 Respiratory rate 18 /min DR IVÁN RUANO MD [facility] 10-08-2021 10:14-0400 Systolic Blood Pressure NBP [address] IVÁN RUANO MD [facility] 10-08-2021 10:09-0400 Diastolic Blood Pressure NBP [address] IVÁN RUANO MD [facility] 10-08-2021 10:09-0400 Heart rate 84 /min DR IVÁN RUANO MD [facility] 10-08-2021 10:09-0400 Respiratory rate 22 /min DR IVÁN RUANO MD [facility] 10-08-2021 10:09-0400 Systolic Blood Pressure NBP [address] IVÁN RUANO MD [facility] 10-08-2021 08:25-0400 Body height 165.[address] IVÁN RUANO MD [facility] 10-08-2021 08:25-0400 Body temperature 99.68 [degF] DR IVÁN RUANO MD [facility] 10-08-2021 08:25-0400 Body weight 77.[address] IVÁN RUANO MD [facility] 10-08-2021 08:25-0400 Body weight 28.19 kg/m2 DR IVÁN RUANO MD [facility] 10-08-2021 08:25-0400 diastolic 75 mm[Hg] DR IVÁN RUANO MD [facility] 10-08-2021 08:25-0400 Heart rate 89 /min DR IVÁN RUANO MD [facility] 10-08-2021 08:25-0400 systolic 122 mm[Hg] DR IVÁN RUANO MD [facility] 03-19-2021 11:01-0500 Diastolic Blood Pressure NBP [address] IVÁN RUANO MD [facility] 03-19-2021 11:01-0500 Heart rate 69 /min DR IVÁN RUANO MD [facility] 03-19-2021 11:01-0500 Respiratory rate 18 /min DR IVÁN RUANO MD [facility] 03-19-2021 11:01-0500 Systolic Blood Pressure NBP [address] IVÁN RUANO MD [facility] 03-19-2021 10:56-0500 Diastolic Blood Pressure NBP [address] IVÁN RUANO MD [facility] 03-19-2021 10:56-0500 Heart rate 67 /min DR IVÁN RUANO MD [facility] 03-19-2021 10:56-0500 Respiratory rate 20 /min DR IVÁN RUANO MD [facility] 03-19-2021 10:56-0500 Systolic Blood Pressure NBP [address] IVÁN RUANO MD [facility] 03-19-2021 10:51-0500 Diastolic Blood Pressure NBP [address] IVÁN RUANO MD [facility] 03-19-2021 10:51-0500 Heart rate 68 /min DR IVÁN RUANO MD [facility] 03-19-2021 10:51-0500 Respiratory rate 18 /min DR IVÁN RUANO MD [facility] 03-19-2021 10:51-0500 Systolic Blood Pressure NBP [address] IVÁN RUANO MD [facility] 03-19-2021 10:31-0500 Body temperature 97.34 [degF] DR IVÁN RUANO MD [facility] 03-19-2021 09:58-0500 Body temperature 97.52 [degF] DR IVÁN RUANO MD [facility] 03-19-2021 09:58-0500 Heart rate 82 /min DR IVÁN RUANO MD [facility] 01-22-2021 13:04-0400 Body height 161.93 cm Carmita Andrews [facility]; [facility] Work Phone: 01-22-2021 13:04-0400 Body mass index (BMI) [Ratio] 30.47 kg/m2 Carmita Andrews [facility]; [facility] Work Phone: 01-22-2021 13:04-0400 Body surface area Derived from formula 1.85 m2 Carmita Andrews [facility]; [facility] Work Phone: 01-22-2021 13:04-0400 Body temperature 97.1 [degF] Carmita Andrews [facility]; [facility] Work Phone: Comment on above: Method: Thermal Scan 01-22-2021 13:04-0400 Body weight 79.89 kg Carmita Andrews [facility]; [facility] Work Phone: 01-22-2021 13:04-0400 Diastolic blood pressure 72 mm[Hg] Carmita Andrews [facility]; [facility] Work Phone: Comment on above: Patient Position: Sitting; Cuff Location : Left Arm; Cuff Size: Standard 01-22-2021 13:04-0400 Heart rate 87 /min Carmita Andrews [facility]; [facility] Work Phone: Comment on above: Pattern: Regular 01-22-2021 13:04-0400 Respiratory rate 16 /min Carmita Andrews [facility]; [facility] Work Phone: Comment on above: Pattern: Unlabored 01-22-2021 13:04-0400 SaO2% (BldA) [Mass fraction] 97 % Carmita Andrews [facility]; [facility] Work Phone: Comment on above: Room air 01-22-2021 13:04-0400 Systolic blood pressure 115 mm[Hg] Carmita Andrews [facility]; [facility] Work Phone: Comment on above: Patient Position: Sitting; Cuff Location : Left Arm; Cuff Size: Standard 01-10-2020 08:27-0400 BMI (Body Mass Index) 28.57 kg/m2 Carmita Andrews [facility] Work Phone: 01-10-2020 08:27-0400 Body Temperature 96.9 [degF] [facility] Work [facility]: Comment on above: Method: Thermal Scan 01-10-2020 08:27-0400 Body weight 74.9 kg Carmita Andrews [facility] Work Phone: 01-10-2020 08:27-0400 BP Diastolic 70 mm[Hg] Carmita Andrews [facility] Work Phone: Comment on above: Patient Position: Sitting; Cuff Location : Left Arm; Cuff Size: Standard 01-10-2020 08:27-0400 BP Systolic 115 mm[Hg] [facility] Work Phone: Comment on above: Patient Position: Sitting; Cuff Location : Left Arm; Cuff Size: Standard 01-10-2020 08:27-0400 BSA (Body Surface Area) 1.8 m2 Carmita Andrews [facility] Work Phone: 01-10-2020 08:27-0400 Height 161.93 cm Carmita WalkerFort Defiance Indian [facility] Work Phone: 01-10-2020 08:27-0400 Pulse (Heart Rate) 82 /min [facility] Comment on above: Pattern: Regular 01-10-2020 08:27-0400 Respiratory Rate 16 /min [facility] Comment on above: Pattern: Unlabored 01-22-2019 09:46-0400 BMI (Body Mass Index) 29.95 kg/m2 Barbara Persaud RN [facility] Internal Medicine Work Phone: 01-22-2019 09:46-0400 Body weight 78.53 kg Barbara Persaud RN [facility] Work Phone: 01-22-2019 09:46-0400 BP Diastolic 88 mm[Hg] Barbara Persaud [facility] Work Phone: Comment on above: Patient Position: Sitting; Cuff Location : Left Arm; Cuff Size: Large 01-22-2019 09:46-0400 BP Systolic 138 mm[Hg] Barbara Persaud RN [facility] Work Phone: Comment on above: Patient Position: Sitting; Cuff Location : Left Arm; Cuff Size: Large 01-22-2019 09:46-0400 BSA (Body Surface Area) 1.83 m2 Barbara Persaud RN [facility] Work Phone: 01-22-2019 09:46-0400 Height 161.93 cm Barbara Persaud RN [facility] Work Phone: 01-22-2019 09:46-0400 Pulse (Heart Rate) 75 /min Barbara Persaud RN [facility] Work Phone: Comment on above: Pattern: Regular 01-22-2019 09:46-0400 Pulse Oximetry 97 % Trina Rodney [facility] Work Phone: Comment on above: Room air 01-22-2019 09:46-0400 Respiratory Rate 18 /min Barbara Persaud RN [facility] Work Phone: Comment on above: Pattern: Unlabored 01-22-2019 09:46-0400 SaO2% (BldA) [Mass fraction] 97 % Barbara Persaud RN [facility] Work Phone: Comment on above: Room air 10-20-2018 08:24-0400 BMI (Body Mass Index) 29.06 kg/m2 Carmita Manjustin [employer] [facility] Work Phone: 10-20-2018 08:24-0400 Body Temperature 97.3 [degF] Carmita Walkerjustin [facility] Internal Medicine Work Phone: Comment on above: Method: Temporal 10-20-2018 08:24-0400 Body weight 76.2 kg Carmita Manjustin [facility] Internal Medicine Work Phone: 10-20-2018 08:24-0400 BP Diastolic 70 mm[Hg] Carmita Andrews [facility] Internal Medicine Work Phone: Comment on above: Patient Position: Sitting; Cuff Location : Left Arm; Cuff Size: Standard 10-20-2018 08:24-0400 BP Systolic 128 mm[Hg] Carmita Andrews [facility] Internal Medicine Work Phone: Comment on above: Patient Position: Sitting; Cuff Location : Left Arm; Cuff Size: Standard 10-20-2018 08:24-0400 BSA (Body Surface Area) 1.81 m2 Carmita Andrews [facility] Work Phone: 10-20-2018 08:24-0400 Height 161.93 cm Carmita Andrews [facility] Internal Medicine Work Phone: 10-20-2018 08:24-0400 Pulse (Heart Rate) 70 /min Carmita Andrews [facility] Internal Medicine Work Phone: Comment on above: Pattern: Regular 10-20-2018 08:24-0400 Respiratory Rate 16 /min Carmita Andrews [facility] Internal Medicine Work Phone: Comment on above: Pattern: Unlabored 08-18-2018 12:58-0400 BMI (Body Mass Index) 29.41 kg/m2 Kat Moreno [facility] Internal [facility] Work Phone: 08-18-2018 12:58-0400 Body Temperature 97.7 [degF] Kat Moreno RN [facility] Internal Medicine Work Phone: Comment on above: Method: Temporal 08-18-2018 12:58-0400 Body weight 77.11 kg Kat Moreno RN [facility] Internal Medicine Work Phone: 08-18-2018 12:58-0400 BP Diastolic 74 mm[Hg] Kat Moreno RN [facility] Internal Medicine Work Phone: Comment on above: Patient Position: Sitting; Cuff Location : Left Arm; Cuff Size: Standard 08-18-2018 12:58-0400 BP Systolic 120 mm[Hg] Kat Moreno RN [facility] Internal Medicine Work Phone: Comment on above: Patient Position: Sitting; Cuff Location : Left Arm; Cuff Size: Standard 08-18-2018 12:58-0400 BSA (Body Surface Area) 1.82 m2 Kat Collins Josh [facility] Internal Medicine Work Phone: 08-18-2018 12:58-0400 Height 161.93 cm Kat Guadalupe Josh [facility] Internal Medicine Work Phone: 08-18-2018 12:58-0400 Pulse (Heart Rate) 84 /min Kat Collins Josh [facility] Internal Medicine Work Phone: Comment on above: Pattern: Regular 08-18-2018 12:58-0400 Pulse Oximetry 97 % Trina Aguila [facility] Internal Medicine Work Phone: Comment on above: Room air 08-18-2018 12:58-0400 Respiratory Rate 16 /min Kat Collins Josh [facility] Internal Medicine Work Phone: Comment on above: Pattern: Unlabored 08-18-2018 12:58-0400 SaO2% (BldA) [Mass fraction] 97 % Kat Guadalupe Josh KENN[facility] Internal Medicine Work Phone: Comment on above: Room air 08-18-2018 12:58-0400 Weight 77.11 kg Trina Aguila [facility] Internal Medicine Work Phone: 01-21-2018 11:03-0400 BMI (Body Mass Index) 29.76 kg/m2 Carmita Andrews [facility] Internal Medicine Work Phone: 01-21-2018 11:03-0400 Body Temperature 98.1 [degF] Carmita Andrews [facility] Internal Medicine Work Phone: Comment on above: Method: Temporal 01-21-2018 11:03-0400 Body weight 78.02 kg Carmita Andrews [facility] Internal Medicine Work Phone: 01-21-2018 11:03-0400 BP Diastolic 68 mm[Hg] Carmita Andrews [facility] Internal Medicine Work Phone: Comment on above: Patient Position: Sitting; Cuff Location : Left Arm; Cuff Size: Standard 01-21-2018 11:03-0400 BP Systolic 122 mm[Hg] Carmita Andrews [facility] Internal Medicine Work Phone: Comment on above: Patient Position: Sitting; Cuff Location : Left Arm; Cuff Size: Standard 01-21-2018 11:03-0400 BSA (Body Surface Area) 1.83 m2 Carmita Andrews [facility] Internal Medicine Work Phone: 01-21-2018 11:03-0400 Height 161.93 cm Carmita Andrews [facility] Internal Medicine Work Phone: 01-21-2018 11:03-0400 Pulse (Heart Rate) 80 /min Carmita Andrews [facility] Internal Medicine Work Phone: Comment on above: Pattern: Regular 01-21-2018 11:03-0400 Respiratory Rate 16 /min Carmita Andrews [facility] Internal Medicine Work Phone: Comment on above: Pattern: Unlabored 01-21-2018 11:03-0400 Weight 78.02 kg Trina Aguila [facility] Internal Medicine Work Phone: 01-07-2018 13:35-0400 BMI (Body Mass Index) 32.35 kg/m2 Carmita Andrews [facility] Internal Medicine Work Phone: 01-07-2018 13:35-0400 Body Temperature 98.4 [degF] Carmita Andrews [facility] Internal Medicine Work Phone: Comment on above: Method: Temporal 01-07-2018 13:35-0400 Body weight 84.82 kg Carmita Andrews [facility] Internal Medicine Work Phone: 01-07-2018 13:35-0400 BP Diastolic 72 mm[Hg] Carmita Andrews [facility] Internal Medicine Work Phone: Comment on above: Patient Position: Sitting; Cuff Location : Left Arm; Cuff Size: Standard 01-07-2018 13:35-0400 BP Systolic 118 mm[Hg] Carmita Andrews [facility] Internal Medicine Work Phone: Comment on above: Patient Position: Sitting; Cuff Location : Left Arm; Cuff Size: Standard 01-07-2018 13:35-0400 BSA (Body Surface Area) 1.9 m2 Carmita Andrews C[facility] Internal Medicine Work Phone: 01-07-2018 13:35-0400 Height 161.93 cm Carmita Andrews [facility] Internal Medicine Work Phone: 01-07-2018 13:35-0400 Pulse (Heart Rate) 90 /min Carmita Andrews [facility] Internal Medicine Work Phone: Comment on above: Pattern: Regular 01-07-2018 13:35-0400 Respiratory Rate 16 /min Carmita Andrews [facility] Internal Medicine Work Phone: Comment on above: Pattern: Unlabored 01-07-2018 13:35-0400 Weight 84.82 kg Trina Aguila [facility] Internal Medicine Work Phone: 09-17-2017 13:03-0400 BMI (Body Mass Index) 32.35 kg/m2 Carmita Andrews [facility] Internal Medicine Work Phone: 09-17-2017 13:03-0400 Body Temperature 98.1 [degF] Carmita Andrews [facility] Internal Medicine Work Phone: Comment on above: Method: Temporal 09-17-2017 13:03-0400 Body weight 84.82 kg Carmita Andrews [facility] Internal Medicine Work Phone: 09-17-2017 13:03-0400 BP Diastolic 70 mm[Hg] Carmita Andrews [facility] Internal Medicine Work Phone: Comment on above: Patient Position: Sitting; Cuff Location : Left Arm; Cuff Size: Standard 09-17-2017 13:03-0400 BP Systolic 126 mm[Hg] Carmita Andrews [facility] Internal Medicine Work Phone: Comment on above: Patient Position: Sitting; Cuff Location : Left Arm; Cuff Size: Standard 09-17-2017 13:03-0400 BSA (Body Surface Area) 1.9 m2 Carmita Andrews [facility] Internal Medicine Work Phone: 09-17-2017 13:03-0400 Height 161.93 cm Carmita Andrews [facility] Internal Medicine Work Phone: 09-17-2017 13:03-0400 Pulse (Heart Rate) 91 /min Carmita Andrews [facility] Internal Medicine Work Phone: Comment on above: Pattern: Regular 09-17-2017 13:03-0400 Respiratory Rate 16 /min Carmita Andrews CMA [facility] Internal Medicine Work Phone: Comment on above: Pattern: Unlabored 09-17-2017 13:03-0400 Weight 84.82 kg Trina Aguila [facility] Internal Medicine Work Phone: 08-27-2017 11:37-0400 BMI (Body Mass Index) 32.18 kg/m2 Carmita Andrews [facility] Internal Medicine Work Phone: 08-27-2017 11:37-0400 Body Temperature 96.3 [degF] Carmita Andrews [facility] Internal Medicine Work Phone: Comment on above: Method: Temporal 08-27-2017 11:37-0400 Body weight 84.37 kg Carmita Andrews [facility] Internal Medicine Work Phone: 08-27-2017 11:37-0400 BP Diastolic 80 mm[Hg] Carmita Andrews [facility] Internal Medicine Work Phone: Comment on above: Patient Position: Sitting; Cuff Location : Left Arm; Cuff Size: Standard 08-27-2017 11:37-0400 BP Systolic 136 mm[Hg] Carmita Andrews [facility] Internal Medicine Work Phone: Comment on above: Patient Position: Sitting; Cuff Location : Left Arm; Cuff Size: Standard 08-27-2017 11:37-0400 BSA (Body Surface Area) 1.89 m2 Carmita Andrews [facility] Internal Medicine Work Phone: 08-27-2017 11:37-0400 Height 161.93 cm Carmita Andrews [facility] Internal Medicine Work Phone: 08-27-2017 11:37-0400 Pulse (Heart Rate) 70 /min Carmita Andrews C[facility] Work Phone: Comment on above: Pattern: Regular 08-27-2017 11:37-0400 Respiratory Rate 16 /min Carmita Andrews [facility] Internal Medicine Work Phone: Comment on above: Pattern: Unlabored 08-27-2017 11:37-0400 Weight 84.37 kg Trina Aguila [facility] Internal Medicine Work Phone: 03-21-2017 11:48-0500 BMI (Body Mass Index) 31.66 kg/m2 Nisha Lopez [facility] Internal Medicine Work Phone: Comment on above: Pt is extremely nervous... 03-21-2017 11:48-0500 Body Temperature 96.6 [degF] Nisha Lopez [facility] Internal Medicine Work Phone: Comment on above: Method: Temporal Pt is extremely nerv ous... 03-21-2017 11:48-0500 Body weight 83.01 kg Nisha Lopez [facility] Internal Medicine Work Phone: Comment on above: Pt is extremely nervous... 03-21-2017 11:48-0500 BP Diastolic 90 mm[Hg] Nisha Lopez [facility] Internal Medicine Work Phone: Comment on above: Patient Position: Sitting; Cuff Location : Left Arm; Cuff Size: Large Pt is extremely nerv ous... 03-21-2017 11:48-0500 BP Systolic 150 mm[Hg] Nisha Lopez [facility] Internal Medicine Work Phone: Comment on above: Patient Position: Sitting; Cuff Location : Left Arm; Cuff Size: Large Pt is extremely nerv ous... 03-21-2017 11:48-0500 BSA (Body Surface Area) 1.88 m2 Nisha Lopez [facility] Internal Medicine Work Phone: Comment on above: Pt is extremely nervous... 03-21-2017 11:48-0500 Height 161.93 cm Nisha Lopez [facility] Medicine Work Phone: Comment on above: Pt is extremely nervous... 03-21-2017 11:48-0500 Pulse (Heart Rate) 108 /min Nisha Jessica [facility] Internal Medicine Work Phone: Comment on above: Pattern: Regular Pt is extremely nerv ous... 03-21-2017 11:48-0500 Pulse Oximetry 97 % Trina Aguila [facility] Internal Medicine Work Phone: Comment on above: Room air Pt is extremely nerv ous... 03-21-2017 11:48-0500 Respiratory Rate 18 /min Nisha Jessica [facility] Internal Medicine Work Phone: Comment on above: Pattern: Unlabored Pt is extremely nerv ous... 03-21-2017 11:48-0500 SaO2% (BldA) [Mass fraction] 97 % [facility]isha [facility] Internal Medicine Work Phone: Comment on above: Room air Pt is extremely nerv ous... 03-21-2017 11:48-0500 Weight 83.01 kg Trina Aguila [facility] Internal Medicine Work Phone: Comment on above: Pt is extremely nervous... 12-06-2010 10:30-0400 BMI (Body Mass Index) 29.58 kg/m2 Valery Gar[facility] Internal [facility] Work Phone: 12-06-2010 10:30-0400 Body Temperature 97.5 [degF] Valery Garza RN [facility] Work Phone: Comment on above: Method: Oral 12-06-2010 10:30-0400 Body weight 77.57 kg Valery Garza RN [facility] Work Phone: 12-06-2010 10:30-0400 BP Diastolic 86 mm[Hg] Valery Garza RN [facility] Work Phone: Comment on above: Patient Position: Sitting; Cuff Location : Left Arm; Cuff Size: Large 12-06-2010 10:30-0400 BP Systolic 142 mm[Hg] Valery Garza RN [facility] Work Phone: Comment on above: Patient Position: Sitting; Cuff Location : Left Arm; Cuff Size: Large 12-06-2010 10:30-0400 BSA (Body Surface Area) 1.82 m2 Valery Garza RN [facility] Internal Medicine Work Phone: 12-06-2010 10:30-0400 Height 161.93 cm Valery Garza RN [facility] Internal Medicine Work Phone: 12-06-2010 10:30-0400 Pulse (Heart Rate) 72 /min Valery Garza RN [facility] Work Phone: Comment on above: Pattern: Regular 12-06-2010 10:30-0400 Respiratory Rate 16 /min Valery Garza RN [facility] Internal Medicine Work Phone: Comment on above: Pattern: Unlabored 12-06-2010 10:30-0400 Weight 77.57 kg Trina Fast [facility] Internal Medicine Work Phone: 08-13-2010 15:48-0400 BMI (Body Mass Index) 29.58 kg/m2 Nisha Lopez [facility] Internal Medicine Work Phone: 08-13-2010 15:48-0400 Body Temperature 98.2 [degF] Nisha Lopez [facility] Internal Medicine Work Phone: 08-13-2010 15:48-0400 Body weight 77.57 kg Nisha Lopez [facility] Internal Medicine Work Phone: 08-13-2010 15:48-0400 BP Diastolic 82 mm[Hg] Nisha Lopez [facility] Internal Medicine Work Phone: Comment on above: Patient Position: Sitting; Cuff Location : Left Arm; Cuff Size: Standard 08-13-2010 15:48-0400 BP Systolic 126 mm[Hg] Nisha Lopez [facility] Internal Medicine Work Phone: Comment on above: Patient Position: Sitting; Cuff Location : Left Arm; Cuff Size: Standard 08-13-2010 15:48-0400 BSA (Body Surface Area) 1.82 m2 Nisha Lopez [facility] Internal Medicine Work Phone: 08-13-2010 15:48-0400 Height 161.93 cm Nisha Lopez [facility] Internal Medicine Work Phone: 08-13-2010 15:48-0400 Pulse (Heart Rate) 68 /min Nisha Lopez [facility] Work Phone: Comment on above: Pattern: Regular 08-13-2010 15:48-0400 Respiratory Rate 16 /min Nisha Lopez [facility] Work Phone: Comment on above: Pattern: Unlabored 08-13-2010 15:48-0400 Weight 77.57 kg Trina Fast [facility] Work Phone: 02-20-2010 15:36-0500 Body Temperature 98.6 [degF] Nisha Lopez [facility] Internal Medicine Work Phone: 02-20-2010 15:36-0500 Body weight 74.84 kg Nisha Lopez [facility] Internal Medicine Work Phone: 02-20-2010 15:36-0500 BP Diastolic 68 mm[Hg] Nisha Lopez [facility] Internal Medicine Work Phone: Comment on above: Patient Position: Sitting; Cuff Location : Left Arm; Cuff Size: Large 02-20-2010 15:36-0500 BP Systolic 116 mm[Hg] Nisha Lopez [facility] Internal Medicine Work Phone: Comment on above: Patient Position: Sitting; Cuff Location : Left Arm; Cuff Size: Large 02-20-2010 15:36-0500 Pulse (Heart Rate) 76 /min Nisha Lopez [facility] Work Phone: Comment on above: Pattern: Regular 02-20-2010 15:36-0500 Respiratory Rate 18 /min Nisha Lopez [facility] Internal Medicine Work Phone: Comment on above: Pattern: Unlabored 02-20-2010 15:36-0500 Weight 74.84 kg Trina Fast [facility] Work Phone: 09-19-2009 10:37-0400 Body weight 73.03 kg Nisha Lopez [facility] Internal Medicine Work Phone: 09-19-2009 10:37-0400 BP Diastolic 78 mm[Hg] Nisha Lopez [facility] Internal Medicine Work Phone: Comment on above: Patient Position: Sitting; Cuff Location : Left Arm; Cuff Size: Standard 09-19-2009 10:37-0400 BP Systolic 128 mm[Hg] Nisha Lopez [facility] Medicine Work Phone: Comment on above: Patient Position: Sitting; Cuff Location : Left Arm; Cuff Size: Standard 09-19-2009 10:37-0400 Pulse (Heart Rate) 68 /min Nisha Lopez [facility] Internal Medicine Work Phone: Comment on above: Pattern: Regular 09-19-2009 10:37-0400 Respiratory Rate 18 /min Nisha [facility] Internal Medicine Work Phone: Comment on above: Pattern: Unlabored 09-19-2009 10:37-0400 Weight 73.03 kg [facility] Internal Medicine Work Phone: 03-06-2009 15:29-0500 Body Temperature 99.2 [degF] Nisha [facility] Internal Medicine Work Phone: Comment on above: Method: Undefined 03-06-2009 15:29-0500 Body weight 73.48 kg Nisha [facility] Internal Medicine Work Phone: 03-06-2009 15:29-0500 BP Diastolic 70 mm[Hg] Nisha [facility] Internal Medicine Work Phone: Comment on above: Patient Position: Sitting; Cuff Location : Left Arm; Cuff Size: Large 03-06-2009 15:29-0500 BP Systolic 118 mm[Hg] Nisha P[facility]ramunira [facility] Internal Medicine Work Phone: Comment on above: Patient Position: Sitting; Cuff Location : Left Arm; Cuff Size: Large 03-06-2009 15:29-0500 Head Circumference 0 cm [facility] Internal Medicine Work Phone: 03-06-2009 15:29-0500 Head Occipital-frontal circumference 0 cm [facility] Work [facility]: 03-06-2009 15:29-0500 Height 0 cm Nisha Lopez [facility] Internal Medicine Work Phone: 03-06-2009 15:29-0500 Pulse (Heart Rate) 84 /min Nisha Lopez [facility] Medicine Work Phone: Comment on above: Pattern: Regular 03-06-2009 15:29-0500 Respiratory Rate 18 /min Nisha Lopez [facility] Internal Medicine Work Phone: Comment on above: Pattern: Undefined 03-06-2009 15:29-0500 Weight 73.48 kg Trina Aguila [facility] Internal Medicine Work Phone: 09-27-2008 13:25-0400 Body Temperature 98.7 [degF] Nisha Lopez [facility] Internal Medicine Work Phone: Comment on above: Method: Undefined 09-27-2008 13:25-0400 Body weight 78.47 kg Nisha Lopez [facility] Internal Medicine Work Phone: 09-27-2008 13:25-0400 BP Diastolic 88 mm[Hg] Nisha Lopez [facility] Internal Medicine Work Phone: Comment on above: Patient Position: Sitting; Cuff Location : Left Arm; Cuff Size: Standard 09-27-2008 13:25-0400 BP Systolic 138 mm[Hg] Nisah Lopez [facility] Internal Medicine Work Phone: Comment on above: Patient Position: Sitting; Cuff Location : Left Arm; Cuff Size: Standard 09-27-2008 13:25-0400 Head Circumference 0 cm Trina Greenwood [facility] Internal Medicine Work Phone: 09-27-2008 13:25-0400 Head Occipital-frontal circumference 0 cm Nisha Lopez [facility] Internal Medicine Work Phone: 09-27-2008 13:25-0400 Height 0 cm Nisha Lopez [facility] Internal Medicine Work Phone: 09-27-2008 13:25-0400 Pulse (Heart Rate) 84 /min Nisha Lopez [facility] Work Phone: Comment on above: Pattern: Regular 09-27-2008 13:25-0400 Respiratory Rate 18 /min Nisha Lopez [facility] Internal Medicine Work Phone: Comment on above: Pattern: Undefined 09-27-2008 13:25-0400 Weight 78.47 kg Trina Aguila [facility] Internal Medicine Work Phone: 08-09-2008 16:03-0400 Body Temperature 98.3 [degF] Nisha Lopez [facility] Internal Medicine Work Phone: Comment on above: Method: Undefined 08-09-2008 16:03-0400 Body weight 78.93 kg Nisha Lopez [facility] Internal Medicine Work Phone: 08-09-2008 16:03-0400 BP Diastolic 86 mm[Hg] Nisha Lopez [facility] Internal Medicine Work Phone: Comment on above: Patient Position: Sitting; Cuff Location : Right Arm; Cuff Size: Standard 08-09-2008 16:03-0400 BP Systolic 164 mm[Hg] Nisha Lopez [facility] Internal Medicine Work Phone: Comment on above: Patient Position: Sitting; Cuff Location : Right Arm; Cuff Size: Standard 08-09-2008 16:03-0400 Head Circumference 0 cm Trina Aguila [facility] Internal Medicine Work Phone: 08-09-2008 16:03-0400 Head Occipital-frontal circumference 0 cm Nisha Lopez [facility] Internal Medicine Work Phone: 08-09-2008 16:03-0400 Height 0 cm Nisha Lopez [facility] Internal Medicine Work Phone: 08-09-2008 16:03-0400 Pulse (Heart Rate) 96 /min [facility]isha Lopez [facility] Work Phone: Comment on above: Pattern: Regular 08-09-2008 16:03-0400 Respiratory Rate 16 /min Nisha Lopez [facility] Internal Medicine Work Phone: Comment on above: Pattern: Undefined 08-09-2008 16:03-0400 Weight 78.93 kg Trina Aguila [facility] Internal Medicine Work Phone: 06-22-2008 11:06-0400 Body Temperature 98.7 [degF] Nisha Lopez [facility] Internal Medicine Work Phone: Comment on above: Method: Undefined 06-22-2008 11:06-0400 Body weight 0 kg Nisha Lopez [facility] Internal Medicine Work Phone: 06-22-2008 11:06-0400 BP Diastolic 96 mm[Hg] Nisha Lopez [facility] Internal Medicine Work Phone: Comment on above: Patient Position: Sitting; Cuff Location : Right Arm; Cuff Size: Standard 06-22-2008 11:06-0400 BP Systolic 156 mm[Hg] Nisha Lopez [facility] Internal Medicine Work Phone: Comment on above: Patient Position: Sitting; Cuff Location : Right Arm; Cuff Size: Standard 06-22-2008 11:06-0400 Head Circumference 0 cm Trina Fast [facility] Internal Medicine Work Phone: 06-22-2008 11:06-0400 Head Occipital-frontal circumference 0 cm Nisha Lopez [facility] Internal Medicine Work Phone: 06-22-2008 11:06-0400 Height 0 cm Nisha Lopez [facility] Internal Medicine Work Phone: 06-22-2008 11:06-0400 Pulse (Heart Rate) 96 /min Nisha Lopez [facility] Work Phone: Comment on above: Pattern: Regular 06-22-2008 11:06-0400 Respiratory Rate 16 /min Nisha Lopez [facility] Internal Medicine Work Phone: Comment on above: Pattern: Undefined 06-22-2008 11:06-0400 Weight 0 kg Trina Fast [facility] Internal Medicine Work Phone: 06-06-2008 16:04-0400 BMI (Body Mass Index) 31.31 kg/m2 Nisha Lopez [facility] Internal Medicine Work Phone: 06-06-2008 16:04-0400 Body Temperature 99.4 [degF] Nisha [facility] Internal Medicine Work Phone: Comment on above: Method: Undefined 06-06-2008 16:04-0400 Body weight 82.1 kg Nisha Lopez [facility] Internal Medicine Work Phone: 06-06-2008 16:04-0400 BP Diastolic 102 mm[Hg] Nisha Lopez [facility] Internal Medicine Work Phone: Comment on above: Patient Position: Sitting; Cuff Location : Right Arm; Cuff Size: Large 06-06-2008 16:04-0400 BP Systolic 168 mm[Hg] Nisha [facility] Internal Medicine Work Phone: Comment on above: Patient Position: Sitting; Cuff Location : Right Arm; Cuff Size: Large 06-06-2008 16:04-0400 BSA (Body Surface Area) 1.87 m2 [facility] Internal Medicine Work Phone: 06-06-2008 16:04-0400 Head Circumference 0 cm Trina Aguila [facility] Internal Medicine Work Phone: 06-06-2008 16:04-0400 Head Occipital-frontal circumference 0 cm Nisha [facility] Internal Medicine Work Phone: 06-06-2008 16:04-0400 Height 161.93 cm Nisha [facility] Internal Medicine Work Phone: 06-06-2008 16:04-0400 Pulse (Heart Rate) 108 /min Nisha [facility] Work Phone: Comment on above: Pattern: Regular 06-06-2008 16:04-0400 Respiratory Rate 16 /min Nisha [facility] Internal Medicine Work Phone: Comment on above: Pattern: Undefined 06-06-2008 16:04-0400 Weight 82.1 kg Trina Fast [facility] Internal Medicine Work Phone: Encounters Encounter Date Encounter Type Care Provider Facility Start: 01-14-2025 ambulatory Trina Fast Facility:[facility] Start: 01-14-2023 End: 01-21-2023 Office outpatient visit 15 minutes Trina Fast DO Work Phone: [facility] Start: 01-14-2023 Review Trina Fast DO Work Phone: [facility] Start: 01-07-2023 End: 01-07-2023 Phone Encounter Trina Fast DO Work Phone: [facility] Start: 10-29-[address] Trina Aguila Facili [id number] Start: 10-02-2022 End: 10-07-2022 Patient encounter procedure Trina Fast DO Work Phone: [facility] Start: 10-02-2022 Review Trina Fast DO Work Phone: [facility] Start: 09-25-2022 End: 09-25-2022 Phone Encounter Trina Fast DO Work Phone: [facility] Start: 08-13-2022 End: 08-30-2022 Phone Encounter Trina Fast DO Work Phone: [facility] Start: 08-07-2022 ambulatory Trina Aguila DO [facility] Start: 01-29-2022 ambulatory Arabella Friedmanpler Facil [id number] Start: 01-29-2022 Postop follow up vis it related to original px Referring Provider Unknown CB-Pncbdhf-Kasjsxz 2100 Work Phone: Start: 01-08-2022 ambulatory Arabella Friedmanpler Facil [id number] Start: 01-08-2022 Postop follow up vis it related to original px Referring Provider Unknown AV-Foldryw-Hinxrck 2100 Work Phone: Start: 12-17-2021 End: 12-21-2021 Evaluation and management of inpatient Ho Jack Lula 6 [id number] [id number] Start: 12-04-2021 ambulatory PCP UNKNOWN Facility:[id number] Start: 11-29-2021 AUDIT Referring Prov ider Unknown CG-Xquvvkigavpobm-Ist for Perioperative Med Work Phone: Start: 11-29-[address] Ho Jack Facility:[facility] Start: 11-29-2021 Encounter for blood typing Dr. Ho Jack [facility] Start: 11-29-2021 Encounter for preprocedural laboratory examination Dr. Ho Jack [facility] Start: 11-20-2021 Office consultation new/estab patient 40 min Referring Provider Unknown PU-Rsjahaf-Ehzueed 2100 Work Phone: Start: 11-20-2021 ambulatory Iván Ruano Facili [id number] Start: 10-08-2021 End: 10-08-[address] IVÁN RUANO MD [facility] Start: 03-19-2021 End: 03-19-[address] IVÁN RUANO MD [facility] Start: 01-22-2021 End: 01-22-2021 Office outpatient visit 25 minutes Trina Fast DO Work Phone: [facility] Start: 12-29-2020 End: 12-29-2020 Phone Encounter Trina Fast DO Work Phone: [facility] Start: 12-13-2020 End: 12-13-2020 Phone Encounter Trina Fast DO Work Phone: [facility] Start: 12-11-2020 End: 12-11-2020 Office outpatient visit 5 minutes Trina Fast DO Work Phone: [facility] Start: 01-14-2020 End: 01-24-2020 Phone Encounter Trina Fast [facility] Start: 01-14-2020 Review Trina Fast [facility] Start: 01-10-2020 Review Trina Fast [facility] Start: 12-15-2019 End: 12-10-2019 Phone Encounter Trina Fast [facility] Start: 11-16-2019 End: 11-24-2019 Phone Encounter Trina Fast [facility] Start: 10-08-2019 End: 10-08-2019 Phone Encounter Trina Fast [facility] Start: 01-22-2019 End: 01-24-2019 Office outpatient visit 25 minutes Trina Fast [facility] Start: 01-22-2019 Review Trina Fast [facility] Start: 10-20-2018 End: 04-11-2019 Office outpatient visit 25 minutes Trina Fast [facility] Start: 10-20-2018 Review Trina Aguila [facility] Start: 08-18-2018 End: 08-18-2018 Office outpatient visit 25 minutes Trina Aguila [facility] Start: 01-21-2018 End: 01-21-2018 Office outpatient visit 25 minutes Trina Aguila [facility] Start: 01-07-2018 End: 01-09-2018 Office outpatient visit 5 minutes Trina Aguila [facility] Start: 11-25-2017 End: 11-25-2017 Lab Order Trina Aguila [facility] Start: 09-17-2017 End: 11-09-2017 Office outpatient visit 25 minutes Trina Aguila [facility] Start: 08-27-2017 End: 08-27-2017 Office outpatient visit 25 minutes Trina Aguila [facility] Start: 2017 End: 2017 Phone Encounter Trina Aguila [facility] Start: 04-23-2017 End: 04-24-2017 Office outpatient visit 5 minutes Trina Aguila [facility] Start: 03-28-2017 End: 03-29-2017 Office outpatient visit 15 minutes Trina Aguila [facility] Start: 03-21-2017 End: 03-25-2017 Office outpatient visit 15 minutes Trina Rodney [facility] Start: 03-21-2017 End: 03-21-2017 Office outpatient visit 5 minutes Trina Rodney [facility] Start: 02-28-2017 End: 02-28-2017 Office outpatient visit 5 minutes Trina Aguila [facility] Start: 12-06-2010 End: 12-06-2010 Patient encounter Trina Fast [facility] Start: 08-13-2010 End: 08-13-2010 Patient encounter Trina Fast [facility] Start: 02-20-2010 End: 02-20-2010 Patient encounter Trina Fast [facility] Start: 09-19-2009 End: 09-19-2009 Patient encounter Trina Fast [facility] Start: 03-06-2009 End: 03-06-2009 Patient encounter Trina Fast [facility] Start: 09-27-2008 End: 09-27-2008 Patient encounter Trina Rodney [facility] Start: 08-09-2008 End: 08-09-2008 Patient encounter Trina Fast [facility] Start: 06-22-2008 End: 06-22-2008 Patient encounter Trina Aguila [facility] al Medicine Start: 06-07-2008 End: 06-07-2008 Historical Summary Trina Aguila [facility] al Medicine Start: 06-06-2008 End: 06-06-2008 Patient encounter Trina Aguila [facility] al Medicine Procedures Date Procedure Procedure Detail Performing Clinician Start: 10-17-2022 End: 10-23-2022 Dexa Bone Density Study Procedure Note: See Note; NOTES: [facility] Imaging Services [address] [place] [address] Dexa Bone Density Study MR#: [id number] Acct: [id number] Name: SUE GASTON Rep #: [id number] : 1950 F 72 From: Burt alvarado MD PCP: Dr. Trina Aguila, Status: [facility] Study: Dexa Bone Density Study Date of Exam: 10/17/22 Exam# [id number] Ordering Dr: Trina Aguila DO STUDY: DUAL ENERGY X-RAY ABSORPTIOMETRY / DXA REASON FOR EXAM: Female, 72 years old. [id number] TECHNIQUE: Bone Mineral Density (BMD) measurements of lumbar spine and bilateral hips were obtained. COMPARISON: Comparison is made with prior study dated November 10, 2019. FINDINGS: Lumbar Spine (L1-L4): g/cm2 (0.879) / T-score (-1.6) / Z-score (0.8) Findings are suggestive of osteopenia with a moderate fracture risk. Left Femur Total: g/cm2 (0.725) / T-score (-1.8) / Z-score (-0.1) Left Femoral Neck: g/cm2 (0.557) / T-score (-2.6) / Z-score (-0.6) Right Femur Total: g/cm2 (0.673) / T-score (-2.2) / Z-score (-0.5) Right Femoral Neck: g/cm2 (0.628) / T-score (-2.0) / Z-score (0.0) The T-Scores on the most recent prior examination were: Lumbar Spine (L1-L4): There has been worsening of bone density since the previous examination. Left Femur Total: which represents an improvement of 3.4%. Right Femur Total: which represents a worsening of 0.7%. BD/Dexa Bone Density Study IMPRESSION: The patient is considered osteoporotic as outlined below according to World Jose J Organization (WHO) criteria with a high fracture risk. There has been worsening of bone density since the previous examination. Reference Information: The T-score is the number of standard deviations above or below the standard which is normal for young adults at their peak bone mineral density. The World Health Organization (WHO) interprets the T-scores as follows: Above -1 Normal bone density Between -1 and -2.5 Osteopenia Equal to / or below -2.5 Osteoporosis As a practical clinical guideline, osteopenia may be graded as follows: Mild -1 through -1.5 Moderate -1.6 through -2.0 Severe -2.1 through -2.4 The Z-score is the number of standard deviations above or below age-matched controls. A Z-score of less than -1.5 would be considered abnormal. References: 1. NIH Osteoporosis and Related Bone Diseases www osteo.org 2. International Society for Clinical Densitometry www iscd.org 3. National Osteoporosis Foundation www nof.org Electronically Signed: Burt Saucedo MD at 13:16 EDT , CC: Dr. Trina Aguila DO [employer] Launch Commander: Signed Trina Aguila DO Work Phone: Start: 10-17-2022 End: 10-17-2022 SCRN MAMM (CAD)W/CHUY BILAT Procedure Note: See Note; NOTES: [facility] Imaging Services [address] [place] [address] SCRN MAMM (CAD)W/CHUY BILAT MR#: [id number] Acct: [id number] Name: SUE GASTON Rep #: [id number] : 1950 F 72 From: Fito Wakefield MD PCP: Dr. Trina Aguila DO Status: REG CLI Study: SCRN MAMM (CAD)W/CHUY BILAT Date of Exam: 09/29 Exam# [id number] Ordering Dr: Trina Aguila DO MAMMOGRAPHY - BILATERAL SCREENING 3-D TOMOSYNTHESIS REASON FOR EXAM: Female, 72 years old. Routine screening PERTINENT HISTORY: No significant family history. TECHNIQUE: 2-D mammograms and 3-D Tomosynthesis of the breast (s) were performed. CAD was performed. COMPARISON: 11/10/2019 FINDINGS: The breast composition is composed of scattered fibroglandular density. Scattered benign calcifications are seen. No dense spiculated masses or suspicious microcalcifications are identified. No architectural distortion is identified. There is no skin thickening or retraction. There has been no significant change since the prior study. BI/SCRN MAMM (CAD)W/CHUY BILAT IMPRESSION: No mammographic signs of malignancy. Routine yearly mammograms recommended. ASSESSMENT CATEGORY: BIRADS Category 2: Benign. A letter regarding these results will be sent to the patient by the facility within 30 days. FOLLOW UP RECOMMENDATION: Yearly follow up mammogram recommended. (A) Approximately 10% of breast cancers are not detected by mammography. A normal mammogram should not delay biopsy of a clinically suspicious abnormality. Electronically Signed: Caleb Wakefield MD at 20:33 EDT Reading Location ID and State: [facility] / [place] , Service support , CC: Dr. Trina Aguila DO [employer] Launch Commander: Signed Trina Aguila DO Work Phone: Start: 10-17-2022 End: 10-18-2022 Thyroid Procedure Note: See Note; NOTES: [facility] Imaging Services [address] [place] [address] Thyroid MR#: [id number] Acct: [id number] Name: SUE GASTON Rep #: [id number] : 1950 F 72 From: Willis Waddell DO PCP: Dr. Trina Aguila DO Status: REG CLI Study: Thyroid Date of Exam: 10/17/22 Exam# [id number] Ordering Dr: Trina Aguila DO INDICATION: Thyroid nodule EXAMINATION: Ultrasound US Thyroid (eg thyroid, parathyroid, parotid) TECHNIQUE: Smith scale and color doppler imaging was performed of the thyroid gland. COMPARISON: December 14, 2020 FINDINGS: RIGHT THYROID LOBE: Status post surgical resection. [ LEFT THYROID LOBE: 4.7 x 1.4 x 1.8 cm. Heterogeneous echotexture with normal vascularity. [There is a complex hypoechoic upper pole 7 x 6 mm nodule. Additional smaller nodules as on the previous study but not as well-defined. ISTHMUS: 3.4 mm. No thyroid nodules are present. US/Thyroid IMPRESSION: Stable left thyroid nodules similar to previous study. Electronically Signed: Willis Waddell DO at 23:46 EDT Reading Location ID and State: [address] [place] [address] Tel [phone], Service support , CC: Dr. Trina Aguila DO [employer] Launch Commander: Signed Trina Aguila DO Work Phone: Start: 11-29-2021 Antibody screen Arabella Marcial Comment on above: Performed By: #### T+S #### [facility] [address] [place] [address] Start: 02-28-2021 John RUANO MD Start: 12-14-2020 End: 12-14-2020 SCRN MAMM (CAD)W/CHUY BILAT Comments: See Note; NOTES: [facility] Imaging Services [address] [place] [address] SCRN MAMM (CAD)W/CHUY BILAT MR#: [id number] Acct: [id number] Name: SUE GASTON Rep #: [id number] : 1950 F 70 From: Burt alvarado MD PCP: Dr. Trina Aguila DO Status: [facility] Study: SCRN MAMM (CAD)W/CHUY BILAT Date of Exam: 11/29 09/18 Exam# [id number] Ordering Dr: Trina Aguila DO MAMMOGRAPHY - BILATERAL SCREENING REASON FOR EXAM: Female, 70 years old. Routine annual screening examination. PERTINENT HISTORY: Non-contributory. TECHNIQUE: Digital bilateral breast chuy (3D mammographic acquisition) in the CC and MLO projections. 2-D mediolateral oblique (MLO) and craniocaudad (CC) views of both breasts were obtained. CAD: Full Field Digital Mammography with Computer Added Detection was performed. COMPARISON: Comparison is made with prior study 11/10/2019 and 09/24/2018. FINDINGS: Breast Composition: There are scattered areas of fibroglandular density. There are no dominant masses or suspicious calcifications. Stable benign-appearing bilateral axillary lymph nodes. No other significant abnormalities are identified. There has been no significant change since the prior study. BI/SCRN MAMM (CAD)W/CHUY BILAT IMPRESSION: Stable bilateral screening mammogram. Yearly follow-up mammogram recommended. (A) ASSESSMENT CATEGORY: BIRADS Category 2: Benign. A letter regarding these results will be sent to the patient by the facility within 30 days. Approximately 10% of breast cancers are not detected by mammography. A normal mammogram should not delay biopsy of a clinically suspicious abnormality. [id number] Electronically Signed: Burt Saucedo MD at 14:44 EDT , Service support , CC: Dr. Trina Aguila DO [employer] Launch Commander: Signed Trina Aguila DO Work Phone: Start: 12-14-2020 End: 12-15-2020 Thyroid Comments: See Note; NOTES: [facility] Imaging Services [address] [place] [address] Thyroid MR#: [id number] Acct: [id number] Name: SUE GASTON Rep #: [id number] : 1950 F 70 From: Kaci Good MD PCP: Dr. Trina Aguila DO Status: REG CLI Study: Thyroid Date of Exam: 12/14/20 Exam# [id number] Ordering Dr: Trina Aguila DO STUDY: THYROID ULTRASOUND REASON FOR EXAM: Female, 70 years old. NODULE TECHNIQUE: Ultrasound evaluation of the thyroid was performed with real-time and static pittman-scale imaging. COMPARISON: 11/10/2019 FINDINGS: RIGHT LOBE: Status post right lobectomy. LEFT LOBE: The left lobe of the thyroid gland measures 1.7 x 1.5 x 4.0 cm. There is a heterogeneous echotexture. Nodule 1: Shrinking 6 x 5 x 4 mm (from 9 x 7 x 10 mm) cystic hypoechoic wider than tall smoothly marginated nodule with no echogenic foci (TR 1) in the medial left lobe consistent with a colloid cyst. ISTHMUS: The isthmus measures 2 mm thick. . The regional lymph nodes are normal. US/Thyroid IMPRESSION: Thyroiditis with a shrinking colloid cyst in the medial remaining left lobe. Electronically Signed: Kaci Good MD at 9:22 EDT Tel , Service support , CC: Dr. Trina Aguila DO [employer] Launch Commander: Signed Trina Aguila DO Work Phone: Start: 12-02-2019 End: 12-02-2019 Surgery Visit Report Comments: See Note; NOTES: [facility] [address] [place] [address] OFFICE VISIT Date of Service: 12/02/19 MR#: [id number] Acct: [id number] Name: SUE GASTON Rep #: [id number] : 1950 Provider: Dr. Claudy kelly MD Age/Sex: 69/F Location: [facility] Status: Signed Intake Vital Signs 12/02/19 BMI 28.6 Intake Visit Reasons: 1WK F/U FNA LEFT THYROID Chief Complaint: Follow up thyroid biopsy Biotechnologist Required: No Is patient in pain?: No Allergies No Known Allergies Allergy (Verified 12/02/19 14:35) Medications aspirin 81 mg tablet,delayed release 81 mg PO DAILY 11/18/19 [History Confirmed 12/02/19] cholecalciferol (vitamin D3) 50 mcg (2,000 unit) tablet 50 mcg PO BID tab 11/18/19 [History Confirmed 12/02/19] clonazepam 0.5 mg tablet 0.5 mg PO DAILY 11/18/19 [History Confirmed 12/02/19] escitalopram oxalate 20 mg tablet 20 mg PO DAILY 11/18/19 [History Confirmed 12/02/19] lisinopril 10 mg tablet 10 mg PO BID 11/18/19 [History Confirmed 12/02/19] multivitamin 1 cap PO DAILY 11/18/19 [History Confirmed 12/02/19] venlafaxine 75 mg capsule,extended release 24 hr 75 mg PO DAILY 11/18/19 [History Confirmed 12/02/19] vit C,E,zinc,copper-cixyc9x 250 mg-lutein 5 mg-zeaxanthin 1 mg capsule 1 cap PO DAILY 11/18/19 [History Confirmed 12/02/19] [facility] Medical History 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 Claudy Steele MD) Smoking Status: Unknown if ever smoked alcohol intake: never substance use type: does not use HPI HPI HPI: SUE GASTON, is a 69 F who presents to the office today for HPI HPI HPI: SUE GASTON is a 69 F who presents to the office today for Follow-up from an ultrasound-guided fine-needle aspiration of her left thyroid gland. This was completed on 11/25/2019. Pathology report came back consistent with benign follicular/colloid nodule. It was also adequate for evaluation. ROS General General: No weight change, appetite, fatigue, colon cancer, breast cancer or weakness HEENT HEENT: No difficulty swallowing, eye injury, eye surgery, swollen glands or hoarseness Endo Endocrine: No thyroid disease, diabetes mellitus, thyroid cancer, Hair loss, heat intolerance or cold intolerance Skin Skin: No rash or changing moles Breast Breast: No left breast lump, right breast lump, nipple discharge, breast pain, abnormal mammogram, abnormal US or breast enlargement Musc Musculoskeletal: No back problems, arthritis, rheumatoid arthritis, gout or joint pain Cardio Cardiovascular: Yes high blood pressure; no murmur, pacemaker, heart disease, atrial fibrillation, heart attack, heart stent, palpitations, shortness of breat with exertion or chest pain Psych Psychiatric: Yes depression and anxiety; no hearing voices Resp Respiratory: No shortness of breath, No sleep apnea, No cough, No COPD, No asthma, No emphysema, No wheezing Gastro Gastrointestinal: No abdominal pain, No nausea or vomiting, No diarrhea, No constipation, No blood in stool, No acid reflux, No hemorrhoids, No ulcers, No gallbladder problem, No black,tarry stools Ole Hematologic: No blood thinners, No blood disorders, No bleeding, No anemia, No blood clots Neuro Neurologic: No weakness Exam Neck Other: No hard palpable nodules are identified. Chest Breast Palpation: No nipple discharge Cardio Heart Sounds: no murmurs Assessment Plan Problems 1. Multinodular goiter E04.2 Plan Patient will need to have yearly thyroid ultrasounds. If the nodule grows more than 20% or she develops new nodules larger than 1 cm repeat fine-needle aspirations will need to be performed. Coding Level of Care Code Off vis,est,level 2 Diagnoses Multinodular goiter E04.2 12/02/19 1447 <Electronically signed by Claudy Steele MD> Date Claudy Steele MD Cosigner Signature: Date (if applicable) CC: Dr. Trina Aguila, DO Trina Aguila DO Work Phone: Start: 11-25-2019 End: 12-18-2019 Surgery Visit Report Comments: See Note; NOTES: [facility] [address] [place] [address]. [address] [place] [address] OFFICE VISIT Date of Service: 11/25/19 MR#: [id number] Acct: [id number] Name: SUE GASTON Rep #: [id number] : 1950 Provider: Dr. Claudy kelly MD Age/Sex: 69/F Location: [facility] Status: Signed Intake Vital Signs 11/25/19 BMI 28.6 Intake Visit Reasons: FNA LEFT THYROID Chief Complaint: FNA Left Thyroid Biotechnologist Required: No Is patient in pain?: No Allergies No Known Allergies Allergy (Verified 11/25/19 14:13) Medications aspirin 81 mg tablet,delayed release 81 mg PO DAILY 11/18/19 [History Confirmed 11/25/19] cholecalciferol (vitamin D3) 50 mcg (2,000 unit) tablet 50 mcg PO BID tab 11/18/19 [History Confirmed 11/25/19] clonazepam 0.5 mg tablet 0.5 mg PO DAILY 11/18/19 [History Confirmed 11/25/19] escitalopram oxalate 20 mg tablet 20 mg PO DAILY 11/18/19 [History Confirmed 11/25/19] lisinopril 10 mg tablet 10 mg PO BID 11/18/19 [History Confirmed 11/25/19] multivitamin 1 cap PO DAILY 11/18/19 [History Confirmed 11/25/19] venlafaxine 75 mg capsule,extended release 24 hr 75 mg PO DAILY 11/18/19 [History Confirmed 11/25/19] vit C,E,zinc,copper-twrru1w 250 mg-lutein 5 mg-zeaxanthin 1 mg capsule 1 cap PO DAILY 11/18/19 [History Confirmed 11/25/19] PFSH Medical History Anxiety with depression (Acute) Thyroid nodule (Acute) HTN (hypertension) (Chronic) Surgical History History of thyroid surgery (Acute) History of tonsillectomy (Acute) history repair fingertip (Acute) Family History Brother Cancer Leukemia Brother Cancer skin cancer Mother Cancer skin cancer Social History Smoking Status: Unknown if ever smoked alcohol intake: never substance use type: does not use HPI HPI HPI: SUE GASTON, is a 69 F who presents to the office today for HPI HPI HPI: SUE GASTON, is a 69 F who presents to the office today for ROS General General: No weight change, appetite, fatigue, colon cancer, breast cancer or weakness HEENT HEENT: No difficulty swallowing, eye injury, eye surgery, swollen glands or hoarseness Endo Endocrine: No thyroid disease, diabetes mellitus, thyroid cancer, Hair loss, heat intolerance or cold intolerance Skin Skin: No rash or changing moles Breast Breast: No left breast lump, right breast lump, nipple discharge, breast pain, abnormal mammogram, abnormal US or breast enlargement Musc Musculoskeletal: No back problems, arthritis, rheumatoid arthritis, gout or joint pain Cardio Cardiovascular: Yes high blood pressure; no murmur, pacemaker, heart disease, atrial fibrillation, heart attack, heart stent, palpitations, shortness of breat with exertion or chest pain Psych Psychiatric: Yes depression and anxiety; no hearing voices Resp Respiratory: No shortness of breath, No sleep apnea, No cough, No COPD, No asthma, No emphysema, No wheezing Gastro Gastrointestinal: No abdominal pain, No nausea or vomiting, No diarrhea, No constipation, No blood in stool, No acid reflux, No hemorrhoids, No ulcers, No gallbladder problem, No black,tarry stools Ole Hematologic: No blood thinners, No blood disorders, No bleeding, No anemia, No blood clots Neuro Neurologic: No weakness Exam Chest Breast Palpation: No nipple discharge Cardio Heart Sounds: no murmurs Office Procedures Fine Needle Aspiration Provider Documentation Details: Preoperative diagnosis: Multinodular goiter Postoperative diagnosis: The same Procedure: Ultrasound-guided fine-needle aspiration of dominant left-sided thyroid nodule Surgeon: Ivette Procedure: Ultrasound of the left thyroid gland revealed the dominant nodule in question which was located in the midpole of the left lobe I prepped the skin with alcohol. I injected 1% lidocaine plain. Under ultrasound guidance I took 3 passes with a 22-gauge needle. I plated these on glass slides. Sterile dressings were applied. The patient tolerated the procedure well. Alert Tonja Alert Billing: Yes FNA [id number] Thyroid Procedure Time Out Time Out Informed consent given: Yes Consent signed: Yes Time out staff in room: Yes Time out verified: Yes Time out date: 11/25/19 Time out time: 14:14 Assessment Plan Orders Orders: Fine Needle Aspiration 11/25/19 E04.2 Coding Additional Codes FNA - Fine Needle Aspiration: 51169 Thyroid (28481) 12/18/19 1152 <Electronically signed by Claudy Steele MD> Date Claudy Steele MD Cosigner Signature: Date (if applicable) CC: Trina Aguila Start: 11-18-2019 End: 11-28-2019 Surgery Visit Report Comments: See Note; NOTES: [facility] [address] [place] [address] OFFICE VISIT Date of Service: 11/18/19 MR#: [id number] Acct: [id number] Name: SUE GASTON Rep #: [id number] : 1950 Provider: Dr. Claudy kelly MD Age/Sex: 69/F Location: [facility] Status: Signed Intake Vital Signs 11/18/19 Height 5 ft 4 in 11/18/19 Weight: 167 lb 11/18/19 BP 127/82 H 11/18/19 Blood Pressure Location Rt brachial 11/18/19 Position Sitting 11/18/19 Respiration 18 11/18/19 Pulse 94 11/18/19 Pulse Source Monitor 11/18/19 Temp 96.7 F L 11/18/19 Temp Source Temporal 11/18/19 Pulse Oximetry (%) 97 11/18/19 Oxygen Delivery Method room air Intake Visit Reasons: RIGHT THYROID NODULE Chief Complaint: right thyroid nodule Biotechnologist Required: No Is patient in pain?: No Allergies No Known Allergies Allergy (Verified 11/25/19 14:13) Medications aspirin 81 mg tablet,delayed release 81 mg PO DAILY 11/18/19 [History Confirmed 11/25/19] cholecalciferol (vitamin D3) 50 mcg (2,000 unit) tablet 50 mcg PO BID tab 11/18/19 [History Confirmed 11/25/19] clonazepam 0.5 mg tablet 0.5 mg PO DAILY 11/18/19 [History Confirmed 11/25/19] escitalopram oxalate 20 mg tablet 20 mg PO DAILY 11/18/19 [History Confirmed 11/25/19] lisinopril 10 mg tablet 10 mg PO BID 11/18/19 [History Confirmed 11/25/19] multivitamin 1 cap PO DAILY 11/18/19 [History Confirmed 11/25/19] venlafaxine 75 mg capsule,extended release 24 hr 75 mg PO DAILY 11/18/19 [History Confirmed 11/25/19] vit C,E,zinc,copper-wskoo6t 250 mg-lutein 5 mg-zeaxanthin 1 mg capsule 1 cap PO DAILY 11/18/19 [History Confirmed 11/25/19] [facility] History Anxiety with depression (Acute) Thyroid nodule (Acute) HTN (hypertension) (Chronic) Surgical History History of thyroid surgery (Acute) History of tonsillectomy (Acute) history repair fingertip (Acute) Family History Brother Cancer Leukemia Brother Cancer skin cancer Mother Cancer skin cancer Social History (Updated 11/28/19 @ 12:[address] Claudy Steele MD) Smoking Status: Unknown if ever smoked alcohol intake: never substance use type: does not use HPI HPI HPI: SUE GASTON, is a 69 F who presents to the office today for HPI HPI HPI: SUE GASTON, is a 69 F who presents to the office today for Evaluation of multinodular goiter on the left side. Patient had an ultrasound which showed 3 nodules on the left side the largest measuring 1 cm. This was in the midpole. Left side is surgically absent. She has had no neck tenderness no previous exposures to radiation. She is not having any difficulty swallowing. ROS General General: No weight change, appetite, fatigue, colon cancer, breast cancer or weakness HEENT HEENT: No difficulty swallowing, eye injury, eye surgery, swollen glands or hoarseness Endo Endocrine: No thyroid disease, diabetes mellitus, thyroid cancer, Hair loss, heat intolerance or cold intolerance Skin Skin: No rash or changing moles Breast Breast: No left breast lump, right breast lump, nipple discharge, breast pain, abnormal mammogram, abnormal US or breast enlargement Musc Musculoskeletal: No back problems, arthritis, rheumatoid arthritis, gout or joint pain Cardio Cardiovascular: Yes high blood pressure; no murmur, pacemaker, heart disease, atrial fibrillation, heart attack, heart stent, palpitations, shortness of breat with exertion or chest pain Psych Psychiatric: Yes depression and anxiety; no hearing voices Resp Respiratory: No shortness of breath, No sleep apnea, No cough, No COPD, No asthma, No emphysema, No wheezing Gastro Gastrointestinal: No abdominal pain, No nausea or vomiting, No diarrhea, No constipation, No blood in stool, No acid reflux, No hemorrhoids, No ulcers, No gallbladder problem, No black,tarry stools Ole Hematologic: No blood thinners, No blood disorders, No bleeding, No anemia, No blood clots Neuro Neurologic: No system reviewed and no additional complaints, except as docu, No as per HPI, No abnormal walking, No abnormal hearing, No abnormal movements, No abnormal speech, No behavioral ch anges, No burning sensations, No confusion, No seizure-like activity, No unsteadiness, No dizziness, No localized weakness, No frequent falls, No headache(s), No lack of coordination, No loss of vision, No memory loss, No numbness, No other visual disturbances, No radiating pain, No restless legs, No sensory deficit, No fainting, No tingling, No tremor(s), No weakness, No other Exam Const General: no acute distress, well developed, well hydrated Orientation: oriented to person, oriented to place, oriented to time [facility] Head: normocephalic, atraumatic Ears: external ears normal Mouth: moist mucous membranes Other: Thyroid Exam: No hard palpable nodules are identified. Eyes Sclera: sclerae normal Pupils: normal by confrontation Neck Neck: no lymphadenopathy noted Neck mass: No Thyroid: thyroid normal, symmetrical Chest Chest palpation inspection: normal inspection of the chest Breast Palpation: No nipple discharge Resp Effort Inspection: normal respiratory effort Auscultation: clear to auscultation bilaterally Percussion: percussion normal Cardio Rate: regular rate Rhythm: regular rhythm Heart Sounds: no murmurs GI Palpation: soft, no hepatosplenomegaly, no masses, nontender Rectal Exam: other Other: Rectal exam deferred. Extrem General: normal to inspection, no clubbing, cyanosis or edema Assessment Plan Problems 1. Multinodular goiter E04.2 Plan Plan will be to perform an ultrasound-guided fine-needle aspiration of the dominant nodule on the left side. Coding Level of Care Code Off vis,new,level 3 Diagnoses Multinodular goiter E04.2 11/28/19 1249 <Electronically signed by Claudy Steele MD> Date Claudy Steele MD Cosigner Signature: Date (if applicable) CC: DO Trina Coronado Start: 11-10-2019 End: 11-10-2019 Dexa Bone Density Study Comments: See Note; NOTES: [facility] Imaging Services [address] [place] [address] Dexa Bone Density Study MR#: [id number] Acct: [id number] Name: SUE GASTON Rep #: [id number] : 1950 F 69 From: Burt alvarado MD PCP: Dr. 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 COMPARISON: Comparison is made with prior study dated 09/23/2017. FINDINGS: Lumbar Spine (L1-L4): g/cm2 (1.015) / T-score (-1.3) / Z-score (0.4) Findings are suggestive of osteopenia with a low fracture risk. Left Femur Total: g/cm2 (0.760) / T-score (-2.0) / Z-score (-0.5) Left Femoral Neck: g/cm2 (0.706) / T-score (-2.4) / Z-score (-0.7) Right Femur Total: g/cm2 (0.735) / T-score (-2.2) / Z-score (-0.7) Right Femoral Neck: g/cm2 (0.696) / T-score (-2.5) / Z-score (-0.8) The T-Scores on the most recent prior examination were: Lumbar Spine (L1-L4): There has been worsening of bone density since the previous examination. Left Femur Total: which represents a worsening of 1.8%. Right Femur Total: which represents a worsening of 2.3%. BD/Dexa Bone Density Study IMPRESSION: The patient is considered osteoporotic as outlined below according to World Jose J Organization (WHO) criteria with a high fracture risk. There has been worsening of bone density since the previous examination. Reference Information: The T-score is the number of standard deviations above or below the standard which is normal for young adults at their peak bone mineral density. The World Health Organization (WHO) interprets the T-scores as follows: Above -1 Normal bone density Between -1 and -2.5 Osteopenia Equal to / or below -2.5 Osteoporosis As a practical clinical guideline, osteopenia may be graded as follows: Mild -1 through -1.5 Moderate -1.6 through -2.0 Severe -2.1 through -2.4 The Z-score is the number of standard deviations above or below age-matched controls. A Z-score of less than -1.5 would be considered abnormal. References: 1. NIH Osteoporosis and Related Bone Diseases http://www.osteo.org 2. International Society for Clinical Densitometry http://www.iscd.org 3. National Osteoporosis Foundation http://www.nof.org Electronically Signed: Burt Saucedo, at 15:14 EDT , Service support , CC: Dr. Trina Aguila DO [employer] Launch Commander: Signed Trina Aguila Work Phone: Start: 11-10-2019 End: 11-10-2019 SCREEN MAMM (CAD) W/CHUY BILAT Comments: See Note; NOTES: [facility] Imaging Services [address] [place] [address] SCREEN MAMM (CAD) W/CHUY BILAT MR#: [id number] Acct: [id number] Name: SUE GASTON Rep #: [id number] : 1950 F 69 From: Burt alvarado MD PCP: Dr. Trina Aguila, DO Status: [facility] Study: SCREEN MAMM (CAD) W/CHUY BILAT Date of Exam: 0 11/10/19 Exam# [id number] Ordering Dr: Trina Aguila DO MAMMOGRAPHY - BILATERAL SCREENING REASON FOR EXAM: Female, 69 years old. Routine annual screening examination. PERTINENT HISTORY: Non-contributory. TECHNIQUE: Digital bilateral breast chuy (3D mammographic acquisition) in the CC and MLO projections. 2-D mediolateral oblique (MLO) and craniocaudad (CC) views of both breasts were obtained. CAD: Full Field Digital Mammography with Computer Added Detection was performed. COMPARISON: Comparison is made with prior study dated 09/24/2018 and 09/23/2017. FINDINGS: Breast Composition: There are scattered areas of fibroglandular density. There are no dominant masses or suspicious calcifications. Stable benign-appearing bilateral axillary lymph nodes. No other significant abnormalities are identified. There has been no significant change since the prior study. BI/SCREEN MAMM (CAD) W/CHUY BILAT IMPRESSION: Stable bilateral screening mammogram. Yearly follow-up mammogram recommended. (A) ASSESSMENT CATEGORY: BIRADS Category 2: Benign. A letter regarding these results will be sent to the patient by the facility within 30 days. Approximately 10% of breast cancers are not detected by mammography. A normal mammogram should not delay biopsy of a clinically suspicious abnormality. [id number] Electronically Signed: Burt Saucedo, at 13:27 EDT , Service support , CC: Dr. Trina Aguila DO [employer] Launch Commander: Signed Trina Aguila Work Phone: Start: 11-10-2019 End: 11-10-2019 Thyroid Comments: See Note; NOTES: [facility] Imaging Services [address] [place] [address] Thyroid MR#: [id number] Acct: [id number] Name: SUE GASTON Rep #: [id number] : 1950 F 69 From: Burt alvarado MD PCP: Dr. Trina Aguila DO Status: REG CLI Study: Thyroid Date of Exam: 11/10/19 Exam# [id number] Ordering Dr: Trina Aguila DO STUDY: THYROID ULTRASOUND REASON FOR EXAM: Female, 69 years old. Nodule TECHNIQUE: Ultrasound evaluation of the thyroid was performed with real-time and static pittman-scale imaging. COMPARISON: Comparison is made with prior study dated 09/24/2018. FINDINGS: RIGHT LOBE: The right lobe is surgically absent. LEFT LOBE: The left lobe of the thyroid gland measures 4.7 cm x 1.6 cm x 1.4 cm. There is a homogeneous echotexture. There are 3 hypoechoic solid nodules in the left lobe. The largest measures 9 mm x 10 mm x 7 mm. This is in the mid pole of the left lobe. There is evidence of intranodular vascularity. ISTHMUS: The isthmus measures 2.0 mm. The regional lymph nodes are normal. US/Thyroid IMPRESSION: Status post resection of the right lobe of the thyroid. 3. Hypoechoic solid nodules in the left lobe the larger measures 9 mm x 10 mm x 7 mm. This is located in the midpole. Electronically Signed: Burt Saucedo, at 15:16 EDT , Service support , CC: Dr. Trina Aguila DO [employer] Launch Commander: Signed Trina Aguila Work Phone: Start: 10-26-2018 End: 10-26-2018 TXT - Blood Flow Screening Comments: See Note; NOTES: [facility] [address] [place] [address] 10/26/18 0929 MR#: [id number] Acct: [id number] Name: SUE GASTON Rep #: [id number] : 1950 68 From: Shekhar Snider MD Attending Dr: Trina Aguila DO Status: REG REF Ordering Dr: Date: 10/26/18 Location: [facility] Sex: F C Admitted: Reason For Study: SCREENING Carotid Duplex Ultrasound Abdominal Aorta The right ECA velocity is less than 125 cm/s. The maximal outside diameter of the proximal aorta The left ECA velocity is less than 125 cm/s. measures 1.6 cm in the longitudinal axis. The right maximum ICA velocity is 111/302 cm/s. The maximal outside diameter of the proximal aorta There is insignificant plaque formation noted on measures 1.6 X 1.7 cm in the cross-sectional axis. the right side. The left maximum ICA velocity is 91/19 cm/s. There is insignificant plaque formation noted on the left side. Ankle Brachial Index The right ankle/ brachial index is 1.1. The left ankle/ brachial index is 1.1. Medical History and Assessment The client presents with a history of high blood pressure. The heart rate is 84 beats per minute. The heart rhythm is regular. The right blood pressure is 128/84. The left blood pressure is 124/94. Interpretation Summary Normal carotid artery screening (0 to 15% narrowing). Normal aortic ultrasound exam. The ankle/brachial index is normal (1.0 or greater). Ordering Physician: Trina Aguila D.O. Performed By: Ashlie Levin, AMI, RVT 10/26/18 1748 Date Shekhar Snider MD CC: Trina Aguila DO Date Dictated: 10/26/18928 Date Transcribed: 10/26/181748 [employer] Launch Commander: Signed Trina Aguila Start: 09-24-2018 End: 09-25-2018 SCREEN MAMM (CAD) W/CHUY BILAT Comments: See Note; NOTES: [facility] Imaging Services [address] [place] [address] SCREEN MAMM (CAD) W/CHUY BILAT MR#: [id number] Acct: [id number] Name: SUE GASTON Rep #: [id number] : 1950 F 68 From: José Prabhakar MD PCP: Trina Aguila DO Status: REG CLI Study: SCREEN MAMM (CAD) W/CHUY BILAT Date of Exam: 09/24/18 Exam# [id number] Ordering Dr: Trina Aguila DO MAMMOGRAPHY - BILATERAL SCREENING 3-D TOMOSYNTHESIS REASON FOR EXAM: Female, 68 years old. Bilateral Screening 3-D tomosynthesis PERTINENT HISTORY: No significant family history. TECHNIQUE: 2-D mammograms and 3-D Tomosynthesis of the breast (s) were performed. CAD was performed. COMPARISON: September 23, 2017 FINDINGS: The breast composition is almost entirely fat. Scattered benign calcifications are seen. No dense spiculated masses or suspicious microcalcifications are identified. No architectural distortion is identified. There is no skin thickening or retraction. Stable benign-appearing lymph nodes are present. There has been no significant change since the prior study. BI/SCREEN MAMM (CAD) W/CHUY BILAT IMPRESSION: No mammographic signs of malignancy. Routine yearly mammograms recommended. ASSESSMENT CATEGORY: BIRADS Category 2: Benign. A letter regarding these results will be sent to the patient by the facility within 30 days. FOLLOW UP RECOMMENDATION: Yearly follow up mammogram recommended. (A) Approximately 10% of breast cancers are not detected by mammography. A normal mammogram should not delay biopsy of a clinically suspicious abnormality. Electronically Signed: José Prabhakar MD at 16:07 EDT , Service support , CC: Trina Aguila DO [employer] Launch Commander: Signed Trina Aguila Work Phone: Start: 09-24-2018 End: 09-24-2018 Thyroid Comments: See Note; NOTES: [facility] Imaging Services [address] [place] [address] Thyroid MR#: [id number] Acct: [id number] Name: SUE GASTON Rep #: [id number] : 1950 F 68 From: Mickie Stallworth MD PCP: Trina Aguila DO Status: REG CLI Study: Thyroid Date of Exam: 09/24/18 Exam# [id number] Ordering Dr: Trina Aguila DO STUDY: THYROID ULTRASOUND REASON FOR EXAM: Female, 68 years old. TECHNIQUE: Ultrasound evaluation of the thyroid was performed with real-time and static pittman-scale imaging. COMPARISON: None. FINDINGS: The right lobe of the thyroid is absent. The left lobe measures 5.1 x 1.5 x 1.8 cm it is homogeneous in texture. A small nodule measures 0.7 x 0 0.8, 0.7 seen within the left lobe. It has regular margin with perinodular vascularity. The heart of the isthmus measures 3 mm. US/Thyroid IMPRESSION: Right thyroidectomy, Small solid nodule left lobe of the thyroid with the measurements above. Electronically Signed: Mickie Stallworth, at 15:46 EDT Tel , Service support , CC: Trina Aguila DO [employer] Launch Commander: Signed Trina Aguila Work Phone: Start: 02-16-[address] IVÁN RUANO MD Comment on above: POLYP Start: 02-02-2018 End: 02-02-2018 PT D/C Summary (1) Comments: See Note; NOTES: [facility] [address] [place], [place] [address] Fax REHABILITATION SERVICES DISCHARGE SUMMARY MR#: [id number] Acct: [id number] Name: SUE GASTON Rep #: [id number] : 1950 67 From: Kris Starr PT, Cert. T, OCS Referring DrFito: Trina Aguila DO Status: REG RCR Insurance: MEDICARE PART A B ANTHEM - PT D/C Summary It has been my pleasure to treat SUE GASTON under orders from Trina Aguila DO, for the diagnosis of LEFT LEG PAIN ,HAMSTRING STRETCH for a total of 3 visit(s). Discharge Date: 01/28/18 Please see the following information for a summary of their discharge status. - Subjective Subjective: Doing well..Back to noraml activity. Seen DR - Pain Left Lower Extremity Pain Intensity (Out of 10): 0 - Overall Improvement % Improvement: 75 - Objective Objective/Function: POSTURE: WNL. GAIT: NORMAL DEBBI. PALPATION: UNREMARKABLE. MMT: 4/5 quads/hams. FLLEXABLIYY: HAMS MIN - Goals Goal 1:: Patient to be Independant with HEP Goal Progress: Goal Met Goal 2:: Patient to improve hamstring flexablity WFL with pain Goal Progress: Goal Met Goal 3:: Patient improve strength left leg 5/5 to improve function with ADLS' Goal Progress: Goal Met Goal 4:: Patient be able to sqaut kneelinh ,lift with symptoms. - Plan Plan: D/C TO HEP - D/C Information Discharge Comments: HEP If there are questions or concerns regarding this patient's physical therapy, please feel free to call me at [phone]. Thank you for the referral of this patient. Sincerely, Kris Starr PT, <Electronically signed by Cert. JULIAN Skaggs PT, OCS> 02/02/18 1902 CC: Trina Aguila DO JLA Signed Trina Aguila Start: 01-15-2018 End: 01-15-2018 Inital Evaluation (1) - PT Comments: See Note; NOTES: [facility] [address] [place], [place] [address] Fax REHABILITATION SERVICES INITIAL EVALUATION MR#: [id number] Acct: [id number] Name: SUE GASTON Rep #: [id number] : 1950 67 From: Cert. JULIAN Skaggs PT, OCS Referring Dr.: Trina Aguila DO Status: REG RCR Insurance: MEDICARE PART A B ANTH Patient's Visit Information SUE GASTON is a 67 year old F referred to Physical Therapy by Trina Aguila DO with a diagnosis of LEFT LEG PAIN ,HAMSTRING STRETCH. Date of Evaluation: 01/14/18 Physical Therapist: Kris Starr PT, - Visit Plan Frequency: 1-2x /Week Duration: 3 Weeks Plan: FLEXABLITY HAMSTRINGS,STRENGTHENIN,MODA LITIES NEEDED - Subjective Subjective: This 67 y/o female presenst to physical therapy with left leg pain,hamstring injury. This patient stated fell on sidewalk was uneven tripped foward ,immediate pain hamstrings .DOI about 2weeks ago.Patient followed up with DR Aguila. Patient had xrays-.Recommended PT .Patient had difficuly siiting on commode or chair that hits knee or buttuck. Patient has difiiculty with stairs,bending,squatting,kne eling. Denies parathesia/tingling.Patient symptoms affects QOL and function/housework tasks.No bruising. VOCATION: retired. SOCAIL: - Pain Left Lower Extremity Pain Intensity (Out of 10): 5 Pain Intensity Range: 8 - Objective POSTURE:WFL. PALAPTION: tender origin/distal hamstring. NEURO: intact. GAIT: normal debbi. FLEXABLITY: hams min tight with pain left at end range no NW. MMT: quad/hams/hip/ankle 4/5. LUMBAR ROM: flexion min loss,extension min loss,side glides min loss no pain .,stretching pain hams - Special Tests L/S Slump test left side: Negative L/S Slump test right side: Negative L/S Left Straight Leg Raise: Negative L/S Right Straight Leg Raise: Negative - Goals Goal 1:: Patient to be Independant with HEP Goal Time Frame: 4-6 Weeks Goal 2:: Patient to improve hamstring flexablity WFL with pain Goal Time Frame: 4-6 Weeks Goal 3:: Patient improve strength left leg 5/5 to improve function with ADLS' Goal Time Frame: 4-6 Weeks Goal 4:: Patient be able to sqaut kneelinh ,lift with symptoms. Goal Time Frame: 4-6 Weeks - Rehabilitation Potential Physical Therapy Diagnosis: This 67 y/o female injuried hamstring tripped on uneven cement pulled hamstring caused pain with impairments with tight hamstring,with difficulty with ADL'S walking ,stairs and sqautting . Rehabilitation Potential: Excellent - Anticipated Interventions Patient/Client Instruction: Educate patient on: Condition, Plan of Care For the Purpose of:: To decrease pain, To increase ROM, To improve muscle performance and motor function, To increase tolerance to activity/condition/position, To improve health of tissue, To decrease soft tissue restriction, To increase flexibility/ROM Therapeutic Exercise to Include: Strength training, Flexibilty training, Passive ROM, Active ROM For the Purpose of:: To decrease pain, To increase ROM, To improve health of tissue, To decrease soft tissue restriction, To increase flexibility/ROM, To improve ability to perform tasks related to life management Manual Therapy Techniques to Include: Soft tissue mobilization For the Purpose of:: To decrease pain, To increase ROM TENS: Yes IF ES: Yes Cryotherapy (ice pack, ice massage): Yes Thermo therapy (hot pack): Yes Ultrasound (thermal/non thermal): Yes For the Purpose of:: To decrease pain, To increase ROM, To improve health of tissue, To decrease soft tissue restriction Thank you for the opportunity to evaluate your patient. For Medicare and Medicare HMO plans, please review the plan of care and approve it. It will need to be FAXED BACK to us at [phone] for Medicare purposes. Please let me know if there are questions or concerns regarding this plan of care. Physician Signature: ___Date: <Electronically signed by Kris Starr PT, Cert. T, OCS> 01/15/18 2320 CC: Trina Aguila DO JLA Signed For Medicare only, by signing this I certify the plan of care. Physicians Signature Date Trina Aguila Start: 01-07-2018 End: 01-08-2018 Femur Min 2 Views Comments: See Note; NOTES: [facility] Imaging Services [address] [place] [address] Femur Min 2 Views MR#: [id number] Acct: [id number] Name: SUE GASTON Rep #: [id number] : 1950 F 67 From: Nino Wright MD PCP: Trina Aguila DO Status: REG CLI Study: Femur Min 2 Views Date of Exam: 01/07/18 Exam# [id number] Ordering Dr: Trina Aguila DO STUDY: X-RAY - LEFT FEMUR REASON FOR STUDY: Female, 67 years old. Posterior left upper leg pain to the back of the knee TECHNIQUE: Radiological exam, femur, minimum 2 views COMPARISON: None. FINDINGS: Normal visualized femur. Normal visualized soft tissue structure. Mild narrowing of the patellofemoral joint but the knee is otherwise unremarkable in its visualized extent. The left hip is grossly unremarkable. 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 RAD/Femur Min 2 Views IMPRESSION: 1. Normal x-ray examination of the femur. 2. Mild patellofemoral joint arthrosis. Electronically Signed: Nino Wright MD at 8:16 EDT , Service support , CC: Trina Aguila DO [employer] Launch [employer]: Signed Trina Aguila Work Phone: Start: 12-11-[address] IVÁN RUANO MD Comment on above: [facility] Start: 09-23-2017 End: 09-23-2017 Dexa Bone Density Study Comments: See Note; NOTES: [facility] Imaging Services [address] [place] [address] Dexa Bone Density Study MR#: [id number] Acct: [id number] Name: SUE GASTON Rep #: [id number] : 1950 F 67 From: Burt Saucedo MD PCP: Trina Aguila DO Status: [facility] CLI Study: Dexa Bone Density Study Date of Exam: 09/23/17 Exam# [id number] Ordering Dr: Trina Aguila DO STUDY: DUAL ENERGY X-RAY ABSORPTIOMETRY / DXA REASON FOR EXAM: Female, 67 years old. The patient is postmenopausal. Loss of height. TECHNIQUE: Bone Mineral Density (BMD) measurements of lumbar spine and bilateral hips were obtained. COMPARISON: Comparison is made with prior study dated July 03, 2010. FINDINGS: Lumbar Spine (L1-L4): g/cm2 (1.108) / T-score (-0.8) / Z-score (0.9) Findings are suggestive of normal bone density with a low fracture risk. Left Femur Total: g/cm2 (0.774) / T-score (-1.9) / Z-score (-0.5) Left Femoral Neck: g/cm2 (0.699) / T-score (-2.4) / Z-score (-0.8) Right Femur Total: g/cm2 (0.752) / T-score (-2.0) / Z-score (-0.7) Right Femoral Neck: g/cm2 (0.682) / T-score (-2.6) / Z-score (-1.0) The T-Scores on the most recent prior examination were: Lumbar Spine (L1-L4): There has been improvement of bone density since the previous examination. Left Femur Total: which represents a worsening of 2.9%. Right Femur Total: which represents a worsening of 0.5%. BD/Dexa Bone Density Study IMPRESSION: The patient is considered osteoporotic as outlined below according to World Jose J Organization (WHO) criteria with a high fracture risk. There has been worsening of bone density since the previous examination. Reference Information: The T-score is the number of standard deviations above or below the standard which is normal for young adults at their peak bone mineral density. The World Health Organization (WHO) interprets the T-scores as follows: Above -1 Normal bone density Between -1 and -2.5 Osteopenia Equal to / or below -2.5 Osteoporosis As a practical clinical guideline, osteopenia may be graded as follows: Mild -1 through -1.5 Moderate -1.6 through -2.0 Severe -2.1 through -2.4 The Z-score is the number of standard deviations above or below age-matched controls. A Z-score of less than -1.5 would be considered abnormal. References: 1. NIH Osteoporosis and Related Bone Diseases http://www.osteo.org 2. International Society for Clinical Densitometry http://www.iscd.org 3. National Osteoporosis Foundation http://www.nof.org Electronically Signed: Burt Saucedo MD at 15:29 EDT Tel [phone], Service support , CC: Trina Agiula DO [employer]: Signed Trina Aguila Work Phone: Start: 09-23-2017 End: 09-23-2017 SCREENING MAMM (CAD), BILAT Comments: See Note; NOTES: [facility] Imaging Services [address] [place] [address] SCREENING MAMM (CAD), BILAT MR#: [id number] Acct: [id number] Name: SUE GASTON Rep #: [id number] : 1950 F 67 From: Burt Saucedo MD PCP: Trina Aguila DO Status: REG CLI Study: SCREENING MAMM (CAD), BILAT Date of Exam: 09/23/17 Exam# [id number] Ordering Dr: Trina Aguila DO MAMMOGRAPHY - BILATERAL SCREENING REASON FOR EXAM: Female, 67 years old. Routine annual screening examination. PERTINENT HISTORY: Non-contributory. TECHNIQUE: Digital bilateral breast chuy (3D mammographic acquisition) in the CC and MLO projections. 2-D mediolateral oblique (MLO) and craniocaudad (CC) views of both breasts were obtained. CAD: Full Field Digital Mammography with Computer Added Detection was performed. COMPARISON: Comparison is made with prior study dated July 03, 2010. FINDINGS: Breast Composition: There are scattered areas of fibroglandular density. There are no dominant masses or suspicious calcifications. Stable appearance of the benign appearing bilateral axillary lymph nodes. No other significant abnormalities are identified. There has been no significant change since the prior study. BI/SCREENING MAMM (CAD), BILAT IMPRESSION: Stable bilateral screening mammogram. Yearly follow-up mammogram recommended. (A) ASSESSMENT CATEGORY: BIRADS Category 2: Benign. A letter regarding these results will be sent to the patient by the facility within 30 days. Approximately 10% of breast cancers are not detected by mammography. A normal mammogram should not delay biopsy of a clinically suspicious abnormality. [id number] Electronically Signed: Burt Saucedo MD at 12:30 EDT Tel [phone], Service support , CC: Trina Aguila DO [employer] Launch [employer]: Signed Trina Aguila Work Phone: Start: 09-23-2017 End: 09-24-2017 Thyroid Comments: See Note; NOTES: [facility] Imaging Services [address] [place] [address] Thyroid MR#: [id number] Acct: [id number] Name: SUE GASTON Rep #: [id number] : 1950 F 67 From: Bebeto Melchor DO PCP: Trina Aguila DO Status: REG CLI Study: Thyroid Date of Exam: 09/23/17 Exam# [id number] Ordering Dr: Trina Aguila DO STUDY: THYROID ULTRASOUND REASON FOR EXAM: Female, 67 years old. Nodule, partial thyroidectomy TECHNIQUE: Ultrasound evaluation of the thyroid was performed with real-time and static pittman-scale imaging. COMPARISON: No comparison studies are available. FINDINGS: RIGHT LOBE: The right lobe of the thyroid gland has been resected. LEFT LOBE: The left lobe of the thyroid gland measures 5 x 1.6 x 1.4 cm. There is a homogeneous echotexture. There is a well-defined nodule within the superior pole of the left lobe of the thyroid gland measuring 7 x 6 x 8 mm. There is a hypoechoic halo, and perinodular flow. ISTHMUS: The isthmus measures 3 mm. The regional lymph nodes are normal. US/Thyroid IMPRESSION: Solitary left lobe thyroid nodule. Status post resection of the right thyroid lobe. Electronically Signed: Bebeto Melchor at 8:30 EDT Tel , Service support , CC: Trina Aguila DO [employer]: Signed Trina Aguila Work Phone: Start: 03-31-1973 Thyroid nodule (disorder) DR IVÁN RUANO MD Comment on above: RIGHT SIDE THYROIDECTOMY Start: 03-31-[address] IVÁN RUANO MD avulsion fracture right 4th finger with surgery Carmita Manchak avulsion fracture right 4th finger with surgery Kat L Long avulsion fracture right 4th finger with surgery Carmita Manchak avulsion fracture right 4th finger with surgery Carmita Manchak avulsion fracture right 4th finger with surgery Carmita Manchak avulsion fracture right 4th finger with surgery Carmita Manchak [employer] avulsion fracture right 4th finger with surgery Carmita Manchak [employer] avulsion fracture right 4th finger with surgery Carmita Manchak [employer] distal sigmoid colectomy nov 2021 for tubulovillous adenoma Trian Aguila DO Work Phone: Comment on above: also took part of rectum distal sigmoid colectomy nov 2021 for tubulovillous adenoma Carmita Manchak [employer] Comment on above: also took part of rectum Excision of melanoma Referri ng Provider Unknown Finger structure (carolina dy structure) DR IVÁN RUANO MD Comment on above: TIP RIGHT HAND, 4TH FINGER, AMPUTATED AN D RE-ANASTAMOSED H/O: surgery Tonsillectomy Carmita Yesica k [employer] Comment on above: 3 yrs. old H/O: surgery Tonsillectomy Carmita Yesica k [employer] E[employer] Comment on above: 3 yrs. old H/O: surgery Tonsillectomy Carmita Yesica k [employer] E[employer]IAN Comment on above: 3 yrs. old H/O: surgery Tonsillectomy Carmita Yesica k [employer] ELECT[employer] Comment on above: 3 yrs. old H/O: surgery Tonsillectomy Carmita Yesica k [employer] Comment on above: 3 yrs. old Lobectomy of thyroid gland Referring Provider Unknown partial thyroidectom y- not cancer- age 23 Carmita Manchak partial thyroidectom y- not cancer- age 23 Kat L Long partial thyroidectom y- not cancer- age 23 Carmita Manchak partial thyroidectom y- not cancer- age 23 Carmita Manchak partial thyroidectom y- not cancer- age 23 Carmita Manchak partial thyroidectom y- not cancer- age 23 Carmita Manchak [employer] partial thyroidectom y- not cancer- age 23 Carmita Manchak [employer] E[employer]RICIAN partial thyroidectom y- not cancer- age 23 Carmita Manchak [employer] skin cancer removal Carmita Manchak skin cancer removal Kat L Long skin cancer removal Carmita Manchak skin cancer removal Carmita Manchak skin cancer removal Carmita Manchak skin cancer removal Carmita Manchak [employer] E[employer] skin cancer removal Carmita Manchak [employer] E[employer]ICIAN skin cancer removal Carmita Manchak [employer] Thyroid nodule (disorder) DR IVÁN RUAON MD Comment on above: RIGHT SIDE THYROIDECTOMY Tonsillectomy Carmita Yesica k Tonsillectomy Kat L Long Tonsillectomy Carmita Yesica k Tonsillectomy Carmita Yesica k Tonsillectomy Carmita Yesica k Tonsillectomy Carmita Yesica k [employer] Tonsillectomy Carmita Yesica k [employer] ELECT[employer]ICIAN Tonsillectomy Carmita Yesica k [employer] Tonsillectomy and adenoidectomy Referring Provider Unknown Plan of Treatment Date Care Activity Detail Author Start: 01-14-2023 Procedure Education Eprescribed prescriptions (G8553) [facility]; [facility] Work Phone: Start: 01-07-2023 CBC, PLATELETS & MANUAL DIFF (50002) CBC, PLATELETS & MANUAL DIFF (03343) [facility]; [facility] Work Phone: Start: 01-07-2023 Comprehensive metabolic panel METABOLIC PANEL, COMPREHENSIVE (81237) [facility]; [facility] Work Phone: Start: 01-07-2023 Hemoglobin glycosylated a1c HGB A1C (70685) [facility]; [facility] Work Phone: Start: 01-07-2023 Lipid panel LIPID PANEL (63688) [facility]; [facility] Work Phone: Start: 01-07-2023 Urine albumin quantitative MICROALBUMIN: CREATININE RATIO (57107) AND (93493) [facility]; [facility] Work Phone: Start: 01-07-2023 Urnls dip stick/tablet reagent auto microscopy Urinalysis, Complete W/ Microscopic Examination with reflex to urine culture, routine (03904) [facility]; [facility] Work Phone: Start: 10-02-2022 C-reactive protein C-REACTIVE PROTEIN (71715) [facility]; [facility] Work Phone: Start: 10-02-2022 Sedimentation rate rbc non-automated ESR-F (SED RATE ERYTHROCYTE - FEMALE) (97334) [facility]; [facility] Work Phone: Start: 10-02-2022 Microsomal antibodies each Anti TPO Antibody (23707) [facility]; [facility] Work Phone: Start: 10-02-2022 Assay of triiodothyronine t3 free FREE TRIIDOTHYRONINE (T3) (69942) [facility]; [facility] Work Phone: Start: 10-02-2022 Assay of free thyroxine THYROXINE FREE (91292) [facility]; [facility] Work Phone: Start: 10-02-2022 Assay of thyroid stimulating hormone tsh TSH (70429) [facility]; [facility] Work Phone: Start: 10-02-2022 Procedure Education Eprescribed prescriptions (G8553) [facility]; [facility] Work Phone: Start: 09-25-2022 CBC, PLATELETS & MANUAL DIFF (74539) CBC, PLATELETS & MANUAL DIFF (44538) [facility]; [facility] Work Phone: Start: 09-25-2022 Comprehensive metabolic panel METABOLIC PANEL, COMPREHENSIVE (30120) [facility]; [facility] Work Phone: Start: 09-25-2022 Urine albumin quantitative MICROALBUMIN: CREATININE RATIO (88316) AND (05649) [facility]; [facility] Work Phone: Start: 09-25-2022 Urnls dip stick/tablet reagent auto microscopy Urinalysis, Complete W/ Microscopic Examination with reflex to urine culture, routine (57984) [facility]; [facility] Work Phone: Start: 01-29-2022 VIRDAISY, Provider: Arabella Marcial, Status: Pen, Time: 9:00 AM VIRFUADRIANE, Provider: Arabella Marcial, Status: Pen, Time: 9:00 AM PD-Tvmoebp-Wjzmqjf 2100 Work Phone: Start: 01-08-2022 Patient encounter procedure [facility] Start: 12-20-2021 End: 12-21-2022 Phenol Topical [place] 1 [place] 4 Times a Day PRN sore throat ; (CHLORASEPTIC)DOSE = 1 spray(s) Topical 4 Times a Day, PRN Sore ThroatApply to Throat Start: 20-Dec-2021 End: 20-Dec-2022 Ordered: 20-Dec-2021 Colby Uriostegui Intent [facility] Start: 12-17-2021 End: 12-18-2022 [facility] Start: 12-17-2021 [facility], Provider: Ho Jack, Status: Pen, Time: 11:00 AM [facility], Provider: Ho Jack, Status: Pen, Time: 11:00 AM PB-Pvrzvwv-Bojrfew 2100 Work Phone: Start: 01-22-2021 Procedure Education Eprescribed prescriptions (G8553) [facility]; [facility] Work Phone: Start: 01-10-2020 Procedure Education Eprescribed prescriptions (G8553) [facility] Work Phone: Start: 01-10-2020 Lipid panel LIPID PANEL (37060) [facility] Work Phone: Start: 01-10-2020 Urine albumin quantitative MICROALBUMIN: CREATININE RATIO (74552) AND (50073) [facility] Work Phone: Start: 01-10-2020 Blood count complete auto&auto difrntl wbc CBC with auto diff (21929) [facility] Work Phone: Start: 01-10-2020 Comprehensive metabolic panel METABOLIC PANEL, COMPREHENSIVE (60902) [facility] Work Phone: Start: 01-10-2020 HbA1c (Bld) [Mass fraction] HGB A1C (58527) [facility] Work Phone: Start: 01-10-2020 Hemoglobin glycosylated a1c HGB A1C (39142) [facility]; [facility] Work Phone: Start: 01-10-2020 Assay of triiodothyronine t3 free FREE TRIDOTHYRONINE (T3) (07631) [facility] Work Phone: Start: 01-10-2020 Assay of free thyroxine THYROXINE FREE (54644) [facility] Work Phone: Start: 01-10-2020 TSH Qn TSH (THYROID STIMULATING HORMONE) (39070) [facility] Work Phone: Start: 10-20-2018 Procedure Education Eprescribed prescriptions (G8553) [facility] Work Phone: Start: 10-20-2018 Lipid panel LIPID PANEL (22117) [facility] Work Phone: Start: 10-20-2018 Comprehensive metabolic panel METABOLIC PANEL, COMPREHENSIVE (03059) [facility] Work Phone: Start: 10-20-2018 HbA1c (Bld) [Mass fraction] HGB A1C (41626) [facility] Work Phone: Start: 08-18-2018 Procedure Education Eprescribed prescriptions (G8553) [facility] Work Phone: Start: 08-18-2018 Urnls dip stick/tablet reagent auto microscopy URINALYSIS, W/ MICRO (79119) [facility] Work Phone: Start: 08-18-2018 Urine albumin quantitative MICROALBUMIN: CREATININE RATIO (82970) AND (69699) [facility] Work Phone: Start: 08-18-2018 Blood count complete auto&auto difrntl wbc CBC W/AUTO DIFF WBC (31076) [facility] Work Phone: Start: 08-18-2018 Comprehensive metabolic panel METABOLIC PANEL, COMPREHENSIVE (44808) [facility] Work Phone: Start: 01-21-2018 Procedure Education Eprescribed prescriptions (G8553) [facility] Work Phone: Start: 01-21-2018 Provider Instructions for Treatment *Bisphosphonate Education [facility] Work Phone: Start: 01-07-2018 Procedure Education Eprescribed prescriptions (G8553) [facility] Work Phone: Start: 12-29-2017 25 hydroxy includes fractions if performed Vitamin D Hydroxy (69470) [facility] Work Phone: Start: 12-29-2017 Comprehensive metabolic panel METABOLIC PANEL, COMPREHENSIVE (87617) [facility] Work Phone: Start: 12-29-2017 Lipid panel LIPID PANEL (92361) [facility] Work Phone: Start: 12-29-2017 Assay of thyroid stimulating hormone tsh TSH (THYROID STIMULATING HORMONE) (20647) [facility] Work Phone: Start: 12-29-2017 Thyrotropin Qn TSH (THYROID STIMULATING HORMONE) (27757) [facility] Work Phone: Start: 12-29-2017 Hemoglobin A1c/Hemoglobin.total mass fraction (Bld) HGB A1C (37270) [facility] Work Phone: Start: 12-29-2017 Hemoglobin glycosylated a1c HGB A1C (10541) [facility] Work Phone: Start: 09-17-2017 Microsomal antibodies each Anti-TPO Antibody (95606) [facility] Work Phone: Start: 09-17-2017 Procedure Education Eprescribed prescriptions (G8553) [facility] Work Phone: Start: 09-17-2017 Cytp c/v auto thin lyr prepj scr mnl rescr phys Thin Prep Pap (18896) [facility] Work Phone: Start: 08-27-2017 Procedure Education Eprescribed prescriptions (G8553) [facility] Work Phone: Start: 03-21-2017 Procedure Education Eprescribed prescriptions (G8553) [facility] Work Phone: Start: 08-13-2010 Comprehensive metabolic panel METABOLIC PANEL, COMPREHENSIVE (36323) [facility] Work Phone: Start: 08-13-2010 Assay of thyroid stimulating hormone tsh TSH (19584) [facility] Work Phone: Start: 08-13-2010 Thyrotropin Qn TSH (04889) [facility] Work Phone: Start: 08-13-2010 Lipid panel LIPID PANEL (58877) [facility] Work Phone: Start: 08-13-2010 Urine albumin quantitative MICROALBUMIN: CREATININE RATIO (03489) AND (39492) [facility] Work Phone: Start: 08-13-2010 25 hydroxy includes fractions if performed Vitamin D Hydroxy (78809) [facility] Work Phone: Start: 08-13-2010 Provider Instructions for Treatment Diet, Exercise, and Wt loss [facility] Work Phone: Start: 09-19-2009 Provider Instructions for Treatment Diet, Exercise, and Wt loss [facility] Work Phone: Start: 09-19-2009 Comprehensive metabolic panel METABOLIC PANEL, COMPREHENSIVE (31204) [facility] Work Phone: Start: 09-19-2009 Lipid panel LIPID PANEL (85642) [facility] Work Phone: Start: 03-06-2009 Provider Instructions for Treatment Diet and Exercise [facility] Work Phone: Start: 09-27-2008 Provider Instructions for Treatment [facility] Work Phone: Start: 06-22-2008 Provider Instructions for Treatment Diet, Exercise, and Wt loss [facility] Work Phone: Start: 06-22-2008 Comprehensive metabolic panel METABOLIC PANEL, COMPREHENSIVE (53210) [facility] Work Phone: Start: 06-22-2008 Glucose tolerance test gtt 3 specimens GLUCOSE TOLERANCE TEST (GTT) 2 hour (10498) [facility] Work Phone: Start: 06-06-2008 Urine albumin quantitative MICROALBUMIN: CREATININE RATIO (34006) AND (96845) [facility] Work Phone: [facility] Work Phone: [facility] Work [facility]: [facility] Work Phone: [facility] Work Phone: [facility] Work Phone: [facility] Work Phone: [facility] Work Phone: [facility] Work Phone: [facility] Work Phone: [facility] Work Phone: [facility] Work Phone: [facility] Phone: [facility] Work Phone: [facility] Work Phone: [facility] Work Phone: [facility] Work Phone: [facility] Work Phone: [facility] Work Phone: [facility] Work Phone: [facility] Work Phone[facility] Work Phone: [facility] Work Phone: [facility] Work Phone: [facility] Work Phone: [facility] Work Phone: [facility] Work Phone: [facility]; [facility] Work Phone: [facility] Work Phone: Immunizations Immunization Date Immunization Notes Care Provider Fa cili 07-04-2020 COVID-Moderna (100 MCG/0.5 ML) Trina Fast DO Work Phone: [facility]; [facility] Work Phone: 06-06-2020 COVID-Moderna (100 MCG/0.5 ML) Trina Fast DO Work Phone: [facility]; [facility] Work Phone: 03-06-2009 tetanus toxoid, reduced diphtheria toxoid, and acellular pertussis vaccine, adsorbed Trina Fast [facility] Work Phone: Comment on above: Lot #[id number] 05/17/2010Site-left deltoidDose0.5mlgiven by Navneet Tracey LPN Payers Date Payer Category Payer Self-pay 2020 Medicare [id number] 2020 Unknown [id number] 2018 Unknown [id number] 2014 Medicare [id number] 2014 Medicare [id number] 2014 Unknown 2006 Unknown [id number] 1950 Unknown [id number] 2.16. [id number] 1950 Unknown [id number] 2.16. [id number] 1950 Unknown [id number] 2.16. [id number] 1950 Unknown [id number] 2.16. [id number] 1950 Unknown [id number] 2.16. 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 Start: 01-11-2019 Never smoked t obacco (finding) [facility] Assigned At [facility] Tobacco smoking consumption unknown [facility] Functional Status Date Assessment Result Facility 10-08-2021 Functional Status [facility] 10-08-2021 Functional Status Maintained, Less than 8 hours [facility] Functional observable [facility] Mental Status Date Assessment Result Facility 12-19-2021 Cognitive functi ons [id number] [facility] 10-08-2021 Mental Status Orientation Oriented x 4 [facility] 10-08-2021 Mental Status [facility] Clinical Notes 03-19-2021 to 12-21-2021 Note Date & Type Note Facility 12-21-2021 Note Send Summary: Discharge Summary Providers: Provider RoleProvider Name Lyla Huffman Ho Wilkerson Note Recipients: Ho Jack MD Discharge: Summary: Admission Date: .17-Dec-2021 09:13:00 Discharge Date: 21-Dec-2021 Attending Physician at Discharge: oH Jack Admission Reason: Recurrent Sigmoid Polyp Final Discharge Diagnoses: Recurrent Sigmoid Polyp Procedures: Date: 17-Dec-2021 14:21:00 Procedure Name: Open low anterior resection Condition at Discharge: Satisfactory Disposition at Discharge: .Home Vital Signs: T PRBPMAPSpO2 [id number]/7592% Date/Time12/21 5:0812/21 5: 5:0812/21 5:0812/21 5:08 Range(36.1C - 36.6C ) (71 - 81 ) (18 - 18 ) (112 - 135 )/ (73 - 83 ) (91% - 94% ) As of 20-Dec-2021 09:25:00, patient is on 1 L/min of oxygen via room air. Date: Weight/Scale Type:Height: 18-Dec-2021 06:3980 kg / oomairsu334.5 cm Physical Exam: General: NAD Pulmonary: Symmetric chest rise, nonlabored breathing on room air Cardio: RRR, vitals reviewed GI: Soft, nondistended, appropriately tender, stapled incision c/d/i, out with gauze bandage : voiding Ext: no edema Neuro: no gross neuro deficit, baseline fine tremor to hands Psych: appropriate mood and affect Hospital Course: Sue Gaston is a 71 year old female with a past medical history significant for HTN, anxiety and depression who was found to have sessile polyp that has fragments of tubulovillous adenoma She presented for surgery on 12/17 where she underwent a Low anterior resection with primary anastomosis She tolerated the procedure well and was admitted to a regular nursing floor. Her hospital course was essentially uneventful. She was slow to wean from supplemental oxygen but was able to ambulate without oxygen saturation drop on POD # 3. Diet was advanced to a soft diet and she was noted to have return of bowel function with flatus. POD4 her O2 saturation remained at or above 92 overnight and during exertion. She continued with good pain control on oral pain medication and was discharged home with home care for PT and will follow up in couple weeks. She was happy to discharge. Discharge Information: and Continuing Care: Lab Results - Pending: None Radiology Results - Pending: None Discharge Instructions: Activity: activity as tolerated. May shower.. May not drive while taking narcotics. No pushing, pulling, or lifting objects greater than 10 pounds for 4 week(s). Weight-bearing Instructions: full weight bearing. Nutrition/Diet: Diet Consistency/Texture: soft, soft diet x 4 weeks, Avoid raw fruits and vegetables for couple weeks and slowly advance into diet as tolerated. Appetitie will return slowly, eat smaller more frequent meals at first, push away from table once full. Encourage Fluids: Drink plenty of a variety of fluids to prevent dehydration. Signs of dehydration are: dry mouth, dark yellow urine in small amounts, and dizziness with change in position or increased feeling of weakness/tiredness. Additive/Supplement: Supplements: ensure surgery 1 serving by mouth three times a day until gone Wound Care: Wound Site: abdomen Wound Type: surgical incision Change Dressin times a day as needed Cleanse With: soap and water Instructions: no lotions, creams, or tub soaks Other Instructions: You have kirti remaining in your incision. These will come out approximately 2 weeks from your surgery date. This incision may get wet, pat dry and cover as needed to protect your clothing, otherwise you may leave this incision open to air. Additional Orders: Additional Instructions: Bowel function will be irregular at first. You may experience some loose stool alternating with constipation. This is normal. As your diet advances and you begin to eat more regularly, your stool pattern will also become more regular. Drink plenty of a variety of fluids to prevent dehydration. Signs of dehydration are: dry mouth, dark yellow urine in small amounts, and dizziness with change in position or increased feeling of weakness/tiredness. For diarrhea stools incorporate foods from the BRAT diet. This is a bland diet that consists of foods low in fiber: bananas, rice, applesauce and toast are kirti of the diet. You can also add tea, tapioca and yogurt if you would like. Be sure to drink plenty of fluids if you are having diarrhea, as you can become dehydrated quickly. Colace is a stool softener that you can take twice per day to prevent hard stool or constipation. You will be instructed to use a stool softener while on narcotics, as they may cause constipation. You should not take the Colace for loose watery stool. This is an over the counter medication. Enoxaparin (Lovenox) is a blood thinner used to prevent or treat blood clots. Enoxaparin (Lovenox) is administered only by injection under the skin using a (more content not included)... [facility] 12-17-2021 Note Clinical Note - Vasquez cobb v2: Education: Document TopicMedication Education MedicationMeds to Beds: Patient accepts Meds to Beds service at discharge, please send prescriptions to [facility]. Sources used to confirm home medication list: - Patient with prompting - OARRS - clonazepam - Fill history verified online using [employer] High alert medications : None Medication home list complete Please reach out via [employer] for questions Raphael Nolen, KarliD, PGY1 Insurance Examiner Meds Ambulatory and Retail services Is This Intervention Medication Reconciliation Relatedyes Time Qinbzfsa20-04 minutes Additional NotesHome Medications Review Status for Reconciliation: Complete Med Status: Patient Currently Takes Medications Drug Name: aspirin 81 mg oral tablet Instructions: 1 tab(s) oral once a day Drug Name: cholecalciferol 50 mcg oral capsule Instructions: 2 cap(s) oral once a day Drug Name: lisinopril 10 mg oral tablet Instructions: 1 tab(s) oral once a day Drug Name: multivitamin Multiple Vitamins oral tablet Instructions: 1 tab(s) oral once a day Drug Name: clonazePAM 0.5 mg oral tablet Instructions: 1 tab(s) orally 2 times a day, As Needed Drug Name: escitalopram 20 mg oral tablet Instructions: 1 tab(s) orally once a day Drug Name: bisacodyl 5 mg oral delayed release tablet Instructions: Take 2 tabs at 3 pm and 2 tabs at 9 pm the day prior to your procedure Drug Name: gabapentin 100 mg oral capsule Instructions: Take one capsule at bedtime starting 3 days prior to surgery Drug Name: metroNIDAZOLE 250 mg oral tablet Instructions: Take 1 tablet at 6 pm, 7 pm, and 11 pm prior to surgery Drug Name: polyethylene glycol 3350 oral powder for reconstitution Instructions: Mix 238 gm once as directed with 64 oz of clear liquids Drug Name: venlafaxine 75 mg oral capsule, extended release Instructions: 1 cap(s) orally once a day Drug Name: acetaminophen 500 mg oral tablet Instructions: 1 tablet every 6 hours for two days prior to surgery. Take 2 tabs the morning of surgery Allergy: Allergies Summary No Known Allergies Electronic Signatures: Tamanna Raphael ([facility]) (Signed 17-Dec-2021 14:54) Authored: Education, Allergy Umer Zavaleta ([facility]) (Signed 17-Dec-2021 16:00) Co-Signer: Education, Allergy Last Updated: 17-Dec-2021 16:00 by Umer Zavaleta ([facility]) [facility] 12-17-2021 Note PROCEDURE DETAILS Preoperative Diagnosis: Rectum polyps Postoperative Diagnosis: Rectum polyps Surgeon: Dr. Jack Resident/Fellow/Other Dog Boarder: Allegra Love Procedure: Open low anterior resection Anesthesia: General Estimated Blood Loss: 70ml Blood Replaced: None Findings: Tatoo at the anterior reflection of peritoneum; polyps included in the specimen Specimens(s) Collected: yes, sigmoid colon and rectum Complications: None IV Fluids: 1000ml crytalloid; 500ml albumin Urine Output: 300ml Drains and/or Catheters: Pelvis drain Additional Details: Plan: - CLD - LR 40/h - oral pain meds - Keep Denson until tomorrow Patient Returned To/Condition: Extubated to PACU Attestation: Note Completion: Attending AttestationI was present for the entire procedure I am a:Resident/Fellow Electronic Signatures: Ho Jack) (Signed 18-Dec-2021 15:05) Authored: Note Completion Co-Signer: Post-Operative Note, Chart Review, Note Completion Allegra Butts (Resident)) (Signed 17-Dec-2021 14:25) Authored: Post-Operative Note, Chart Review, Note Completion Last Updated: 18-Dec-2021 15:05 by Ho Jack) [facility] 12-17-2021 History of Present illness Narrative Sue Gaston is a 71 F with a recurrent upper rectal polyp that is not amenable to endoscopic resection. Biopsies showfragments of tubulovillous adenoma with no obvious invasive cancer. 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 Pathology: Traditional serrated adenoma of the colon, 2.3 cm in greatest dimension no evidence of invasive carcinoma. 0 LNs.Doing well. Doing PT. She is moving her bowels small amounts several times daily. Denies any F/C, N/V, CP/Sob, Dysuria. [facility] Work Phone: 12-17-2021 History of Present illness Narrative Sue Gaston is a 71 F with a recurrent upper rectal polyp that is not amenable to endoscopic resection. Biopsies showfragments of tubulovillous adenoma with no obvious invasive cancer. 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 Pathology: Traditional serrated adenoma of the colon, 2.3 cm in greatest dimension no evidence of invasive carcinoma. 0 LNs.Doing well. Eating and drinking well. Denies N/V, F/C. She is still having staggered BM's, multiple a day. Stools were pebble like. She added a stool softener which helped with the stool consistency. [facility]Nsps[facility] Work Phone: 12-17-2021 Note History & Physical R eviewed: I have reviewed the History and Physical dated: 20-Nov-2021 History and Physical reviewed and relevant findings noted. Patient examined to review pertinent physical findings.: No significant changes Home Medications Reviewed: no changes noted Allergies Reviewed: no changes noted ERAS (Enhanced Recovery After Surgery): ERAS Patient: no Consent: COVID-19 Consent: COVID-19 Risk ConsentSurgeon has reviewed reddy risks related to the risk of giuliana COVID-19 and if they contract COVID-19 what the risks are. Attestation: Note Completion: I am a: Resident/Fellow Attending AttestationI saw and evaluated the patient. I personally obtained the reddy and critical portions of the history and physical exam or was physically present for reddy and critical portions performed by the resident/fellow. I reviewed the resident/fellows documentation and discussed the patient with the resident/fellow. I agree with the resident/fellows medical decision making as documented in the note. I personally evaluated the patient [id number] Electronic Signatures: Ho Jack) (Signed 18-Dec-2021 15:03) Authored: Note Completion Co-Signer: History & Physical Reviewed, ERAS, Consent, Note Completion Allegra Butts (Resident)) (Signed 17-Dec-2021 11:02) Authored: History & Physical Reviewed, ERAS, Consent, Note Completion Last Updated: 18-Dec-2021 15:03 by Ho Jack) [facility] 10-08-2021 Evaluation + Plan note Extrac marcus from: Title:Clinical Document Author:IVÁN RUANO Date:10/08/21 [place] ADMISSION HISTORY AN D PHYSICIAL CHIEF COMPLAINT: HISTORY OF PRESENT ILLNESS: REVIEW OF SYSTEMS: ACTIVE PROBLEMS: (3) Anxiety ([id number]) HTN (hypertension) (4076549307) Skin cancer ([id number]) MEDICATIONS: Active Inpt Meds: None Active PRN Meds: None One Time Meds: None Active IV Meds: Lactated Ringers Infusion 1,000 mL Start: 10/08/21 7:00:00 EDT, Rate: 50 mL/hr, 10/08/21 7:00:00 EDT Lactated Ringers Infusion 1,000 mL (LR 1,000 mL) Start: 10/08/21 8:14:00 EDT, Rate: 50 mL/hr, 10/08/21 8:14:00 EDT ALLERGIES: (1) NKA FAMILY HISTORY: SOCIAL HISTORY: PHYSICAL EXAM: VITALS: MbamrfSdqkQRCbiomQPCkN2XUH1NnxaPv(kg) 10/08 08:2537.6122/81176417--83/11 77.3 24 Hr Tmax: 37.6 at 10/08 08:25 36 Hr Tmax: 37.6 at 10/08 08:25 Vital Signs are the last 5 in the past 48 hours. Weights display the last 5 within 7 days. Initial Wt: 10/08 77.3 kg 170 lb Current Wt: 10/08 77.3 kg 170 lb GENERAL: HEENT: CARDIOVASCULAR: RESPIRATORY: ABDOMEN: EXREMETIES: NEUROLOGICAL: PSYCHIATRIC: LABS: No 36hr Lab Data DIAGNOSTICS: IMPRESSION: PLAN: History and Physical Update I have examined the patient; reviewed the H&P and there are no changes to the H&P unless noted below. [facility] 07-11-2022 History of Present illness Narrative* Sue Gaston is a 71F who presents to clinic today for further evaluation and discussion of recurrent sigmoid polyp. Flexible sigmoidoscopy on 10/08/[address] Iván Ruano revealed sessile polyp at 12cm which was biopsied and ablated, pathology demonstrates fragments of TVA. Polyp was previously resec marcus and area tattooed in November 2020. * Patient has not had a CT. [facility] Work Phone: [phone] 312-852407-11-2022 Hospital Discharge instructions Patient Education 10/08/2021 10:16:37 Monitored Anesthesia Care, Care After Monitored Anesthesia Care, Care After These instructions provide you with information about caring for yourself after your procedure. Your health care provider may also give you more specific instructions. Your treatment has been plannedaccording to current medical practices, but problems sometimes occur. Call your health care provider if you have any problems or questions after your procedure. What can I expect after the procedure? After your procedure, you may: Feel sleepy for several hours. Feel clumsy and have poor balance for several hours. Feel forgetful about what happened after the procedure. Have poor judgment for several hours. Feel nauseous or vomit. Have a sore throat if you had a breathing tube during the procedure. Follow these instructions at home: For at least 24 hours after the procedure: Have a responsible adult stay with you. It is important to have someone help care for you until youare awake and alert. Rest as needed. Do not: ?Participate in activities in which you could fall or become injured. ?Drive. ?Use heavy machinery. ?Drink alcohol. ?Take sleeping pills or medicines that cause drowsiness. ?Make important decisions or sign legal documents. ?Take care of children on your own. Eating and drinking Follow the diet that is recommended by your health care provider. If you vomit, drink water, juice, or soup when you can drink without vomiting. Make sure you have little or no nausea before eating solid foods. General instructions Take rjxz-scf-telckbs and prescription medicines only as told by your health care provider. If you have sleep apnea, surgery and certain medicines can increase your risk for breathing problems. Follow instructions from your health care provider about wearing your sleep device: ?Anytime you are sleeping, including during daytime naps. ?While taking prescription pain medicines, sleeping medicines, or medicines that make you drowsy. If you smoke, do not smoke without supervision. Keep all follow-up visits as told by your health care provider. This is important. Contact a health care provider if: You keep feeling nauseous or you keep vomiting. You feel light-headed. You develop a rash. You have a fever. Get help right away if: You have trouble breathing. Summary For several hours after your procedure, you may feel sleepy and have poor judgment. Have a responsible adult stay with you for at least 24 hours or until you are awake and alert. This information is not intended to replace advice given to you by your health care provider. Make sure you discuss any questions you have with your health care provider. Document Released: 07/07/2016 Document Revised: 06/15/2018 Document Reviewed: 07/07/2016 [employer] Patient Education 2020 [employer] 10/08/2021 10:16:31 Colonoscopy, Adult, Care After, Muzr-ye-Nfcz Colonoscopy, Adult, Care After This sheet gives you information about how to care for yourself after your procedure. Your doctor may also give you more specific instructions. If you have problems or questions, call your doctor. What can I expect after the procedure? After the procedure, it is common to have: A small amount of blood in your poop for 24 hours. Some gas. Mild cramping or bloating in your belly. Follow these instructions at home: General instructions For the first 24 hours after the procedure: ?Do not drive or use machinery. ?Do not sign important documents. ?Do not drink alcohol. ?Do your daily activities more slowly than normal. ?Eat foods that are soft and easy to digest. Take uxpm-tau-waeigom or prescription medicines only as told by your doctor. To help cramping and bloating: Try walking around. Put heat on your belly (abdomen) as told by your doctor. Use a heat source that your doctor recommends, such as a moist heat pack or a heating pad. ?Put a towel between your skin and the heat source. ?Leave the heat on for 20 30 minutes. ?Remove the heat if your skin turns bright red. This is especially important if you cannot feel pain, heat, or cold. You can get burned. Eating and drinking Drink enough fluid to keep your pee (urine) clear or pale yellow. Return to your normal diet as told by your doctor. Avoid heavy or fried foods that are hard to digest. Avoid drinking alcohol for as long as told by your doctor. Contact a doctor if: You have blood in your poop (stool) 2 3 days after the procedure. Get help right away if: You have more than a small amount of blood in your poop. You see large clumps of tissue (blood clots) in your poop. Your belly is swollen. You feel sick to your stomach (nauseous). You throw up (vomit). You have a fever. You have belly pain that gets worse, and medicine does not help your pain. Summary After the procedure, it is common to have a small amount of blood in your poop. You may also have mild cramping and bloating in your belly. For the first 24 hours after the procedure, do not drive or use machinery, do not sign important documents, and do not drink alcohol. Get help right away if you have a lot of blood in your poop, feel sick to your stomach, have a fever, or have more belly pain. This information is not intended to replace advice given to you by your health care provider. Make sure you discuss any questions you have with your health care provider. Document Released: 04/19/2011 Document Revised: 01/15/2018 Document Reviewed: 12/09/2016 [employer] Patient Education 2020 [employer] Follow Up Care 08/31/2021 14:20:05 With:IVÁN RUANO MD Address: [address] [address] [phone] When: Unknown Comments:Follow-up as needed [facility] 07-11-2022 Summary of episode note Discharge Instructions Thank you for allowing [facility] to assist you with your healthcare needs. The following is importantdischarge information regarding your hospital visit. Your Care Team TRINA AGUILA DO What to do next Follow Up Appointments Follow Up with IVÁN RUANO MD When Why: Follow-up as needed Where: [address] [facility] [address] [place] [address] [phone] Allergies NKA Medications Please ask your primary doctor or pharmacist before taking any other medication not listed, including over the counter drugs, herbal medications, vitamins and or supplements as they may interact withyour home medications. What How Much When Instructions Last Dose Unchanged aspirin (aspirin 81 mg oral delayed release tablet) 1 tab(s) by mouth Once a day Unchanged clonazePAM (clonazepam 0.5 mg oral disint tablet (NF)) 1 tab(s) by mouth Three (3) times a day Unchanged ergocalciferol (Vitamin D2 2000 intl units oral capsule) 1 cap by mouth Once a day with food Unchanged escitalopram (escitalopram 20 mg oral tablet) 1 tab(s) by mouth Once a day Unchanged lisinopril (lisinopril 10 mg oral tablet) 1 tab(s) by mouth Once a day Unchanged multivitamin (Multi Vitamin+) Unchanged multivitamin with minerals (Ocuvite) by mouth Once a day Unchanged venlafaxine (venlafaxine 75 mg oral capsule, extended release) 1 cap by mouth Once a day Please take this list to your next doctor s visit. Bring all medications you take, including over the counter medications, herbals and other supplements with you to your doctor s visit. Patients and families are reminded to discard old lists and to update any records with all medication providers or retail pharmacies. Education Materials Monitored Anesthesia Care, Care After These instructions provide you with information about caring for yourself after your procedure. Your health care provider may also give you more specific instructions. Your treatment has been plannedaccording to current medical practices, but problems sometimes occur. Call your health care provider if you have any problems or questions after your procedure. What can I expect after the procedure? After your procedure, you may: Feel sleepy for several hours. Feel clumsy and have poor balance for several hours. Feel forgetful about what happened after the procedure. Have poor judgment for several hours. Feel nauseous or vomit. Have a sore throat if you had a breathing tube during the procedure. Follow these instructions at home: For at least 24 hours after the procedure: Have a responsible adult stay with you. It is important to have someone help care for you until youare awake and alert. Rest as needed. Do not: ? Participate in activities in which you could fall or become injured. ? Drive. ? Use heavy machinery. ? Drink alcohol. ? Take sleeping pills or medicines that cause drowsiness. ? Make important decisions or sign legal documents. ? Take care of children on your own. Eating and drinking Follow the diet that is recommended by your health care provider. If you vomit, drink water, juice, or soup when you can drink without vomiting. Make sure you have little or no nausea before eating solid foods. General instructions Take kfjr-tvn-hisptel and prescription medicines only as told by your health care provider. If you have sleep apnea, surgery and certain medicines can increase your risk for breathing problems. Follow instructions from your health care provider about wearing your sleep device: ? Anytime you are sleeping, including during daytime naps. ? While taking prescription pain medicines, sleeping medicines, or medicines that make you drowsy. If you smoke, do not smoke without supervision. Keep all follow-up visits as told by your health care provider. This is important. Contact a health care provider if: You keep feeling nauseous or you keep vomiting. You feel light-headed. You develop a rash. You have a fever. Get help right away if: You have trouble breathing. Summary For several hours after your procedure, you may feel sleepy and have poor judgment. Have a responsible adult stay with you for at least 24 hours or until you are awake and alert. This information is not intended to replace advice given to you by your health care provider. Make sure you discuss any questions you have with your health care provider. Document Released: 07/07/2016 Document Revised: 06/15/2018 Document Reviewed: 07/07/2016 [employer] Patient Education 2020 [employer] Colonoscopy, Adult, Care After This sheet gives you information about how to care for yourself after your procedure. Your doctor may also give you more specific instructions. If you have problems or questions, call your doctor. What can I expect after the procedure? After the procedure, it is common to have: A small amount of blood in your poop for 24 hours. Some gas. Mild cramping or bloating in your belly. Follow these instructions at home: General instructions For the first 24 hours after the procedure: ? Do not drive or use machinery. ? Do not sign important documents. ? Do not drink alcohol. ? Do your daily activities more slowly than normal. ? Eat foods that are soft and easy to digest. Take fwab-yjw-xbdcfsz or prescription medicines only as told by your doctor. To help cramping and bloating: Try walking around. Put heat on your belly (abdomen) as told by your doctor. Use a heat source that your doctor recommends, such as a moist heat pack or a heating pad. ? Put a towel between your skin and the heat source. ? Leave the heat on for 20 30 minutes. ? Remove the heat if your skin turns bright red. This is especially important if you cannot feel pain, heat, or cold. You can get burned. Eating and drinking Drink enough fluid to keep your pee (urine) clear or pale yellow. Return to your normal diet as told by your doctor. Avoid heavy or fried foods that are hard to digest. Avoid drinking alcohol for as long as told by your doctor. Contact a doctor if: You have blood in your poop (stool) 2 3 days after the procedure. Get help right away if: You have more than a small amount of blood in your poop. You see large clumps of tissue (blood clots) in your poop. Your belly is swollen. You feel sick to your stomach (nauseous). You throw up (vomit). You have a fever. You have belly pain that gets worse, and medicine does not help your pain. Summary After the procedure, it is common to have a small amount of blood in your poop. You may also have mild cramping and bloating in your belly. For the first 24 hours after the procedure, do not drive or use machinery, do not sign important documents, and do not drink alcohol. Get help right away if you have a lot of blood in your poop, feel sick to your stomach, have a fever, or have more belly pain. This information is not intended to replace advice given to you by your health care provider. Make sure you discuss any questions you have with your health care provider. Document Released: 04/19/2011 Document Revised: 01/15/2018 Document Reviewed: 12/09/2016 [employer] Patient Education 2020 [employer] Additional Information VACCINATE! IT SAVES LIVES! Members of the community who have not yet received the COVID-19 vaccine and would like to receive it can visit one of [facility] vaccine clinics. There are many vaccine clinic locations within the [facility]. For locations and available times, please visit [email or web address] It is important to note that some COVID mobile vaccine clinics are held outdoors and may be canceled in rainy or stormy conditions. To learn more about pediatric vaccinations (ages 5-11), we invite you to visit the [facility] webpage. [email or web address] learn more about the COVID-19 vaccine, we invite you to visit the [facility] website for a list of frequently asked questions. [email or web address] [facility] Patient Portal Access Instructions: Stay connected with your healthcare team and access your personal medical information anytime with the [facility] Patient Portal.If you would like a full copy of your medical records, please contact the [facility] Medical Records Department, Friday through Friday between 8a.m. and 4:30p.m. Please follow the directions below to access the portal: 1.Access the email account you provided upon registration to the [facility].2.Look for an invitation email from [facility].3.Open the email and access the invitation link: Accept Invitation to [facility]4.Fill in the required robert to create your account. Sign into [email or web address] with your username and password that you created in the above steps to stay up to date. You can then view a summary of results, a summary of your visits, and the ability to download your summaries to your computer or send the information securely to a physician. Remember that your healthcare information is confidential, so carefully consider who you will allow to register on the [facility] Patient Portal for access to your information. You can also access the [facility] Patient Portal on the [employer] bria. Simply click on "Health Records" under "HealthData" and then click on the [facility] logo. HOW TO SAFELY DISPOSE OF PRESCRIPTION MEDICATIONS Please use one of the following methods to safely dispose of your unused medications. 1.Use a drug disposal kit: the drug disposal pouch allows you to safely discard your old and unuseddrugs. Ask your nurse to give you one when you are discharged.2.Visit a local take-back location: Many local pharmacies and police departments have programs that collect old and unwanted prescriptiondrugs. Call your local pharmacy or go to http://bit.Intelligent Apps (mytaxi)/3G8Jk1n to find one close to you.3.Make use of household items: Use cat litter or old coffee grounds to dispose medications if other options arenot available. Mix your drugs with these household products, seal them in an airtight container andthrow it into the garbage. Call [facility]: [phone] to be sure your drugs can be disposed of in this way. Some medicines may require a different approach.4.Never flush your medications down the toilet. IF YOU HAVE BEEN PRESCRIBED AN OPIOID FOR PAIN If you have been prescribed an opioid (such as hydrocodone, oxycodone or morphine), it is critical to understand the possible side effects and risks of opioid pain medications. Even when taken as directed, opioids can have several side effects including: Tolerance, meaning you might need to take more of a medication for the same pain relief. Nausea, vomiting and/or constipation. Sleepiness, dizziness, dry mouth, confusion, depression or itching. Physical dependence, meaning you have withdrawal symptoms when a medication is stopped, can develop within a few days. KNOW YOUR RESPONSIBILITIES It is important to know exactly how much and how often to take the opioid pain medications you are prescribed. Never take opioids in higher amounts or more often than prescribed. Do not combine opioids with alcohol or other drugs that cause drowsiness, such as benzodiazepines, also known as benzos, including diazepam and alprazolam, muscle relaxants or sleep aids. Never sell or share prescription opioids. This is illegal. Store opioids in a secure place and out of reach of others (including children, family, friends and visitors). The last page of this document has been signed and retained as a CHART COPY. Signatures Patient Education Materials Monitored Anesthesia Care, Care After Colonoscopy, Adult, Care After, Xybx-mh-Jhbk Medication Leaflets My discharge plan and instructions have been reviewed and explained to me and IALEK SUE M understand my current condition and have read and understand these discharge instructions. I have receiveda written copy of the plan/instructions. If I have questions, I am aware that I should contact my do ctor. Patient/Material Spreader Signature: Date/Time: Relationship to Patient: Witness Name/Signature: Date/Time: [facility]07-11-2022 Anesthesiology Consult note Patient: SUE GASTON Age: 71 years Sex: Female : 1950 Associated Diagnoses: None Author: NADINE LIANG Assessment Postanesthesia assessment Vitals: Vital signs from flowsheet : Vital Signs 10/08/2021 9:55 EDT Heart Rate Monitored 67 bpm bpm Respiratory Rate 17 br/min br/min Systolic Blood Pressure NBP 89 mmHg mmHg Diastolic Blood Pressure NBP 60 mmHg mmHg 10/08/2021 9:50 EDT Heart Rate Monitored 65 bpm bpm Respiratory Rate 22 br/min br/min Systolic Blood Pressure NBP 100 mmHg mmHg Diastolic Blood Pressure NBP 67 mmHg mmHg 10/08/2021 9:45 EDT Heart Rate Monitored 80 bpm bpm Respiratory Rate 10 br/min br/min Systolic Blood Pressure NBP 139 mmHg mmHg Diastolic Blood Pressure NBP 83 mmHg mmHg 10/08/2021 9:40 EDT Heart Rate Monitored 81 bpm bpm Respiratory Rate 18 br/min br/min Systolic Blood Pressure NBP 118 mmHg mmHg Diastolic Blood Pressure NBP 79 mmHg mmHg 10/08/2021 8:25 EDT Temperature Temporal Artery 37.6 DegC Apical Heart Rate 89 bpm (Modified) Respiratory Rate 12 br/min LOW Systolic BP Left Arm 122 mmHg Diastolic BP Left Arm 75 mmHg . Mental status: at preoperative baseline. Respiratory function: lungs are clear to auscultation, respirations are non-labored. Respiratory support: none. CV function: Normal rate, Regular rhythm. Cardiovascular support: none. Pain: Self-reports no pain, Post op control No intervention needed. Nausea status: denies nausea. Postoperative hydration status: within normal limits. Digitally Signed by NADINE LIANG on 10/08/2021 10:01 AM [facility]07-11-2022 Note [place] ADMISSION HISTORY AND PHYSICIAL CHIEF COMPLAINT: HISTORY OF PRESENT ILLNESS: REVIEW OF SYSTEMS: ACTIVE PROBLEMS: (3) Anxiety ([id number]) HTN (hypertension) ([id number]) Skin cancer ([id number]) MEDICATIONS: Active Inpt Meds: None Active PRN Meds: None One Time Meds: None Active IV Meds: Lactated Ringers Infusion 1,000 mL Start: 10/08/21 7:00:00 EDT, Rate: 50 mL/hr, 10/08/21 7:00:00 EDT Lactated Ringers Infusion 1,000 mL (LR 1,000 mL) Start: 10/08/21 8:14:00 EDT, Rate: 50 mL/hr, 10/08/21 8:14:00 EDT ALLERGIES: (1) NKA FAMILY HISTORY: SOCIAL HISTORY: PHYSICAL EXAM: VITALS: XgparaUkbjFLSwbyeSLQhM3YCE7QmgvLb(kg) 10/08 08:2537.6122/[id number]--90/11 77.3 24 Hr Tmax: 37.6 at 10/08 08:25 36 Hr Tmax: 37.6 at 10/08 08:25 Vital Signs are the last 5 in the past 48 hours. Weights display the last 5 within 7 days. Initial Wt: 10/08 77.3 kg 170 lb Current Wt: 10/08 77.3 kg 170 lb GENERAL: HEENT: CARDIOVASCULAR: RESPIRATORY: ABDOMEN: EXREMETIES: NEUROLOGICAL: PSYCHIATRIC: LABS: No 36hr Lab Data DIAGNOSTICS: IMPRESSION: PLAN: History and Physical Update I have examined the patient; reviewed the H&P and there are no changes to the H&P unless noted below. Digitally Signed by IVÁN RUANO MD on 10/08/2021 09:42 AM [facility]07-11-2022 Anesthesiology Consult note Patient: SUE GASTON Age: 71 years Sex: Female : 1950 Associated Diagnoses: None Author: NADINE LIANG APRN-PRODUCTION SCHEDULER Preoperative Information Anesthesia history Patient's history: negative. Family's history: negative. Health Status Allergies: Allergic Reactions (Selected) NKA, Allergies (1) ActiveReaction NKANone Documented Current medications: (Selected) Inpatient Medications Ordered LR 1,000 mL: 50 mL/hr, Intravenous Lactated Ringers Infusion 1,000 mL: 50 mL/hr, Intravenous Documented Medications Documented Multi Vitamin+: 0 Refill(s) Ocuvite: Oral, qDay Vitamin D2 2000 intl units oral capsule: 2,000 International_Unit, 1 cap(s), Oral, qDay, with food,60 cap(s), 0 Refill(s) aspirin 81 mg oral delayed release tablet: 81 mg, 1 tab(s), Oral, qDay, 0 Refill(s) clonazepam 0.5 mg oral disint tablet (NF): 0.5 mg, 1 tab(s), Oral, TID, 0 Refill(s) escitalopram 20 mg oral tablet: 20 mg, 1 tab(s), Oral, qDay, 0 Refill(s) lisinopril 10 mg oral tablet: 10 mg, 1 tab(s), Oral, qDay, 0 Refill(s) venlafaxine 75 mg oral capsule, extended release: 75 mg, 1 cap(s), Oral, qDay, 0 Refill(s), Medications (2) Active Scheduled: (0) Continuous: (2) Lactated Ringers 1,000 mL 1,000 mL, Intravenous, 50 mL/hr Lactated Ringers 1,000 mL 1,000 mL, Intravenous, 50 mL/hr PRN: (0) Problem list: Medical HTN (hypertension) / SNOMED CT 6414000805 / Confirmed Skin cancer / SNOMED CT 3637060981 / Confirmed, Active Problems (3) Anxiety HTN (hypertension) Skin cancer Histories Past Medical History: No active or resolved past medical history items have been selected or recorded. Family History: Basal cell carcinoma Mother Brother Heart disease Father Heart attack Father Procedure history: Colonoscopy ([id number]) in the month of 02/2021 at 70 Years. Colonoscopy ([id number]) on 02/16/2018 at 67 Years. Comments: 02/16/2018 9:03 Sheila Scott RN POLYP Colonoscopy and tattooing ([id number]) on 12/11/2017 at 67 Years. Comments: 02/12/2018 11:39 BRENT CRAIG [facility] Thyroid nodule ([id number]) in 1974 at 23 Years. Comments: 01/11/2019 9:05 EDT - Dyana Dolan RN RIGHT SIDE THYROIDECTOMY Tonsillectomy and adenoidectomy ([id number]) in 1955 at 3 Years. Finger ([id number]). Comments: 02/16/2018 7:49 DOMINIC - BRENT Landeros S TIP RIGHT HAND, 4TH FINGER, AMPUTATED AND RE-ANASTAMOSED Social History Social & Psychosocial Habits Alcohol 02/12/2018Risk Assessment: Denies Alcohol Use 01/11/2019 Use: Never Substance Abuse 02/12/2018Risk Assessment: Denies Substance Abuse 01/11/2019 Use: Never Tobacco 02/12/2018Risk Assessment: Denies Tobacco Use 01/11/2019 Tobacco Use: Never (less than 100 in l Nutrition/Health 03/19/2021 Type of diet: Regular Appetite Excellent Eating Difficulties None . Physical Examination Vital Signs 10/08/2021 8:25 EDT Temperature Temporal Artery 37.6 DegC Apical Heart Rate 89 bpm (Modified) Respiratory Rate 12 br/min LOW Systolic BP Left Arm 122 mmHg Diastolic BP Left Arm 75 mmHg Vital Signs(last 24 hrs) Last Charted Resp Rate L 12br/min (OCT 08 08:25) BMI28.19 (OCT 08 08:25) Measurements from flowsheet : Measurements 10/08/2021 8:25 EDT Height 165.6 cm (Modified) Admission Weight 77.3 kg Weight Method Stated [place] Body Weight 57.45 kg [place] Body Weight 84.62 kg Body Mass Index In Error kg/m2 (In Error) Body Mass Index 28.19 kg/m2 (Modified) Pain assessment: Pain Assessment 10/08/2021 8:25 EDT Primary Pain Intensity 0 Pain Scale Type 0-10 Pain scale . General: Alert and oriented, No acute distress. Airway: Normal temporomandibular joint mobility. Mallampati classification: II (soft palate, fauces, uvula visible). Dentition Evaluation: Dentures, partial plate. Respiratory: Lungs are clear to auscultation, Respirations are non-labored. Cardiovascular: Normal rate, Regular rhythm. Neurologic: Alert, Oriented. Review / Management Results review: No qualifying data available , Lab results 10/08/2021 8:46 EDT IV Present Present Allergies No Colon Prep Results Good Consent Form Signed Yes Patient Dressed In Hospital gown, No undergarments History & Physical On Chart Yes Bowel Prep Completed Yes Obstructive Sleep Apnea Assess Completed Yes NPO Status Maintained, Less than 8 hours Patient ID Band on and Verified Yes Last Fluid Intake 10/08/2021 6:45 Last Food Intake 10/07/2021 8:30 Last Void 10/08/2021 6:00 10/08/2021 8:44 EDT Lactated Ringers Injection Begin Bag 1,000 mL mL 10/08/2021 8:25 EDT Designated Person #1 We May Share EVA GOLDSTEIN [phone] Designated Person #1 Relationship Spouse Privacy Restrictions Requested None Height 165.6 cm (Modified) Admission Weight 77.3 kg Weight Method Stated [place] Body Weight 57.45 kg [place] Body Weight 84.62 kg Body Mass Index In Error kg/m2 (In Error) Body Mass Index 28.19 kg/m2 (Modified) Temperature Temporal Artery 37.6 DegC Apical Heart Rate 89 bpm (Modified) Respiratory Rate 12 br/min LOW Systolic BP Left Arm 122 mmHg Diastolic BP Left Arm 75 mmHg Primary Pain Intensity 0 Pain Scale Type 0-10 Pain scale Oxygen Saturation 96 % Status N/A Continuous IV Infusions lactated ringers Hand Right 10/08/2021 22 gauge Peripheral IV Activity: Insert new site Peripheral IV Dressing Condition: Clean, Dry, Intact Peripheral IV Dressing Activity: Applied Peripheral IV Equipment: Extension set Peripheral IV Number of Attempts: 1 Level of Consciousness Alert Affect/Behavior Appropriate, Calm, Cooperative Orientation Oriented x 4 Sensory Deficits None Sleep Apnea Snore No Sleep Apnea Tired No Sleep Apnea Obstruction No Sleep Apnea Pressure No Sleep Apnea Age Yes Sleep Apnea Gender No Diagnosed With Sleep Apnea No Advanced Directives Yes Advance Directive Location Unable to obtain copy Infectious Disease Symptoms Patient states no symptoms Infectious Disease Recent Exposure No Alcohol and Drug Use No Employee of Institutional Living No Health Care Employee No History of Exposure to TB No History of Positive Chest X-Ray for TB No History of Positive TB Skin Test No Homeless No Known Immunosuppression No Recent Immigrant No Resident of Institutional Living No Bloody Sputum No Fatigue No Fever No Loss of Appetite No Night Sweats No Persistent Cough > 3 Weeks No Weight Loss No Arrival Mode Ambulatory Glasses Yes Dentures N/A GI Prep Magnesium Citrate GI Prep Completed Yes GI Prep Results Large amount, Liquid Safety Brochure Information Reviewed Unable to complete Barriers to Learning None evident Teaching Method Explanation Preferred Written Language [place] Preferred Spoken Language [place] Information Given by Patient Patient's Current Physicians Patient's Current Physicians Discharge To, Anticipated Home independently Standard Safety ID band on, Call device within reach, Bed in low position, Wheels locked, Non-Slip footwear Prev Test Positive/Diagnosis w/COVID-19 No Current Quarantine/Isolated any Illness No Any Contact with Sick Animals/Birds No Traveled Anywhere in Last 30 Days No Lost Weight Unintentionally Recently No Eat Poorly Due to Decreased Appetite No Total MST Score 0 N/A Personal Devices, Patient Valuables Glasses Anesthesia/Transfusions Prior anesthesia Admission Note-Nursing Same Day Patient History (Modified) . Assessment and Plan [place] [employer] Anesthesiologists (ASA) physical status classification: Class III. Anesthetic Preoperative Plan Anesthetic technique: MAC. Postoperative pain management: Per surgeon. Risks discussed: nausea, vomiting, hypotension, allergic reaction, serious complications. Informed consent: signed by patient. Digitally Signed by NADINE LIANG on 10/08/2021 09:35 AM [facility]12-20-2021 Evaluation + Plan noteExtracted from: Title:Clinical Document Author:IVÁN RUANO Date:03/19/21 [place] ADMISSION HISTORY A ND PHYSICIAL CHIEF COMPLAINT: HISTORY OF PRESENT ILLNESS: REVIEW OF SYSTEMS: ACTIVE PROBLEMS: (3) Anxiety ([id number]) HTN (hypertension) ([id number]) Skin cancer ([id number]) MEDICATIONS: Active Inpt Meds: None Active PRN Meds: None One Time Meds: None Active IV Meds: Lactated Ringers Infusion 1,000 mL (LR 1,000 mL) Start: 03/19/21 9:57:00 EST, Rate: 50 mL/hr ALLERGIES: (1) NKA FAMILY HISTORY: SOCIAL HISTORY: PHYSICAL EXAM: VITALS: No Data Available 24 Hr Tmax: No Data Available 36 Hr Tmax: No Data Available Vital Signs are the last 5 in the past 48 hours. Weights display the last 5 within 7 days. Initial Wt: No Data Available Current Wt: No Data Available GENERAL: HEENT: CARDIOVASCULAR: RESPIRATORY: ABDOMEN: EXREMETIES: NEUROLOGICAL: PSYCHIATRIC: LABS: No 36hr Lab Data DIAGNOSTICS: IMPRESSION: PLAN: History and Physical Update I have examined the patient; reviewed the H&P and there are no changes to the H&P unless noted below. [facility] Discharge instructions Patient Education 03/19/2021 10:39:16 Monitored Anesthesia Care, Care After Monitored Anesthesia Care, Care After These instructions provide you with information about caring for yourself after your procedure. Your health care provider may also give you more specific instructions. Your treatment has been plannedaccording to current medical practices, but problems sometimes occur. Call your health care provider if you have any problems or questions after your procedure. What can I expect after the procedure? After your procedure, you may: Feel sleepy for several hours. Feel clumsy and have poor balance for several hours. Feel forgetful about what happened after the procedure. Have poor judgment for several hours. Feel nauseous or vomit. Have a sore throat if you had a breathing tube during the procedure. Follow these instructions at home: For at least 24 hours after the procedure: Have a responsible adult stay with you. It is important to have someone help care for you until youare awake and alert. Rest as needed. Do not: ?Participate in activities in which you could fall or become injured. ?Drive. ?Use heavy machinery. ?Drink alcohol. ?Take sleeping pills or medicines that cause drowsiness. ?Make important decisions or sign legal documents. ?Take care of children on your own. Eating and drinking Follow the diet that is recommended by your health care provider. If you vomit, drink water, juice, or soup when you can drink without vomiting. Make sure you have little or no nausea before eating solid foods. General instructions Take cbdn-oio-jdxgvar and prescription medicines only as told by your health care provider. If you have sleep apnea, surgery and certain medicines can increase your risk for breathing problems. Follow instructions from your health care provider about wearing your sleep device: ?Anytime you are sleeping, including during daytime naps. ?While taking prescription pain medicines, sleeping medicines, or medicines that make you drowsy. If you smoke, do not smoke without supervision. Keep all follow-up visits as told by your health care provider. This is important. Contact a health care provider if: You keep feeling nauseous or you keep vomiting. You feel light-headed. You develop a rash. You have a fever. Get help right away if: You have trouble breathing. Summary For several hours after your procedure, you may feel sleepy and have poor judgment. Have a responsible adult stay with you for at least 24 hours or until you are awake and alert. This information is not intended to replace advice given to you by your health care provider. Make sure you discuss any questions you have with your health care provider. Document Released: 07/07/2016 Document Revised: 06/15/2018 Document Reviewed: 07/07/2016 [employer] Patient Education 2020 [employer] 03/19/2021 10:39:15 Nausea and Vomiting, Adult, Tmrn-fe-Dqgg Nausea and Vomiting, Adult Nausea is feeling sick to your stomach or feeling that you are about to throw up (vomit). Vomiting is when food in your stomach is thrown up and out of the mouth. Throwing up can make you feel weak. It can also make you lose too much water in your body (get dehydrated). If you lose too much water in your body, you may: Feel tired. Feel thirsty. Have a dry mouth. Have cracked lips. Go pee (urinate) less often. Older adults and people with other diseases or a weak body defense system (immune system) are at higher risk for losing too much water in the body. If you feel sick to your stomach and you throw up, it is important to follow instructions from your doctor about how to take care of yourself. Follow these instructions at home: Watch your symptoms for any changes. Tell your doctor about them. Follow these instructions to carefor yourself at home. Eating and drinking Take an ORS (oral rehydration solution). This is a drink that is sold at pharmacies and stores. Drink clear fluids in small amounts as you are able, such as: ?Water. ?Ice chips. ?Fruit juice that has water added (diluted fruit juice). ?Low-calorie sports drinks. Eat bland, yphv-aj-vvluda foods in small amounts as you are able, such as: ?Bananas. ?Applesauce. ?Rice. ?Low-fat (lean) meats. ?[place]. ?Crackers. Avoid drinking fluids that have a lot of sugar or caffeine in them. This includes energy drinks, sports drinks, and soda. Avoid alcohol. Avoid spicy or fatty foods. General instructions Take sxob-dbh-qzybxze and prescription medicines only as told by your doctor. Drink enough fluid to keep your pee (urine) pale yellow. Wash your hands often with soap and water. If you cannot use soap and water, use hand dean of women. Make sure that all people in your home wash their hands well and often. Rest at home while you get better. Watch your condition for any changes. Take slow and deep breaths when you feel sick to your stomach. Keep all follow-up visits as told by your doctor. This is important. Contact a doctor if: Your symptoms get worse. You have new symptoms. You have a fever. You cannot drink fluids without throwing up. You feel sick to your stomach for more than 2 days. You feel light-headed or dizzy. You have a headache. You have muscle cramps. You have a rash. You have pain while peeing. Get help right away if: You have pain in your chest, neck, arm, or jaw. You feel very weak or you pass out (faint). You throw up again and again. You have throw up that is bright red or looks like black coffee grounds. You have bloody or black poop (stools) or poop that looks like tar. You have a very bad headache, a stiff neck, or both. You have very bad pain, cramping, or bloating in your belly (abdomen). You have trouble breathing. You are breathing very quickly. Your heart is beating very quickly. Your skin feels cold and clammy. You feel confused. You have signs of losing too much water in your body, such as: ?Dark pee, very little pee, or no pee. ?Cracked lips. ?Dry mouth. ?Sunken eyes. ?Sleepiness. ?Weakness. These symptoms may be an emergency. Do not wait to see if the symptoms will go away. Get medical help right away. Call your local emergency services (911 in the [place] Do not drive yourself to the hospital. Summary Nausea is feeling sick to your stomach or feeling that you are about to throw up (vomit). Vomiting is when food in your stomach is thrown up and out of the mouth. Follow instructions from your doctor about eating and drinking to keep from losing too much water in your body. Take [id number] and prescription medicines only as told by your doctor. Contact your doctor if your symptoms get worse or you have new symptoms. Keep all follow-up visits as told by your doctor. This is important. This information is not intended to replace advice given to you by your health care provider. Make sure you discuss any questions you have with your health care provider. Document Released: 09/02/2008 Document Revised: 07/09/2019 Document Reviewed: 08/25/2018 [employer] Patient Education 2020 [employer] 03/19/2021 10:39:03 Colonoscopy, Adult, Care After, Lrtk-my-Hyed Colonoscopy, Adult, Care After This sheet gives you information about how to care for yourself after your procedure. Your doctor may also give you more specific instructions. If you have problems or questions, call your doctor. What can I expect after the procedure? After the procedure, it is common to have: A small amount of blood in your poop for 24 hours. Some gas. Mild cramping or bloating in your belly. Follow these instructions at home: General instructions For the first 24 hours after the procedure: ?Do not drive or use machinery. ?Do not sign important documents. ?Do not drink alcohol. ?Do your daily activities more slowly than normal. ?Eat foods that are soft and easy to digest. Take nxew-mtg-mmrgepf or prescription medicines only as told by your doctor. To help cramping and bloating: Try walking around. Put heat on your belly (abdomen) as told by your doctor. Use a heat source that your doctor recommends, such as a moist heat pack or a heating pad. ?Put a towel between your skin and the heat source. ?Leave the heat on for 20 30 minutes. ?Remove the heat if your skin turns bright red. This is especially important if you cannot feel pain, heat, or cold. You can get burned. Eating and drinking Drink enough fluid to keep your pee (urine) clear or pale yellow. Return to your normal diet as told by your doctor. Avoid heavy or fried foods that are hard to digest. Avoid drinking alcohol for as long as told by your doctor. Contact a doctor if: You have blood in your poop (stool) 2 3 days after the procedure. Get help right away if: You have more than a small amount of blood in your poop. You see large clumps of tissue (blood clots) in your poop. Your belly is swollen. You feel sick to your stomach (nauseous). You throw up (vomit). You have a fever. You have belly pain that gets worse, and medicine does not help your pain. Summary After the procedure, it is common to have a small amount of blood in your poop. You may also have mild cramping and bloating in your belly. For the first 24 hours after the procedure, do not drive or use machinery, do not sign important documents, and do not drink alcohol. Get help right away if you have a lot of blood in your poop, feel sick to your stomach, have a fever, or have more belly pain. This information is not intended to replace advice given to you by your health care provider. Make sure you discuss any questions you have with your health care provider. Document Released: 04/19/2011 Document Revised: 01/15/2018 Document Reviewed: 12/09/2016 [employer] Patient Education [facility] 01/04/2021 14:06:58 With:IVÁN RUANO MD Address: [id number] When: Unknown Comments:CALL DR RUANO WITH ANY QUESTIONS OR CONCERNS. GO TO THE EMERGENCY ROOM WITH ANY URGENT MATTERS. [facility] Evaluation note* Extremities: no edemaGastrointestinal: non tenderCardiovascular: warm and well perfusedRespiratory/Thorax: breathing comfortably on RAHead/Neck: atraumaticEyes: non ictericConstitutional: laying in bed, NADSkin: warm and dryPsychological: Appropriate mood and behaviorNeurological: AOx3 [facility] Narrative No data available for this section [facility] Discharge instructions* Activity:activity as tolerated. May shower. May not drive while taking narcotics. No pushing, pulling, or lifting objects greater than 10 pounds for 4 week(s). Weight- bearing Instructions: full weight bearing. * Wound Care 1:Wound Site: abdomenWound Type: surgical incisionChange Dressin times, a day, as neededCleanse With: soap and waterInstructions: no lotions, creams, or tub soaksOther Instructions: You have kirti remaining in your incision. These will come out approximately 2 weeks from your surgery date. This incision may get wet, pat dry and cover as needed to protect your clothing, otherwise you may leave this incision open to air. * Additional Orders:Additional Instructions: Bowel function will be irregular at first. You may experience some loose stool alternating with constipation. This is normal. As your diet advances and you begin to eat more regularly, your stool pattern will also become more regular.Drink plenty of a variety of fluids to prevent dehydration. Signs of dehydration are: dry mouth, dark yellow urine in small amounts, and dizziness with change in position or increased feeling of weakness/tiredness.For diarrhea stools incorporate foods from the BRAT diet. This is a bland diet that consists of foods low infiber: bananas, rice, applesauce and toast are kirti of the diet. You can also add tea, tapioca and yogurt if you would like. Be sure to drink plenty of fluids if you are having diarrhea, as you can become dehydrated quickly.Colace is a stool softener that you can take twice per day to prevent hard stool or constipation. You will be instructed to use a stool softener while on narcotics, as theymay cause constipation. You should not take the Colace for loose watery stool. This is an over the counter medication.Enoxaparin (Lovenox ) is a blood thinner used to prevent or treat blood clots.Enoxaparin (Lovenox ) is administered only by injection under the skin using a small needle and syringe. Injections can be given once or twice a day.You are taking enoxaparin (Lovenox ) for __prevention of blood clots___. You will continue to take enoxaparin (Lovenox) for __28 days post-op__. It is important that you give the injections at the same time each day.It is important that you continue yourenoxaparin until told to stop.If you forget an injection, contact your doctor for advice as to whenyou should give your next injection. Let everyone involved in your care, such as a dentist or otherprovider, know that you are taking enoxaparin (Lovenox ).Side Effects: - Skin bruises, itching, and bleeding around the injection site, can occur.- If bleeding does occur, it may take a little longerthan usual to stop. Let your doctor know if you develop a rash of dark red spots under the skin.Signs of bleeding that you should call your doctor: - Gums that bleed after brushing your teeth lastingmore than 15 minutes.- A nose bleed that lasts for more than 15 minutes.- Bleeding from a cut that does not stop in 15 minutes.- Urine that looks red, or urine that is dark like coffee.- Stool (BMs) that are covered with blood, or are black.- Vomit that is bright red or vomit that looks like coffee.How to administer the injection:1. Wash your hands with soap and water. Dry your hands.2. Sit down o r lie flat in a comfortable position.3. Select an area on the right or left side of your stomach (at least 2 inches away from your belly button), the back of your upper arm or side of your upper thigh.4. Clean the area with an alcohol swabs. Allow the area to dry.5. Carefully pull off the needle cap from the syringe and discard cap. Leave the air bubble in the syringe. 6. Hold the syringe like a pencil in the hand you write with.7. With your other hand, gently pinch around the cleansed area to make a fold in the skin. Continue to hold the skin fold throughout the injection.8. Press the needlestraight down and all the way into the skin fold.9. Press down on the plunger as far as it will go with your finger until the syringe is empty.10. Remove the needle by pulling it straight out.11. DO NOT rub the injection site.12. Point the needle down and away from yourself and others. Push down onthe plunger to release the safety shield.13. Drop the used syringe into a thick plastic disposable c ontainer. * Call Provider If:Fever of 100.4 F (38 C) or higher. Chills. Vomiting (throwing up) and not able to eat or drink for 12 hours. Any new concerning symptoms. If you have questions or concerns, call yourdoctor s office at: This phone number is answered 21/10. If it is after hours, and you need to speakto a physician, the service will answer and page the physician covering, who will return your call.If you have questions or concerns, call your doctor s office at: [phone] option #2. This phonenumber is answered 21/10. If it is after hours, and you need to speak to a physician, the service will answer and page the physician covering, who will return your call. * Home Care Face to Face Certification:Home Care Services Needed: yesHome Care Agency: [facility] Ordered: PTFace to Face Encounter Completed: yesDate of Encounter: [id number] Necessity for Homecare (based on clinical findings): Short term shelter care is needed to monitor for signs and symptoms of infection or adverse events. Homebound Status: homeboundHomebound Due to: Based on my clinical findings, this patient is homebound due to 2 open areas on abdominal wound, and due to physical deconditioning acquired during hospitalization making independent ambulation contraindicated until the patient regains strength and endurance Face to Face Completed and Home Care Orders Reviewed: I certify that this patient is under my care. I have reviewed the information included in the face to face and certify that the home care services ordered are medically necessary for this patient. * Home Care Skilled Service:Home Care Skilled Service: Rehab (PT/OT/SP eval and treat)Rehab: [facility] Visit: Home Care to determine * Follow Up Appointment 1:Physician/Dept/Service: Arabella Marcial, Nurse Practitioner for Dr Garcia Date/Time: 08-Jan-2022 11:00[facility]: [facility] [address], [address], [facility] [address]Phone Number: [phone] option #2Comments: follow [facility] Name Dates Details How to access health informa tion online Indication:[facility] Start:10-Jan-2020 Instruction Type:Patient Education How to access health informa tion online - Detail Indication:[facility] Start:10-Jan-2020 Instruction Type:Patient Education Patient Instructions Indication:[facility] Start:10-Jan-2020 Instruction Type:Provider Instructions for Treatment How to access health informa tion online Indication:Non-smoker Start:22-Jan-2019 Instruction Type:Patient Education How to access health informa tion online - Detail Indication:Non-smoker Start:22-Jan-2019 Instruction Type:Patient Education Patient Instructions Indication:Non-smoker Start:22-Jan-2019 Instruction Type:Provider Instructions for Treatment How to access health informa tion online Indication:BMI 29.0-29.9,adult Start:20-Oct-2018 Instruction Type:Patient Education How to access health informa tion online - Detail Indication:BMI 29.0-29.9,adult Start:20-Oct-2018 Instruction Type:Patient Education Patient Instructions Indication:BMI 29.0-29.9,adult Start:20-Oct-2018 Instruction Type:Provider Instructions for Treatment How to access health informa tion online Indication:Abnormal glucose tolerance test Start:18-Aug-2018 Instruction Type:Patient Education How to access health informa tion online - Detail Indication:Abnormal glucose tolerance test Start:18-Aug-2018 Instruction Type:Patient Education Patient Instructions Indication:Abnormal glucose tolerance test Start:18-Aug-2018 Instruction Type:Provider Instructions for Treatment How to access health informa tion online Indication:Abnormal glucose tolerance test Start:21-Jan-2018 Instruction Type:Patient Education How to access health informa tion online - Detail Indication:Abnormal glucose tolerance test Start:21-Jan-2018 Instruction Type:Patient Education Patient Instructions Indication:Abnormal glucose tolerance test Start:21-Jan-2018 Instruction Type:Provider Instructions for Treatment How to access health informa tion online Indication:BMI 32.0-32.9,adult Start:07-Jan-2018 Instruction Type:Patient Education How to access health informa tion online - Detail Indication:BMI 32.0-32.9,adult Start:07-Jan-2018 Instruction Type:Patient Education Patient Instructions Indication:BMI 32.0-32.9,adult Start:07-Jan-2018 Instruction Type:Provider Instructions for Treatment How to access health informa tion online Indication:[facility] Start:17-Sep-2017 Instruction Type:Patient Education How to access health informa tion online - Detail Indication:[facility] Start:17-Sep-2017 Instruction Type:Patient Education Patient Instructions Indication:[facility] Start:17-Sep-2017 Instruction Type:Provider Instructions for Treatment How to access health informa tion online Indication:BMI 32.0-32.9,adult Start:27-Aug-2017 Instruction Type:Patient Education How to access health informa tion online - Detail Indication:BMI 32.0-32.9,adult Start:27-Aug-2017 Instruction Type:Patient Education Patient Instructions Indication:BMI 32.0-32.9,adult Start:27-Aug-2017 Instruction Type:Provider Instructions for Treatment How to access health informa tion online Indication:Anxiety Start:21-Mar-2017 Instruction Type:Patient Education How to access health informa tion online - Detail Indication:Anxiety Start:21-Mar-2017 Instruction Type:Patient Education Patient Instructions Indication:Anxiety Start:21-Mar-2017 Instruction Type:Provider Instructions for Treatment [facility]; [facility] Work Phone: Instructions* Name Dates Details Patient Instructions Indication:[facility] Start:22-Jan-2021 Instruction Type:Provider Instructions for Treatment How to Access Health Informa tion Online using Patient Portal and [employer]rd [employer] Apps Indication:[facility] Start:22-Jan-2021 Instruction Type:Patient Education How to access health informa tion online Indication:[facility] Start:10-Jan-2020 Instruction Type:Patient Education How to access health informa tion online - Detail Indication:[facility] Start:10-Jan-2020 Instruction Type:Patient Education Patient Instructions Indication:[facility] Start:10-Jan-2020 Instruction Type:Provider Instructions for Treatment How to access health informa tion online Indication:Non-smoker Start:22-Jan-2019 Instruction Type:Patient Education How to access health informa tion online - Detail Indication:Non-smoker Start:22-Jan-2019 Instruction Type:Patient Education Patient Instructions Indication:Non-smoker Start:22-Jan-2019 Instruction Type:Provider Instructions for Treatment How to access health informa tion online Indication:BMI 29.0-29.9,adult Start:20-Oct-2018 Instruction Type:Patient Education How to access health informa tion online - Detail Indication:BMI 29.0-29.9,adult Start:20-Oct-2018 Instruction Type:Patient Education Patient Instructions Indication:BMI 29.0-29.9,adult Start:20-Oct-2018 Instruction Type:Provider Instructions for Treatment How to access health informa tion online Indication:Abnormal glucose tolerance test Start:18-Aug-2018 Instruction Type:Patient Education How to access health informa tion online - Detail Indication:Abnormal glucose tolerance test Start:18-Aug-2018 Instruction Type:Patient Education Patient Instructions Indication:Abnormal glucose tolerance test Start:18-Aug-2018 Instruction Type:Provider Instructions for Treatment How to access health informa tion online Indication:Abnormal glucose tolerance test Start:21-Jan-2018 Instruction Type:Patient Education How to access health informa tion online - Detail Indication:Abnormal glucose tolerance test Start:21-Jan-2018 Instruction Type:Patient Education Patient Instructions Indication:Abnormal glucose tolerance test Start:21-Jan-2018 Instruction Type:Provider Instructions for Treatment How to access health informa tion online Indication:BMI 32.0-32.9,adult Start:07-Jan-2018 Instruction Type:Patient Education How to access health informa tion online - Detail Indication:BMI 32.0-32.9,adult Start:07-Jan-2018 Instruction Type:Patient Education Patient Instructions Indication:BMI 32.0-32.9,adult Start:07-Jan-2018 Instruction Type:Provider Instructions for Treatment How to access health informa tion online Indication:[facility] Start:17-Sep-2017 Instruction Type:Patient Education How to access health informa tion online - Detail Indication:[facility] Start:17-Sep-2017 Instruction Type:Patient Education Patient Instructions Indication:[facility] Start:17-Sep-2017 Instruction Type:Provider Instructions for Treatment How to access health informa tion online Indication:BMI 32.0-32.9,adult Start:27-Aug-2017 Instruction Type:Patient Education How to access health informa tion online - Detail Indication:BMI 32.0-32.9,adult Start:27-Aug-2017 Instruction Type:Patient Education Patient Instructions Indication:BMI 32.0-32.9,adult Start:27-Aug-2017 Instruction Type:Provider Instructions for Treatment How to access health informa tion online Indication:Anxiety Start:21-Mar-2017 Instruction Type:Patient Education How to access health informa tion online - Detail Indication:Anxiety Start:21-Mar-2017 Instruction Type:Patient Education Patient Instructions Indication:Anxiety Start:21-Mar-2017 Instruction Type:Provider Instructions for Treatment [facility]; [facility] Work Phone: Instructions* Name Dates Details How to access health informa tion online Indication:Non-smoker Start:22-Jan-2019 Instruction Type:Patient Education How to access health informa tion online - Detail Indication:Non-smoker Start:22-Jan-2019 Instruction Type:Patient Education Patient Instructions Indication:Non-smoker Start:22-Jan-2019 Instruction Type:Provider Instructions for Treatment How to access health informa tion online Indication:BMI 29.0-29.9,adult Start:20-Oct-2018 Instruction Type:Patient Education How to access health informa tion online - Detail Indication:BMI 29.0-29.9,adult Start:20-Oct-2018 Instruction Type:Patient Education Patient Instructions Indication:BMI 29.0-29.9,adult Start:20-Oct-2018 Instruction Type:Provider Instructions for Treatment How to access health informa tion online Indication:Abnormal glucose tolerance test Start:18-Aug-2018 Instruction Type:Patient Education How to access health informa tion online - Detail Indication:Abnormal glucose tolerance test Start:18-Aug-2018 Instruction Type:Patient Education Patient Instructions Indication:Abnormal glucose tolerance test Start:18-Aug-2018 Instruction Type:Provider Instructions for Treatment How to access health informa tion online Indication:Abnormal glucose tolerance test Start:21-Jan-2018 Instruction Type:Patient Education How to access health informa tion online - Detail Indication:Abnormal glucose tolerance test Start:21-Jan-2018 Instruction Type:Patient Education Patient Instructions Indication:Abnormal glucose tolerance test Start:21-Jan-2018 Instruction Type:Provider Instructions for Treatment How to access health informa tion online Indication:BMI 32.0-32.9,adult Start:07-Jan-2018 Instruction Type:Patient Education How to access health informa tion online - Detail Indication:BMI 32.0-32.9,adult Start:07-Jan-2018 Instruction Type:Patient Education Patient Instructions Indication:BMI 32.0-32.9,adult Start:07-Jan-2018 Instruction Type:Provider Instructions for Treatment How to access health informa tion online Indication:[facility] Start:17-Sep-2017 Instruction Type:Patient Education How to access health informa tion online - Detail Indication:[facility] Start:17-Sep-2017 Instruction Type:Patient Education Patient Instructions Indication:[facility] Start:17-Sep-2017 Instruction Type:Provider Instructions for Treatment How to access health informa tion online Indication:BMI 32.0-32.9,adult Start:27-Aug-2017 Instruction Type:Patient Education How to access health informa tion online - Detail Indication:BMI 32.0-32.9,adult Start:27-Aug-2017 Instruction Type:Patient Education Patient Instructions Indication:BMI 32.0-32.9,adult Start:27-Aug-2017 Instruction Type:Provider Instructions for Treatment How to access health informa tion online Indication:Anxiety Start:21-Mar-2017 Instruction Type:Patient Education How to access health informa tion online - Detail Indication:Anxiety Start:21-Mar-2017 Instruction Type:Patient Education Patient Instructions Indication:Anxiety Start:21-Mar-2017 Instruction Type:Provider Instructions for Treatment [facility] Work Phone: Instructions* Name Dates Details Patient Instructions Indication:[facility] Start:22-Jan-2021 Instruction Type:Provider Instructions for Treatment How to Access Health Informa tion Online using Patient Portal and [employer] Indication:[facility] Start:22-Jan-2021 Instruction Type:Patient Education How to access health informa tion online Indication:[facility] Start:10-Jan-2020 Instruction Type:Patient Education How to access health informa tion online - Detail Indication:[facility] Start:10-Jan-2020 Instruction Type:Patient Education Patient Instructions Indication:[facility] Start:10-Jan-2020 Instruction Type:Provider Instructions for Treatment How to access health informa tion online Indication:Non-smoker Start:22-Jan-2019 Instruction Type:Patient Education How to access health informa tion online - Detail Indication:Non-smoker Start:22-Jan-2019 Instruction Type:Patient Education Patient Instructions Indication:Non-smoker Start:22-Jan-2019 Instruction Type:Provider Instructions for Treatment How to access health informa tion online Indication:BMI 29.0-29.9,adult Start:20-Oct-2018 Instruction Type:Patient Education How to access health informa tion online - Detail Indication:BMI 29.0-29.9,adult Start:20-Oct-2018 Instruction Type:Patient Education Patient Instructions Indication:BMI 29.0-29.9,adult Start:20-Oct-2018 Instruction Type:Provider Instructions for Treatment How to access health informa tion online Indication:Abnormal glucose tolerance test Start:18-Aug-2018 Instruction Type:Patient Education How to access health informa tion online - Detail Indication:Abnormal glucose tolerance test Start:18-Aug-2018 Instruction Type:Patient Education Patient Instructions Indication:Abnormal glucose tolerance test Start:18-Aug-2018 Instruction Type:Provider Instructions for Treatment How to access health informa tion online Indication:Abnormal glucose tolerance test Start:21-Jan-2018 Instruction Type:Patient Education How to access health informa tion online - Detail Indication:Abnormal glucose tolerance test Start:21-Jan-2018 Instruction Type:Patient Education Patient Instructions Indication:Abnormal glucose tolerance test Start:21-Jan-2018 Instruction Type:Provider Instructions for Treatment How to access health informa tion online Indication:BMI 32.0-32.9,adult Start:07-Jan-2018 Instruction Type:Patient Education How to access health informa tion online - Detail Indication:BMI 32.0-32.9,adult Start:07-Jan-2018 Instruction Type:Patient Education Patient Instructions Indication:BMI 32.0-32.9,adult Start:07-Jan-2018 Instruction Type:Provider Instructions for Treatment How to access health informa tion online Indication:[facility] Start:17-Sep-2017 Instruction Type:Patient Education How to access health informa tion online - Detail Indication:[facility] Start:17-Sep-2017 Instruction Type:Patient Education Patient Instructions Indication:[facility] Start:17-Sep-2017 Instruction Type:Provider Instructions for Treatment How to access health informa tion online Indication:BMI 32.0-32.9,adult Start:27-Aug-2017 Instruction Type:Patient Education How to access health informa tion online - Detail Indication:BMI 32.0-32.9,adult Start:27-Aug-2017 Instruction Type:Patient Education Patient Instructions Indication:BMI 32.0-32.9,adult Start:27-Aug-2017 Instruction Type:Provider Instructions for Treatment How to access health informa tion online Indication:Anxiety Start:21-Mar-2017 Instruction Type:Patient Education How to access health informa tion online - Detail Indication:Anxiety Start:21-Mar-2017 Instruction Type:Patient Education Patient Instructions Indication:Anxiety Start:21-Mar-2017 Instruction Type:Provider Instructions for Treatment [facility]; [facility] Work Phone: Instructions* Name Dates Details Patient Instructions Indication:[facility] Start:22-Jan-2021 Instruction Type:Provider Instructions for Treatment How to Access Health Informa tion Online using Patient Portal and [employer]rd [employer] Apps Indication:[facility] Start:22-Jan-2021 Instruction Type:Patient Education How to access health informa tion online Indication:[facility] Start:10-Jan-2020 Instruction Type:Patient Education How to access health informa tion online - Detail Indication:[facility] Start:10-Jan-2020 Instruction Type:Patient Education Patient Instructions Indication:[facility] Start:10-Jan-2020 Instruction Type:Provider Instructions for Treatment How to access health informa tion online Indication:Non-smoker Start:22-Jan-2019 Instruction Type:Patient Education How to access health informa tion online - Detail Indication:Non-smoker Start:22-Jan-2019 Instruction Type:Patient Education Patient Instructions Indication:Non-smoker Start:22-Jan-2019 Instruction Type:Provider Instructions for Treatment How to access health informa tion online Indication:BMI 29.0-29.9,adult Start:20-Oct-2018 Instruction Type:Patient Education How to access health informa tion online - Detail Indication:BMI 29.0-29.9,adult Start:20-Oct-2018 Instruction Type:Patient Education Patient Instructions Indication:BMI 29.0-29.9,adult Start:20-Oct-2018 Instruction Type:Provider Instructions for Treatment How to access health informa tion online Indication:Abnormal glucose tolerance test Start:18-Aug-2018 Instruction Type:Patient Education How to access health informa tion online - Detail Indication:Abnormal glucose tolerance test Start:18-Aug-2018 Instruction Type:Patient Education Patient Instructions Indication:Abnormal glucose tolerance test Start:18-Aug-2018 Instruction Type:Provider Instructions for Treatment How to access health informa tion online Indication:Abnormal glucose tolerance test Start:21-Jan-2018 Instruction Type:Patient Education How to access health informa tion online - Detail Indication:Abnormal glucose tolerance test Start:21-Jan-2018 Instruction Type:Patient Education Patient Instructions Indication:Abnormal glucose tolerance test Start:21-Jan-2018 Instruction Type:Provider Instructions for Treatment How to access health informa tion online Indication:BMI 32.0-32.9,adult Start:07-Jan-2018 Instruction Type:Patient Education How to access health informa tion online - Detail Indication:BMI 32.0-32.9,adult Start:07-Jan-2018 Instruction Type:Patient Education Patient Instructions Indication:BMI 32.0-32.9,adult Start:07-Jan-2018 Instruction Type:Provider Instructions for Treatment How to access health informa tion online Indication:[facility] Start:17-Sep-2017 Instruction Type:Patient Education How to access health informa tion online - Detail Indication:[facility] Start:17-Sep-2017 Instruction Type:Patient Education Patient Instructions Indication:[facility] Start:17-Sep-2017 Instruction Type:Provider Instructions for Treatment How to access health informa tion online Indication:BMI 32.0-32.9,adult Start:27-Aug-2017 Instruction Type:Patient Education How to access health informa tion online - Detail Indication:BMI 32.0-32.9,adult Start:27-Aug-2017 Instruction Type:Patient Education Patient Instructions Indication:BMI 32.0-32.9,adult Start:27-Aug-2017 Instruction Type:Provider Instructions for Treatment How to access health informa tion online Indication:Anxiety Start:21-Mar-2017 Instruction Type:Patient Education How to access health informa tion online - Detail Indication:Anxiety Start:21-Mar-2017 Instruction Type:Patient Education Patient Instructions Indication:Anxiety Start:21-Mar-2017 Instruction Type:Provider Instructions for Treatment [facility]; [facility] Work Phone: Instructions* Name Dates Details Patient Instructions Indication:[facility] Start:22-Jan-2021 Instruction Type:Provider Instructions for Treatment How to Access Health Informa tion Online using Patient Portal and [employer]rd [employer] Apps Indication:[facility] Start:22-Jan-2021 Instruction Type:Patient Education How to access health informa tion online Indication:[facility] Start:10-Jan-2020 Instruction Type:Patient Education How to access health informa tion online - Detail Indication:[facility] Start:10-Jan-2020 Instruction Type:Patient Education Patient Instructions Indication:[facility] Start:10-Jan-2020 Instruction Type:Provider Instructions for Treatment How to access health informa tion online Indication:Non-smoker Start:22-Jan-2019 Instruction Type:Patient Education How to access health informa tion online - Detail Indication:Non-smoker Start:22-Jan-2019 Instruction Type:Patient Education Patient Instructions Indication:Non-smoker Start:22-Jan-2019 Instruction Type:Provider Instructions for Treatment How to access health informa tion online Indication:BMI 29.0-29.9,adult Start:20-Oct-2018 Instruction Type:Patient Education How to access health informa tion online - Detail Indication:BMI 29.0-29.9,adult Start:20-Oct-2018 Instruction Type:Patient Education Patient Instructions Indication:BMI 29.0-29.9,adult Start:20-Oct-2018 Instruction Type:Provider Instructions for Treatment How to access health informa tion online Indication:Abnormal glucose tolerance test Start:18-Aug-2018 Instruction Type:Patient Education How to access health informa tion online - Detail Indication:Abnormal glucose tolerance test Start:18-Aug-2018 Instruction Type:Patient Education Patient Instructions Indication:Abnormal glucose tolerance test Start:18-Aug-2018 Instruction Type:Provider Instructions for Treatment How to access health informa tion online Indication:Abnormal glucose tolerance test Start:21-Jan-2018 Instruction Type:Patient Education How to access health informa tion online - Detail Indication:Abnormal glucose tolerance test Start:21-Jan-2018 Instruction Type:Patient Education Patient Instructions Indication:Abnormal glucose tolerance test Start:21-Jan-2018 Instruction Type:Provider Instructions for Treatment How to access health informa tion online Indication:BMI 32.0-32.9,adult Start:07-Jan-2018 Instruction Type:Patient Education How to access health informa tion online - Detail Indication:BMI 32.0-32.9,adult Start:07-Jan-2018 Instruction Type:Patient Education Patient Instructions Indication:BMI 32.0-32.9,adult Start:07-Jan-2018 Instruction Type:Provider Instructions for Treatment How to access health informa tion online Indication:[facility] Start:17-Sep-2017 Instruction Type:Patient Education How to access health informa tion online - Detail Indication:[facility] Start:17-Sep-2017 Instruction Type:Patient Education Patient Instructions Indication:[facility] Start:17-Sep-2017 Instruction Type:Provider Instructions for Treatment How to access health informa tion online Indication:BMI 32.0-32.9,adult Start:27-Aug-2017 Instruction Type:Patient Education How to access health informa tion online - Detail Indication:BMI 32.0-32.9,adult Start:27-Aug-2017 Instruction Type:Patient Education Patient Instructions Indication:BMI 32.0-32.9,adult Start:27-Aug-2017 Instruction Type:Provider Instructions for Treatment How to access health informa tion online Indication:Anxiety Start:21-Mar-2017 Instruction Type:Patient Education How to access health informa tion online - Detail Indication:Anxiety Start:21-Mar-2017 Instruction Type:Patient Education Patient Instructions Indication:Anxiety Start:21-Mar-2017 Instruction Type:Provider Instructions for Treatment [facility]; [facility] Work Phone: Instructions* Name Dates Details Patient Instructions Indication:[facility] Start:22-Jan-2021 Instruction Type:Provider Instructions for Treatment How to Access Health Informa tion Online using Patient Portal and [employer] Apps Indication:[facility] Start:22-Jan-2021 Instruction Type:Patient Education How to access health informa tion online Indication:[facility] Start:10-Jan-2020 Instruction Type:Patient Education How to access health informa tion online - Detail Indication:[facility] Start:10-Jan-2020 Instruction Type:Patient Education Patient Instructions Indication:[facility] Start:10-Jan-2020 Instruction Type:Provider Instructions for Treatment How to access health informa tion online Indication:Non-smoker Start:22-Jan-2019 Instruction Type:Patient Education How to access health informa tion online - Detail Indication:Non-smoker Start:22-Jan-2019 Instruction Type:Patient Education Patient Instructions Indication:Non-smoker Start:22-Jan-2019 Instruction Type:Provider Instructions for Treatment How to access health informa tion online Indication:BMI 29.0-29.9,adult Start:20-Oct-2018 Instruction Type:Patient Education How to access health informa tion online - Detail Indication:BMI 29.0-29.9,adult Start:20-Oct-2018 Instruction Type:Patient Education Patient Instructions Indication:BMI 29.0-29.9,adult Start:20-Oct-2018 Instruction Type:Provider Instructions for Treatment How to access health informa tion online Indication:Abnormal glucose tolerance test Start:18-Aug-2018 Instruction Type:Patient Education How to access health informa tion online - Detail Indication:Abnormal glucose tolerance test Start:18-Aug-2018 Instruction Type:Patient Education Patient Instructions Indication:Abnormal glucose tolerance test Start:18-Aug-2018 Instruction Type:Provider Instructions for Treatment How to access health informa tion online Indication:Abnormal glucose tolerance test Start:21-Jan-2018 Instruction Type:Patient Education How to access health informa tion online - Detail Indication:Abnormal glucose tolerance test Start:21-Jan-2018 Instruction Type:Patient Education Patient Instructions Indication:Abnormal glucose tolerance test Start:21-Jan-2018 Instruction Type:Provider Instructions for Treatment How to access health informa tion online Indication:BMI 32.0-32.9,adult Start:07-Jan-2018 Instruction Type:Patient Education How to access health informa tion online - Detail Indication:BMI 32.0-32.9,adult Start:07-Jan-2018 Instruction Type:Patient Education Patient Instructions Indication:BMI 32.0-32.9,adult Start:07-Jan-2018 Instruction Type:Provider Instructions for Treatment How to access health informa tion online Indication:[facility] Start:17-Sep-2017 Instruction Type:Patient Education How to access health informa tion online - Detail Indication:[facility] Start:17-Sep-2017 Instruction Type:Patient Education Patient Instructions Indication:[facility] Start:17-Sep-2017 Instruction Type:Provider Instructions for Treatment How to access health informa tion online Indication:BMI 32.0-32.9,adult Start:27-Aug-2017 Instruction Type:Patient Education How to access health informa tion online - Detail Indication:BMI 32.0-32.9,adult Start:27-Aug-2017 Instruction Type:Patient Education Patient Instructions Indication:BMI 32.0-32.9,adult Start:27-Aug-2017 Instruction Type:Provider Instructions for Treatment How to access health informa tion online Indication:Anxiety Start:21-Mar-2017 Instruction Type:Patient Education How to access health informa tion online - Detail Indication:Anxiety Start:21-Mar-2017 Instruction Type:Patient Education Patient Instructions Indication:Anxiety Start:21-Mar-2017 Instruction Type:Provider Instructions for Treatment [facility]; [facility] Work Phone: [phone]* Name Dates Details Patient Instructions Indication:[facility] Start:22-Jan-2021 Instruction Type:Provider Instructions for Treatment How to Access Health Informa tion Online using Patient Portal and [employer]rd [employer] Apps Indication:[facility] Start:22-Jan-2021 Instruction Type:Patient Education How to access health informa tion online Indication:[facility] Start:10-Jan-2020 Instruction Type:Patient Education How to access health informa tion online - Detail Indication:[facility] Start:10-Jan-2020 Instruction Type:Patient Education Patient Instructions Indication:[facility] Start:10-Jan-2020 Instruction Type:Provider Instructions for Treatment How to access health informa tion online Indication:Non-smoker Start:22-Jan-2019 Instruction Type:Patient Education How to access health informa tion online - Detail Indication:Non-smoker Start:22-Jan-2019 Instruction Type:Patient Education Patient Instructions Indication:Non-smoker Start:22-Jan-2019 Instruction Type:Provider Instructions for Treatment How to access health informa tion online Indication:BMI 29.0-29.9,adult Start:20-Oct-2018 Instruction Type:Patient Education How to access health informa tion online - Detail Indication:BMI 29.0-29.9,adult Start:20-Oct-2018 Instruction Type:Patient Education Patient Instructions Indication:BMI 29.0-29.9,adult Start:20-Oct-2018 Instruction Type:Provider Instructions for Treatment How to access health informa tion online Indication:Abnormal glucose tolerance test Start:18-Aug-2018 Instruction Type:Patient Education How to access health informa tion online - Detail Indication:Abnormal glucose tolerance test Start:18-Aug-2018 Instruction Type:Patient Education Patient Instructions Indication:Abnormal glucose tolerance test Start:18-Aug-2018 Instruction Type:Provider Instructions for Treatment How to access health informa tion online Indication:Abnormal glucose tolerance test Start:21-Jan-2018 Instruction Type:Patient Education How to access health informa tion online - Detail Indication:Abnormal glucose tolerance test Start:21-Jan-2018 Instruction Type:Patient Education Patient Instructions Indication:Abnormal glucose tolerance test Start:21-Jan-2018 Instruction Type:Provider Instructions for Treatment How to access health informa tion online Indication:BMI 32.0-32.9,adult Start:07-Jan-2018 Instruction Type:Patient Education How to access health informa tion online - Detail Indication:BMI 32.0-32.9,adult Start:07-Jan-2018 Instruction Type:Patient Education Patient Instructions Indication:BMI 32.0-32.9,adult Start:07-Jan-2018 Instruction Type:Provider Instructions for Treatment How to access health informa tion online Indication:[facility] Start:17-Sep-2017 Instruction Type:Patient Education How to access health informa tion online - Detail Indication:[facility] Start:17-Sep-2017 Instruction Type:Patient Education Patient Instructions Indication:[facility] Start:17-Sep-2017 Instruction Type:Provider Instructions for Treatment How to access health informa tion online Indication:BMI 32.0-32.9,adult Start:27-Aug-2017 Instruction Type:Patient Education How to access health informa tion online - Detail Indication:BMI 32.0-32.9,adult Start:27-Aug-2017 Instruction Type:Patient Education Patient Instructions Indication:BMI 32.0-32.9,adult Start:27-Aug-2017 Instruction Type:Provider Instructions for Treatment How to access health informa tion online Indication:Anxiety Start:21-Mar-2017 Instruction Type:Patient Education How to access health informa tion online - Detail Indication:Anxiety Start:21-Mar-2017 Instruction Type:Patient Education Patient Instructions Indication:Anxiety Start:21-Mar-2017 Instruction Type:Provider Instructions for Treatment [facility]; [facility] Work Phone: Instructions* Name Dates Details Patient Instructions Indication:BMI 30.0-30.9,adult Start:02-Oct-2022 Instruction Type:Provider Instructions for Treatment How to Access Health Informa tion Online using Patient Portal and [employer] Apps Indication:BMI 30.0-30.9,adult Start:02-Oct-2022 Instruction Type:Patient Education Patient Instructions Indication:[facility] Start:22-Jan-2021 Instruction Type:Provider Instructions for Treatment How to Access Health Informa tion Online using Patient Portal and [employer] Apps Indication:[facility] Start:22-Jan-2021 Instruction Type:Patient Education How to access health informa tion online Indication:[facility] Start:10-Jan-2020 Instruction Type:Patient Education How to access health informa tion online - Detail Indication:[facility] Start:10-Jan-2020 Instruction Type:Patient Education Patient Instructions Indication:[facility] Start:10-Jan-2020 Instruction Type:Provider Instructions for Treatment How to access health informa tion online Indication:Non-smoker Start:22-Jan-2019 Instruction Type:Patient Education How to access health informa tion online - Detail Indication:Non-smoker Start:22-Jan-2019 Instruction Type:Patient Education Patient Instructions Indication:Non-smoker Start:22-Jan-2019 Instruction Type:Provider Instructions for Treatment How to access health informa tion online Indication:BMI 29.0-29.9,adult Start:20-Oct-2018 Instruction Type:Patient Education How to access health informa tion online - Detail Indication:BMI 29.0-29.9,adult Start:20-Oct-2018 Instruction Type:Patient Education Patient Instructions Indication:BMI 29.0-29.9,adult Start:20-Oct-2018 Instruction Type:Provider Instructions for Treatment How to access health informa tion online Indication:Abnormal glucose tolerance test Start:18-Aug-2018 Instruction Type:Patient Education How to access health informa tion online - Detail Indication:Abnormal glucose tolerance test Start:18-Aug-2018 Instruction Type:Patient Education Patient Instructions Indication:Abnormal glucose tolerance test Start:18-Aug-2018 Instruction Type:Provider Instructions for Treatment How to access health informa tion online Indication:Abnormal glucose tolerance test Start:21-Jan-2018 Instruction Type:Patient Education How to access health informa tion online - Detail Indication:Abnormal glucose tolerance test Start:21-Jan-2018 Instruction Type:Patient Education Patient Instructions Indication:Abnormal glucose tolerance test Start:21-Jan-2018 Instruction Type:Provider Instructions for Treatment How to access health informa tion online Indication:BMI 32.0-32.9,adult Start:07-Jan-2018 Instruction Type:Patient Education How to access health informa tion online - Detail Indication:BMI 32.0-32.9,adult Start:07-Jan-2018 Instruction Type:Patient Education Patient Instructions Indication:BMI 32.0-32.9,adult Start:07-Jan-2018 Instruction Type:Provider Instructions for Treatment How to access health informa tion online Indication:[facility] Start:17-Sep-2017 Instruction Type:Patient Education How to access health informa tion online - Detail Indication:[facility] Start:17-Sep-2017 Instruction Type:Patient Education Patient Instructions Indication:[facility] Start:17-Sep-2017 Instruction Type:Provider Instructions for Treatment How to access health informa tion online Indication:BMI 32.0-32.9,adult Start:27-Aug-2017 Instruction Type:Patient Education How to access health informa tion online - Detail Indication:BMI 32.0-32.9,adult Start:27-Aug-2017 Instruction Type:Patient Education Patient Instructions Indication:BMI 32.0-32.9,adult Start:27-Aug-2017 Instruction Type:Provider Instructions for Treatment How to access health informa tion online Indication:Anxiety Start:21-Mar-2017 Instruction Type:Patient Education How to access health informa tion online - Detail Indication:Anxiety Start:21-Mar-2017 Instruction Type:Patient Education Patient Instructions Indication:Anxiety Start:21-Mar-2017 Instruction Type:Provider Instructions for Treatment [facility]; [facility] Work Phone: Instructions* Name Dates Details Patient Instructions Indication:BMI 30.0-30.9,adult Start:02-Oct-2022 Instruction Type:Provider Instructions for Treatment How to Access Health Informa tion Online using Patient Portal and [employer] Apps Indication:BMI 30.0-30.9,adult Start:02-Oct-2022 Instruction Type:Patient Education Patient Instructions Indication:[facility] Start:22-Jan-2021 Instruction Type:Provider Instructions for Treatment How to Access Health Informa tion Online using Patient Portal and [employer] Apps Indication:[facility] Start:22-Jan-2021 Instruction Type:Patient Education How to access health informa tion online Indication:[facility] Start:10-Jan-2020 Instruction Type:Patient Education How to access health informa tion online - Detail Indication:[facility] Start:10-Jan-2020 Instruction Type:Patient Education Patient Instructions Indication:[facility] Start:10-Jan-2020 Instruction Type:Provider Instructions for Treatment How to access health informa tion online Indication:Non-smoker Start:22-Jan-2019 Instruction Type:Patient Education How to access health informa tion online - Detail Indication:Non-smoker Start:22-Jan-2019 Instruction Type:Patient Education Patient Instructions Indication:Non-smoker Start:22-Jan-2019 Instruction Type:Provider Instructions for Treatment How to access health informa tion online Indication:BMI 29.0-29.9,adult Start:20-Oct-2018 Instruction Type:Patient Education How to access health informa tion online - Detail Indication:BMI 29.0-29.9,adult Start:20-Oct-2018 Instruction Type:Patient Education Patient Instructions Indication:BMI 29.0-29.9,adult Start:20-Oct-2018 Instruction Type:Provider Instructions for Treatment How to access health informa tion online Indication:Abnormal glucose tolerance test Start:18-Aug-2018 Instruction Type:Patient Education How to access health informa tion online - Detail Indication:Abnormal glucose tolerance test Start:18-Aug-2018 Instruction Type:Patient Education Patient Instructions Indication:Abnormal glucose tolerance test Start:18-Aug-2018 Instruction Type:Provider Instructions for Treatment How to access health informa tion online Indication:Abnormal glucose tolerance test Start:21-Jan-2018 Instruction Type:Patient Education How to access health informa tion online - Detail Indication:Abnormal glucose tolerance test Start:21-Jan-2018 Instruction Type:Patient Education Patient Instructions Indication:Abnormal glucose tolerance test Start:21-Jan-2018 Instruction Type:Provider Instructions for Treatment How to access health informa tion online Indication:BMI 32.0-32.9,adult Start:07-Jan-2018 Instruction Type:Patient Education How to access health informa tion online - Detail Indication:BMI 32.0-32.9,adult Start:07-Jan-2018 Instruction Type:Patient Education Patient Instructions Indication:BMI 32.0-32.9,adult Start:07-Jan-2018 Instruction Type:Provider Instructions for Treatment How to access health informa tion online Indication:[facility] Start:17-Sep-2017 Instruction Type:Patient Education How to access health informa tion online - Detail Indication:[facility] Start:17-Sep-2017 Instruction Type:Patient Education Patient Instructions Indication:[facility] Start:17-Sep-2017 Instruction Type:Provider Instructions for Treatment How to access health informa tion online Indication:BMI 32.0-32.9,adult Start:27-Aug-2017 Instruction Type:Patient Education How to access health informa tion online - Detail Indication:BMI 32.0-32.9,adult Start:27-Aug-2017 Instruction Type:Patient Education Patient Instructions Indication:BMI 32.0-32.9,adult Start:27-Aug-2017 Instruction Type:Provider Instructions for Treatment How to access health informa tion online Indication:Anxiety Start:21-Mar-2017 Instruction Type:Patient Education How to access health informa tion online - Detail Indication:Anxiety Start:21-Mar-2017 Instruction Type:Patient Education Patient Instructions Indication:Anxiety Start:21-Mar-2017 Instruction Type:Provider Instructions for Treatment [facility]; [facility] Work Phone: Instructions* Name Dates Details Patient Instructions Indication:Benign hypertensive cardiomyopathy, without heart failure Start:14-Jan-2023 Instruction Type:Provider Instructions for Treatment How to Access Health Informa tion Online using Patient Portal and [employer]rd [employer] Apps Indication:Benign hypertensive cardiomyopathy, without heart failure Start:14-Jan-2023 Instruction Type:Patient Education Patient Instructions Indication:BMI 30.0-30.9,adult Start:02-Oct-2022 Instruction Type:Provider Instructions for Treatment How to Access Health Informa tion Online using Patient Portal and [employer]rd [employer] Apps Indication:BMI 30.0-30.9,adult Start:02-Oct-2022 Instruction Type:Patient Education Patient Instructions Indication:[facility] Start:22-Jan-2021 Instruction Type:Provider Instructions for Treatment How to Access Health Informa tion Online using Patient Portal and [employer]rd [employer] Apps Indication:[facility] Start:22-Jan-2021 Instruction Type:Patient Education How to access health informa tion online Indication:[facility] Start:10-Jan-2020 Instruction Type:Patient Education How to access health informa tion online - Detail Indication:[facility] Start:10-Jan-2020 Instruction Type:Patient Education Patient Instructions Indication:[facility] Start:10-Jan-2020 Instruction Type:Provider Instructions for Treatment How to access health informa tion online Indication:Non-smoker Start:22-Jan-2019 Instruction Type:Patient Education How to access health informa tion online - Detail Indication:Non-smoker Start:22-Jan-2019 Instruction Type:Patient Education Patient Instructions Indication:Non-smoker Start:22-Jan-2019 Instruction Type:Provider Instructions for Treatment How to access health informa tion online Indication:BMI 29.0-29.9,adult Start:20-Oct-2018 Instruction Type:Patient Education How to access health informa tion online - Detail Indication:BMI 29.0-29.9,adult Start:20-Oct-2018 Instruction Type:Patient Education Patient Instructions Indication:BMI 29.0-29.9,adult Start:20-Oct-2018 Instruction Type:Provider Instructions for Treatment How to access health informa tion online Indication:Abnormal glucose tolerance test Start:18-Aug-2018 Instruction Type:Patient Education How to access health informa tion online - Detail Indication:Abnormal glucose tolerance test Start:18-Aug-2018 Instruction Type:Patient Education Patient Instructions Indication:Abnormal glucose tolerance test Start:18-Aug-2018 Instruction Type:Provider Instructions for Treatment How to access health informa tion online Indication:Abnormal glucose tolerance test Start:21-Jan-2018 Instruction Type:Patient Education How to access health informa tion online - Detail Indication:Abnormal glucose tolerance test Start:21-Jan-2018 Instruction Type:Patient Education Patient Instructions Indication:Abnormal glucose tolerance test Start:21-Jan-2018 Instruction Type:Provider Instructions for Treatment How to access health informa tion online Indication:BMI 32.0-32.9,adult Start:07-Jan-2018 Instruction Type:Patient Education How to access health informa tion online - Detail Indication:BMI 32.0-32.9,adult Start:07-Jan-2018 Instruction Type:Patient Education Patient Instructions Indication:BMI 32.0-32.9,adult Start:07-Jan-2018 Instruction Type:Provider Instructions for Treatment How to access health informa tion online Indication:[facility] Start:17-Sep-2017 Instruction Type:Patient Education How to access health informa tion online - Detail Indication:[facility] Start:17-Sep-2017 Instruction Type:Patient Education Patient Instructions Indication:[facility] Start:17-Sep-2017 Instruction Type:Provider Instructions for Treatment How to access health informa tion online Indication:BMI 32.0-32.9,adult Start:27-Aug-2017 Instruction Type:Patient Education How to access health informa tion online - Detail Indication:BMI 32.0-32.9,adult Start:27-Aug-2017 Instruction Type:Patient Education Patient Instructions Indication:BMI 32.0-32.9,adult Start:27-Aug-2017 Instruction Type:Provider Instructions for Treatment How to access health informa tion online Indication:Anxiety Start:21-Mar-2017 Instruction Type:Patient Education How to access health informa tion online - Detail Indication:Anxiety Start:21-Mar-2017 Instruction Type:Patient Education Patient Instructions Indication:Anxiety Start:21-Mar-2017 Instruction Type:Provider Instructions for Treatment [facility]; [facility] Work Phone: Instructions* Name Dates Details Patient Instructions Indication:Benign hypertensive cardiomyopathy, without heart failure Start:14-Jan-2023 Instruction Type:Provider Instructions for Treatment How to Access Health Informa tion Online using Patient Portal and [employer]rd [employer] Apps Indication:Benign hypertensive cardiomyopathy, without heart failure Start:14-Jan-2023 Instruction Type:Patient Education Patient Instructions Indication:BMI 30.0-30.9,adult Start:02-Oct-2022 Instruction Type:Provider Instructions for Treatment How to Access Health Informa tion Online using Patient Portal and [employer] Indication:BMI 30.0-30.9,adult Start:02-Oct-2022 Instruction Type:Patient Education Patient Instructions Indication:[facility] Start:22-Jan-2021 Instruction Type:Provider Instructions for Treatment How to Access Health Informa tion Online using Patient Portal and [employer]rd [employer] Apps Indication:[facility] Start:22-Jan-2021 Instruction Type:Patient Education How to access health informa tion online Indication:[facility] Start:10-Jan-2020 Instruction Type:Patient Education How to access health informa tion online - Detail Indication:[facility] Start:10-Jan-2020 Instruction Type:Patient Education Patient Instructions Indication:[facility] Start:10-Jan-2020 Instruction Type:Provider Instructions for Treatment How to access health informa tion online Indication:Non-smoker Start:22-Jan-2019 Instruction Type:Patient Education How to access health informa tion online - Detail Indication:Non-smoker Start:22-Jan-2019 Instruction Type:Patient Education Patient Instructions Indication:Non-smoker Start:22-Jan-2019 Instruction Type:Provider Instructions for Treatment How to access health informa tion online Indication:BMI 29.0-29.9,adult Start:20-Oct-2018 Instruction Type:Patient Education How to access health informa tion online - Detail Indication:BMI 29.0-29.9,adult Start:20-Oct-2018 Instruction Type:Patient Education Patient Instructions Indication:BMI 29.0-29.9,adult Start:20-Oct-2018 Instruction Type:Provider Instructions for Treatment How to access health informa tion online Indication:Abnormal glucose tolerance test Start:18-Aug-2018 Instruction Type:Patient Education How to access health informa tion online - Detail Indication:Abnormal glucose tolerance test Start:18-Aug-2018 Instruction Type:Patient Education Patient Instructions Indication:Abnormal glucose tolerance test Start:18-Aug-2018 Instruction Type:Provider Instructions for Treatment How to access health informa tion online Indication:Abnormal glucose tolerance test Start:21-Jan-2018 Instruction Type:Patient Education How to access health informa tion online - Detail Indication:Abnormal glucose tolerance test Start:21-Jan-2018 Instruction Type:Patient Education Patient Instructions Indication:Abnormal glucose tolerance test Start:21-Jan-2018 Instruction Type:Provider Instructions for Treatment How to access health informa tion online Indication:BMI 32.0-32.9,adult Start:07-Jan-2018 Instruction Type:Patient Education How to access health informa tion online - Detail Indication:BMI 32.0-32.9,adult Start:07-Jan-2018 Instruction Type:Patient Education Patient Instructions Indication:BMI 32.0-32.9,adult Start:07-Jan-2018 Instruction Type:Provider Instructions for Treatment How to access health informa tion online Indication:[facility] Start:17-Sep-2017 Instruction Type:Patient Education How to access health informa tion online - Detail Indication:[facility] Start:17-Sep-2017 Instruction Type:Patient Education Patient Instructions Indication:[facility] Start:17-Sep-2017 Instruction Type:Provider Instructions for Treatment How to access health informa tion online Indication:BMI 32.0-32.9,adult Start:27-Aug-2017 Instruction Type:Patient Education How to access health informa tion online - Detail Indication:BMI 32.0-32.9,adult Start:27-Aug-2017 Instruction Type:Patient Education Patient Instructions Indication:BMI 32.0-32.9,adult Start:27-Aug-2017 Instruction Type:Provider Instructions for Treatment How to access health informa tion online Indication:Anxiety Start:21-Mar-2017 Instruction Type:Patient Education How to access health informa tion online - Detail Indication:Anxiety Start:21-Mar-2017 Instruction Type:Patient Education Patient Instructions Indication:Anxiety Start:21-Mar-2017 Instruction Type:Provider Instructions for Treatment [facility]; [facility] Work Phone: reason for referral (narrative)* Reason for Referral: Pt presents s/p Open low anterior resection [facility] Family History No Family History Records FoundUnknown Family Member Name Dates Details Brother 1 Comments:brother living with chronic leukemia Status:Active Father Comments:cad s/p cabg mi age 59- Status:Active First Degree Relatives Comments:BLoo disorder, Skin CA, Anxiety, Heart/lung dx, HBP Status:Active Maternal Grandfather Comments: age 89- old ag e Status:Active Maternal Grandmother Comments: age 76- old ag e Status:Active Mother Comments: age 98 old age and dementia Status:Active Paternal Grandfather Comments: 96 Status:Active Paternal Grandmother Comments: 71- heart sandy ck Status:Active Unknown Family Member Name Dates Details Brother 1 Comments:brother living with chronic leukemia Status:Active Father Comments:cad s/p cabg mi age 59- Status:Active First Degree Relatives Comments:BLoo disorder, Skin CA, Anxiety, Heart/lung dx, HBP Status:Active Maternal Grandfather Comments: age 89- old ag e Status:Active Maternal Grandmother Comments: age 76- old ag e Status:Active Mother Comments: age 98 old age and dementia Status:Active Paternal Grandfather Comments: 96 Status:Active Paternal Grandmother Comments: 71- heart sandy ck Status:Active Unknown Family Member Name Dates Details Brother 1 Comments:brother living with chronic leukemia Status:Active Father Comments:cad s/p cabg mi age 59- Status:Active First Degree Relatives Comments:BLoo disorder, Skin CA, Anxiety, Heart/lung dx, HBP Status:Active Maternal Grandfather Comments: age 89- old ag e Status:Active Maternal Grandmother Comments: age 76- old ag e Status:Active Mother Comments: age 98 old age and dementia Status:Active Paternal Grandfather Comments: 96 Status:Active Paternal Grandmother Comments: 71- heart sandy ck Status:Active Unknown Family Member Name Dates Details Brother 1 Comments:brother living with chronic leukemia Status:Active Father Comments:cad s/p cabg mi age 59- Status:Active First Degree Relatives Comments:BLoo disorder, Skin CA, Anxiety, Heart/lung dx, HBP Status:Active Maternal Grandfather Comments: age 89- old ag e Status:Active Maternal Grandmother Comments: age 76- old ag e Status:Active Mother Comments: age 98 old age and dementia Status:Active Paternal Grandfather Comments: 96 Status:Active Paternal Grandmother Comments: 71- heart sandy ck Status:Active Unknown Family Member Name Dates Details Brother 1 Comments:brother living with chronic leukemia Status:Active Father Comments:cad s/p cabg mi age 59- Status:Active First Degree Relatives Comments:BLoo disorder, Skin CA, Anxiety, Heart/lung dx, HBP Status:Active Maternal Grandfather Comments: age 89- old ag e Status:Active Maternal Grandmother Comments: age 76- old ag e Status:Active Mother Comments: age 98 old age and dementia Status:Active Paternal Grandfather Comments: 96 Status:Active Paternal Grandmother Comments: 71- heart sandy ck Status:Active Unknown Family Member Name Dates Details Brother 1 Comments:brother living with chronic leukemia Status:Active Father Comments:cad s/p cabg mi age 59- Status:Active First Degree Relatives Comments:BLoo disorder, Skin CA, Anxiety, Heart/lung dx, HBP Status:Active Maternal Grandfather Comments: age 89- old ag e Status:Active Maternal Grandmother Comments: age 76- old ag e Status:Active Mother Comments: age 98 old age and dementia Status:Active Paternal Grandfather Comments: 96 Status:Active Paternal Grandmother Comments: 71- heart sandy ck Status:Active Unknown Family Member Name Dates Details Brother 1 Comments:brother living with chronic leukemia Status:Active Father Comments:cad s/p cabg mi age 59- Status:Active First Degree Relatives Comments:BLoo disorder, Skin CA, Anxiety, Heart/lung dx, HBP Status:Active Maternal Grandfather Comments: age 89- old ag e Status:Active Maternal Grandmother Comments: age 76- old ag e Status:Active Mother Comments: age 98 old age and dementia Status:Active Paternal Grandfather Comments: 96 Status:Active Paternal Grandmother Comments: 71- heart sandy ck Status:Active Unknown Family Member Name Dates Details Brother 1 Comments:brother living with chronic leukemia Status:Active Father Comments:cad s/p cabg mi age 59- Status:Active First Degree Relatives Comments:BLoo disorder, Skin CA, Anxiety, Heart/lung dx, HBP Status:Active Maternal Grandfather Comments: age 89- old ag e Status:Active Maternal Grandmother Comments: age 76- old ag e Status:Active Mother Comments: age 98 old age and dementia Status:Active Paternal Grandfather Comments: 96 Status:Active Paternal Grandmother Comments: 71- heart sandy ck Status:Active Unknown Family Member Name Dates Details Brother 1 Comments:brother living with chronic leukemia Status:Active Father Comments:cad s/p cabg mi age 59- Status:Active First Degree Relatives Comments:BLoo disorder, Skin CA, Anxiety, Heart/lung dx, HBP Status:Active Maternal Grandfather Comments: age 89- old ag e Status:Active Maternal Grandmother Comments: age 76- old ag e Status:Active Mother Comments: age 98 old age and dementia Status:Active Paternal Grandfather Comments: 96 Status:Active Paternal Grandmother Comments: 71- heart sandy ck Status:Active Unknown Family Member Name Dates Details Brother 1 Comments:brother living with chronic leukemia Status:Active Father Comments:cad s/p cabg mi age 59- Status:Active First Degree Relatives Comments:BLoo disorder, Skin CA, Anxiety, Heart/lung dx, HBP Status:Active Maternal Grandfather Comments: age 89- old ag e Status:Active Maternal Grandmother Comments: age 76- old ag e Status:Active Mother Comments: age 98 old age and dementia Status:Active Paternal Grandfather Comments: 96 Status:Active Paternal Grandmother Comments: 71- heart sandy ck Status:Active Unknown Family Member Name Dates Details Brother 1 Comments:brother living with chronic leukemia Status:Active Father Comments:cad s/p cabg mi age 59- Status:Active First Degree Relatives Comments:BLoo disorder, Skin CA, Anxiety, Heart/lung dx, HBP Status:Active Maternal Grandfather Comments: age 89- old ag e Status:Active Maternal Grandmother Comments: age 76- old ag e Status:Active Mother Comments: age 98 old age and dementia Status:Active Paternal Grandfather Comments: 96 Status:Active Paternal Grandmother Comments: 71- heart sandy ck Status:Active Unknown Family Member Name Dates Details Brother 1 Comments:brother living with chronic leukemia Status:Active Father Comments:cad s/p cabg mi age 59- Status:Active First Degree Relatives Comments:BLoo disorder, Skin CA, Anxiety, Heart/lung dx, HBP Status:Active Maternal Grandfather Comments: age 89- old ag e Status:Active Maternal Grandmother Comments: age 76- old ag e Status:Active Mother Comments: age 98 old age and dementia Status:Active Paternal Grandfather Comments: 96 Status:Active Paternal Grandmother Comments: 71- heart sandy ck Status:Active Unknown Family Member Name Dates Details Brother 1 Comments:brother living with chronic leukemia Status:Active Father Comments:cad s/p cabg mi age 59- Status:Active First Degree Relatives Comments:BLoo disorder, Skin CA, Anxiety, Heart/lung dx, HBP Status:Active Maternal Grandfather Comments: age 89- old ag e Status:Active Maternal Grandmother Comments: age 76- old ag e Status:Active Mother Comments: age 98 old age and dementia Status:Active Paternal Grandfather Comments: 96 Status:Active Paternal Grandmother Comments: 71- heart sandy ck Status:Active Unknown Family Member Name Dates Details Brother 1 Comments:brother living with chronic leukemia Status:Active Father Comments:cad s/p cabg mi age 59- Status:Active First Degree Relatives Comments:BLoo disorder, Skin CA, Anxiety, Heart/lung dx, HBP Status:Active Maternal Grandfather Comments: age 89- old ag e Status:Active Maternal Grandmother Comments: age 76- old ag e Status:Active Mother Comments: age 98 old age and dementia Status:Active Paternal Grandfather Comments: 96 Status:Active Paternal Grandmother Comments: 71- heart sandy ck Status:Active Unknown Family Member Name Dates Details Brother 1 Comments:brother living with chronic leukemia Status:Active Father Comments:cad s/p cabg mi age 59- Status:Active First Degree Relatives Comments:BLoo disorder, Skin CA, Anxiety, Heart/lung dx, HBP Status:Active Maternal Grandfather Comments: age 89- old ag e Status:Active Maternal Grandmother Comments: age 76- old ag e Status:Active Mother Comments: age 98 old age and dementia Status:Active Paternal Grandfather Comments: 96 Status:Active Paternal Grandmother Comments: 71- heart sandy ck Status:Active Unknown Family Member Name Dates Details Brother 1 Comments:brother living with chronic leukemia Status:Active Father Comments:cad s/p cabg mi age 59- Status:Active First Degree Relatives Comments:BLoo disorder, Skin CA, Anxiety, Heart/lung dx, HBP Status:Active Maternal Grandfather Comments: age 89- old ag e Status:Active Maternal Grandmother Comments: age 76- old ag e Status:Active Mother Comments: age 98 old age and dementia Status:Active Paternal Grandfather Comments: 96 Status:Active Paternal Grandmother Comments: 71- heart sandy ck Status:Active Unknown Family Member Name Dates Details Brother 1 Comments:brother living with chronic leukemia Status:Active Father Comments:cad s/p cabg mi age 59- Status:Active First Degree Relatives Comments:BLoo disorder, Skin CA, Anxiety, Heart/lung dx, HBP Status:Active Maternal Grandfather Comments: age 89- old ag e Status:Active Maternal Grandmother Comments: age 76- old ag e Status:Active Mother Comments: age 98 old age and dementia Status:Active Paternal Grandfather Comments: 96 Status:Active Paternal Grandmother Comments: 71- heart sandy ck Status:Active Unknown Family Member Name Dates Details Brother 1 Comments:brother living with chronic leukemia Status:Active Father Comments:cad s/p cabg mi age 59- Status:Active First Degree Relatives Comments:BLoo disorder, Skin CA, Anxiety, Heart/lung dx, HBP Status:Active Maternal Grandfather Comments: age 89- old ag e Status:Active Maternal Grandmother Comments: age 76- old ag e Status:Active Mother Comments: age 98 old age and dementia Status:Active Paternal Grandfather Comments: 96 Status:Active Paternal Grandmother Comments: 71- heart sandy ck Status:Active Unknown Family Member Name Dates Details Brother 1 Comments:brother living with chronic leukemia Status:Active Father Comments:cad s/p cabg mi age 59- Status:Active First Degree Relatives Comments:BLoo disorder, Skin CA, Anxiety, Heart/lung dx, HBP Status:Active Maternal Grandfather Comments: age 89- old ag e Status:Active Maternal Grandmother Comments: age 76- old ag e Status:Active Mother Comments: age 98 old age and dementia Status:Active Paternal Grandfather Comments: 96 Status:Active Paternal Grandmother Comments: 71- heart sandy ck Status:Active Unknown Family Member Name Dates Details Brother 1 Comments:brother living with chronic leukemia Status:Active Father Comments:cad s/p cabg mi age 59- Status:Active First Degree Relatives Comments:BLoo disorder, Skin CA, Anxiety, Heart/lung dx, HBP Status:Active Maternal Grandfather Comments: age 89- old ag e Status:Active Maternal Grandmother Comments: age 76- old ag e Status:Active Mother Comments: age 98 old age and dementia Status:Active Paternal Grandfather Comments: 96 Status:Active Paternal Grandmother Comments: 71- heart sandy ck Status:Active Unknown Family Member Name Dates Details Brother 1 Comments:brother living with chronic leukemia Status:Active Father Comments:cad s/p cabg mi age 59- Status:Active First Degree Relatives Comments:BLoo disorder, Skin CA, Anxiety, Heart/lung dx, HBP Status:Active Maternal Grandfather Comments: age 89- old ag e Status:Active Maternal Grandmother Comments: age 76- old ag e Status:Active Mother Comments: age 98 old age and dementia Status:Active Paternal Grandfather Comments: 96 Status:Active Paternal Grandmother Comments: 71- heart sandy ck Status:Active Unknown Family Member Name Dates Details Brother 1 Comments:brother living with chronic leukemia Status:Active Father Comments:cad s/p cabg mi age 59- Status:Active First Degree Relatives Comments:BLoo disorder, Skin CA, Anxiety, Heart/lung dx, HBP Status:Active Maternal Grandfather Comments: age 89- old ag e Status:Active Maternal Grandmother Comments: age 76- old ag e Status:Active Mother Comments: age 98 old age and dementia Status:Active Paternal Grandfather Comments: 96 Status:Active Paternal Grandmother Comments: 71- heart sandy ck Status:Active Unknown Family Member Name Dates Details Family history of malignant neoplasm of skin: Mother, Brother(V16.8, Z80.8) Status:Active Heart problem: Father Status:Active Unknown Family Member Name Dates Details Family history of malignant neoplasm of skin: Mother, Brother(V16.8, Z80.8) Status:Active Heart problem: Father Status:Active Unknown Family Member Name Dates Details Brother 1 Comments:brother living with chronic leukemia Status:Active Father Comments:cad s/p cabg mi age 59- Status:Active First Degree Relatives Comments:BLoo disorder, Skin CA, Anxiety, Heart/lung dx, HBP Status:Active Maternal Grandfather Comments: age 89- old ag e Status:Active Maternal Grandmother Comments: age 76- old ag e Status:Active Mother Comments: age 98 old age and dementia Status:Active Paternal Grandfather Comments: 96 Status:Active Paternal Grandmother Comments: 71- heart sandy ck Status:Active Unknown Family Member Name Dates Details Family history of malignant neoplasm of skin: Mother, Brother(V16.8, Z80.8) Status:Active Heart problem: Father Status:Active Unknown Family Member Name Dates Details Family history of malignant neoplasm of skin: Mother, Brother(V16.8, Z80.8) Status:Active Heart problem: Father Status:Active Unknown Family Member Name Dates Details Brother 1 Comments:brother living with chronic leukemia Status:Active Father Comments:cad s/p cabg mi age 59- Status:Active First Degree Relatives Comments:BLoo disorder, Skin CA, Anxiety, Heart/lung dx, HBP Status:Active Maternal Grandfather Comments: age 89- old ag e Status:Active Maternal Grandmother Comments: age 76- old ag e Status:Active Mother Comments: age 98 old age and dementia Status:Active Paternal Grandfather Comments: 96 Status:Active Paternal Grandmother Comments: 71- heart sandy ck Status:Active Unknown Family Member Name Dates Details Brother 1 Comments:brother living with chronic leukemia Status:Active Father Comments:cad s/p cabg mi age 59- Status:Active First Degree Relatives Comments:BLoo disorder, Skin CA, Anxiety, Heart/lung dx, HBP Status:Active Maternal Grandfather Comments: age 89- old ag e Status:Active Maternal Grandmother Comments: age 76- old ag e Status:Active Mother Comments: age 98 old age and dementia Status:Active Paternal Grandfather Comments: 96 Status:Active Paternal Grandmother Comments: 71- heart sandy ck Status:Active Unknown Family Member Name Dates Details Brother 1 Comments:brother living with chronic leukemia Status:Active Father Comments:cad s/p cabg mi age 59- Status:Active First Degree Relatives Comments:BLoo disorder, Skin [place], Anxiety, Heart/lung dx, HBP Status:Active Maternal Grandfather Comments: age 89- old ag e Status:Active Maternal Grandmother Comments: age 76- old ag e Status:Active Mother Comments: age 98 old age and dementia Status:Active Paternal Grandfather Comments: 96 Status:Active Paternal Grandmother Comments: 71- heart sandy ck Status:Active Unknown Family Member Name Dates Details Brother 1 Comments:brother living with chronic leukemia Status:Active Father Comments:cad s/p cabg mi age 59- Status:Active First Degree Relatives Comments:BLoo disorder, Skin [place], Anxiety, Heart/lung dx, HBP Status:Active Maternal Grandfather Comments: age 89- old ag e Status:Active Maternal Grandmother Comments: age 76- old ag e Status:Active Mother Comments: age 98 old age and dementia Status:Active Paternal Grandfather Comments: 96 Status:Active Paternal Grandmother Comments: 71- heart sandy ck Status:Active Unknown Family Member Name Dates Details Brother 1 Comments:brother living with chronic leukemia Status:Active Father Comments:cad s/p cabg mi age 59- Status:Active First Degree Relatives Comments:BLoo disorder, Skin [place], Anxiety, Heart/lung dx, HBP Status:Active Maternal Grandfather Comments: age 89- old ag e Status:Active Maternal Grandmother Comments: age 76- old ag e Status:Active Mother Comments: age 98 old age and dementia Status:Active Paternal Grandfather Comments: 96 Status:Active Paternal Grandmother Comments: 71- heart sandy ck Status:Active Unknown Family Member Name Dates Details Brother 1 Comments:brother living with chronic leukemia Status:Active Father Comments:cad s/p cabg mi age 59- Status:Active First Degree Relatives Comments:BLoo disorder, Skin [place], Anxiety, Heart/lung dx, HBP Status:Active Maternal Grandfather Comments: age 89- old ag e Status:Active Maternal Grandmother Comments: age 76- old ag e Status:Active Mother Comments: age 98 old age and dementia Status:Active Paternal Grandfather Comments: 96 Status:Active Paternal Grandmother Comments: 71- heart sandy ck Status:Active Unknown Family Member Name Dates Details Brother 1 Comments:brother living with chronic leukemia Status:Active Father Comments:cad s/p cabg mi age 59- Status:Active First Degree Relatives Comments:BLoo disorder, Skin [place], Anxiety, Heart/lung dx, HBP Status:Active Maternal Grandfather Comments: age 89- old ag e Status:Active Maternal Grandmother Comments: age 76- old ag e Status:Active Mother Comments: age 98 old age and dementia Status:Active Paternal Grandfather Comments: 96 Status:Active Paternal Grandmother Comments: 71- heart sandy ck Status:Active Unknown Family Member Name Dates Details Brother 1 Comments:brother living with chronic leukemia Status:Active Father Comments:cad s/p cabg mi age 59- Status:Active First Degree Relatives Comments:BLoo disorder, Skin [place], Anxiety, Heart/lung dx, HBP Status:Active Maternal Grandfather Comments: age 89- old ag e Status:Active Maternal Grandmother Comments: age 76- old ag e Status:Active Mother Comments: age 98 old age and dementia Status:Active Paternal Grandfather Comments: 96 Status:Active Paternal Grandmother Comments: 71- heart sandy ck Status:Active Instructions Name Dates Details Abnormal glucose tolerance t est : How to access health information online Indication:Abnormal glucose tolerance test Abnormal glucose tolerance t est : How to access health information online - Detail Indication:Abnormal glucose tolerance test Abnormal glucose tolerance t est : Patient Instructions Indication:Abnormal glucose tolerance test BMI 32.0-32.9,adult : How to access health information online Indication:BMI 32.0-32.9,adult BMI 32.0-32.9,adult : How to access health information online - Detail Indication:BMI 32.0-32.9,adult BMI 32.0-32.9,adult : Patien t Instructions Indication:BMI 32.0-32.9,adult [facility] : How to acce ss health information online Indication[facility] : How to acce ss health information online - Detail Indication:[facility] : Patient Ins tructions Indication:[facility] Anxiety : How to access heal th information online Indication:Anxiety Anxiety : How to access heal th information online - Detail Indication:Anxiety Anxiety : Patient Instructio ns Indication:Anxiety Name Dates Details Abnormal glucose tolerance t est : How to access health information online Indication:Abnormal glucose tolerance test Abnormal glucose tolerance t est : How to access health information online - Detail Indication:Abnormal glucose tolerance test Abnormal glucose tolerance t est : Patient Instructions Indication:Abnormal glucose tolerance test BMI 32.0-32.9,adult : How to access health information online Indication:BMI 32.0-32.9,adult BMI 32.0-32.9,adult : How to access health information online - Detail Indication:BMI 32.0-32.9,adult BMI 32.0-32.9,adult : Patien t Instructions Indication:BMI 32.0-32.9,adult [facility] : How to acce ss health information online Indication[facility] : How to acce ss health information online - Detail Indication:[facility] : Patient Ins tructions Indication:[facility] Anxiety : How to access heal th information online Indication:Anxiety Anxiety : How to access heal th information online - Detail Indication:Anxiety Anxiety : Patient Instructio ns Indication:Anxiety Name Dates Details How to access health informa tion online Indication:Abnormal glucose tolerance test Start:18-Aug-2018 Instruction Type:Patient Education How to access health informa tion online - Detail Indication:Abnormal glucose tolerance test Start:18-Aug-2018 Instruction Type:Patient Education Patient Instructions Indication:Abnormal glucose tolerance test Start:18-Aug-2018 Instruction Type:Provider Instructions for Treatment How to access health informa tion online Indication:Abnormal glucose tolerance test Start:21-Jan-2018 Instruction Type:Patient Education How to access health informa tion online - Detail Indication:Abnormal glucose tolerance test Start:21-Jan-2018 Instruction Type:Patient Education Patient Instructions Indication:Abnormal glucose tolerance test Start:21-Jan-2018 Instruction Type:Provider Instructions for Treatment How to access health informa tion online Indication:BMI 32.0-32.9,adult Start:07-Jan-2018 Instruction Type:Patient Education How to access health informa tion online - Detail Indication:BMI 32.0-32.9,adult Start:07-Jan-2018 Instruction Type:Patient Education Patient Instructions Indication:BMI 32.0-32.9,adult Start:07-Jan-2018 Instruction Type:Provider Instructions for Treatment How to access health informa tion online Indication:[facility] Start:17-Sep-2017 Instruction Type:Patient Education How to access health informa tion online - Detail Indication:[facility] Start:17-Sep-2017 Instruction Type:Patient Education Patient Instructions Indication:[facility] Start:17-Sep-2017 Instruction Type:Provider Instructions for Treatment How to access health informa tion online Indication:BMI 32.0-32.9,adult Start:27-Aug-2017 Instruction Type:Patient Education How to access health informa tion online - Detail Indication:BMI 32.0-32.9,adult Start:27-Aug-2017 Instruction Type:Patient Education Patient Instructions Indication:BMI 32.0-32.9,adult Start:27-Aug-2017 Instruction Type:Provider Instructions for Treatment How to access health informa tion online Indication:Anxiety Start:21-Mar-2017 Instruction Type:Patient Education How to access health informa tion online - Detail Indication:Anxiety Start:21-Mar-2017 Instruction Type:Patient Education Patient Instructions Indication:Anxiety Start:21-Mar-2017 Instruction Type:Provider Instructions for Treatment Name Dates Details How to access health informa tion online Indication:Abnormal glucose tolerance test Start:18-Aug-2018 Instruction Type:Patient Education How to access health informa tion online - Detail Indication:Abnormal glucose tolerance test Start:18-Aug-2018 Instruction Type:Patient Education Patient Instructions Indication:Abnormal glucose tolerance test Start:18-Aug-2018 Instruction Type:Provider Instructions for Treatment How to access health informa tion online Indication:Abnormal glucose tolerance test Start:21-Jan-2018 Instruction Type:Patient Education How to access health informa tion online - Detail Indication:Abnormal glucose tolerance test Start:21-Jan-2018 Instruction Type:Patient Education Patient Instructions Indication:Abnormal glucose tolerance test Start:21-Jan-2018 Instruction Type:Provider Instructions for Treatment How to access health informa tion online Indication:BMI 32.0-32.9,adult Start:07-Jan-2018 Instruction Type:Patient Education How to access health informa tion online - Detail Indication:BMI 32.0-32.9,adult Start:07-Jan-2018 Instruction Type:Patient Education Patient Instructions Indication:BMI 32.0-32.9,adult Start:07-Jan-2018 Instruction Type:Provider Instructions for Treatment How to access health informa tion online Indication:[facility] Start:17-Sep-2017 Instruction Type:Patient Education How to access health informa tion online - Detail Indication:[facility] Start:17-Sep-2017 Instruction Type:Patient Education Patient Instructions Indication:[facility] Start:17-Sep-2017 Instruction Type:Provider Instructions for Treatment How to access health informa tion online Indication:BMI 32.0-32.9,adult Start:27-Aug-2017 Instruction Type:Patient Education How to access health informa tion online - Detail Indication:BMI 32.0-32.9,adult Start:27-Aug-2017 Instruction Type:Patient Education Patient Instructions Indication:BMI 32.0-32.9,adult Start:27-Aug-2017 Instruction Type:Provider Instructions for Treatment How to access health informa tion online Indication:Anxiety Start:21-Mar-2017 Instruction Type:Patient Education How to access health informa tion online - Detail Indication:Anxiety Start:21-Mar-2017 Instruction Type:Patient Education Patient Instructions Indication:Anxiety Start:21-Mar-2017 Instruction Type:Provider Instructions for Treatment Name Dates Details How to access health informa tion online Indication:BMI 29.0-29.9,adult Start:20-Oct-2018 Instruction Type:Patient Education How to access health informa tion online - Detail Indication:BMI 29.0-29.9,adult Start:20-Oct-2018 Instruction Type:Patient Education Patient Instructions Indication:BMI 29.0-29.9,adult Start:20-Oct-2018 Instruction Type:Provider Instructions for Treatment How to access health informa tion online Indication:Abnormal glucose tolerance test Start:18-Aug-2018 Instruction Type:Patient Education How to access health informa tion online - Detail Indication:Abnormal glucose tolerance test Start:18-Aug-2018 Instruction Type:Patient Education Patient Instructions Indication:Abnormal glucose tolerance test Start:18-Aug-2018 Instruction Type:Provider Instructions for Treatment How to access health informa tion online Indication:Abnormal glucose tolerance test Start:21-Jan-2018 Instruction Type:Patient Education How to access health informa tion online - Detail Indication:Abnormal glucose tolerance test Start:21-Jan-2018 Instruction Type:Patient Education Patient Instructions Indication:Abnormal glucose tolerance test Start:21-Jan-2018 Instruction Type:Provider Instructions for Treatment How to access health informa tion online Indication:BMI 32.0-32.9,adult Start:07-Jan-2018 Instruction Type:Patient Education How to access health informa tion online - Detail Indication:BMI 32.0-32.9,adult Start:07-Jan-2018 Instruction Type:Patient Education Patient Instructions Indication:BMI 32.0-32.9,adult Start:07-Jan-2018 Instruction Type:Provider Instructions for Treatment How to access health informa tion online Indication:[facility] Start:17-Sep-2017 Instruction Type:Patient Education How to access health informa tion online - Detail Indication:[facility] Start:17-Sep-2017 Instruction Type:Patient Education Patient Instructions Indication:[facility] Start:17-Sep-2017 Instruction Type:Provider Instructions for Treatment How to access health informa tion online Indication:BMI 32.0-32.9,adult Start:27-Aug-2017 Instruction Type:Patient Education How to access health informa tion online - Detail Indication:BMI 32.0-32.9,adult Start:27-Aug-2017 Instruction Type:Patient Education Patient Instructions Indication:BMI 32.0-32.9,adult Start:27-Aug-2017 Instruction Type:Provider Instructions for Treatment How to access health informa tion online Indication:Anxiety Start:21-Mar-2017 Instruction Type:Patient Education How to access health informa tion online - Detail Indication:Anxiety Start:21-Mar-2017 Instruction Type:Patient Education Patient Instructions Indication:Anxiety Start:21-Mar-2017 Instruction Type:Provider Instructions for Treatment Name Dates Details How to access health informa tion online Indication:BMI 29.0-29.9,adult Start:20-Oct-2018 Instruction Type:Patient Education How to access health informa tion online - Detail Indication:BMI 29.0-29.9,adult Start:20-Oct-2018 Instruction Type:Patient Education Patient Instructions Indication:BMI 29.0-29.9,adult Start:20-Oct-2018 Instruction Type:Provider Instructions for Treatment How to access health informa tion online Indication:Abnormal glucose tolerance test Start:18-Aug-2018 Instruction Type:Patient Education How to access health informa tion online - Detail Indication:Abnormal glucose tolerance test Start:18-Aug-2018 Instruction Type:Patient Education Patient Instructions Indication:Abnormal glucose tolerance test Start:18-Aug-2018 Instruction Type:Provider Instructions for Treatment How to access health informa tion online Indication:Abnormal glucose tolerance test Start:21-Jan-2018 Instruction Type:Patient Education How to access health informa tion online - Detail Indication:Abnormal glucose tolerance test Start:21-Jan-2018 Instruction Type:Patient Education Patient Instructions Indication:Abnormal glucose tolerance test Start:21-Jan-2018 Instruction Type:Provider Instructions for Treatment How to access health informa tion online Indication:BMI 32.0-32.9,adult Start:07-Jan-2018 Instruction Type:Patient Education How to access health informa tion online - Detail Indication:BMI 32.0-32.9,adult Start:07-Jan-2018 Instruction Type:Patient Education Patient Instructions Indication:BMI 32.0-32.9,adult Start:07-Jan-2018 Instruction Type:Provider Instructions for Treatment How to access health informa tion online Indication:[facility] Start:17-Sep-2017 Instruction Type:Patient Education How to access health informa tion online - Detail Indication:[facility] Start:17-Sep-2017 Instruction Type:Patient Education Patient Instructions Indication:[facility] Start:17-Sep-2017 Instruction Type:Provider Instructions for Treatment How to access health informa tion online Indication:BMI 32.0-32.9,adult Start:27-Aug-2017 Instruction Type:Patient Education How to access health informa tion online - Detail Indication:BMI 32.0-32.9,adult Start:27-Aug-2017 Instruction Type:Patient Education Patient Instructions Indication:BMI 32.0-32.9,adult Start:27-Aug-2017 Instruction Type:Provider Instructions for Treatment How to access health informa tion online Indication:Anxiety Start:21-Mar-2017 Instruction Type:Patient Education How to access health informa tion online - Detail Indication:Anxiety Start:21-Mar-2017 Instruction Type:Patient Education Patient Instructions Indication:Anxiety Start:21-Mar-2017 Instruction Type:Provider Instructions for Treatment Name Dates Details How to access health informa tion online Indication:BMI 29.0-29.9,adult Start:20-Oct-2018 Instruction Type:Patient Education How to access health informa tion online - Detail Indication:BMI 29.0-29.9,adult Start:20-Oct-2018 Instruction Type:Patient Education Patient Instructions Indication:BMI 29.0-29.9,adult Start:20-Oct-2018 Instruction Type:Provider Instructions for Treatment How to access health informa tion online Indication:Abnormal glucose tolerance test Start:18-Aug-2018 Instruction Type:Patient Education How to access health informa tion online - Detail Indication:Abnormal glucose tolerance test Start:18-Aug-2018 Instruction Type:Patient Education Patient Instructions Indication:Abnormal glucose tolerance test Start:18-Aug-2018 Instruction Type:Provider Instructions for Treatment How to access health informa tion online Indication:Abnormal glucose tolerance test Start:21-Jan-2018 Instruction Type:Patient Education How to access health informa tion online - Detail Indication:Abnormal glucose tolerance test Start:21-Jan-2018 Instruction Type:Patient Education Patient Instructions Indication:Abnormal glucose tolerance test Start:21-Jan-2018 Instruction Type:Provider Instructions for Treatment How to access health informa tion online Indication:BMI 32.0-32.9,adult Start:07-Jan-2018 Instruction Type:Patient Education How to access health informa tion online - Detail Indication:BMI 32.0-32.9,adult Start:07-Jan-2018 Instruction Type:Patient Education Patient Instructions Indication:BMI 32.0-32.9,adult Start:07-Jan-2018 Instruction Type:Provider Instructions for Treatment How to access health informa tion online Indication:[facility] Start:17-Sep-2017 Instruction Type:Patient Education How to access health informa tion online - Detail Indication:[facility] Start:17-Sep-2017 Instruction Type:Patient Education Patient Instructions Indication:[facility] Start:17-Sep-2017 Instruction Type:Provider Instructions for Treatment How to access health informa tion online Indication:BMI 32.0-32.9,adult Start:27-Aug-2017 Instruction Type:Patient Education How to access health informa tion online - Detail Indication:BMI 32.0-32.9,adult Start:27-Aug-2017 Instruction Type:Patient Education Patient Instructions Indication:BMI 32.0-32.9,adult Start:27-Aug-2017 Instruction Type:Provider Instructions for Treatment How to access health informa tion online Indication:Anxiety Start:21-Mar-2017 Instruction Type:Patient Education How to access health informa tion online - Detail Indication:Anxiety Start:21-Mar-2017 Instruction Type:Patient Education Patient Instructions Indication:Anxiety Start:21-Mar-2017 Instruction Type:Provider Instructions for Treatment Name Dates Details How to access health informa tion online Indication:Non-smoker Start:22-Jan-2019 Instruction Type:Patient Education How to access health informa tion online - Detail Indication:Non-smoker Start:22-Jan-2019 Instruction Type:Patient Education Patient Instructions Indication:Non-smoker Start:22-Jan-2019 Instruction Type:Provider Instructions for Treatment How to access health informa tion online Indication:BMI 29.0-29.9,adult Start:20-Oct-2018 Instruction Type:Patient Education How to access health informa tion online - Detail Indication:BMI 29.0-29.9,adult Start:20-Oct-2018 Instruction Type:Patient Education Patient Instructions Indication:BMI 29.0-29.9,adult Start:20-Oct-2018 Instruction Type:Provider Instructions for Treatment How to access health informa tion online Indication:Abnormal glucose tolerance test Start:18-Aug-2018 Instruction Type:Patient Education How to access health informa tion online - Detail Indication:Abnormal glucose tolerance test Start:18-Aug-2018 Instruction Type:Patient Education Patient Instructions Indication:Abnormal glucose tolerance test Start:18-Aug-2018 Instruction Type:Provider Instructions for Treatment How to access health informa tion online Indication:Abnormal glucose tolerance test Start:21-Jan-2018 Instruction Type:Patient Education How to access health informa tion online - Detail Indication:Abnormal glucose tolerance test Start:21-Jan-2018 Instruction Type:Patient Education Patient Instructions Indication:Abnormal glucose tolerance test Start:21-Jan-2018 Instruction Type:Provider Instructions for Treatment How to access health informa tion online Indication:BMI 32.0-32.9,adult Start:07-Jan-2018 Instruction Type:Patient Education How to access health informa tion online - Detail Indication:BMI 32.0-32.9,adult Start:07-Jan-2018 Instruction Type:Patient Education Patient Instructions Indication:BMI 32.0-32.9,adult Start:07-Jan-2018 Instruction Type:Provider Instructions for Treatment How to access health informa tion online Indication:[facility] Start:17-Sep-2017 Instruction Type:Patient Education How to access health informa tion online - Detail Indication:[facility] Start:17-Sep-2017 Instruction Type:Patient Education Patient Instructions Indication:[facility] Start:17-Sep-2017 Instruction Type:Provider Instructions for Treatment How to access health informa tion online Indication:BMI 32.0-32.9,adult Start:27-Aug-2017 Instruction Type:Patient Education How to access health informa tion online - Detail Indication:BMI 32.0-32.9,adult Start:27-Aug-2017 Instruction Type:Patient Education Patient Instructions Indication:BMI 32.0-32.9,adult Start:27-Aug-2017 Instruction Type:Provider Instructions for Treatment How to access health informa tion online Indication:Anxiety Start:21-Mar-2017 Instruction Type:Patient Education How to access health informa tion online - Detail Indication:Anxiety Start:21-Mar-2017 Instruction Type:Patient Education Patient Instructions Indication:Anxiety Start:21-Mar-2017 Instruction Type:Provider Instructions for Treatment Name Dates Details How to access health informa tion online Indication:Non-smoker Start:22-Jan-2019 Instruction Type:Patient Education How to access health informa tion online - Detail Indication:Non-smoker Start:22-Jan-2019 Instruction Type:Patient Education Patient Instructions Indication:Non-smoker Start:22-Jan-2019 Instruction Type:Provider Instructions for Treatment How to access health informa tion online Indication:BMI 29.0-29.9,adult Start:20-Oct-2018 Instruction Type:Patient Education How to access health informa tion online - Detail Indication:BMI 29.0-29.9,adult Start:20-Oct-2018 Instruction Type:Patient Education Patient Instructions Indication:BMI 29.0-29.9,adult Start:20-Oct-2018 Instruction Type:Provider Instructions for Treatment How to access health informa tion online Indication:Abnormal glucose tolerance test Start:18-Aug-2018 Instruction Type:Patient Education How to access health informa tion online - Detail Indication:Abnormal glucose tolerance test Start:18-Aug-2018 Instruction Type:Patient Education Patient Instructions Indication:Abnormal glucose tolerance test Start:18-Aug-2018 Instruction Type:Provider Instructions for Treatment How to access health informa tion online Indication:Abnormal glucose tolerance test Start:21-Jan-2018 Instruction Type:Patient Education How to access health informa tion online - Detail Indication:Abnormal glucose tolerance test Start:21-Jan-2018 Instruction Type:Patient Education Patient Instructions Indication:Abnormal glucose tolerance test Start:21-Jan-2018 Instruction Type:Provider Instructions for Treatment How to access health informa tion online Indication:BMI 32.0-32.9,adult Start:07-Jan-2018 Instruction Type:Patient Education How to access health informa tion online - Detail Indication:BMI 32.0-32.9,adult Start:07-Jan-2018 Instruction Type:Patient Education Patient Instructions Indication:BMI 32.0-32.9,adult Start:07-Jan-2018 Instruction Type:Provider Instructions for Treatment How to access health informa tion online Indication:[facility] Start:17-Sep-2017 Instruction Type:Patient Education How to access health informa tion online - Detail Indication:[facility] Start:17-Sep-2017 Instruction Type:Patient Education Patient Instructions Indication:[facility] Start:17-Sep-2017 Instruction Type:Provider Instructions for Treatment How to access health informa tion online Indication:BMI 32.0-32.9,adult Start:27-Aug-2017 Instruction Type:Patient Education How to access health informa tion online - Detail Indication:BMI 32.0-32.9,adult Start:27-Aug-2017 Instruction Type:Patient Education Patient Instructions Indication:BMI 32.0-32.9,adult Start:27-Aug-2017 Instruction Type:Provider Instructions for Treatment How to access health informa tion online Indication:Anxiety Start:21-Mar-2017 Instruction Type:Patient Education How to access health informa tion online - Detail Indication:Anxiety Start:21-Mar-2017 Instruction Type:Patient Education Patient Instructions Indication:Anxiety Start:21-Mar-2017 Instruction Type:Provider Instructions for Treatment Name Dates Details How to access health informa tion online Indication:Non-smoker Start:22-Jan-2019 Instruction Type:Patient Education How to access health informa tion online - Detail Indication:Non-smoker Start:22-Jan-2019 Instruction Type:Patient Education Patient Instructions Indication:Non-smoker Start:22-Jan-2019 Instruction Type:Provider Instructions for Treatment How to access health informa tion online Indication:BMI 29.0-29.9,adult Start:20-Oct-2018 Instruction Type:Patient Education How to access health informa tion online - Detail Indication:BMI 29.0-29.9,adult Start:20-Oct-2018 Instruction Type:Patient Education Patient Instructions Indication:BMI 29.0-29.9,adult Start:20-Oct-2018 Instruction Type:Provider Instructions for Treatment How to access health informa tion online Indication:Abnormal glucose tolerance test Start:18-Aug-2018 Instruction Type:Patient Education How to access health informa tion online - Detail Indication:Abnormal glucose tolerance test Start:18-Aug-2018 Instruction Type:Patient Education Patient Instructions Indication:Abnormal glucose tolerance test Start:18-Aug-2018 Instruction Type:Provider Instructions for Treatment How to access health informa tion online Indication:Abnormal glucose tolerance test Start:21-Jan-2018 Instruction Type:Patient Education How to access health informa tion online - Detail Indication:Abnormal glucose tolerance test Start:21-Jan-2018 Instruction Type:Patient Education Patient Instructions Indication:Abnormal glucose tolerance test Start:21-Jan-2018 Instruction Type:Provider Instructions for Treatment How to access health informa tion online Indication:BMI 32.0-32.9,adult Start:07-Jan-2018 Instruction Type:Patient Education How to access health informa tion online - Detail Indication:BMI 32.0-32.9,adult Start:07-Jan-2018 Instruction Type:Patient Education Patient Instructions Indication:BMI 32.0-32.9,adult Start:07-Jan-2018 Instruction Type:Provider Instructions for Treatment How to access health informa tion online Indication:[facility] Start:17-Sep-2017 Instruction Type:Patient Education How to access health informa tion online - Detail Indication:[facility] Start:17-Sep-2017 Instruction Type:Patient Education Patient Instructions Indication:[facility] Start:17-Sep-2017 Instruction Type:Provider Instructions for Treatment How to access health informa tion online Indication:BMI 32.0-32.9,adult Start:27-Aug-2017 Instruction Type:Patient Education How to access health informa tion online - Detail Indication:BMI 32.0-32.9,adult Start:27-Aug-2017 Instruction Type:Patient Education Patient Instructions Indication:BMI 32.0-32.9,adult Start:27-Aug-2017 Instruction Type:Provider Instructions for Treatment How to access health informa tion online Indication:Anxiety Start:21-Mar-2017 Instruction Type:Patient Education How to access health informa tion online - Detail Indication:Anxiety Start:21-Mar-2017 Instruction Type:Patient Education Patient Instructions Indication:Anxiety Start:21-Mar-2017 Instruction Type:Provider Instructions for Treatment Name Dates Details How to access health informa tion online Indication:Non-smoker Start:22-Jan-2019 Instruction Type:Patient Education How to access health informa tion online - Detail Indication:Non-smoker Start:22-Jan-2019 Instruction Type:Patient Education Patient Instructions Indication:Non-smoker Start:22-Jan-2019 Instruction Type:Provider Instructions for Treatment How to access health informa tion online Indication:BMI 29.0-29.9,adult Start:20-Oct-2018 Instruction Type:Patient Education How to access health informa tion online - Detail Indication:BMI 29.0-29.9,adult Start:20-Oct-2018 Instruction Type:Patient Education Patient Instructions Indication:BMI 29.0-29.9,adult Start:20-Oct-2018 Instruction Type:Provider Instructions for Treatment How to access health informa tion online Indication:Abnormal glucose tolerance test Start:18-Aug-2018 Instruction Type:Patient Education How to access health informa tion online - Detail Indication:Abnormal glucose tolerance test Start:18-Aug-2018 Instruction Type:Patient Education Patient Instructions Indication:Abnormal glucose tolerance test Start:18-Aug-2018 Instruction Type:Provider Instructions for Treatment How to access health informa tion online Indication:Abnormal glucose tolerance test Start:21-Jan-2018 Instruction Type:Patient Education How to access health informa tion online - Detail Indication:Abnormal glucose tolerance test Start:21-Jan-2018 Instruction Type:Patient Education Patient Instructions Indication:Abnormal glucose tolerance test Start:21-Jan-2018 Instruction Type:Provider Instructions for Treatment How to access health informa tion online Indication:BMI 32.0-32.9,adult Start:07-Jan-2018 Instruction Type:Patient Education How to access health informa tion online - Detail Indication:BMI 32.0-32.9,adult Start:07-Jan-2018 Instruction Type:Patient Education Patient Instructions Indication:BMI 32.0-32.9,adult Start:07-Jan-2018 Instruction Type:Provider Instructions for Treatment How to access health informa tion online Indication:[facility] Start:17-Sep-2017 Instruction Type:Patient Education How to access health informa tion online - Detail Indication:[facility] Start:17-Sep-2017 Instruction Type:Patient Education Patient Instructions Indication:[facility] Start:17-Sep-2017 Instruction Type:Provider Instructions for Treatment How to access health informa tion online Indication:BMI 32.0-32.9,adult Start:27-Aug-2017 Instruction Type:Patient Education How to access health informa tion online - Detail Indication:BMI 32.0-32.9,adult Start:27-Aug-2017 Instruction Type:Patient Education Patient Instructions Indication:BMI 32.0-32.9,adult Start:27-Aug-2017 Instruction Type:Provider Instructions for Treatment How to access health informa tion online Indication:Anxiety Start:21-Mar-2017 Instruction Type:Patient Education How to access health informa tion online - Detail Indication:Anxiety Start:21-Mar-2017 Instruction Type:Patient Education Patient Instructions Indication:Anxiety Start:21-Mar-2017 Instruction Type:Provider Instructions for Treatment Name Dates Details How to access health informa tion online Indication:Non-smoker Start:22-Jan-2019 Instruction Type:Patient Education How to access health informa tion online - Detail Indication:Non-smoker Start:22-Jan-2019 Instruction Type:Patient Education Patient Instructions Indication:Non-smoker Start:22-Jan-2019 Instruction Type:Provider Instructions for Treatment How to access health informa tion online Indication:BMI 29.0-29.9,adult Start:20-Oct-2018 Instruction Type:Patient Education How to access health informa tion online - Detail Indication:BMI 29.0-29.9,adult Start:20-Oct-2018 Instruction Type:Patient Education Patient Instructions Indication:BMI 29.0-29.9,adult Start:20-Oct-2018 Instruction Type:Provider Instructions for Treatment How to access health informa tion online Indication:Abnormal glucose tolerance test Start:18-Aug-2018 Instruction Type:Patient Education How to access health informa tion online - Detail Indication:Abnormal glucose tolerance test Start:18-Aug-2018 Instruction Type:Patient Education Patient Instructions Indication:Abnormal glucose tolerance test Start:18-Aug-2018 Instruction Type:Provider Instructions for Treatment How to access health informa tion online Indication:Abnormal glucose tolerance test Start:21-Jan-2018 Instruction Type:Patient Education How to access health informa tion online - Detail Indication:Abnormal glucose tolerance test Start:21-Jan-2018 Instruction Type:Patient Education Patient Instructions Indication:Abnormal glucose tolerance test Start:21-Jan-2018 Instruction Type:Provider Instructions for Treatment How to access health informa tion online Indication:BMI 32.0-32.9,adult Start:07-Jan-2018 Instruction Type:Patient Education How to access health informa tion online - Detail Indication:BMI 32.0-32.9,adult Start:07-Jan-2018 Instruction Type:Patient Education Patient Instructions Indication:BMI 32.0-32.9,adult Start:07-Jan-2018 Instruction Type:Provider Instructions for Treatment How to access health informa tion online Indication:[facility] Start:17-Sep-2017 Instruction Type:Patient Education How to access health informa tion online - Detail Indication:[facility] Start:17-Sep-2017 Instruction Type:Patient Education Patient Instructions Indication:[facility] Start:17-Sep-2017 Instruction Type:Provider Instructions for Treatment How to access health informa tion online Indication:BMI 32.0-32.9,adult Start:27-Aug-2017 Instruction Type:Patient Education How to access health informa tion online - Detail Indication:BMI 32.0-32.9,adult Start:27-Aug-2017 Instruction Type:Patient Education Patient Instructions Indication:BMI 32.0-32.9,adult Start:27-Aug-2017 Instruction Type:Provider Instructions for Treatment How to access health informa tion online Indication:Anxiety Start:21-Mar-2017 Instruction Type:Patient Education How to access health informa tion online - Detail Indication:Anxiety Start:21-Mar-2017 Instruction Type:Patient Education Patient Instructions Indication:Anxiety Start:21-Mar-2017 Instruction Type:Provider Instructions for Treatment Name Dates Details How to access health informa tion online Indication:[facility] Start:10-Jan-2020 Instruction Type:Patient Education How to access health informa tion online - Detail Indication:[facility] Start:10-Jan-2020 Instruction Type:Patient Education Patient Instructions Indication:[facility] Start:10-Jan-2020 Instruction Type:Provider Instructions for Treatment How to access health informa tion online Indication:Non-smoker Start:22-Jan-2019 Instruction Type:Patient Education How to access health informa tion online - Detail Indication:Non-smoker Start:22-Jan-2019 Instruction Type:Patient Education Patient Instructions Indication:Non-smoker Start:22-Jan-2019 Instruction Type:Provider Instructions for Treatment How to access health informa tion online Indication:BMI 29.0-29.9,adult Start:20-Oct-2018 Instruction Type:Patient Education How to access health informa tion online - Detail Indication:BMI 29.0-29.9,adult Start:20-Oct-2018 Instruction Type:Patient Education Patient Instructions Indication:BMI 29.0-29.9,adult Start:20-Oct-2018 Instruction Type:Provider Instructions for Treatment How to access health informa tion online Indication:Abnormal glucose tolerance test Start:18-Aug-2018 Instruction Type:Patient Education How to access health informa tion online - Detail Indication:Abnormal glucose tolerance test Start:18-Aug-2018 Instruction Type:Patient Education Patient Instructions Indication:Abnormal glucose tolerance test Start:18-Aug-2018 Instruction Type:Provider Instructions for Treatment How to access health informa tion online Indication:Abnormal glucose tolerance test Start:21-Jan-2018 Instruction Type:Patient Education How to access health informa tion online - Detail Indication:Abnormal glucose tolerance test Start:21-Jan-2018 Instruction Type:Patient Education Patient Instructions Indication:Abnormal glucose tolerance test Start:21-Jan-2018 Instruction Type:Provider Instructions for Treatment How to access health informa tion online Indication:BMI 32.0-32.9,adult Start:07-Jan-2018 Instruction Type:Patient Education How to access health informa tion online - Detail Indication:BMI 32.0-32.9,adult Start:07-Jan-2018 Instruction Type:Patient Education Patient Instructions Indication:BMI 32.0-32.9,adult Start:07-Jan-2018 Instruction Type:Provider Instructions for Treatment How to access health informa tion online Indication:[facility] Start:17-Sep-2017 Instruction Type:Patient Education How to access health informa tion online - Detail Indication:[facility] Start:17-Sep-2017 Instruction Type:Patient Education Patient Instructions Indication:[facility] Start:17-Sep-2017 Instruction Type:Provider Instructions for Treatment How to access health informa tion online Indication:BMI 32.0-32.9,adult Start:27-Aug-2017 Instruction Type:Patient Education How to access health informa tion online - Detail Indication:BMI 32.0-32.9,adult Start:27-Aug-2017 Instruction Type:Patient Education Patient Instructions Indication:BMI 32.0-32.9,adult Start:27-Aug-2017 Instruction Type:Provider Instructions for Treatment How to access health informa tion online Indication:Anxiety Start:21-Mar-2017 Instruction Type:Patient Education How to access health informa tion online - Detail Indication:Anxiety Start:21-Mar-2017 Instruction Type:Patient Education Patient Instructions Indication:Anxiety Start:21-Mar-2017 Instruction Type:Provider Instructions for Treatment Name Dates Details How to access health informa tion online Indication:[facility] Start:10-Jan-2020 Instruction Type:Patient Education How to access health informa tion online - Detail Indication:[facility] Start:10-Jan-2020 Instruction Type:Patient Education Patient Instructions Indication:[facility] Start:10-Jan-2020 Instruction Type:Provider Instructions for Treatment How to access health informa tion online Indication:Non-smoker Start:22-Jan-2019 Instruction Type:Patient Education How to access health informa tion online - Detail Indication:Non-smoker Start:22-Jan-2019 Instruction Type:Patient Education Patient Instructions Indication:Non-smoker Start:22-Jan-2019 Instruction Type:Provider Instructions for Treatment How to access health informa tion online Indication:BMI 29.0-29.9,adult Start:20-Oct-2018 Instruction Type:Patient Education How to access health informa tion online - Detail Indication:BMI 29.0-29.9,adult Start:20-Oct-2018 Instruction Type:Patient Education Patient Instructions Indication:BMI 29.0-29.9,adult Start:20-Oct-2018 Instruction Type:Provider Instructions for Treatment How to access health informa tion online Indication:Abnormal glucose tolerance test Start:18-Aug-2018 Instruction Type:Patient Education How to access health informa tion online - Detail Indication:Abnormal glucose tolerance test Start:18-Aug-2018 Instruction Type:Patient Education Patient Instructions Indication:Abnormal glucose tolerance test Start:18-Aug-2018 Instruction Type:Provider Instructions for Treatment How to access health informa tion online Indication:Abnormal glucose tolerance test Start:21-Jan-2018 Instruction Type:Patient Education How to access health informa tion online - Detail Indication:Abnormal glucose tolerance test Start:21-Jan-2018 Instruction Type:Patient Education Patient Instructions Indication:Abnormal glucose tolerance test Start:21-Jan-2018 Instruction Type:Provider Instructions for Treatment How to access health informa tion online Indication:BMI 32.0-32.9,adult Start:07-Jan-2018 Instruction Type:Patient Education How to access health informa tion online - Detail Indication:BMI 32.0-32.9,adult Start:07-Jan-2018 Instruction Type:Patient Education Patient Instructions Indication:BMI 32.0-32.9,adult Start:07-Jan-2018 Instruction Type:Provider Instructions for Treatment How to access health informa tion online Indication:[facility] Start:17-Sep-2017 Instruction Type:Patient Education How to access health informa tion online - Detail Indication:[facility] Start:17-Sep-2017 Instruction Type:Patient Education Patient Instructions Indication:[facility] Start:17-Sep-2017 Instruction Type:Provider Instructions for Treatment How to access health informa tion online Indication:BMI 32.0-32.9,adult Start:27-Aug-2017 Instruction Type:Patient Education How to access health informa tion online - Detail Indication:BMI 32.0-32.9,adult Start:27-Aug-2017 Instruction Type:Patient Education Patient Instructions Indication:BMI 32.0-32.9,adult Start:27-Aug-2017 Instruction Type:Provider Instructions for Treatment How to access health informa tion online Indication:Anxiety Start:21-Mar-2017 Instruction Type:Patient Education How to access health informa tion online - Detail Indication:Anxiety Start:21-Mar-2017 Instruction Type:Patient Education Patient Instructions Indication:Anxiety Start:21-Mar-2017 Instruction Type:Provider Instructions for Treatment Name Dates Details How to access health informa tion online Indication:[facility] Start:10-Jan-2020 Instruction Type:Patient Education How to access health informa tion online - Detail Indication:[facility] Start:10-Jan-2020 Instruction Type:Patient Education Patient Instructions Indication:[facility] Start:10-Jan-2020 Instruction Type:Provider Instructions for Treatment How to access health informa tion online Indication:Non-smoker Start:22-Jan-2019 Instruction Type:Patient Education How to access health informa tion online - Detail Indication:Non-smoker Start:22-Jan-2019 Instruction Type:Patient Education Patient Instructions Indication:Non-smoker Start:22-Jan-2019 Instruction Type:Provider Instructions for Treatment How to access health informa tion online Indication:BMI 29.0-29.9,adult Start:20-Oct-2018 Instruction Type:Patient Education How to access health informa tion online - Detail Indication:BMI 29.0-29.9,adult Start:20-Oct-2018 Instruction Type:Patient Education Patient Instructions Indication:BMI 29.0-29.9,adult Start:20-Oct-2018 Instruction Type:Provider Instructions for Treatment How to access health informa tion online Indication:Abnormal glucose tolerance test Start:18-Aug-2018 Instruction Type:Patient Education How to access health informa tion online - Detail Indication:Abnormal glucose tolerance test Start:18-Aug-2018 Instruction Type:Patient Education Patient Instructions Indication:Abnormal glucose tolerance test Start:18-Aug-2018 Instruction Type:Provider Instructions for Treatment How to access health informa tion online Indication:Abnormal glucose tolerance test Start:21-Jan-2018 Instruction Type:Patient Education How to access health informa tion online - Detail Indication:Abnormal glucose tolerance test Start:21-Jan-2018 Instruction Type:Patient Education Patient Instructions Indication:Abnormal glucose tolerance test Start:21-Jan-2018 Instruction Type:Provider Instructions for Treatment How to access health informa tion online Indication:BMI 32.0-32.9,adult Start:07-Jan-2018 Instruction Type:Patient Education How to access health informa tion online - Detail Indication:BMI 32.0-32.9,adult Start:07-Jan-2018 Instruction Type:Patient Education Patient Instructions Indication:BMI 32.0-32.9,adult Start:07-Jan-2018 Instruction Type:Provider Instructions for Treatment How to access health informa tion online Indication:[facility] Start:17-Sep-2017 Instruction Type:Patient Education How to access health informa tion online - Detail Indication:[facility] Start:17-Sep-2017 Instruction Type:Patient Education Patient Instructions Indication:[facility] Start:17-Sep-2017 Instruction Type:Provider Instructions for Treatment How to access health informa tion online Indication:BMI 32.0-32.9,adult Start:27-Aug-2017 Instruction Type:Patient Education How to access health informa tion online - Detail Indication:BMI 32.0-32.9,adult Start:27-Aug-2017 Instruction Type:Patient Education Patient Instructions Indication:BMI 32.0-32.9,adult Start:27-Aug-2017 Instruction Type:Provider Instructions for Treatment How to access health informa tion online Indication:Anxiety Start:21-Mar-2017 Instruction Type:Patient Education How to access health informa tion online - Detail Indication:Anxiety Start:21-Mar-2017 Instruction Type:Patient Education Patient Instructions Indication:Anxiety Start:21-Mar-2017 Instruction Type:Provider Instructions for Treatment Name Dates Details How to access health informa tion online Indication:[facility] Start:10-Jan-2020 Instruction Type:Patient Education How to access health informa tion online - Detail Indication:[facility] Start:10-Jan-2020 Instruction Type:Patient Education Patient Instructions Indication:[facility] Start:10-Jan-2020 Instruction Type:Provider Instructions for Treatment How to access health informa tion online Indication:Non-smoker Start:22-Jan-2019 Instruction Type:Patient Education How to access health informa tion online - Detail Indication:Non-smoker Start:22-Jan-2019 Instruction Type:Patient Education Patient Instructions Indication:Non-smoker Start:22-Jan-2019 Instruction Type:Provider Instructions for Treatment How to access health informa tion online Indication:BMI 29.0-29.9,adult Start:20-Oct-2018 Instruction Type:Patient Education How to access health informa tion online - Detail Indication:BMI 29.0-29.9,adult Start:20-Oct-2018 Instruction Type:Patient Education Patient Instructions Indication:BMI 29.0-29.9,adult Start:20-Oct-2018 Instruction Type:Provider Instructions for Treatment How to access health informa tion online Indication:Abnormal glucose tolerance test Start:18-Aug-2018 Instruction Type:Patient Education How to access health informa tion online - Detail Indication:Abnormal glucose tolerance test Start:18-Aug-2018 Instruction Type:Patient Education Patient Instructions Indication:Abnormal glucose tolerance test Start:18-Aug-2018 Instruction Type:Provider Instructions for Treatment How to access health informa tion online Indication:Abnormal glucose tolerance test Start:21-Jan-2018 Instruction Type:Patient Education How to access health informa tion online - Detail Indication:Abnormal glucose tolerance test Start:21-Jan-2018 Instruction Type:Patient Education Patient Instructions Indication:Abnormal glucose tolerance test Start:21-Jan-2018 Instruction Type:Provider Instructions for Treatment How to access health informa tion online Indication:BMI 32.0-32.9,adult Start:07-Jan-2018 Instruction Type:Patient Education How to access health informa tion online - Detail Indication:BMI 32.0-32.9,adult Start:07-Jan-2018 Instruction Type:Patient Education Patient Instructions Indication:BMI 32.0-32.9,adult Start:07-Jan-2018 Instruction Type:Provider Instructions for Treatment How to access health informa tion online Indication:[facility] Start:17-Sep-2017 Instruction Type:Patient Education How to access health informa tion online - Detail Indication:[facility] Start:17-Sep-2017 Instruction Type:Patient Education Patient Instructions Indication:[facility] Start:17-Sep-2017 Instruction Type:Provider Instructions for Treatment How to access health informa tion online Indication:BMI 32.0-32.9,adult Start:27-Aug-2017 Instruction Type:Patient Education How to access health informa tion online - Detail Indication:BMI 32.0-32.9,adult Start:27-Aug-2017 Instruction Type:Patient Education Patient Instructions Indication:BMI 32.0-32.9,adult Start:27-Aug-2017 Instruction Type:Provider Instructions for Treatment How to access health informa tion online Indication:Anxiety Start:21-Mar-2017 Instruction Type:Patient Education How to access health informa tion online - Detail Indication:Anxiety Start:21-Mar-2017 Instruction Type:Patient Education Patient Instructions Indication:Anxiety Start:21-Mar-2017 Instruction Type:Provider Instructions for Treatment Name Dates Details How to access health informa tion online Indication:Non-smoker Start:22-Jan-2019 Instruction Type:Patient Education How to access health informa tion online - Detail Indication:Non-smoker Start:22-Jan-2019 Instruction Type:Patient Education Patient Instructions Indication:Non-smoker Start:22-Jan-2019 Instruction Type:Provider Instructions for Treatment How to access health informa tion online Indication:BMI 29.0-29.9,adult Start:20-Oct-2018 Instruction Type:Patient Education How to access health informa tion online - Detail Indication:BMI 29.0-29.9,adult Start:20-Oct-2018 Instruction Type:Patient Education Patient Instructions Indication:BMI 29.0-29.9,adult Start:20-Oct-2018 Instruction Type:Provider Instructions for Treatment How to access health informa tion online Indication:Abnormal glucose tolerance test Start:18-Aug-2018 Instruction Type:Patient Education How to access health informa tion online - Detail Indication:Abnormal glucose tolerance test Start:18-Aug-2018 Instruction Type:Patient Education Patient Instructions Indication:Abnormal glucose tolerance test Start:18-Aug-2018 Instruction Type:Provider Instructions for Treatment How to access health informa tion online Indication:Abnormal glucose tolerance test Start:21-Jan-2018 Instruction Type:Patient Education How to access health informa tion online - Detail Indication:Abnormal glucose tolerance test Start:21-Jan-2018 Instruction Type:Patient Education Patient Instructions Indication:Abnormal glucose tolerance test Start:21-Jan-2018 Instruction Type:Provider Instructions for Treatment How to access health informa tion online Indication:BMI 32.0-32.9,adult Start:07-Jan-2018 Instruction Type:Patient Education How to access health informa tion online - Detail Indication:BMI 32.0-32.9,adult Start:07-Jan-2018 Instruction Type:Patient Education Patient Instructions Indication:BMI 32.0-32.9,adult Start:07-Jan-2018 Instruction Type:Provider Instructions for Treatment How to access health informa tion online Indication:[facility] Start:17-Sep-2017 Instruction Type:Patient Education How to access health informa tion online - Detail Indication:[facility] Start:17-Sep-2017 Instruction Type:Patient Education Patient Instructions Indication:[facility] Start:17-Sep-2017 Instruction Type:Provider Instructions for Treatment How to access health informa tion online Indication:BMI 32.0-32.9,adult Start:27-Aug-2017 Instruction Type:Patient Education How to access health informa tion online - Detail Indication:BMI 32.0-32.9,adult Start:27-Aug-2017 Instruction Type:Patient Education Patient Instructions Indication:BMI 32.0-32.9,adult Start:27-Aug-2017 Instruction Type:Provider Instructions for Treatment How to access health informa tion online Indication:Anxiety Start:21-Mar-2017 Instruction Type:Patient Education How to access health informa tion online - Detail Indication:Anxiety Start:21-Mar-2017 Instruction Type:Patient Education Patient Instructions Indication:Anxiety Start:21-Mar-2017 Instruction Type:Provider Instructions for Treatment Name Dates Details How to access health informa tion online Indication:Non-smoker Start:22-Jan-2019 Instruction Type:Patient Education How to access health informa tion online - Detail Indication:Non-smoker Start:22-Jan-2019 Instruction Type:Patient Education Patient Instructions Indication:Non-smoker Start:22-Jan-2019 Instruction Type:Provider Instructions for Treatment How to access health informa tion online Indication:BMI 29.0-29.9,adult Start:20-Oct-2018 Instruction Type:Patient Education How to access health informa tion online - Detail Indication:BMI 29.0-29.9,adult Start:20-Oct-2018 Instruction Type:Patient Education Patient Instructions Indication:BMI 29.0-29.9,adult Start:20-Oct-2018 Instruction Type:Provider Instructions for Treatment How to access health informa tion online Indication:Abnormal glucose tolerance test Start:18-Aug-2018 Instruction Type:Patient Education How to access health informa tion online - Detail Indication:Abnormal glucose tolerance test Start:18-Aug-2018 Instruction Type:Patient Education Patient Instructions Indication:Abnormal glucose tolerance test Start:18-Aug-2018 Instruction Type:Provider Instructions for Treatment How to access health informa tion online Indication:Abnormal glucose tolerance test Start:21-Jan-2018 Instruction Type:Patient Education How to access health informa tion online - Detail Indication:Abnormal glucose tolerance test Start:21-Jan-2018 Instruction Type:Patient Education Patient Instructions Indication:Abnormal glucose tolerance test Start:21-Jan-2018 Instruction Type:Provider Instructions for Treatment How to access health informa tion online Indication:BMI 32.0-32.9,adult Start:07-Jan-2018 Instruction Type:Patient Education How to access health informa tion online - Detail Indication:BMI 32.0-32.9,adult Start:07-Jan-2018 Instruction Type:Patient Education Patient Instructions Indication:BMI 32.0-32.9,adult Start:07-Jan-2018 Instruction Type:Provider Instructions for Treatment How to access health informa tion online Indication:[facility] Start:17-Sep-2017 Instruction Type:Patient Education How to access health informa tion online - Detail Indication:[facility] Start:17-Sep-2017 Instruction Type:Patient Education Patient Instructions Indication:[facility] Start:17-Sep-2017 Instruction Type:Provider Instructions for Treatment How to access health informa tion online Indication:BMI 32.0-32.9,adult Start:27-Aug-2017 Instruction Type:Patient Education How to access health informa tion online - Detail Indication:BMI 32.0-32.9,adult Start:27-Aug-2017 Instruction Type:Patient Education Patient Instructions Indication:BMI 32.0-32.9,adult Start:27-Aug-2017 Instruction Type:Provider Instructions for Treatment How to access health informa tion online Indication:Anxiety Start:21-Mar-2017 Instruction Type:Patient Education How to access health informa tion online - Detail Indication:Anxiety Start:21-Mar-2017 Instruction Type:Patient Education Patient Instructions Indication:Anxiety Start:21-Mar-2017 Instruction Type:Provider Instructions for Treatment Name Dates Details How to access health informa tion online Indication:BMI 29.0-29.9,adult Start:20-Oct-2018 Instruction Type:Patient Education How to access health informa tion online - Detail Indication:BMI 29.0-29.9,adult Start:20-Oct-2018 Instruction Type:Patient Education Patient Instructions Indication:BMI 29.0-29.9,adult Start:20-Oct-2018 Instruction Type:Provider Instructions for Treatment How to access health informa tion online Indication:Abnormal glucose tolerance test Start:18-Aug-2018 Instruction Type:Patient Education How to access health informa tion online - Detail Indication:Abnormal glucose tolerance test Start:18-Aug-2018 Instruction Type:Patient Education Patient Instructions Indication:Abnormal glucose tolerance test Start:18-Aug-2018 Instruction Type:Provider Instructions for Treatment How to access health informa tion online Indication:Abnormal glucose tolerance test Start:21-Jan-2018 Instruction Type:Patient Education How to access health informa tion online - Detail Indication:Abnormal glucose tolerance test Start:21-Jan-2018 Instruction Type:Patient Education Patient Instructions Indication:Abnormal glucose tolerance test Start:21-Jan-2018 Instruction Type:Provider Instructions for Treatment How to access health informa tion online Indication:BMI 32.0-32.9,adult Start:07-Jan-2018 Instruction Type:Patient Education How to access health informa tion online - Detail Indication:BMI 32.0-32.9,adult Start:07-Jan-2018 Instruction Type:Patient Education Patient Instructions Indication:BMI 32.0-32.9,adult Start:07-Jan-2018 Instruction Type:Provider Instructions for Treatment How to access health informa tion online Indication:[facility] Start:17-Sep-2017 Instruction Type:Patient Education How to access health informa tion online - Detail Indication:[facility] Start:17-Sep-2017 Instruction Type:Patient Education Patient Instructions Indication:[facility] Start:17-Sep-2017 Instruction Type:Provider Instructions for Treatment How to access health informa tion online Indication:BMI 32.0-32.9,adult Start:27-Aug-2017 Instruction Type:Patient Education How to access health informa tion online - Detail Indication:BMI 32.0-32.9,adult Start:27-Aug-2017 Instruction Type:Patient Education Patient Instructions Indication:BMI 32.0-32.9,adult Start:27-Aug-2017 Instruction Type:Provider Instructions for Treatment How to access health informa tion online Indication:Anxiety Start:21-Mar-2017 Instruction Type:Patient Education How to access health informa tion online - Detail Indication:Anxiety Start:21-Mar-2017 Instruction Type:Patient Education Patient Instructions Indication:Anxiety Start:21-Mar-2017 Instruction Type:Provider Instructions for Treatment Name Dates Details How to access health informa tion online Indication:Abnormal glucose tolerance test Start:18-Aug-2018 Instruction Type:Patient Education How to access health informa tion online - Detail Indication:Abnormal glucose tolerance test Start:18-Aug-2018 Instruction Type:Patient Education Patient Instructions Indication:Abnormal glucose tolerance test Start:18-Aug-2018 Instruction Type:Provider Instructions for Treatment How to access health informa tion online Indication:Abnormal glucose tolerance test Start:21-Jan-2018 Instruction Type:Patient Education How to access health informa tion online - Detail Indication:Abnormal glucose tolerance test Start:21-Jan-2018 Instruction Type:Patient Education Patient Instructions Indication:Abnormal glucose tolerance test Start:21-Jan-2018 Instruction Type:Provider Instructions for Treatment How to access health informa tion online Indication:BMI 32.0-32.9,adult Start:07-Jan-2018 Instruction Type:Patient Education How to access health informa tion online - Detail Indication:BMI 32.0-32.9,adult Start:07-Jan-2018 Instruction Type:Patient Education Patient Instructions Indication:BMI 32.0-32.9,adult Start:07-Jan-2018 Instruction Type:Provider Instructions for Treatment How to access health informa tion online Indication:[facility] Start:17-Sep-2017 Instruction Type:Patient Education How to access health informa tion online - Detail Indication:[facility] Start:17-Sep-2017 Instruction Type:Patient Education Patient Instructions Indication:[facility] Start:17-Sep-2017 Instruction Type:Provider Instructions for Treatment How to access health informa tion online Indication:BMI 32.0-32.9,adult Start:27-Aug-2017 Instruction Type:Patient Education How to access health informa tion online - Detail Indication:BMI 32.0-32.9,adult Start:27-Aug-2017 Instruction Type:Patient Education Patient Instructions Indication:BMI 32.0-32.9,adult Start:27-Aug-2017 Instruction Type:Provider Instructions for Treatment How to access health informa tion online Indication:Anxiety Start:21-Mar-2017 Instruction Type:Patient Education How to access health informa tion online - Detail Indication:Anxiety Start:21-Mar-2017 Instruction Type:Patient Education Patient Instructions Indication:Anxiety Start:21-Mar-2017 Instruction Type:Provider Instructions for Treatment Advance Directives No Advanced Directives Records Found Name Dates Details Living Will - Effective on . Expiration date unspecified. Scanned Document is available upon request. Effective:22-Dec-2017 Name Dates Details Living Will - Effective on . Expiration date unspecified. Scanned Document is available upon request. Effective:22-Dec-2017 Name Dates Details Living Will - Effective on . Expiration date unspecified. Scanned Document is available upon request. Effective:22-Dec-2017 Name Dates Details Living Will - Effective on . Expiration date unspecified. Scanned Document is available upon request. Effective:22-Dec-2017 Name Dates Details Living Will - Effective on . Expiration date unspecified. Scanned Document is available upon request. Effective:22-Dec-2017 Name Dates Details Living Will - Effective on . Expiration date unspecified. Scanned Document is available upon request. Effective:22-Dec-2017 Name Dates Details Living Will - Effective on . Expiration date unspecified. Scanned Document is available upon request. Effective:22-Dec-2017 Name Dates Details Living Will - Effective on . Expiration date unspecified. Scanned Document is available upon request. Effective:22-Dec-2017 Name Dates Details Living Will - Effective on . Expiration date unspecified. Scanned Document is available upon request. Effective:22-Dec-2017 Name Dates Details Living Will - Effective on . Expiration date unspecified. Scanned Document is available upon request. Effective:22-Dec-2017 Name Dates Details Living Will - Effective on . Expiration date unspecified. Scanned Document is available upon request. Effective:22-Dec-2017 Name Dates Details Living Will - Effective on . Expiration date unspecified. Scanned Document is available upon request. Effective:22-Dec-2017 Name Dates Details Living Will - Effective on . Expiration date unspecified. Scanned Document is available upon request. Effective:22-Dec-2017 Name Dates Details Living Will - Effective on . Expiration date unspecified. Scanned Document is available upon request. Effective:22-Dec-2017 Name Dates Details Living Will - Effective on . Expiration date unspecified. Scanned Document is available upon request. Effective:22-Dec-2017 Name Dates Details Living Will - Effective on . Expiration date unspecified. Scanned Document is available upon request. Effective:22-Dec-2017 Name Dates Details Living Will - Effective on . Expiration date unspecified. Scanned Document is available upon request. Effective:22-Dec-2017 Name Dates Details Living Will - Effective on . Expiration date unspecified. Scanned Document is available upon request. Effective:22-Dec-2017 Name Dates Details Living Will - Effective on . Expiration date unspecified. Scanned Document is available upon request. Effective:22-Dec-2017 Name Dates Details Living Will - Effective on . Expiration date unspecified. Scanned Document is available upon request. Effective:22-Dec-2017 Name Dates Details Living Will - Effective on . Expiration date unspecified. Scanned Document is available upon request. Effective:22-Dec-2017 Name Dates Details Living Will - Effective on . Expiration date unspecified. Scanned Document is available upon request. Effective:22-Dec-2017 Name Dates Details Living Will - Effective on . Expiration date unspecified. Scanned Document is available upon request. Effective:22-Dec-2017 Name Dates Details Living Will - Effective on . Expiration date unspecified. Scanned Document is available upon request. Effective:22-Dec-2017 Name Dates Details Living Will - Effective on . Expiration date unspecified. Scanned Document is available upon request. Effective:22-Dec-2017 Name Dates Details Living Will - Effective on . Expiration date unspecified. Scanned Document is available upon request. Effective:22-Dec-2017 Name Dates Details Living Will - Effective on . Expiration date unspecified. Scanned Document is available upon request. Effective:22-Dec-2017 Summary Purpose Chief Complaint POV* A telephone visit (audio only) between the patient (at the originating site) and the provider (at the distant site) was utilized to provide this telehealth service. * Verbal consent was requested and obtained from SUE GASTON on this date, 01/29/2022 09:00 AM , for a telehealth visit. * POV Additional Source Comments Care Team (unrecognized sect ion and content) Care Team Personnel Name: TRINA AGUILA DO Member Role: Primary Care Physician Address: Address: [address] [place] [address] [address] [place] [address]- Care Team Related Persons Name: MEGHA GASTON INFORMATION SOURCE (unrecogn ized section and content) DATE CREATED AUTHOR 11/05/2021 [employer] [facility] ([place]) DATE CREATED AUTHOR AUTHOR'S ORGANIZ ATION 01/30/2022 [employer] DATE CREATED AUTHOR AUTHOR'S ORGANIZ ATION 02/02/2022 [facility] DATE CREATED AUTHOR AUTHOR'S ORGANIZ ATION 08/08/2022 [facility] DATE CREATED AUTHOR AUTHOR'S ORGANIZ ATION 11/01/2022 [facility] DATE CREATED AUTHOR AUTHOR'S ORGANIZ ATION 01/12/2025 [facility] <item> Privacy Markings (unrecogniz ed section and content) Section Author: Hilary Marley PROHIBITION ON REDISCLOSURE OF CONFIDENTIAL INFORMATION This notice accompanies a disclosure of information concerning a client made to you with the consent of such client. FOR RECORDS PERTAINING TO PATIENTS WHO ARE OR HAVE BEEN ENROLLED IN A CHEMICAL DEPENDENCY/SUBSTANCEABUSE PROGRAM, SOME INFORMATION MAY BE OMITTED. This clinical summary was aggregated from multiple sources. Caution should be exercised in using it in the provision of clinical care. This summary normalizes information from multiple sources, and as a consequence, information in this document may materially change the coding, format and clinical context of patient data. In addition, data may be omitted in some cases. CLINICAL DECISIONS SHOULD BE BASED ON THE PRIMARY CLINICAL RECORDS. [employer] provides no warranty or guarantee of the accuracy or completeness of information in this document.
--- NOTE | 2025-01-14 15:30 | BI_ITS ---
EXAM: SCRN MAMM (CAD)W/CHUY BILAT DATE: 01/14/2025 CLINICAL HISTORY: F, Age 74 y/o , BREAST CANCER SCREENING TECHNIQUE: Procedure Code: [id number] Modality: MG Procedure: SCRN MAMM (CAD)W/CHUY BILAT COMPARISON: Prior exam(s) dated 11/18/2023, 10/17/2022 and 12/14/2020. FINDINGS: TISSUE DENSITY: There are scattered areas of fibroglandular density. Bilateral Breast Mammographic Findings: No significant masses, calcifications or other abnormalities are identified. Benign-appearing round microcalcifications are seen in both breasts. BI/SCRN MAMM (CAD)W/CHUY BILAT IMPRESSION: Benign screening mammogram. OVERALL FINAL ASSESSMENT BI-RADS 2: BENIGN RECOMMENDATION: Routine annual follow-up in 1 Year Additional Recommendation none A letter with findings and recommendations will be mailed to the patient. Reading Location: [id number]
--- NOTE | 2025-01-14 16:00 | CT_ITS ---
EXAM: CT Angiography Chest Without and With Intravenous Contrast CLINICAL INDICATION: ENLARGED THORACIC AORTA TECHNIQUE: Axial computed tomographic angiography images of the chest without and with intravenous contrast. This CT exam was performed using one or more of the following dose reduction techniques: automated exposure control, adjustment of the mA and/or kV according to patient size, and/or use of iterative reconstruction technique. MIP reconstructed images were created and reviewed. COMPARISON: No relevant prior studies available. FINDINGS: PULMONARY ARTERIES: Unremarkable. No pulmonary embolism. AORTA: The ascending thoracic aorta is ectatic measuring 4.3 cm in maximum diameter. Scattered calcified atherosclerotic disease of aorta. No thoracic aortic aneurysm. LUNGS AND PLEURAL SPACES: Emphysematous lung changes. 4 mm nodule of the left lung base. Repeat CT in 12 months is recommended. No consolidation. No significant effusion. No pneumothorax. HEART: Unremarkable. No cardiomegaly. No significant pericardial effusion. No evidence of RV dysfunction. BONES/JOINTS: No acute fracture. No dislocation. SOFT TISSUES: Unremarkable. LYMPH NODES: Unremarkable. No enlarged lymph nodes. LIVER: Fatty liver. Hepatic cyst. CT/CTA Chest W/WO Contrast IMPRESSION: 1. The ascending thoracic aorta is ectatic measuring 4.3 cm in maximum diamete r. 2. Emphysematous lung changes. 4 mm nodule of the left lung base. Repeat CT in 12 months is recommended. Reading Location: [id number]
== END | disposition home or self-care (01) ==
LOC: CT 14:49
PROVIDERS: PCP Internal Medicine; Referring Provider Internal Medicine; Visit Provider Internal Medicine
DX: I77.89 Other specified disorders of arteries and arterioles (principal); E04.1 Nontoxic single thyroid nodule; Z12.31 Encounter for screening mammogram for malignant neoplasm of breast
CPT/HCPCS: 71275; 76536; 77063; 77067; Q9967; A4216